=== PATIENT | female | born 1960 | race Caucasian/White ===

== ENCOUNTER 2017-05-27 23:51 | Emergency (ER) | payer SELFPAY ==
[2017-05-27 23:52] VITALS: BP 165/108; PULSE 110; RESP 18; TEMP 36.2; O2SAT 100; BMI 32.9
--- NOTE | 2017-05-28 00:02 | ED.RN ---
NO OLD EKG'S IN MUSE
--- NOTE | 2017-05-28 00:03 | EKG12_ITS ---
Test Reason : PALPITATIONS Blood Pressure : / mmHG Vent. Rate : 098 BPM Atrial Rate : 098 BPM P-R Int : 176 ms QRS Dur : 092 ms QT Int : 368 ms P-R-T Axes : 063 -43 068 degrees QTc Int : 469 ms Normal sinus rhythm Left axis deviation Low voltage QRS (limb leads) Poor R wave progression Abnormal ECG Confirmed by LIAT MICHELLE, JAIDEN ([id number]), editorial specialist BAKARI DICK ([id number] on 05/29/2017 2:21:00 PM Referred By: BB Confirmed By:JAIDEN JOSUE MD
[2017-05-28 00:26] LABS: Absolute Lymphocyte Count 3.03 X10^3/ul (0.83-4.51); Absolute Neutrophil Count 2.2 X10^3/uL (2.0-7.7); Basophil# 0.06 X10^3/uL; Eosinophil# 0.25 X10^3/uL; Eosinophils% 4.2 % (0-5); Hematocrit 43.2 % (37-47); Hemoglobin 14.8 g/dl (12.0-15.0); Lymphocyte # 3.03 X10^3/ul (4.0); Lymphocyte % 51.4 % (19-41); Mean Corp Hgb Conc 34.3 g/gl (32-36); Mean Corpuscular Volume 87.6 fL (81-99); Mean Platelet Vol. 10.4 fl (6.2-12.0); Monocyte# 0.35 X10^3/uL; Monocyte% 5.9 % (0-10); Neutrophil % 37.5 % (47-70); Platelet Count 251 K/mm3 (150-450); RBC Distribution Width CV 13.1 % (11.6-14.6); RBC Distribution Width SD 41.5 fl (35.1-43.9); Red Blood Count 4.93 M/mm3 (4.2-5.4); White Blood Count 5.9 K/mm3 (4.4-11.0)
[2017-05-28 00:31] LABS: POSITIVE COUNT NO; POSITIVE DIFFERENTIAL NO; POSITIVE MORPHOLOGY NO
[2017-05-28 00:47] LABS: Anion Gap 10 (5-15); BUN 13 mg/dL (7-18); BUN/Creat Ratio 16.2 RATIO (10-20); Chloride 109 mmol/L (98-107); EST Glomerular Filtration Rate 79 mL/min (>60); Est Glom Filt Rate - Afr Amer 95 mL/min (>60); Estimated Creatinine Clearance 65.73 ml/min; Glucose 172 mg/dL (74-106); Potassium 3.6 mmol/L (3.5-5.1); Sodium Level 145 mmol/L (136-145)
--- NOTE | 2017-05-28 01:55 | ED.VISSUMM ---
- ER Visit Summary Date of Service: 05/28/17 Chief Complaint: Palpitations History of Present Illness: The patient is a 56 F who woke up with a racing heartbeat about 30 minutes prior to evaluation. She states she immediately felt very panicked because of the feeling. She did not feel near syncopal, chest discomfort, or dyspnea. Just panicky. She feels much better now, but still feels anxious. She has a history of mitral valve prolapse that was diagnosed in her 20s, and she has type 2 diabetes. She used to see a doctor, but she left and she has not seen a new one in a long time. She takes no medications for her diabetes or blood pressure issues. No other known cardiac problems or history. Physical Examination: A little anxious but otherwise in no distress. Blood pressure 165/108, heart rate 110 and regular otherwise vital signs are normal with pulse ox 100% on room air. No cardiac murmurs heard. Lungs clear to auscultation throughout. Equal bilateral 2+/4 radial pulses. Negative Homans sign bilaterally, no pedal edema. No JVD. The rest of the exam is unremarkable. Test Results: Normal labs, blood sugars 172 which is a random blood sugar. EKG shows sinus rhythm at 98, no ectopy, left axis, no acute injury pattern or T-wave inversions. No old EKG available for comparison. Emergency Department Course and Treatment: With observation she felt better. She is up and ambulatory without symptoms. She had no dysrhythmias on the monitor that we were able to see, or ectopy while I was watching. I think she is stable to be discharged home, her troponin is negative there is no acute ischemic abnormalities on her EKG, she was having no angina symptoms. Unknown if she actually had a dysrhythmia, or if she had ectopy, or just simply sinus tachycardia or a different supraventricular tachycardia. She is given referral to PCP and cardiology follow-up. She states that she drinks a lot of caffeine when I asked her. I recommend that she avoid if possible for now. Treatment Plan: Follow-up Disposition: Discharge home Impression: Palpitations This note was generated with [employer] dictation software. It may contain incorrect words, spelling, and punctuation that were not noted in review of the chart prior to signing ED Disposition - Plan for ED Patient: Disposition: Home or Assisted Living Chief Complaint: Palpitations Instructions: ED Palpitations, ED Prolapse Mitral Valve Referrals: Sandra Bennett MD [STAFF PHYSICIAN] - 1-2 Weeks Howie Rhoades MD [STAFF PHYSICIAN] - 1 Week
[2017-05-28 02:04] VITALS: BP 158/87; PULSE 102; RESP 18; O2SAT 99
== END 2017-05-28 02:05 | disposition home or self-care (01) ==
PROVIDERS: Emergency Provider Emergency Medicine
DX: R00.2 Palpitations (principal); E11.9 Type 2 diabetes mellitus without complications; I10 Essential (primary) hypertension
CPT/HCPCS: 80048; 84484; 85025; 93005; 99285; A4216

== ENCOUNTER 2018-08-09 10:32 | Inpatient (IN) | payer SELFPAY ==
[2018-08-09 10:33] VITALS: BP 151/73; PULSE 103; RESP 15; TEMP 37.6; O2SAT 99; BMI 36.5
--- NOTE | 2018-08-09 11:00 | CT_ITS ---
STUDY: CT ABDOMEN AND PELVIS WITH CONTRAST REASON FOR EXAM: Female, 58 years old. Lower abdominal pain x2 weeks. Fever. Elevated white blood count. Prior history of mercury. Prior cholecystectomy. Hypertension. RADIATION DOSAGE (If Supplied By Facility): CTDIvol = ( 18.21 ) mGy, DLP = ( 1199.75 ) mGycm TECHNIQUE: Transaxial images were obtained from the dome of the diaphragm to the symphysis pubis without oral contrast. 100mL IV Isovue 300 was administered. Sagittal and coronal images were reconstructed. Individualized dose optimization techniques were used for this CT. COMPARISON: None. FINDINGS: The visualized lung bases are unremarkable only for plate like subsegmental atelectasis within the lower lobe versus pleural-parenchymal fibrosis. No pleural effusion. No pneumothorax. The visualized portions of the heart are within normal limits. Normal liver. The patient is close to status post cholecystectomy with approximately 1.5 cm dilatation of the common bile duct without CT evident etiology. There is also suggestion of very vague multifocal intrahepatic biliary ductal dilatation. Normal spleen. Normal pancreas. Normal bilateral adrenal glands. Normal right kidney. Normal left kidney. Normal visualized stomach. There are a few nonspecific air-fluid levels throughout nondistended loops of small bowel. There are a few, small, scattered colonic diverticulum. These appear uncomplicated. There is an approximately 9.2 cm AP by 6.6 cm transverse by 8.6 cm craniocaudal, significantly heterogeneous mass in the right pelvis just ventral to the right broad ligament. This finding is seen best on CT sequence 2, images [address] sequence 601 images 40 through 61. There is mass effect upon the cecum and ascending colon manifested by mild effacement and mild rightward translation. The right broad ligament is mildly thickened. There is no free pelvic fluid. There are no associated calcifications within this heterogeneous mass. There are multifocal punctate air foci within this process. No cain air-fluid levels are identified. A densely sclerotic 1 cm focus within the left iliac bone adjacent to the superior aspect of the left sacroiliac joint appears most compatible with a bone island, although a small orally osseous blastic metastasis can present in this fashion. No additional foci of suspicious lytic or blastic pathology are identified. There is no acute osseous abnormality. No significant spinal degenerative changes. Normal urinary bladder. Normal abdominal wall. CT/Abdomen/Pelvis W IV Cont ONLY IMPRESSION: Large right parapelvic mass as discussed above. Differential considerations include adnexal mass versus mesenteric mass versus inflammatory phlegmon. Consider biopsy for increased specificity. Electronically Signed: Dae Gonzalez MD at 12:38 EDT , Service support ,
--- NOTE | 2018-08-09 11:02 | ED.VISSUMM ---
- ER Visit Summary Date of Service: 08/09/18 Chief Complaint: Diarrhea, lower abdominal discomfort and fever History of Present Illness: The patient is a 58 F past medical history diverticulosis but no prior diverticulitis. Prior cholecystectomy and hysterectomy. He states he ate out 2 weeks ago became ill within the next 12 hours and had diarrhea for 3 days. She has had intermittent diarrhea for last 2 weeks now. Bilateral lower quadrant abdominal discomfort without dysuria. And a low-grade fever running from 100-101. She denies any dysuria. She is currently taking Imodium for the diarrhea. Physical Examination: Well-appearing middle-age female. Vital signs are stable. She is afebrile. Temperature is 99.7. She does not look septic or toxic. No distress. HEENT exam unremarkable. Neck nontender no lymphadenopathy. Lungs clear to auscultation bilaterally. Heart regular rhythm no murmur. Abdomen is soft. Mildly tender in both lower quadrants. No rebound, guarding or rigidity. Nondistended. Patient is moving all 4 extremities. Back is nontender. Neurologically she is awake and alert. Test Results: CBC shows a white count of 12.4. Hemoglobin 12. Electrolytes show a sodium 133. Normal gap and creatinine. UA normal no signs of infection. CT abdomen and pelvis with IV contrast only shows a large right parapelvic mass of uncertain etiology. Radiologist believes this could be adnexal versus mesenteric versus a phlegmon. An ultrasound was obtained which again showed a large complex mass but gave no additional definitive diagnosis. CT abdomen and pelvis with oral contrast is now currently being obtained. The CAT scan with oral contrast has been obtained. We will wait on the official read. The patient's been turned over to 1 of the afternoon physicians who will check the CAT scan results and contact Dr. Christine Nicolas for final disposition. The differential currently includes ruptured diverticulitis, appendicitis or ruptured appendicitis versus mass or other etiologies. Emergency Department Course and Treatment: Patient treated with a liter normal saline. Screening labs and a CAT scan of the obtained. Treatment Plan: CT abdomen and pelvis with oral contrast is pending. Once those results of are obtained Dr. Christine Nicolas will be consulted. Initially spoke with the general surgeon business communications instructor who then referred the case to Dr. Christine Nicolas due to a prior endoscopy she had treated the patient several years ago. Disposition: [] Impression: Acute lower quadrant abdominal pain This note was generated with [employer] dictation software. It may contain incorrect words, spelling, and punctuation that were not noted in review of the chart prior to signing ED Disposition - Plan for ED Patient: Referrals: Care Physician,No Primary [Primary Care Provider] -
[2018-08-09] MEDS: 0.9% Normal Saline 1,000 ML 999 ML IV (11:18)
[2018-08-09 11:33] LABS: Absolute Lymphocyte Count 1.49 X10^3/ul (0.83-4.51); Absolute Neutrophil Count 9.7 X10^3/uL (2.0-7.7); Basophil# 0.02 X10^3/uL; Basophil% 0.2 % (0-1); Eosinophil# 0.05 X10^3/uL; Eosinophils% 0.4 % (0-5); Hematocrit 37.9 % (37-47); Hemoglobin 12.3 g/dl (12.0-15.0); Lymphocyte # 1.49 X10^3/ul (4.0); Lymphocyte % 12.1 % (19-41); Mean Corp Hgb Conc 32.5 g/gl (32-36); Mean Corpuscular Hgb 28.3 pg (27.0-32.0); Mean Corpuscular Volume 87.3 fL (81-99); Monocyte# 1.04 X10^3/uL; Monocyte% 8.4 % (0-10); Neutrophil # 9.72 X10^3/uL (2.7-7.7); Neutrophil % 78.6 % (47-70); Platelet Count 415 K/mm3 (150-450); RBC Distribution Width CV 12.9 % (11.6-14.6); RBC Distribution Width SD 41.8 fl (35.1-43.9); Red Blood Count 4.34 M/mm3 (4.2-5.4); White Blood Count 12.4 K/mm3 (4.4-11.0)
[2018-08-09 11:35] LABS: POSITIVE COUNT NO; POSITIVE DIFFERENTIAL NO; POSITIVE MORPHOLOGY NO
[2018-08-09 11:43] LABS: Anion Gap 5 (5-15); BUN 9 mg/dL (7-18); BUN/Creat Ratio 10.9 RATIO (10-20); Calcium,Total 8.7 mg/dL (8.5-10.1); Chloride 100 mmol/L (98-107); Creatinine, Serum 0.82 mg/dL (0.55-1.02); EST Glomerular Filtration Rate 76 mL/min (>60); Est Glom Filt Rate - Afr Amer 92 mL/min (>60); Estimated Creatinine Clearance 62.62 ml/min; Glucose 116 mg/dL (74-106); Sodium Level 133 mmol/L (136-145)
[2018-08-09 12:26] VITALS: BP 144/86; PULSE 73; RESP 15; O2SAT 100
[2018-08-09 12:29] LABS: Mucous, Urine 0 SEEN /hpf (<or=2+); Red Blood Cells-Urine 0 SEEN /hpf (0-5); White Blood Cells 0 SEEN /hpf (0-5)
[2018-08-09 12:52] LABS: Color, Urine Yellow (Yellow); Glucose, Dipstick Normal (Normal); Ketone-Dipstick Negative (Negative); Leukocyte Esterase-Dipstick Negative /ul (Negative); Nitrite-Dipstick Negative (Negative); Occult Blood-Urine 10 /ul (Negative); Protein-Dipstick Negative (Negative); Specific Gravity, Urine 1.005 (1.002-1.030); Urine Bilirubin Dipstick Negative (Negative); Urine Clarity Clear (Clear); Urine Urobilinogen Normal (Normal); Urine pH 6.5 (5.0 - 8.0)
[2018-08-09 12:54] LABS: Bacteria RARE /hpf (None Seen); Squamous Epithelial Cells - UA 0-5 SEEN /hpf (5-10)
[2018-08-09 13:18] VITALS: BP 124/71; PULSE 97; RESP 16; O2SAT 97
--- NOTE | 2018-08-09 13:30 | CM.ED ---
SOCIAL WORK MET WITH PATIENT IN ROOM. INTRODUCED ROLE AND REASON FOR REFERRAL. PATIENT IS SELF PAY, NO PRIMARY CARE. PATIENT LIVES HOME WITH AND IS INDEPENDENT WITH ALL ADLS AND HOME MANAGEMENT TASKS. EDUCATION PROVIDED ON MEDICAID, [facility], AND LIST OF LOCAL PRIMARY CARE PROVIDERS. PATIENT DENIES ANY FURTHER QUESTIONS OR CONCERNS AT THIS TIME. JOSE DUARTE, DIGITAL PRINTER OPERATOR, [employer].
--- NOTE | 2018-08-09 14:24 | US_ITS ---
STUDY: ABDOMINAL ULTRASOUND - RIGHT UPPER QUADRANT REASON FOR VISIT: Female, 58 years old. Fever and diarrhea x7 days. TECHNIQUE: Ultrasound evaluation of the right upper quadrant was performed with real-time and static steen-scale imaging. TECHNICAL QUALITY: Adequate. COMPARISON: CT performed earlier today demonstrating an 8.6 cm maximum dimension heterogeneous mass in the mid to upper central right pelvis. FINDINGS: Limited and directed sonographic evaluation of the previously identified mass by transabdominal technique utilizing various imaging planes. There is a 9 cm maximum dimension, complex mass in the right lower quadrant with irregular margins and identified right lateral to the urinary bladder. US/Abdomen Limited IMPRESSION: Large, complex mass in the mid to upper right paramedian pelvis. This finding is nonspecific by sonography and does little to narrow the differential considerations listed in the CT the abdomen and pelvis performed earlier today. Electronically Signed: Dae Gonzalez MD at 15:54 EDT , Service support ,
--- NOTE | 2018-08-09 15:33 | CT_ITS ---
STUDY: CT ABDOMEN AND PELVIS WITH CONTRAST REASON FOR EXAM: Female, 58 years old. Abdominal mass RADIATION DOSAGE (If Supplied By Facility): CTDIvol = ( 23.59 ) mGy, DLP = ( 1102.01 ) mGycm TECHNIQUE: Transaxial images were obtained from the dome of the diaphragm to the symphysis pubis without oral contrast. 15 Oral Gastrografin was administered. Sagittal and coronal images were reconstructed. Individualized dose optimization techniques were used for this CT. COMPARISON: Previous study of 08/09/2018 FINDINGS: There is minimal bibasilar linear fibrosis and/or atelectasis. The visualized portions of the heart are within normal limits. Normal liver. There are surgical clips in the gallbladder fossa consistent with a prior cholecystectomy. There is dilatation of the CBD measuring up to 1.5 cm. Normal spleen. Normal pancreas. Normal bilateral adrenal glands. Normal right kidney. Normal left kidney. Normal visualized stomach. There is wall thickening of the terminal ileum. There is wall thickening of the cecum. There is non-visualization of the appendix. There is an area of increased soft tissue density with surrounding fatty stranding posteromedial to the cecum, involving an area measuring approximately 7.7 x 6.4 x 8.4 cm. Several punctate air densities are noted within this region. There is mild fatty stranding of the right paracolic gutter. There are calcified plaques of the abdominal aorta. Normal inferior vena cava. Normal retroperitoneum. Normal urinary bladder. There is absence of the uterus consistent with a prior hysterectomy. There is a small umbilical hernia containing fat. There are degenerative changes of the lumbar spine at the L4-5 level. There is a subcentimeter sclerotic focus of the left ilium. CT/Abdomen/Pel W ORAL Cont Only IMPRESSION: 1. There is wall thickening of the terminal ileum and cecum. There is a region of increased soft tissue density with surrounding fatty stranding posteromedial to the cecum, involving an area measuring approximately 7.7 x 6.4 x 8.4 cm. Several punctate air densities are seen in this area. Findings may represent inflammatory process with associated phlegmon possibly caused by process such as regional enteritis. Neoplastic process should also be considered. 2. Status post cholecystectomy. Dilatation of the CBD measuring up to 1.5 cm. 3. Status post hysterectomy. 4. Small fat-containing umbilical hernia. 5. Degenerative changes of the lumbar spine at the L4-5 level. There is again demonstrated a subcentimeter sclerotic focus of the left ilium more likely representing benign process such as bone island. The possibility of blastic lesion cannot be excluded. 6. There is no evidence of free intra-abdominal or intrapelvic fluid. Electronically Signed: Mehul Medel MD at 18:08 EDT , Service support ,
[2018-08-09 16:15] VITALS: BP 163/77; O2SAT 98
--- NOTE | 2018-08-09 17:43 | PCM.HP.BLA ---
History and Physical Date of Admission: 08/09/18 Chief Complaint: fevers History of Present Illness: 58 y/o WF with no known major medical illnesses, presented to the ED because of Fevers. Noted since July 25 She states that she had food poisoning about 2 weeks ago, noted bouts of loose stools and mild crampy lower abdominal pain. States that she was having fevers to 101F and thought that this was due to food poisoning. Since it was ongoing, she presented to the ED today. Found to have large right parapelvic inflammatory process - probable phlegmon, no abscess - c/w perforated appendicitis WBC 12.4K with left shift of differential Has nausea, but denies emesis There is a question of hypertension, however, does not have PCP because she doesn't have health insurance Past Medical History: mitral valve prolapse Past Surgical History: csection x 2 hysterectomy (still has ovaries) cholecystectomy Medications: denies taking chronic medications Allergies: iodine on skin Social history: TOB use denies Review of Systems: General - has fevers, denies weight loss, denies anorexia Cardiovascular denies chest pain, denies history of heart attack Pulmonary denies shortness of breath, denies coughing up blood Gastrointestinal denies blood in stools, denies fecal incontinence, has had loose stools Neurological denies numbness/weakness of extremities, denies seizures, denies history of stroke Genitourinary denies burning with urination, denies blood in urine Hematological denies spontaneous/prolonged bleeding Skin denies open non healing wounds Musculoskeletal denies history of fractures Endocrine denies diabetes Psychological denies hallucinations Physical examination: Vital signs Temp 99.7F HR 103 RR 15 BP 151/73 General WD/WN WF in no apparent distress, alert and oriented, not septic appearing HEENT Normocephalic. EOM intact with sclera clear and no icterus noted. Wearing glasses. Neck is supple with no jugular venous distention noted. Trachea is midline. Lungs normal breath sounds in all lung marshall. No rales/rhonchi/wheezing noted. No labored breathing noted, such as retractions. No cough heard. Heart normal S1 and S2 auscultated. No rubs/clicks/murmurs noted. Normal size and location by auscultation. Abdomen soft and benign but tender in right lower quadrant, no peritoneal signs. Normal bowel sounds, difficult to determine if any masses due to body habitus Extremities no calf tenderness noted. No pitting edema noted. Genitourinary/Rectal deferred Skin normal skin integrity. Neurological non focal Psychological normal affect, patient is calm and appropriate Impression: phlegmonous process in right lower quadrant suspect perforated appendicitis DIscussion/plan:: I have discussed the above with the patient. Admit for IV antibiotics. Will determine course of antibiotics based on parameters of abdominal examination and temperature and WBC. I have answered all questions to the patient?s satisfaction and the patient has no further questions.
[2018-08-09 18:00] VITALS: BP 164/77; PULSE 99; O2SAT 97
[2018-08-09 20:00] VITALS: BP 152/84; PULSE 105; RESP 16; TEMP 37.1; O2SAT 100
[2018-08-09 20:11] VITALS: BMI 36.1
[2018-08-09 20:23] VITALS: BMI 36.1
[2018-08-09] MEDS: Lactated Ringers 1,000 ML 100 ML IV (20:43)
[2018-08-10] VITALS (7 sets, daily range): BP systolic 113–140; BP diastolic 65–73; PULSE 87–92; RESP 16–18; TEMP 36.8–38.7; O2SAT 97–100
[2018-08-10 06:00] LABS: Absolute Neutrophil Count 8.7 X10^3/uL (2.0-7.7); Basophil# 0.03 X10^3/uL; Basophil% 0.3 % (0-1); Eosinophil# 0.04 X10^3/uL; Eosinophils% 0.4 % (0-5); Hematocrit 39.7 % (37-47); Lymphocyte % 9.4 % (19-41); Mean Corp Hgb Conc 32.7 g/gl (32-36); Mean Corpuscular Hgb 28.4 pg (27.0-32.0); Mean Corpuscular Volume 86.9 fL (81-99); Mean Platelet Vol. 9.9 fl (6.2-12.0); Monocyte# 0.88 X10^3/uL; Monocyte% 8.3 % (0-10); Neutrophil # 8.65 X10^3/uL (2.7-7.7); Neutrophil % 81.4 % (47-70); Platelet Count 349 K/mm3 (150-450); RBC Distribution Width SD 41.4 fl (35.1-43.9); Red Blood Count 4.57 M/mm3 (4.2-5.4); White Blood Count 10.6 K/mm3 (4.4-11.0)
[2018-08-10 06:08] LABS: POSITIVE COUNT NO; POSITIVE DIFFERENTIAL NO; POSITIVE MORPHOLOGY NO
[2018-08-10] MEDS: Lactated Ringers 1,000 ML 100 ML IV ×2 (06:34→16:00)
--- NOTE | 2018-08-10 13:03 | CASEMGMT ---
RN CM Assessment Presentation: Phlegmonous process in RLQ suspect perforated appendicitis. Intro role of CM and purpose of RN CM assessment to patient in room. she is awake, alert and able to participate in assessment. Demographics, PCP and Pharmacy verified. PCP: No PCP, physician- list given. Pt states she had PCP in past but she is no longer practicing in area. Specialists: Dr. Nicolas. Pt states she is able to see Dr. Nicolas on dc from hospital for f/u. [facility]erred [facility]acy[facility] Insurance: Self Pay Prescription Benefit: No, pt pays out of pocket for any scripts. LNOK: Abhilash Craig Living Arrangements: Lives independently with her . States she does not require any assistance with ADL. Does own self care. Transportation: drives DME: none HHC: none Referral: pt is self pay, no insurance, may need prescription assistance on dc. Patient DC goals: Home on discharge. DC PLAN: anticipate Home on dc. Dot STALEY RN ACM
--- NOTE | 2018-08-10 15:15 | PCM.PN.SRG ---
Subjective: I am following this patient with Dr. Christine Nicolas. Patient awake and resting comfortably in bed at time of visit. Notes some chills and had fever earlier this morning. CBC this morning showed normal white count but still with left shift. Patient states she is not having any significant abdominal pain currently at rest, does still note discomfort with moving and any pressure applied to abdomen. Denies nausea or vomiting. Has been up and ambulating in the hallway. - Physical Exam General: Alert, Oriented x3, Cooperative, No apparent distress, Well developed, Well nourished HEENT: Atraumatic, PERRLA Lungs: Clear to auscultation, Normal air movement Cardiovascular: Regular rate, Regular Rhythm Abdomen: Bowel Sounds Present, Soft, Tender - mid abdomen and RLQ, no rebound or guarding Extremities: No clubbing, No cyanosis Skin: No rashes, No breakdown Vital Signs Temp Pulse Resp BP Pulse Ox 99.4 F H 92 18 134/73 H 97 08/10/18 14:00 08/10/18 14:00 08/10/18 14:00 08/10/18 14:00 08/10/18 14:00 Oxygen Delivery Method Room Air Weight: 207 lb 0.225 oz Body Mass Index (BMI) 36.1 Intake and Output for Last 24 Hours 08/08/18 08/09/18 08/10/18 23:59 23:59 23:59 Intake Total 627 / 627 1903 / 1903 Balance 627 / 627 1902 / 190 Laboratory Tests Past 24 Hrs 08/10/18 05:25 WBC 10.6 RBC 4.57 Hgb 13.0 Hct 39.7 MCV 86.9 MCH 28.4 MCHC 32.7 RDW 13.0 RDW Differential 41.4 Plt Count 349 MPV 9.9 Immature Gran % (Auto) 0.200 Neut % (Auto) 81.4 H Lymph % (Auto) 9.4 L [place] % (Auto) 8.3 Eos % (Auto) 0.4 Baso % (Auto) 0.3 Absolute Neuts (auto) 8.7 H Absolute Lymphs (auto) 1.00 Total Counted Not Reportable Medical Necessity - Tobacco Use Smoking Status: Never smoker Assessment/Plan I have reviewed my findings with Dr. Nicolas, who also participated in development of the following plan. Phlegmonous process in right lower abdomen and fevers, consistent with perforated appendicitis, febrile this AM Continue IV antibiotics Repeat CBC tomorrow AM Will continue to monitor closely
[2018-08-10] MEDS: Acetaminophen 325 MG Tablet 650 MG PO (18:24)
[2018-08-10] MEDS: Glycerin/Hypromellose/PEG400 15 ml Bottle 2 DRP EACH EYE (18:25)
[2018-08-11] MEDS: Lactated Ringers 1,000 ML 100 ML IV ×2 (03:02→15:02)
[2018-08-11 03:07] VITALS: BP 130/73; PULSE 94; RESP 18; TEMP 38.1; O2SAT 97
[2018-08-11] MEDS: Ibuprofen 600 MG Tablet PO (03:07)
[2018-08-11 05:11] VITALS: TEMP 36.6
[2018-08-11 06:37] LABS: Absolute Lymphocyte Count 0.87 X10^3/ul (0.83-4.51); Basophil# 0.02 X10^3/uL; Basophil% 0.2 % (0-1); Eosinophil# 0.07 X10^3/uL; Eosinophils% 0.7 % (0-5); Hematocrit 35.2 % (37-47); Hemoglobin 11.4 g/dl (12.0-15.0); Lymphocyte # 0.87 X10^3/ul (4.0); Lymphocyte % 8.1 % (19-41); Mean Corp Hgb Conc 32.4 g/gl (32-36); Mean Corpuscular Hgb 28.1 pg (27.0-32.0); Mean Corpuscular Volume 86.7 fL (81-99); Mean Platelet Vol. 8.9 fl (6.2-12.0); Monocyte# 0.81 X10^3/uL; Monocyte% 7.5 % (0-10); Neutrophil # 8.96 X10^3/uL (2.7-7.7); Neutrophil % 83.3 % (47-70); Platelet Count 441 K/mm3 (150-450); RBC Distribution Width CV 13.1 % (11.6-14.6); RBC Distribution Width SD 41.7 fl (35.1-43.9); Red Blood Count 4.06 M/mm3 (4.2-5.4); White Blood Count 10.8 K/mm3 (4.4-11.0)
[2018-08-11 06:41] LABS: POSITIVE COUNT NO; POSITIVE DIFFERENTIAL NO; POSITIVE MORPHOLOGY NO
[2018-08-11 07:40] VITALS: BP 127/78; PULSE 77; RESP 18; TEMP 36.6; O2SAT 95
[2018-08-11 12:42] VITALS: TEMP 36.9
[2018-08-11 14:30] VITALS: BP 115/74; PULSE 83; RESP 18; TEMP 36.9; O2SAT 98
--- NOTE | 2018-08-11 18:15 | PCM.PN.SRG ---
Subjective: Patient reported that she was pain free this morning, feeling hungry, still with low grade temp passing flatus, still with loose stools - Physical Exam General: Alert, Oriented x3 HEENT: Atraumatic Oral: Moist Mucosa Neck: Supple Lungs: Normal air movement Abdomen: Bowel Sounds Present, Soft Vital Signs Temp Pulse Resp BP Pulse Ox 98.4 F 83 18 115/74 98 08/11/18 14:30 08/11/18 14:30 08/11/18 14:30 08/11/18 14:30 08/11/18 14:30 Oxygen Delivery Method Room Air Weight: 93.9 kg Body Mass Index (BMI) 36.1 Intake and Output for Last 24 Hours 08/09/18 08/10/18 08/11/18 23:59 23:59 23:59 Intake Total 627 / 627 4366 / 4366 2220 / 2220 Balance 627 / 627 4366 / 4366 2220 / 2220 Laboratory Tests Past 24 Hrs 08/11/18 06:10 WBC 10.8 RBC 4.06 L Hgb 11.4 L Hct 35.2 L MCV 86.7 MCH 28.1 MCHC 32.4 RDW 13.1 RDW Differential 41.7 Plt Count 441 MPV 8.9 Immature Gran % (Auto) 0.200 Neut % (Auto) 83.3 H Lymph % (Auto) 8.1 L [place] % (Auto) 7.5 Eos % (Auto) 0.7 Baso % (Auto) 0.2 Absolute Neuts (auto) 9.0 H Absolute Lymphs (auto) 0.87 Total Counted Not Reportable Medical Necessity - Tobacco Use Smoking Status: Never smoker Assessment/Plan Impression: perforated appendicitis Plan: will continue IV antibiotics for one more night, then probably can discharge to home tomorrow on oral antibiotics will follow up with patient as outpatient advance to low residue diet encourage fluid intake
[2018-08-11 21:51] VITALS: BP 129/78; PULSE 83; RESP 16; TEMP 37; O2SAT 100
[2018-08-12] MEDS: Lactated Ringers 1,000 ML 100 ML IV (02:42)
[2018-08-12 03:30] VITALS: BP 141/90; PULSE 84; RESP 16; TEMP 36.8; O2SAT 98
[2018-08-12 07:45] VITALS: BP 142/88; PULSE 75; RESP 16; TEMP 36.3; O2SAT 98
--- NOTE | 2018-08-12 08:03 | PCM.PN.SRG ---
Subjective: patient feeling well - Physical Exam Vital Signs Temp Pulse Resp BP Pulse Ox 98.3 F 84 16 141/90 H 98 08/12/18 03:30 08/12/18 03:30 08/12/18 03:30 08/12/18 03:30 08/12/18 03:30 Oxygen Delivery Method Room Air Weight: 93.9 kg Body Mass Index (BMI) 36.1 Intake and Output for Last 24 Hours 08/10/18 08/11/18 08/12/18 23:59 23:59 23:59 Intake Total 4366 / 4366 3424 / 3424 2074 / 2074 Output Total 100 / 100 Balance 4366 / 4366 3424 / 3424 1974 Medical Necessity - Tobacco Use Smoking Status: Never smoker Assessment/Plan Impression: perforated appendicitis Plan: d/c to home
--- NOTE | 2018-08-12 08:25 | DCINST_ITS ---
Discharge Diet: No Restrictions - drink plenty of fluids Discharge Activity: Return to Normal Activity Allergies/Adverse Reactions: Allergies gelatin [Gelatin] Allergy (Verified 08/09/18 20:15) Unknown iodine Allergy (Verified 08/09/18 10:52) Rash Medications to take at Discharge Multivit-Min/Iron/Folic/Lutein [Centrum Silver Women Tablet] 1 each PO DAILY 08/09/18 Amoxicillin/Potassium Clav [Augmentin 875-125 Tablet] 1 ea PO BID 7 Days #14 tab 08/12/18 Metronidazole [Flagyl] 500 mg PO Q8H 7 Days #21 tab 08/12/18 The following prescriptions were given: Metronidazole [Flagyl] 500 mg PO Q8H 7 Days #21 tab Amoxicillin/Potassium Clav [Augmentin 875-125 Tablet] 1 ea PO BID 7 Days #14 tab Primary Care Physician: Care Physician,No Primary [Primary Care Provider] - Test Results: Test results from this visit will be discussed in further detail at your follow- up appointment, if applicable. Please Follow Up With: Christine Nicolas MD - call When: to be seen in 2 weeks, please call for date and time, thank you
--- NOTE | 2018-08-17 19:36 | PCM.DC.BLA ---
Discharge Summary Date of Admission: 08/09/18 Date of Discharge: 08/12/18 Summary: Pauly Craig is a 58 y/o WF who presents with 2 weeks history of fevers and mild abdominal pain. She presented to [facility] ED for complaint of persistent fevers. She was noted to have elevated WBC and abdominal tenderness. She underwent CT scan which revealed perforated appendicitis with large phlegmon. She was admitted to the hospital for IV antibiotics, bowel rest, IV hydration and pain control. She had resolution of symptoms within three days. The WBC was normalized and she was discharged with normal temperature, tolerating diet and pain free. She will follow up as an outpatient. - Physical Exam Vital Signs Temp Pulse Resp BP Pulse Ox 97.4 F L 75 16 142/88 H 98 08/12/18 07:45 08/12/18 07:45 08/12/18 07:45 08/12/18 07:45 08/12/18 07:45 Oxygen Delivery Method Room Air Weight: 93.9 kg Body Mass Index (BMI) 36.1
--- NOTE | 2018-08-17 19:39 | DS.PCM_ITS ---
Discharge Summary Date of Admission: 08/09/18 Date of Discharge: 08/12/18 Summary: Pauly Craig is a 58 y/o WF who presents with 2 weeks history of fevers and mild abdominal pain. She presented to [facility] ED for complaint of persistent fevers. She was noted to have elevated WBC and abdominal tenderness. She underwent CT scan which revealed perforated appendicitis with large phlegmon. She was admitted to the hospital for IV antibiotics, bowel rest, IV hydration and pain control. She had resolution of symptoms within three days. The WBC was normalized and she was discharged with normal temperature, tolerating diet and pain free. She will follow up as an outpatient. - Physical Exam Vital Signs Temp Pulse Resp BP Pulse Ox 97.4 F L 75 16 142/88 H 98 08/12/18 07:45 08/12/18 07:45 08/12/18 07:45 08/12/18 07:45 08/12/18 07:45 Oxygen Delivery Method Room Air Weight: 93.9 kg Body Mass Index (BMI) 36.1
== END 2018-08-12 10:15 | disposition home or self-care (01) | DRG 373 ==
LOC: ED 18:29 → MS2 18:41
PROVIDERS: Emergency Medicine; Admitting Provider Surgery; Emergency Provider Emergency Medicine; Visit Provider Surgery
DX: K35.32 Acute appendicitis with perforation, localized peritonitis, and gangrene, without abscess (principal)
CPT/HCPCS: 36415; 74176; 74177; 76705; 80048; 81001; 85025; 99284; J7030; J7040; J7120; Q9967

== ENCOUNTER 2021-05-05 13:57 | Emergency (ER) | payer MEDICAID, SELFPAY ==
[2021-05-05 13:58] VITALS: BP 219/107; PULSE 101; RESP 16; TEMP 36.6; O2SAT 99; BMI 34.7
[2021-05-05 15:07] VITALS: BP 209/108; PULSE 97; RESP 18; O2SAT 100
--- NOTE | 2021-05-05 15:16 | EKG12_ITS ---
Test Reason : CP Blood Pressure : / mmHG Vent. Rate : 093 BPM Atrial Rate : 093 BPM P-R Int : 192 ms QRS Dur : 098 ms QT Int : 392 ms P-R-T Axes : 060 -51 075 degrees QTc Int : 487 ms Sinus rhythm with occasional Premature ventricular complexes Left anterior fascicular block Prolonged QT Abnormal ECG Confirmed by ELI MICHELLE, LUIS ALFREDO ([id number]), avid editor MICHA GEORGES ([id number]) on 05/06/2021 1:09:19 PM Referred By: CARLA Confirmed By:LUIS ALFREDO BENITEZ MD
--- NOTE | 2021-05-05 15:18 | EDS_ITS ---
HPI History of Present Illness Chief Complaint: Chest Pain Informant: patient Onset/Context/Timing Onset: Today Activity at onset: gradual Timing: Intermittent and Lasts (Few seconds) Quality: Positive for Sharp Location: Substernal, Right Parasternal and Left Parasternal Worsened By: Nothing Relieved By: Nothing Associated Symptoms: Positive for Palpitations; Negative for Nausea, Vomiting, Diaphoresis, Dyspnea, Cough, Fever, Lightheadedness and Acid Reflux Narrative Narrative: Patient presents with chest pain that began today. Patient states it has been intermittent and only lasts a few seconds. Patient describes her pain as sharp. Patient states it is over the substernal and parasternal area. Patient states nothing makes it better and nothing makes it worse. Patient admits to some occasional palpitations. Patient denies any nausea or vomiting. Patient denies any diaphoresis. Patient denies any shortness of breath or cough. Patient denies any lightheadedness. Patient denies any fevers or chills. CVD Risk Factors: Positive for Hypertension; Negative for Diabetes, Hy percholesterolemia, Family History 1' </=55 and Smoking PE Risk Factors: Negative for Recent Travel/Surgery, Recent Immobilization, Prior DVT or PE, Cancer and OCP + Smoking + >/=35 PFSH PFSH Medical History (Updated 05/05/21 @ 18:[address] Joey Gamble DO) Hx of mitral valve prolapse Hypertension Home Medications [id number]-[id number]-lutein [Centrum Silver Women Tablet] 1 ea PO DAILY 08/09/18 [History Last Taken 08/09/18] hydrochlorothiazide 25 mg PO DAILY #30 tab 05/05/21 [Rx Last Taken Unknown] Allergy/AdvReac Type Severity Reaction Status Date / Time gelatin [Gelatin] Allergy Unknown Verified 05/05/21 14:00 iodine Allergy Rash Verified 05/05/21 14:00 Surgical History (Updated 05/05/21 @ 15:[address] Joey Gamble DO) History of cholecystectomy History of hysterectomy Hx of tonsillectomy Social History Smoking Status: Never smoker ROS ROS ED Constitutional Constitutional ED: Denies chills or fever(s) Eyes Eyes: Denies blurry vision or change in vision ENT ENT ED: Denies rhinorrhea or sore throat Cardiovascular Cardiovascular: Reports chest pain and palpitations Respiratory/Chest Respiratory/Chest: Denies cough or dyspnea Gastrointestinal Gastrointestinal: Denies abdominal pain, nausea or vomiting Genitourinary Genitourinary ED: Denies dysuria or hematuria Musculoskeletal Musculoskeletal: Denies back pain or neck pain Integumentary Denies abscess or rash Neurologic Neurologic: Denies headache(s) or weakness Allergic/Immunologic Allergic/Immunologic ED: Denies mouth swelling or urticaria EXAM Physical Exam Const Vital Signs: 05/05/21 13:58 05/05/21 15:07 05/05/21 16:23 Temperature 97.9 F Temperature Source Temporal Pulse Rate 101 H 97 88 Respiratory Rate 16 18 20 H Respiratory Effort Normal Blood Pressure 219/107 H 209/108 H 191/104 H Blood Pressure Mean 144 141 133 Pulse Ox 99 100 100 Oxygen Delivery Method Room Air Room Air Room Air 05/05/21 17:12 Temperature Temperature Source Pulse Rate 78 Respiratory Rate 18 Respiratory Effort Blood Pressure 166/93 H Blood Pressure Mean 117 Pulse Ox 98 Oxygen Delivery Method Room Air Positive well nourished, well developed and obese General Appearance ED: well developed Nutritional Appearance: obese HEENT normocephalic and atraumatic Eyes PERRL and EOMs intact bilaterally Neck supple and no JVD Chest Wall palpation of chest normal Resp normal respiratory effort and clear to auscultation bilaterally Effort and Inspection: Negative for respiratory distress Cardio regular rate, regular rhythm and no murmurs GI normal to inspection, nondistended, normoactive bowel sounds, soft to palpation, non-tender and non-distended Extremity normal to inspection General Extremety ED: Negative for edema or tenderness General Extremity: Negative for edema Neuro oriented x3, CN's II-XII intact bilaterally and no sensory deficits noted Sensorium / Orientation: awake and alert Motor Exam: strength 5/5 throughout Psych mental status grossly normal Heart Score History: Slightly/Non-Suspicious ECG: Normal Age: >45 - <65 years Risk Factors: 1 or 2 Risk Factors Score: 2 MDM MDM MDM Narrative Medical decision making narrative: Patient was given a dose of aspirin and labetalol here. EKG was obtained. On my interpretation, it showed a normal sinus rhythm with a rate of 93 with occasional PVC. RI interval, QRS interval, and QTc intervals were all normal. There is left axis deviation at -51 with a left anterior fascicular block. There are no acute ST or T wave changes. CBC was within normal limits. Basic metabolic profile was within normal limits. Initial high-sensitivity troponin was normal at 4. Portable 1 view chest x-ray was obtained. On my interpretation, lung marshall are clear. There is normal cardiac silhouette. Bony thorax is normal. There is no acute process noted. Radiologist also interpreted the x-ray and agrees. 2-hour repeat high- sensitivity troponin was normal at 5. Patient has a HEART score of 2. Patient was advised that this is low risk for acute cardiac event. Patient's blood pressure improved to 166/93 on reevaluation. Patient was given a prescription for hydrochlorothiazide. Patient was instructed to continue to monitor her blood pressures while at home. Patient was given a referral for primary care physician for follow-up care in 3 to 5 days. Patient was instructed to return if worse in any way. Patient understood and was agreeable with the plan. All questions were answered. Lab Data Attestation: I reviewed the patient's lab results. Labs: Laboratory Results - last 24 hr 05/05/21 05/05/21 05/05/21 15:32 15:32 17:09 WBC 5.1 RBC 5.22 Hgb 15.1 H Hct 45.4 MCV 87.0 MCH 28.9 MCHC 33.3 RDW Std Deviation 40.4 RDW Coeff of [place] 12.7 Plt Count 274 MPV 9.7 Immature Gran % (Auto) 0.200 Neut % (Auto) 64.4 Lymph % (Auto) 26.1 [place] % (Auto) 6.0 Eos % (Auto) 2.7 Baso % (Auto) 0.6 Absolute Neuts (auto) 3.3 Absolute Lymphs (auto) 1.34 Nucleated RBC % 0 Sodium 140 Potassium 3.8 Chloride 104 Carbon Dioxide 27.0 Anion Gap 9 BUN 13 Creatinine 0.98 Estim Creat Clear Calc 51.13 Est GFR (MDRD) Af Amer 75 Est GFR (MDRD) Non-Af 62 BUN/Creatinine Ratio 13.3 Glucose 265 H Calcium 9.7 Troponin I High Sens 4 5 Radiography Chest X-Ray - ED: 1 View, Read by Radiologist and Normal Diagnostic Testing: Clinical Impression(s) from Imaging Studies Chest X-Ray 05/05/21 15:42 IMPRESSION: Normal x-ray examination of the chest. Electronically Signed: Neel Goldberg MD at 17:45 EST , Service support , EKG Initial EKG: Attestation: I personally reviewed and interpreted this EKG as follows: Interpretation: Sinus Rhythm (93), No Acute Injury Pattern and LAFB Prior EKG tracings: available for review Prior: Unchanged (05/28/2017) Discharge Plan Triage Chief Complaint: Chest Pain ED Provider: Joey Gamble Dx/Rx/DC Orders Clinical Impression: Chest pain, Hypertension Instructions: ED Chest Pain, Uncertain Cause, ED Hypertension New Begin Treatment Prescriptions: New hydrochlorothiazide 25 mg tablet 25 mg PO DAILY Qty: 30 RF: 0 No Action [id number] [Centrum Silver Women] 1 EACH tablet 1 ea PO DAILY RF: 0 Primary Care Provider: Care Physician,No Primary Referrals: Meme Hedrick MD [STAFF PHYSICIAN] - 3-5 Days Care Physician,No Primary [Primary Care Provider] - Disposition Disposition: Home, Self Care
[2021-05-05 15:41] LABS: Absolute Lymphocyte Count 1.34 X10^3/uL (0.83-4.51); Absolute Neutrophil Count 3.3 X10^3/uL (2.0-7.7); Basophil# 0.03 X10^3/uL; Basophil% 0.6 % (0-1); Eosinophil# 0.14 X10^3/uL; Eosinophils% 2.7 % (0-5); Hematocrit 45.4 % (37-47); Hemoglobin 15.1 g/dL (12.0-15.0); Lymphocyte # 1.34 X10^3/ul (0.83-4.51); Lymphocyte % 26.1 % (19-41); Mean Corp Hgb Conc 33.3 g/dL (32-36); Mean Corpuscular Hgb 28.9 pg (27.0-32.0); Mean Platelet Vol. 9.7 fl (6.2-12.0); Monocyte# 0.31 X10^3/uL; NRBC Flagged by Analyzer 0 % (0-5); Neutrophil # 3.31 X10^3/uL (2.7-7.7); Neutrophil % 64.4 % (47-70); Platelet Count 274 K/mm3 (150-450); RBC Distribution Width CV 12.7 % (11.6-14.6); RBC Distribution Width SD 40.4 fl (35.1-43.9); Red Blood Count 5.22 M/mm3 (4.2-5.4); White Blood Count 5.1 K/mm3 (4.4-11.0)
--- NOTE | 2021-05-05 15:42 | RAD_ITS ---
STUDY: X-RAY CHEST REASON FOR EXAM: Female, 60 years old. chest pain TECHNIQUE: Single frontal view of the chest. COMPARISON: 04/08/2011 FINDINGS: The lungs are clear and expanded. There is no demonstrated pleural abnormality. Normal size heart. Normal mediastinum and omar. Normal visualized pulmonary arteries. Normal visualized aortic arch and descending thoracic aorta. Normal visualized thoracic spine. Normal visualized ribs, clavicles, and shoulders. There is no demonstrated abnormality of the visualized soft tissue structures of the upper abdomen. RAD/Chest 1 View (Portable) IMPRESSION: Normal x-ray examination of the chest. Electronically Signed: Neel Goldberg MD at 17:45 EST , Service support ,
[2021-05-05 15:57] LABS: Anion Gap 9 (5-15); BUN 13 mg/dL (7-18); BUN/Creat Ratio 13.3 RATIO (10-20); Calcium,Total 9.7 mg/dL (8.5-10.1); Chloride 104 mmol/L (98-107); Creatinine, Serum 0.98 mg/dL (0.55-1.02); EST Glomerular Filtration Rate 62 mL/min (>60); Est Glom Filt Rate - Afr Amer 75 mL/min (>60); Estimated Creatinine Clearance 51.13 ml/min; Glucose 265 mg/dL (74-106); Potassium 3.8 mmol/L (3.5-5.1); Sodium Level 140 mmol/L (136-145); Troponin-I HS 4 pg/mL (3.0-54.0)
[2021-05-05 16:23] VITALS: BP 191/104; PULSE 88; RESP 20; O2SAT 100
[2021-05-05] MEDS: Labetalol (Prefilled) 20 MG/4 ML IV (16:24)
[2021-05-05 17:12] VITALS: BP 166/93; PULSE 78; RESP 18; O2SAT 100; O2SAT 98
[2021-05-05 17:37] LABS: Troponin-I HS 5 pg/mL (3.0-54.0)
[2021-05-05 18:30] VITALS: BP 174/105; PULSE 74; RESP 15; O2SAT 98
== END 2021-05-05 18:32 | disposition home or self-care (01) ==
PROVIDERS: Emergency Provider Emergency Medicine; Visit Provider Emergency Medicine
DX: R07.89 Other chest pain (principal); I44.4 Left anterior fascicular block; I49.3 Ventricular premature depolarization; I10 Essential (primary) hypertension; R00.2 Palpitations; Z79.899 Other long term (current) drug therapy; E66.9 Obesity, unspecified; Z68.34 Body mass index [BMI] 34.0-34.9, adult
CPT/HCPCS: 71045; 80048; 84484; 85025; 93005; 96374; 99284; A4216

== ENCOUNTER 2021-05-10 09:43 | Outpatient (CLI) | payer MEDICAID, SELFPAY ==
[2021-05-10 12:45] LABS: Hemoglobin A1c 6.9 % (3.8-5.6)
[2021-05-10 12:49] LABS: Anion Gap 5 (5-15); BUN 20 mg/dL (7-18); BUN/Creat Ratio 21.6 RATIO (10-20); Calcium,Total 10.1 mg/dL (8.5-10.1); Chloride 104 mmol/L (98-107); Cholesterol 176 mg/dL (200); Creatinine, Serum 0.93 mg/dL (0.55-1.02); EST Glomerular Filtration Rate 66 mL/min (>60); Est Glom Filt Rate - Afr Amer 80 mL/min (>60); Glucose 179 mg/dL (74-106); High Density Lipoprotein 43 mg/dL; Potassium 5.3 mmol/L (3.5-5.1); Sodium Level 138 mmol/L (136-145); Triglycerides 123 mg/dL; Very Low Density Lipoprotein 25 mg/dL (5-40)
== END 2021-05-10 23:59 | disposition short-term general hospital (02) ==
LOC: BIMLAB 09:43
PROVIDERS: PCP Internal Medicine; Referring Provider Internal Medicine; Visit Provider Internal Medicine
DX: R73.09 Other abnormal glucose (principal); R07.9 Chest pain, unspecified; I10 Essential (primary) hypertension
CPT/HCPCS: 36415; 80048; 80061; 83036

== ENCOUNTER 2021-06-07 10:41 | Outpatient (CLI) | payer MEDICAID, SELFPAY ==
[2021-06-07 12:25] LABS: Anion Gap 6 (5-15); BUN 15 mg/dL (7-18); Calcium,Total 9.8 mg/dL (8.5-10.1); Chloride 103 mmol/L (98-107); Creatinine, Serum 0.88 mg/dL (0.55-1.02); EST Glomerular Filtration Rate 70 mL/min (>60); Est Glom Filt Rate - Afr Amer 84 mL/min (>60); Glucose 155 mg/dL (74-106); Potassium 4.2 mmol/L (3.5-5.1); Sodium Level 139 mmol/L (136-145)
== END 2021-06-07 23:59 | disposition home or self-care (01) ==
LOC: BIMLAB 10:41
PROVIDERS: PCP Internal Medicine; Referring Provider Internal Medicine; Visit Provider Internal Medicine
DX: I10 Essential (primary) hypertension (principal)
CPT/HCPCS: 36415; 80048

== ENCOUNTER → 2021-09-05 | Outpatient (CLI) | payer MEDICAID, SELFPAY ==
[2021-09-05 12:57] LABS: Hemoglobin A1c 6.7 % (3.8-5.6)
== END | disposition home or self-care (01) ==
LOC: BIMLAB 08:27
PROVIDERS: PCP Internal Medicine; Referring Provider Internal Medicine; Visit Provider Internal Medicine
DX: E11.9 Type 2 diabetes mellitus without complications (principal)
CPT/HCPCS: 36415; 83036

== ENCOUNTER → 2021-12-05 | Outpatient (CLI) | payer MEDICAID, SELFPAY ==
[2021-12-05 15:17] LABS: Absolute Lymphocyte Count 1.81 X10^3/uL (0.83-4.51); Absolute Neutrophil Count 2.4 X10^3/uL (2.0-7.7); Basophil# 0.04 X10^3/uL; Basophil% 0.9 % (0-1); Eosinophil# 0.09 X10^3/uL; Eosinophils% 1.9 % (0-5); Hematocrit 43.8 % (37-47); Hemoglobin 14.8 g/dL (12.0-15.0); Lymphocyte # 1.81 X10^3/ul (0.83-4.51); Lymphocyte % 38.8 % (19-41); Mean Corp Hgb Conc 33.8 g/dL (32-36); Mean Corpuscular Hgb 29.9 pg (27.0-32.0); Mean Corpuscular Volume 88.5 fL (81-99); Mean Platelet Vol. 10.4 fl (6.2-12.0); Monocyte# 0.32 X10^3/uL; Monocyte% 6.9 % (0-10); NRBC Flagged by Analyzer 0 % (0-5); Neutrophil % 51.3 % (47-70); Platelet Count 236 K/mm3 (150-450); RBC Distribution Width CV 12.3 % (11.6-14.6); RBC Distribution Width SD 39.6 fl (35.1-43.9); Red Blood Count 4.95 M/mm3 (4.2-5.4); White Blood Count 4.7 K/mm3 (4.4-11.0)
[2021-12-05 15:56] LABS: ALB/GLOB Ratio 1.2 RATIO (0.9-2.4); AST(SGOT) 18 U/L (15-37); Alanine Aminotransfer ALT/SGPT 30 U/L (13-56); Albumin, Serum 4.1 g/dL (3.2-5.0); Alkaline Phosphatase 79 U/L (45-117); Anion Gap 5 (5-15); BUN 20 mg/dL (7-18); BUN/Creat Ratio 21.6 RATIO (10-20); Calcium,Total 9.5 mg/dL (8.5-10.1); Chloride 105 mmol/L (98-107); Creatinine, Serum 0.92 mg/dL (0.55-1.02); EST Glomerular Filtration Rate 66 mL/min (>60); Est Glom Filt Rate - Afr Amer 80 mL/min (>60); Globulin 3.3 g/dL (2.2-4.2); Glucose 124 mg/dL (74-106); Hemoglobin A1c 6.7 % (3.8-5.6); Potassium 3.9 mmol/L (3.5-5.1); Protein, Total 7.4 g/dL (6.4-8.2); Sodium Level 140 mmol/L (136-145)
[2021-12-05 15:58] LABS: Vitamin B12 353 pg/mL (211-911); Vitamin D,25 Hydroxy 68.1 ng/mL
== END | disposition home or self-care (01) ==
LOC: BIMLAB 14:24
PROVIDERS: PCP Internal Medicine; Referring Provider Internal Medicine; Visit Provider Internal Medicine
DX: E11.9 Type 2 diabetes mellitus without complications (principal); Z13.21 Encounter for screening for nutritional disorder
CPT/HCPCS: 36415; 80053; 82306; 82607; 83036; 85025

== ENCOUNTER → 2022-05-30 | Outpatient (CLI) | payer MEDICAID, SELFPAY ==
[2022-05-30 12:42] LABS: Absolute Lymphocyte Count 1.68 X10^3/uL (0.83-4.51); Absolute Neutrophil Count 2.1 X10^3/uL (2.0-7.7); Basophil# 0.04 X10^3/uL; Basophil% 0.9 % (0-1); Eosinophil# 0.32 X10^3/uL; Eosinophils% 7.1 % (0-5); Hematocrit 45.1 % (37-47); Hemoglobin 15.2 g/dL (12.0-15.0); Lymphocyte # 1.68 X10^3/ul (0.83-4.51); Lymphocyte % 37.4 % (19-41); Mean Corp Hgb Conc 33.7 g/dL (32-36); Mean Corpuscular Volume 89.1 fL (81-99); Mean Platelet Vol. 10.7 fl (6.2-12.0); Monocyte# 0.31 X10^3/uL; Monocyte% 6.9 % (0-10); NRBC Flagged by Analyzer 0 % (0-5); Neutrophil # 2.13 X10^3/uL (2.7-7.7); Neutrophil % 47.5 % (47-70); Platelet Count 242 K/mm3 (150-450); RBC Distribution Width CV 12.4 % (11.6-14.6); RBC Distribution Width SD 40.5 fl (35.1-43.9); Red Blood Count 5.06 M/mm3 (4.2-5.4); White Blood Count 4.5 K/mm3 (4.4-11.0)
[2022-05-30 12:52] LABS: Vitamin B12 1263 pg/mL (211-911)
[2022-05-30 12:59] LABS: ALB/GLOB Ratio 1.2 RATIO (0.9-2.4); AST(SGOT) 19 U/L (15-37); Alanine Aminotransfer ALT/SGPT 36 U/L (13-56); Alkaline Phosphatase 78 U/L (45-117); Anion Gap 8 (5-15); BUN 12 mg/dL (7-18); Calcium,Total 10.3 mg/dL (8.5-10.1); Chloride 101 mmol/L (98-107); Cholesterol 181 mg/dL (200); Creatinine, Serum 0.92 mg/dL (0.55-1.02); EST Glomerular Filtration Rate 66 mL/min (>60); Est Glom Filt Rate - Afr Amer 80 mL/min (>60); Globulin 3.2 g/dL (2.2-4.2); Glucose 153 mg/dL (74-106); High Density Lipoprotein 42 mg/dL; Potassium 4.3 mmol/L (3.5-5.1); Protein, Total 7.2 g/dL (6.4-8.2); Sodium Level 140 mmol/L (136-145); Triglycerides 104 mg/dL; Very Low Density Lipoprotein 21 mg/dL (5-40)
[2022-05-30 13:00] LABS: Hemoglobin A1c 6.7 % (3.8-5.6)
[2022-05-30 13:07] LABS: Microalbumin,Random Urine 5.6 mg/L (NO RANGE EST.); Microalbumin:Creatinine Ratio 8.5 mg/g CRE (<30 mg/g CRE)
== END | disposition home or self-care (01) ==
LOC: BIMLAB 09:28
PROVIDERS: PCP Internal Medicine; Referring Provider Internal Medicine; Visit Provider Internal Medicine
DX: I10 Essential (primary) hypertension (principal); E11.9 Type 2 diabetes mellitus without complications; Z13.21 Encounter for screening for nutritional disorder
CPT/HCPCS: 36415; 80053; 80061; 82043; 82570; 82607; 83036; 85025

== ENCOUNTER → 2022-10-24 | Outpatient (CLI) | payer MEDICAID, SELFPAY ==
[2022-10-24 12:45] LABS: Hemoglobin A1c 6.8 % (3.8-5.6)
[2022-10-24 12:47] LABS: Vitamin B12 562 pg/mL (211-911)
[2022-10-24 12:55] LABS: Anion Gap 4 (5-15); BUN 15 mg/dL (7-18); BUN/Creat Ratio 15.9 RATIO (10-20); Calcium,Total 9.9 mg/dL (8.5-10.1); Chloride 104 mmol/L (98-107); Creatinine, Serum 0.94 mg/dL (0.55-1.02); EST Glomerular Filtration Rate 64 mL/min (>60); Est Glom Filt Rate - Afr Amer 77 mL/min (>60); Glucose 142 mg/dL (74-106); Potassium 3.9 mmol/L (3.5-5.1); Sodium Level 138 mmol/L (136-145)
== END | disposition home or self-care (01) ==
LOC: BIMLAB 09:25
PROVIDERS: PCP Internal Medicine; Referring Provider Internal Medicine; Visit Provider Internal Medicine
DX: E11.9 Type 2 diabetes mellitus without complications (principal); I10 Essential (primary) hypertension; E53.8 Deficiency of other specified B group vitamins
CPT/HCPCS: 36415; 80048; 82607; 83036

== ENCOUNTER → 2022-11-06 | Outpatient (CLI) | payer MEDICAID, SELFPAY ==
--- NOTE | 2022-11-06 12:38 | BD_ITS ---
STUDY: DUAL ENERGY X-RAY ABSORPTIOMETRY / DXA REASON FOR EXAM: Female, 62 years old. Post Menopausal TECHNIQUE: Bone Mineral Density (BMD) measurements of lumbar spine and bilateral hips were obtained. COMPARISON: None. FINDINGS: Lumbar Spine (L1-L4): g/cm2 (1.011) / T-score (-0.3) / Z-score (1.2) Findings are suggestive of normal bone density with a low fracture risk. Left Femur Total: g/cm2 (0.938) / T-score (0.0) / Z-score (1.0) Left Femoral Neck: g/cm2 (0.761) / T-score (-0.8) / Z-score (0.6) Right Femur Total: g/cm2 (0.978) / T-score (0.3) / Z-score (1.3) Right Femoral Neck: g/cm2 (0.788) / T-score (-0.5) / Z-score (0.8) BD/Dexa Bone Density Study IMPRESSION: The patient is considered normal as outlined below according to World Gilbert Organization (WHO) criteria with a low fracture risk. Reference Information: The T-score is the number of standard deviations above or below the standard which is normal for young adults at their peak bone mineral density. The World Health Organization (WHO) interprets the T-scores as follows: Above -1 Normal bone density Between -1 and -2.5 Osteopenia Equal to / or below -2.5 Osteoporosis As a practical clinical guideline, osteopenia may be graded as follows: Mild -1 through -1.5 Moderate -1.6 through -2.0 Severe -2.1 through -2.4 The Z-score is the number of standard deviations above or below age-matched controls. A Z-score of less than -1.5 would be considered abnormal. References: 1. NIH Osteoporosis and Related Bone Diseases www osteo.org 2. International Society for Clinical Densitometry www iscd.org 3. National Osteoporosis Foundation www nof.org Electronically Signed: Marcos Tucker MD at 11:09 EDT ,
== END | disposition home or self-care (01) ==
LOC: OPBD 12:31
PROVIDERS: PCP Internal Medicine; Referring Provider Internal Medicine; Visit Provider Internal Medicine
DX: Z78.0 Asymptomatic menopausal state (principal)
CPT/HCPCS: 77080

== ENCOUNTER 2023-02-13 05:25 | Observation (INO) | payer MEDICAID, SELFPAY ==
[2023-02-13 05:27] VITALS: BP 142/76; PULSE 85; RESP 16; TEMP 35.6; O2SAT 100; BMI 34.1
--- NOTE | 2023-02-13 05:36 | CT_ITS ---
EXAM: CT HEAD WITHOUT INTRAVENOUS CONTRAST CLINICAL INDICATION: injury TECHNIQUE: Multiple axial images were obtained of the head without intravenous contrast. This CT exam was performed using one or more of the following dose reduction techniques: automated exposure control, adjustment of the mA and/or kV according to patient size, and/or use of iterative reconstruction technique. RADIATION DOSE: CTDIvol = 44.99 mGy, DLP = 779.24 mGy-cm COMPARISON: No relevant prior studies available. FINDINGS: BRAIN AND EXTRA-AXIAL SPACES: Unremarkable. No intra- or extra-axial hemorrhage. No evidence of acute infarct. No intracranial mass or mass effect. There is preservation of the steen/white matter interface. Posterior fossa structures are unremarkable. Ventricles are appropriate for age. No hydrocephalus. Basal cisterns are patent. BONES/JOINTS: Unremarkable. No discrete lytic or blastic abnormalities. SINUSES: Unremarkable as visualized. Clear. MASTOID AIR CELLS: Unremarkable. Clear. ORBITS: Visualized globes, extraocular muscles, optic nerves and retrobulbar fat appear unremarkable. CT/Brain/Head without Contrast IMPRESSION: Negative head/brain CT without intravenous contrast. Electronically Signed: Cesar Winn MD at 6:47 EDT ,
--- NOTE | 2023-02-13 05:36 | CT_ITS ---
EXAM: CT CERVICAL SPINE WITHOUT INTRAVENOUS CONTRAST CLINICAL INDICATION: injury TECHNIQUE: Helically acquired images were obtained of the cervical spine without intravenous contrast. 2D reformatted images were reviewed. This CT exam was performed using one or more of the following dose reduction techniques: automated exposure control, adjustment of the mA and/or kV according to patient size, and/or use of iterative reconstruction technique. RADIATION DOSE: CTDIvol = 22.64 mGy, DLP = 473.62 mGy-cm COMPARISON: No relevant prior studies available. FINDINGS: VERTEBRAE: Mild multilevel bilateral cervical vertebral facet arthropathy. No fracture. No traumatic subluxation. No discrete lytic or blastic abnormality. Normal alignment. Normal craniocervical junction and cervicothoracic junction. DISCS/SPINAL CANAL/NEURAL FORAMINA: Mild multilevel cervical degenerative disc disease. No critical stenosis. SOFT TISSUES: Unremarkable. No prevertebral soft tissue swelling. LYMPH NODES: Unremarkable. No cervical adenopathy. LUNG APICES: Unremarkable as visualized. Clear. CT/Spine Cervical without Contras IMPRESSION: Mild cervical degenerative changes. No acute fractures or subluxations. Electronically Signed: Cesar Winn MD at 6:48 EDT ,
--- NOTE | 2023-02-13 05:37 | EX.ED.DYSGE1 ---
HPI History of Present Illness Chief Complaint: Syncope Informant: patient Narrative Narrative: Patient presents with a syncopal episode at home. Patient states she woke up this morning and did not feel right but she cannot remember exactly what woke her up. She states she tried to check her blood pressure but the machine would not read. She started to go to the bottom of the stairs to call for her who was upstairs but she states she felt very lightheaded and dizzy. She yelled for him and tried to turn back to her room but he found her at the bottom of the stairs on the floor unresponsive. Patient states remembers waking up with EMS standing over her. She does not member having palpitations or chest pain. Patient denies any new medications. She did reportedly just finish a 3-day fast where she drank water, decaf coffee, and fizzy water. She did eat oatmeal last night for dinner. PFSH PFS Medical History Abnormal EKG Anemia Colon cancer screening Dermatitis Elevated random blood glucose level Encounter for vitamin deficiency screening Health care maintenance Hx of mitral valve prolapse Hypertension Mammogram declined Obesity Post-menopausal Ruptured appendix Type 2 diabetes mellitus Vitamin B12 deficiency Home Medications multivitamin with iron 1 tab PO DAILY 05/10/21 [History Last Taken Unknown] losartan 50 mg tablet 50 mg PO DAILY #90 tabs 06/30/22 [Rx Last Taken Unknown] hydrochlorothiazide 25 mg tablet 25 mg PO DAILY #90 tabs 01/14/23 [Rx Last Taken Unknown] Allergy/AdvReac Type Severity Reaction Status Date / Time gelatin [Gelatin] Allergy Unknown Verified 02/13/23 05:27 iodine Allergy Rash Verified 02/13/23 05:27 Penicillins Allergy PT UNSURE Verified 02/13/23 05:27 OF REACTION Family History Father Alcoholism Heart disease Respiratory disease Mother Alcoholism Sister Alcoholism Son Alcoholism Anxiety Depression Mental disorder Daughter Alcoholism Anesthesia complication Aunt Diabetes CVA (cerebral vascular accident) Surgical History History of History of cholecystectomy History of hysterectomy Hx of tonsillectomy Social History Smoking Status: Never smoker alcohol intake: never substance use type: does not use what type of physical activity do you participate in: walking frequency: daily ROS ROS ED Constitutional Constitutional ED: Denies chills or fever(s) Eyes Eyes: Denies change in vision or discharge from eye(s) ENT ENT ED: Denies discharge from eye(s), rhinorrhea or sore throat Cardiovascular Cardiovascular: Denies chest pain or palpitations Respiratory/Chest Respiratory/Chest: Denies cough or dyspnea Gastrointestinal Gastrointestinal: Denies abdominal pain, nausea or vomiting Genitourinary Genitourinary ED: Denies dysuria Musculoskeletal Musculoskeletal: Denies back pain or extremity pain Integumentary Denies Abrasions or rash Neurologic Neurologic: Reports other Details: Lightheaded and dizzy ; Denies headache(s) or weakness Psychiatric Psychiatric: Denies anxiety or depression Allergic/Immunologic Allergic/Immunologic ED: Denies lip swelling or urticaria EXAM Physical Exam Const Vital Signs: 02/13/23 05:27 02/13/23 05:31 Temperature 96.1 F L Temperature Source Temporal Pulse Rate 85 Respiratory Rate 16 Respiratory Effort Normal Blood Pressure 142/76 H Blood Pressure Mean 98 Pulse Ox 100 Positive well nourished and well developed General Appearance ED: well developed HEENT Reports moist mucous membranes HEENT Narrative: Tenderness noted along the right lateral forehead. Minimal erythema. Eyes EOMs intact bilaterally Neck no lymphadenopathy Chest Wall inspection of chest normal and palpation of chest normal Resp normal respiratory effort and clear to auscultation bilaterally Cardio regular rate and regular rhythm GI non-tender Auscultation: hypoactive bowel sounds Palpation: soft Neuro oriented x3 and no sensory deficits noted Sensorium / Orientation: alert Motor Exam: strength 5/5 throughout Psych mental status grossly normal Skin no rashes or lesions noted MDM MDM MDM Narrative Medical decision making narrative: Patient placed on playground monitor. EKG obtained to evaluate for cardiac arrhythmia/ischemia. Labwork obtained to evaluate for leukocytosis, anemia, and electrolyte derangement. Chest x-ray obtained to evaluate for acute lung pathology, cardiac size, or mediastinal abnormality. CT scan of the head and C-spine obtained given her fall and injury. IV fluids initiated. History & Record Review Discussion w/independent historian: EMS personnel, Patient and Significant other Additional record(s) reviewed:: Prior ED visit and Prior labs Lab Data Attestation: I reviewed the patient's lab results. Labs: Laboratory Results - last 24 hr 02/13/23 02/13/23 05:47 06:15 WBC 5.8 RBC 5.25 Hgb 15.5 H Hct 46.4 MCV 88.4 MCH 29.5 MCHC 33.4 RDW Std Deviation 41.0 RDW Coeff of [place] 12.5 Plt Count 235 MPV 10.0 Immature Gran % (Auto) 0.300 Neut % (Auto) 52.8 Lymph % (Auto) 37.3 [place] % (Auto) 6.7 Eos % (Auto) 1.9 Baso % (Auto) 1.0 Absolute Neuts (auto) 3.1 Absolute Lymphs (auto) 2.16 Nucleated RBC % 0 Sodium 136 Potassium 3.4 L Chloride 102 Carbon Dioxide 24.0 Anion Gap 10 BUN 21 H Creatinine 1.01 Estim Creat Clear Calc 48.39 Est GFR (MDRD) Af Amer 72 Est GFR (MDRD) Non-Af 59 L BUN/Creatinine Ratio 20.8 H Glucose 192 H Calcium 9.0 Total Bilirubin 0.50 Direct Bilirubin 0.09 AST 25 ALT 37 Alkaline Phosphatase 74 Troponin I High Sens 9 Total Protein 7.2 Albumin 4.0 Globulin 3.2 Urine Color Yellow Urine Clarity Clear Urine pH 6.0 Ur Specific [place] 1.020 Urine Protein Negative Urine Glucose (UA) Normal Urine Ketones 150 A* Urine Occult Blood Negative Urine Nitrite Negative Urine Bilirubin Negative Urine Urobilinogen Normal Ur Leukocyte Esterase Negative Urine RBC 0 SEEN Urine WBC 0 SEEN Ur Squamous Epith Cells 0 SEEN Urine Bacteria 1+ Hyaline Casts 0-5 SEEN Urine Mucus 0 SEEN Radiography Chest X-Ray - ED: 1 View, Read by ED Physician, Normal, Heart, Lungs and Mediastinum Diagnostic Testing: Clinical Impression(s) from Imaging Studies Brain CT 02/13/23 05:36 IMPRESSION: Negative head/brain CT without intravenous contrast. Electronically Signed: Cesar Winn MD at 6:47 EDT , Cervical Spine CT 02/13/23 05:36 IMPRESSION: Mild cervical degenerative changes. No acute fractures or subluxations. Electronically Signed: Cesar Winn MD at 6:48 EDT , Chest X-Ray 02/13/23 06:22 IMPRESSION: No acute cardiopulmonary abnormality. Electronically Signed: Cesar Winn MD at 6:52 EDT , EKG Initial EKG: Attestation: I personally reviewed and interpreted this EKG as follows: Interpretation: Sinus Rhythm (Sinus at 79 with no acute ischemia.) Treatment and Re-Evaluation :: CBC was normal white count 5.8 with a hemoglobin of 15.5. Differential unremarkable. Chemistry studies reveal slightly low potassium at 3.4. This is replaced orally. Glucose is 192. LFTs unremarkable. Urinalysis reveals 150 ketones with no evidence of acute infection. EKG is sinus at 79 with no acute ischemia. Portable chest x-ray per my interpretation reveals no acute findings. Radiology interpretation reviewed and agrees. CT scan of the head reveals no acute findings. CT the C-spine reveals mild degenerative changes. Patient presents with a syncopal episode at home. She does report feeling dizzy. Initial vital signs obtained by EMS reveals heart rate in the 80s and systolic blood pressure of 120. With no definitive cause for her syncope, I do feel she would be better served with observation today to ensure no cardiac arrhythmia. I will speak with the hospitalist. Discharge Plan Triage Chief Complaint: Syncope ED Provider: Jamee Menard Dx/Rx/DC Orders Clinical Impression: Syncope, Fall, Contusion of head Prescriptions: No Action multivitamin with iron Tablet 1 tab PO DAILY losartan 50 mg tablet 50 mg PO DAILY Qty: 90 3RF hydrochlorothiazide 25 mg tablet 25 mg PO DAILY Qty: 90 3RF Primary Care Provider: Chuyita Harper Referrals: Chuyita Harper MD [Primary Care Provider] - Disposition Disposition: [facility]
[2023-02-13 05:55] LABS: Absolute Lymphocyte Count 2.16 X10^3/uL (0.83-4.51); Absolute Neutrophil Count 3.1 X10^3/uL (2.0-7.7); Basophil# 0.06 X10^3/uL; Eosinophil# 0.11 X10^3/uL; Eosinophils% 1.9 % (0-5); Hematocrit 46.4 % (37-47); Hemoglobin 15.5 g/dL (12.0-15.0); Lymphocyte # 2.16 X10^3/ul (0.83-4.51); Lymphocyte % 37.3 % (19-41); Mean Corp Hgb Conc 33.4 g/dL (32-36); Mean Corpuscular Hgb 29.5 pg (27.0-32.0); Mean Corpuscular Volume 88.4 fL (81-99); Monocyte# 0.39 X10^3/uL; Monocyte% 6.7 % (0-10); NRBC Flagged by Analyzer 0 % (0-5); Neutrophil # 3.05 X10^3/uL (2.7-7.7); Neutrophil % 52.8 % (47-70); Platelet Count 235 K/mm3 (150-450); RBC Distribution Width CV 12.5 % (11.6-14.6); Red Blood Count 5.25 M/mm3 (4.2-5.4); White Blood Count 5.8 K/mm3 (4.4-11.0)
[2023-02-13 06:21] LABS: Mucous, Urine 0 SEEN /hpf (<or=2+); Red Blood Cells-Urine 0 SEEN /hpf (0-5); Squamous Epithelial Cells - UA 0 SEEN /hpf (5-10); White Blood Cells 0 SEEN /hpf (0-5)
[2023-02-13 06:22] LABS: Color, Urine Yellow (Yellow); Glucose, Dipstick Normal (Normal); Leukocyte Esterase-Dipstick Negative /ul (Negative); Nitrite-Dipstick Negative (Negative); Occult Blood-Urine Negative /ul (Negative); Protein-Dipstick Negative (Negative); Urine Bilirubin Dipstick Negative (Negative); Urine Clarity Clear (Clear); Urine Urobilinogen Normal (Normal)
--- NOTE | 2023-02-13 06:22 | RAD_ITS ---
EXAM: XR CHEST, 1 VIEW CLINICAL INDICATION: syncope TECHNIQUE: Frontal view of the chest. COMPARISON: 05/05/2021. FINDINGS: LUNGS AND PLEURAL SPACES: Unremarkable. No consolidation or edema. No pneumothorax. No effusion. HEART: Unremarkable. Cardiac silhouette not enlarged. MEDIASTINUM: Central airways and mediastinal contour are unremarkable. BONES/JOINTS: Unremarkable. SOFT TISSUES: Unremarkable. RAD/Chest 1 View (Portable) IMPRESSION: No acute cardiopulmonary abnormality. Electronically Signed: Cesar Winn MD at 6:52 EDT ,
[2023-02-13 06:23] LABS: Ketone-Dipstick 150 mg/dl (Negative)
[2023-02-13 06:28] LABS: Bacteria 1+ /hpf (None Seen); Hyaline Cast 0-5 SEEN /lpf (0-5)
[2023-02-13] MEDS: 0.9% Normal Saline (1000mL) 1,000 ML 150 ML IV ×4 (06:28→21:18)
[2023-02-13] MEDS: 0.9% Normal Saline (500mL Bag) 500 ML 999 ML IV (06:28)
[2023-02-13 06:38] LABS: AST(SGOT) 25 U/L (15-37); Alanine Aminotransfer ALT/SGPT 37 U/L (13-56); Alkaline Phosphatase 74 U/L (45-117); Anion Gap 10 (5-15); BUN 21 mg/dL (7-18); BUN/Creat Ratio 20.8 RATIO (10-20); Bilirubin, Direct 0.09 mg/dL (0.00-0.30); Chloride 102 mmol/L (98-107); Creatinine, Serum 1.01 mg/dL (0.55-1.02); EST Glomerular Filtration Rate 59 mL/min (>60); Est Glom Filt Rate - Afr Amer 72 mL/min (>60); Estimated Creatinine Clearance 48.39 ml/min; Globulin 3.2 g/dL (2.2-4.2); Glucose 192 mg/dL (74-106); Potassium 3.4 mmol/L (3.5-5.1); Protein, Total 7.2 g/dL (6.4-8.2); Sodium Level 136 mmol/L (136-145); Troponin-I HS (w/2H Reflex) 9 pg/mL (3.0-54.0)
[2023-02-13] MEDS: Potassium Chloride Oral Tablet 20 MEQ 40 MEQ PO (07:15)
[2023-02-13] MEDS: 0.9% Normal Saline (1000mL) 1,000 ML 999 ML IV (07:19)
--- NOTE | 2023-02-13 07:44 | PCM.HP.STD ---
HPI - General General Date of Admission: 02/13/23 Date of Service: 02/13/23 Chief Complaint: Syncope HPI Narrative DWAIN SUTHERLAND, is a 62-year-old female history hypertension and type 2 diabetes mellitus who presented with a syncopal episode from home. She woke up in the morning and did not feel right. She tried to check her blood pressure but reported the machine would not read and when she got to the bottom of the stairs to call for her she felt very lightheaded and dizzy and when he came down he found her at the bottom of the stairs unresponsive. Patient members waking up with EMS standing over her. Denied any chest pain or palpitations. Did reportedly just finish a 3-day fast where she had water, decaf coffee, and fizzy water and then had oatmeal for dinner last night. In the ED lab work-up unremarkable. She was started on IV fluids and hospitalist consulted for admission for syncope. Woke with patient and her at bedside. She reports she had been on a fast for over 2 days but yesterday was too hungry so she has had some avocado, banana, oatmeal however last night she was not feeling right and thought it was allergies so she took an antihistamine, unclear which 1 but has been will bring in bottle, and went to bed. When she woke up she did not feel right again and took her blood pressure and reports it would not read. She got up to go to the bottom of the stairs to call for her and reports she was horribly dizzy and stumbled to the bottom of the stairs and felt lightheaded. When her came to the stairs he found her down and the next thing patient remembers is EMS was there. She does at times get dizzy when going from sitting to standing but has not had syncopal episodes before. Had not noted any chest pain or palpitations before this moment. Of note patient reports she is vegan and plant-based and had done the fast as above but reports she does a 3-day fast once a year and has not had this problem before. Denies any other preceding or accompanying symptoms. [facility] Medical History Abnormal EKG Anemia Colon cancer screening Dermatitis Elevated random blood glucose level Encounter for vitamin deficiency screening Health care maintenance Hx of mitral valve prolapse Hypertension Mammogram declined Obesity Post-menopausal Ruptured appendix Type 2 diabetes mellitus Vitamin B12 deficiency Home Medications multivitamin with iron 1 tab PO DAILY 05/10/21 [History Last Taken Unknown] losartan 50 mg tablet 50 mg PO DAILY #90 tabs 06/30/22 [Rx Last Taken Unknown] hydrochlorothiazide 25 mg tablet 25 mg PO DAILY #90 tabs 01/14/23 [Rx Last Taken Unknown] Allergy/AdvReac Type Severity Reaction Status Date / Time gelatin [Gelatin] Allergy Unknown Verified 02/13/23 05:27 iodine Allergy Rash Verified 02/13/23 05:27 Penicillins Allergy PT UNSURE Verified 02/13/23 05:27 OF REACTION Family History Father Alcoholism Heart disease Respiratory disease Mother Alcoholism Sister Alcoholism Son Alcoholism Anxiety Depression Mental disorder Daughter Alcoholism Anesthesia complication Aunt Diabetes CVA (cerebral vascular accident) Surgical History History of History of cholecystectomy History of hysterectomy Hx of tonsillectomy Social History Smoking Status: Never smoker alcohol intake: never substance use type: does not use what type of physical activity do you participate in: walking frequency: daily ROS ROS Narrative General: Denies fever/chills HENT: Denies headache, denies stuffy nose, denies sore throat EYES: Denies changes in vision Resp: Denies cough, denies shortness of breath Cardiac: Denies chest pain GI: Denies abdominal pain, denies changes in bowel, denies nausea/vomiting : Denies changes in urination Extremity: Denies swelling MSK: Denies weakness Neuro: Denies any numbness/tingling, had felt lightheaded and dizzy at home with syncopal episode Heme: Denies any bleeding or bruising Skin: Denies rashes Psychiatric: No complaints voiced Vital Signs Vital Signs Vital Signs: 02/13/23 05:27 02/13/23 05:31 Temperature 96.1 F L Temperature Source Temporal Pulse Rate 85 Respiratory Rate 16 Respiratory Effort Normal Blood Pressure 142/76 H Blood Pressure Mean 98 Pulse Ox 100 Weight Weight: 87.4 kg Body Mass Index (BMI) 34.1 Physical Exam Narrative General: Alert, oriented, no apparent distress HEENT: Atraumatic, normocephalic Eyes: Anicteric, normal conjunctiva, extraocular movements grossly intact Neck: Supple Respiratory: Clear to auscultation bilaterally, normal respiratory effort Cardiovascular: Regular rate and rhythm GI: Soft, nontender, nondistended Extremities: No edema Musculoskeletal: Moving all extremities Neuro: No overt focal neurological deficits Skin: No rashes appreciated Psych: Cooperative Results Lab / Micro Data 02/13/23 05:47 02/13/23 05:47 Labs: Laboratory Results - last 24 hr 02/13/23 05:47: WBC 5.8, RBC 5.25, Hgb 15.5 H, Hct 46.4, MCV 88.4, MCH 29.5, MCHC 33.4, RDW Std Deviation 41.0, RDW Coeff of [place] 12.5, Plt Count 235, MPV 10.0, Immature Gran % (Auto) 0.300, Neut % (Auto) 52.8, Lymph % (Auto) 37.3, [place] % (Auto) 6.7, Eos % (Auto) 1.9, Baso % (Auto) 1.0, Absolute Neuts (auto) 3.1, Absolute Lymphs (auto) 2.16, Nucleated RBC % 0, Sodium 136, Potassium 3.4 L, Chloride 102, Carbon Dioxide 24.0, Anion Gap 10, BUN 21 H, Creatinine 1.01, Estim Creat Clear Calc 48.39, Est GFR (MDRD) Af Amer 72, Est GFR (MDRD) Non-Af 59 L, BUN/Creatinine Ratio 20.8 H, Glucose 192 H, Calcium 9.0, Total Bilirubin 0.50, Direct Bilirubin 0.09, AST 25, ALT 37, Alkaline Phosphatase 74, Troponin I High Sens 9, Total Protein 7.2, Albumin 4.0, Globulin 3.2 02/13/23 06:15: Urine Color Yellow, Urine Clarity Clear, Urine pH 6.0, Ur Specific [place] 1.020, Urine Protein Negative, Urine Glucose (UA) Normal, Urine Ketones 150 A*, Urine Occult Blood Negative, Urine Nitrite Negative, Urine Bilirubin Negative, Urine Urobilinogen Normal, Ur Leukocyte Esterase Negative, Urine RBC 0 SEEN, Urine WBC 0 SEEN, Ur Squamous Epith Cells 0 SEEN, Urine Bacteria 1+, Hyaline Casts 0-5 SEEN, Urine Mucus 0 SEEN Radiology Impression Brain CT 02/13/23 05:36 IMPRESSION: Negative head/brain CT without intravenous contrast. Electronically Signed: Cesar Winn MD at 6:47 EDT , Cervical Spine CT 02/13/23 05:36 IMPRESSION: Mild cervical degenerative changes. No acute fractures or subluxations. Electronically Signed: Cesar Winn MD at 6:48 EDT , Chest X-Ray 02/13/23 06:22 IMPRESSION: No acute cardiopulmonary abnormality. Electronically Signed: Cesar Winn MD at 6:52 EDT , Assessment & Plan Assessment/Plan (1) Syncope: PLAN: Plan #Syncope -Patient with syncopal episode however it was not just from sitting to standing that caused the dizziness and it was a prolonged episode that led to a full syncopal event. -EKG with no arrhythmia but did have some nonspecific abnormalities, cannot rule out underlying structural heart disease or arrhythmia as cause -Do suspect there is a fasting and nutritional component to this but cannot rule out anything cardiac in nature given patient's age and risk factors and EKG -We will give fluids, liberal diet, will check iron and vitamin levels -We will check echo and orthostats -Monitor on telemetry #Type 2 diabetes mellitus -Glucose checks and sliding scale insulin -We will check A1c #Hypertension -Holding home meds, especially hydrochlorothiazide as this may contribute to dehydration #Hypokalemia -Replace #DVT ppx: SCDs Rufina Gardner MD Time spent in the patient's overall evaluation,decision-making process, review of diagnostic data, adjustment of management, discussion with other providers, nursing nursing and ancillary staff involved in patient's care documentation, 60 minutes Charges/Coding Visit Charges Inpatient E&M: 61416 Init Hosp L2
--- NOTE | 2023-02-13 07:48 | ECHOD_ITS ---
Reason For Study: SYNCOPE/NEAR SYNCOPE Procedure This was a 2D Doppler, Color Flow transthoracic echocardiogram. Exam performed portable in ED. Left Ventricle Normal size and thickness. The left ventricular ejection fraction is 65 %. Right Ventricle Normal right ventricle. Atria The left and right atria are normal. Cannot exclude tiny PFO. Mitral Valve The mitral valve is structurally normal. No prolapse or stenosis seen. Tricuspid Valve Normal tricuspid valve. Aortic Valve Trisinus/trileaflet aortic valve. Pulmonic Valve The pulmonic valve is not well visualized. Great Vessels The aortic root is not well visualized. Pericardium/Pleural No pericardial effusion. MMode/2D Measurements & Calculations LVIDd: 4.2 cm IVSd: 0.98 cm LAV(MOD-bp): 38.5 ml LVIDs: 2.9 cm LVPWd: 0.96 cm LAV(MOD-bp) Indexed: 20.2 ml/m2 FS: 30.0 % LAV(MOD-sp2): 42.7 ml LAV(MOD-sp4): 30.6 ml SV(MOD-sp4): 35.2 ml SV(sp4-el): 35.5 ml LVAd ap4: 20.5 cm2 LVLd ap4: 6.6 cm EDV(MOD-sp4): 53.7 ml EDV(sp4-el): 54.0 ml LVAs ap4: 10.9 cm2 LVLs ap4: 5.5 cm ESV(MOD-sp4): 18.5 ml ESV(sp4-el): 18.4 ml EF(MOD-sp4): 65.5 % EF(sp4-el): 65.8 % LA A4 area: 14.4 cm2 LA dimension(2D): 2.3 cm RA A4 area: 7.0 cm2 TAPSE: 2.7 cm Time Measurements MV dec time: 0.21 sec Doppler Measurements & Calculations MV E max erasmo: 76.0 cm/sec Lat Peak E' Erasmo: 8.2 cm/sec Med Peak E' Erasmo: 7.6 cm/sec MV A max erasmo: 92.4 cm/sec E/E' lat: 9.2 E/E' med: 10.1 MV E/A: 0.82 MV V2 max: 105.7 cm/sec Ao V2 max: 148.4 cm/sec MV max P.5 mmHg MV dec slope: 359.6 cm/sec2 Ao max P.8 mmHg MV V2 mean: 75.4 cm/sec Ao V2 mean: 103.0 cm/sec MV mean P.4 mmHg Ao mean P.9 mmHg MV V2 VTI: 28.8 cm Ao V2 VTI: 30.6 cm AV (velocity ratio): 0.68 LV V1 max: 110.9 cm/sec PA V2 max: 127.9 cm/sec LV V1 max P.9 mmHg PA V2 mean: 72.8 cm/sec LV V1 mean P.0 mmHg LV V1 mean: 83.4 cm/sec LV V1 VTI: 21.0 cm ECHO/Echo Complete Interpretation Summary The left ventricular ejection fraction is 65 %. Cannot exclude tiny PFO. Ordering Physician: Rufina Gardner Referring Physician: Chuyita Harper Performed By: Niyah Turner RCS
[2023-02-13 07:53] LABS: Reflex Troponin-HS? (from REC) Y
[2023-02-13 09:08] LABS: Troponin-I HS 7 pg/mL (3.0-54.0)
[2023-02-13 09:11] VITALS: BP 142/84; PULSE 70; RESP 16; O2SAT 99
--- NOTE | 2023-02-13 09:21 | EX.ED.DYSGE1 ---
HPI History of Present Illness Chief Complaint: [facility]yncope [facility] Medical History Abnormal EKG Anemia Colon cancer screening Dermatitis Elevated random blood glucose level Encounter for vitamin deficiency screening Health care maintenance Hx of mitral valve prolapse Hypertension Mammogram declined Obesity Post-menopausal Ruptured appendix Type 2 diabetes mellitus Vitamin B12 deficiency Home Medications multivitamin with iron 1 tab PO DAILY 05/10/21 [History Last Taken Unknown] losartan 50 mg tablet 50 mg PO DAILY #90 tabs 06/30/22 [Rx Last Taken Unknown] hydrochlorothiazide 25 mg tablet 25 mg PO DAILY #90 tabs 01/14/23 [Rx Last Taken Unknown] Allergy/AdvReac Type Severity Reaction Status Date / Time gelatin [Gelatin] Allergy Unknown Verified 02/13/23 05:27 iodine Allergy Rash Verified 02/13/23 05:27 Penicillins Allergy PT UNSURE Verified 02/13/23 05:27 OF REACTION Family History Father Alcoholism Heart disease Respiratory disease Mother Alcoholism Sister Alcoholism Son Alcoholism Anxiety Depression Mental disorder Daughter Alcoholism Anesthesia complication Aunt Diabetes CVA (cerebral vascular accident) Surgical History History of History of cholecystectomy History of hysterectomy Hx of tonsillectomy Social History Smoking Status: Never smoker alcohol intake: never substance use type: does not use what type of physical activity do you participate in: walking frequency: daily EXAM Physical Exam Const Vital Signs: 02/13/23 05:27 02/13/23 05:31 Temperature 96.1 F L Temperature Source Temporal Pulse Rate 85 Respiratory Rate 16 Respiratory Effort Normal Blood Pressure 142/76 H Blood Pressure Mean 98 Pulse Ox 100 MDM MDM Lab Data Attestation: I reviewed the patient's lab results. Lab results narrative: CBC is a. Comprehensive metabolic panel is marked for glucose 192 with a normal anion gap. This is normal. UA is remarked for bacteria however the macro is negative for leukoesterase, nitrites and blood. There is ketones noted. There is no pyuria. Labs: Laboratory Results - last 24 hr 02/13/23 02/13/23 05:47 06:15 WBC 5.8 RBC 5.25 Hgb 15.5 H Hct 46.4 MCV 88.4 MCH 29.5 MCHC 33.4 RDW Std Deviation 41.0 RDW Coeff of [place] 12.5 Plt Count 235 MPV 10.0 Immature Gran % (Auto) 0.300 Neut % (Auto) 52.8 Lymph % (Auto) 37.3 [place] % (Auto) 6.7 Eos % (Auto) 1.9 Baso % (Auto) 1.0 Absolute Neuts (auto) 3.1 Absolute Lymphs (auto) 2.16 Nucleated RBC % 0 Sodium 136 Potassium 3.4 L Chloride 102 Carbon Dioxide 24.0 Anion Gap 10 BUN 21 H Creatinine 1.01 Estim Creat Clear Calc 48.39 Est GFR (MDRD) Af Amer 72 Est GFR (MDRD) Non-Af 59 L BUN/Creatinine Ratio 20.8 H Glucose 192 H Calcium 9.0 Total Bilirubin 0.50 Direct Bilirubin 0.09 AST 25 ALT 37 Alkaline Phosphatase 74 Troponin I High Sens 9 Total Protein 7.2 Albumin 4.0 Globulin 3.2 Urine Color Yellow Urine Clarity Clear Urine pH 6.0 Ur Specific [place] 1.020 Urine Protein Negative Urine Glucose (UA) Normal Urine Ketones 150 A* Urine Occult Blood Negative Urine Nitrite Negative Urine Bilirubin Negative Urine Urobilinogen Normal Ur Leukocyte Esterase Negative Urine RBC 0 SEEN Urine WBC 0 SEEN Ur Squamous Epith Cells 0 SEEN Urine Bacteria 1+ Hyaline Casts 0-5 SEEN Urine Mucus 0 SEEN Radiography Diagnostic Testing: Clinical Impression(s) from Imaging Studies Brain CT 02/13/23 05:36 IMPRESSION: Negative head/brain CT without intravenous contrast. Electronically Signed: Cesar Winn MD at 6:47 EDT , Cervical Spine CT 02/13/23 05:36 IMPRESSION: Mild cervical degenerative changes. No acute fractures or subluxations. Electronically Signed: Cesar Winn MD at 6:48 EDT , Chest X-Ray 02/13/23 06:22 IMPRESSION: No acute cardiopulmonary abnormality. Electronically Signed: Cesar Winn MD at 6:52 EDT , Discharge Plan Dx/Rx/DC Orders Clinical Impression: Syncope, Fall, Contusion of head Disposition Disposition: Acute Care Hospital [facility]
[2023-02-13 09:48] LABS: Phosphorus 2.4 mg/dL (2.5-4.9); T4 Free Direct 1.25 ng/dL (0.76-1.46); Thyroid Stim Hormone (TSH) 1.52 uIU/mL (0.358-3.74)
[2023-02-13 10:42] VITALS: BMI 33.6
[2023-02-13 11:00] VITALS: BP 125/80; PULSE 92; RESP 18; TEMP 36.8; O2SAT 99
[2023-02-13 11:35] LABS: Cholesterol 171 mg/dL (200); Ferritin 83 ng/mL (8-252); High Density Lipoprotein 38 mg/dL; Iron 44 ug/dL (50-170); Iron Binding Capacity,Total 338 ug/dL (250-450); Triglycerides 92 mg/dL; Very Low Density Lipoprotein 18 mg/dL (5-40)
[2023-02-13 11:36] LABS: Vitamin B12 605 pg/mL (211-911)
[2023-02-13 11:37] LABS: Bedside Glucose 276 mg/dL (74-106)
[2023-02-13] MEDS: Na Biphos/Potassium Phosphate PACKET 1 PACKET PO (15:22)
[2023-02-13 15:30] VITALS: BP 131/74; BP 132/94; BP 142/105; PULSE 82
[2023-02-13 17:26] LABS: Bedside Glucose 130 mg/dL (74-106)
[2023-02-13 21:20] LABS: Bedside Glucose 223 mg/dL (74-106)
[2023-02-13 22:00] VITALS: BP 153/86; PULSE 95; RESP 16; TEMP 37.2; O2SAT 99
[2023-02-14 03:00] VITALS: BP 144/80; PULSE 89; RESP 16; TEMP 37.1; O2SAT 99
[2023-02-14 05:44] LABS: Bedside Glucose 146 mg/dL (74-106)
[2023-02-14] MEDS: 0.9% Normal Saline (1000mL) 1,000 ML 150 ML IV (06:07)
[2023-02-14 07:07] LABS: Absolute Lymphocyte Count 1.69 X10^3/uL (0.83-4.51); Absolute Neutrophil Count 2.9 X10^3/uL (2.0-7.7); Basophil# 0.03 X10^3/uL; Basophil% 0.6 % (0-1); Eosinophil# 0.05 X10^3/uL; Hematocrit 41.6 % (37-47); Hemoglobin 13.5 g/dL (12.0-15.0); Lymphocyte # 1.69 X10^3/ul (0.83-4.51); Lymphocyte % 32.6 % (19-41); Mean Corp Hgb Conc 32.5 g/dL (32-36); Mean Corpuscular Hgb 29.6 pg (27.0-32.0); Mean Corpuscular Volume 91.2 fL (81-99); Mean Platelet Vol. 10.9 fl (6.2-12.0); Monocyte# 0.45 X10^3/uL; Monocyte% 8.7 % (0-10); NRBC Flagged by Analyzer 0 % (0-5); Neutrophil # 2.94 X10^3/uL (2.7-7.7); Neutrophil % 56.7 % (47-70); Platelet Count 224 K/mm3 (150-450); RBC Distribution Width CV 12.6 % (11.6-14.6); RBC Distribution Width SD 42.3 fl (35.1-43.9); Red Blood Count 4.56 M/mm3 (4.2-5.4); White Blood Count 5.2 K/mm3 (4.4-11.0)
[2023-02-14 07:40] LABS: Anion Gap 4 (5-15); BUN 8 mg/dL (7-18); BUN/Creat Ratio 11.7 RATIO (10-20); Calcium,Total 8.3 mg/dL (8.5-10.1); Chloride 112 mmol/L (98-107); Creatinine, Serum 0.68 mg/dL (0.55-1.02); EST Glomerular Filtration Rate 93 mL/min (>60); Est Glom Filt Rate - Afr Amer 113 mL/min (>60); Estimated Creatinine Clearance 68.71 ml/min; Glucose 148 mg/dL (74-106); Potassium 3.8 mmol/L (3.5-5.1); Sodium Level 140 mmol/L (136-145)
[2023-02-14 07:49] LABS: Hemoglobin A1c 6.6 % (3.8-5.6)
[2023-02-14 08:35] VITALS: BP 152/84; PULSE 88; RESP 18; TEMP 36.8; O2SAT 99
[2023-02-14] MEDS: Influenza Virus Vac Quad 23-24 60 MCG/0.5 ML SYRINGE IM (11:00)
[2023-02-14 11:33] LABS: Bedside Glucose 151 mg/dL (74-106)
--- NOTE | 2023-02-14 12:19 | PCM.DC ---
Discharge Instructions Diet Discharge Diet: No restrictions Activity Discharge Activity: Return to Normal Activity Follow Up Care Test Results: Test results from this visit will be discussed in further detail at your follow-up appointment, if applicable. Discharge Plan Admission Admit Date/Time: 02/13/23 07:44 Primary Reason for Your Visit: Episode of passing out Attending Provider: Rufina Gardner Primary Care Provider: Chuyita Harper Consulting Providers: Herbie Rodriguez Instructions Patient Instructions: Dizziness Fainting Causes Additional Instructions / Restrictions: DISCHARGE INSTRUCTIONS PLEASE READ *Please take this with you to your next doctors appointment* -You are found to have slightly low iron, recommend iron supplementation but you have indicated you prefer to take your multivitamin more regularly -Continue losartan but would recommend at this time discontinuing hydrochlorothiazide as this can worsen dehydration and electrolyte abnormalities. Ultimately may need further adjustments in blood pressure medication -Please change positions slowly from lying to standing. When getting out of bed sit on the side of the bed with her legs down for at least 30 seconds before standing. This gives her body time to adjust to the position change. Would also recommend using compression stockings, you can acquire these online or you can discuss with your primary care physician. There are varying strengths and if you are unable to tolerate high strength compression you can try one of the lower strength -You will be discharged with instructions for a 14-day heart monitor to evaluate for any underlying abnormal heart rhythms -Please call your primary care provider's office upon discharge to schedule a hospital follow up within 1 week. -For any concerning signs or symptoms please call 911 or proceed to the nearest emergency department Discharge Orders/Prescriptions Prescriptions: Continued multivitamin with iron Tablet 1 tab PO DAILY losartan 50 mg tablet 50 mg PO DAILY Qty: 90 3RF Discontinued hydrochlorothiazide 25 mg tablet 25 mg PO DAILY Qty: 90 3RF Other Ambulatory Orders: 14 Day Event Recorder Preventi (Urgent) Timeframe: 1 Day Facility: [facility] - Location: Cardiovascular Services Ordered By: Dr. Rufina Gardner Referrals / Follow Up: Chuyita Harper MD [Primary Care Provider] - Within 1 Week Disposition Disposition (needs filled in before D/C Order can be placed): Home, Self Care
--- NOTE | 2023-02-14 12:23 | DS.PCM_ITS ---
Providers Date of Admission: 02/13/23 Date of Discharge: 02/14/23 Primary Care Physician: Dr. Chuyita Harper MD Reason For Visit: SYNCOPE Diagnosis Discharge Diagnosis (1) Syncope: Status: Acute Code(s): R55 - Syncope and collapse Plan #Syncope- suspect orthostatic vs vasovagal 2/2 recent fasting and still taking BP meds #Type 2 diabetes mellitus #Hypertension #Hypokalemia resolved #low iron sat Medications at Discharge Home Medications multivitamin with iron 1 tab PO DAILY 05/10/21 losartan 50 mg tablet 50 mg PO DAILY #90 tabs 06/30/22 Hospital Course Procedures Transthoracic echo Summary of Care Provided Minutes Spent on Discharge: 45 Hospital Course: 62-year-old plant-based vegan with history of hypertension and diabetes presented with a syncopal episode from home. Woke up in the morning and did not feel right, blood pressure machine would not read blood pressure and when she st ood up to go get she stumbled and then passed out and woke up when EMS came. Reportedly had been on a multiday fast and adjust had a light meal the day before and had only been drinking water and decaf coffee prior to that. Orthostats negative however they were performed after fluids and nutrition were given. Patient had no arrhythmias or other abnormalities, suspect that this was dehydration and nutritional in nature however cannot rule out arrhythmia especially given duration of episodes will DC with 14-day event monitor. Advised to DC hydrochlorothiazide and has iron stores somewhat low advised iron supplementation but patient reports she would rather take her multivitamin sid ly. Did endorse that usually when she fast she does not take her blood pressure medication but the day prior to presentation she had despite the fast and thinks this may have contributed. Has not had any further symptoms and feeling well today. Discharge instructions as follows: -You are found to have slightly low iron, recommend iron supplementation but you have indicated you prefer to take your multivitamin more regularly -Continue losartan but would recommend at this time discontinuing hydrochlorothiazide as this can worsen dehydration and electrolyte abnormalities. Ultimately may need further adjustments in blood pressure medication -Please change positions slowly from lying to standing. When getting out of bed sit on the side of the bed with her legs down for at least 30 seconds before standing. This gives her body time to adjust to the position change. Would also recommend using compression stockings, you can acquire these online or you can discuss with your primary care physician. There are varying strengths and if you are unable to tolerate high strength compression you can try one of the lower strength -You will be discharged with instructions for a 14-day heart monitor to evaluate for any underlying abnormal heart rhythms -Please call your primary care provider's office upon discharge to schedule a hospital follow up within 1 week. -For any concerning signs or symptoms please call 911 or proceed to the nearest emergency department Physical Exam Narrative General: Alert, oriented, no apparent distress HEENT: Atraumatic, normocephalic Eyes: Anicteric, normal conjunctiva, extraocular movements grossly intact Neck: Supple Respiratory: Clear to auscultation bilaterally, normal respiratory effort Cardiovascular: Regular rate and rhythm GI: Soft, nontender, nondistended Extremities: No edema Musculoskeletal: Moving all extremities Neuro: No overt focal neurological deficits Skin: No rashes appreciated Psych: Cooperative Weight / BMI Weight Weight: 86.2 kg Body Mass Index (BMI) 33.6 ABG / Lab / Microbiology Data 02/14/23 06:08 02/14/23 06:08 Laboratory: Laboratory Results - last 24 hr 02/13/23 17:08: POC Glucose 130 H 02/13/23 20:58: POC Glucose 223 H 02/14/23 05:14: POC Glucose 146 H 02/14/23 06:08: WBC 5.2, RBC 4.56, Hgb 13.5, Hct 41.6, MCV 91.2, MCH 29.6, MCHC 32.5, RDW Std Deviation 42.3, RDW Coeff of [place] 12.6, Plt Count 224, MPV 10.9, Immature Gran % (Auto) 0.400, Neut % (Auto) 56.7, Lymph % (Auto) 32.6, [place] % (Auto) 8.7, Eos % (Auto) 1.0, Baso % (Auto) 0.6, Absolute Neuts (auto) 2.9, Absolute Lymphs (auto) 1.69, Nucleated RBC % 0, Sodium 140, Potassium 3.8, Chloride 112 H, Carbon Dioxide 24.0, Anion Gap 4 L, BUN 8, Creatinine 0.68, Estim Creat Clear Calc 68.71, Est GFR (MDRD) Af Amer 113, Est GFR (MDRD) Non-Af 93, BUN/Creatinine Ratio 11.7, Glucose 148 H, Hemoglobin A1c 6.6 H, Calcium 8.3 L 02/14/23 11:14: POC Glucose 151 H Radiography Diagnostic Testing: Radiology Impression Echocardiogram 02/13/23 07:48 Interpretation Summary The left ventricular ejection fraction is 65 %. Cannot exclude tiny PFO. Ordering Physician: Rufina Gardner Referring Physician: Chuyita Harper Performed By: Niyah Turner RCS D/C Instructions Discharge Diet: No restrictions Discharge Activity: Return to Normal Activity Meaningful Use Info Meaningful Use Diagnoses (Choose all that apply): None applicable Discharge Plan Admission Admit Date/Time: 02/13/23 07:44 Primary Reason for Your Visit: Episode of passing out Attending Provider: Rufina Gardner Primary Care Provider: Chuyita Harper Consulting Providers: Herbie Rodriguez Instructions Patient Instructions: Dizziness Fainting Causes Additional Instructions / Restrictions: DISCHARGE INSTRUCTIONS PLEASE READ *Please take this with you to your next doctors appointment* -You are found to have slightly low iron, recommend iron supplementation but you have indicated you prefer to take your multivitamin more regularly -Continue losartan but would recommend at this time discontinuing hydrochlorothiazide as this can worsen dehydration and electrolyte abnormalities. Ultimately may need further adjustments in blood pressure medication -Please change positions slowly from lying to standing. When getting out of bed sit on the side of the bed with her legs down for at least 30 seconds before standing. This gives her body time to adjust to the position change. Would also recommend using compression stockings, you can acquire these online or you can discuss with your primary care physician. There are varying strengths and if you are unable to tolerate high strength compression you can try one of the lower strength -You will be discharged with instructions for a 14-day heart monitor to evaluate for any underlying abnormal heart rhythms -Please call your primary care provider's office upon discharge to schedule a hospital follow up within 1 week. -For any concerning signs or symptoms please call 911 or proceed to the nearest emergency department Discharge Orders/Prescriptions Prescriptions: Continued multivitamin with iron Tablet 1 tab PO DAILY losartan 50 mg tablet 50 mg PO DAILY Qty: 90 3RF Discontinued hydrochlorothiazide 25 mg tablet 25 mg PO DAILY Qty: 90 3RF Other Ambulatory Orders: 14 Day Event Recorder Preventi (Urgent) Timeframe: 1 Day Facility: [facility] - Location: Cardiovascular Services Ordered By: Dr. Rufina Gardner Referrals / Follow Up: Chuyita Harper MD [Primary Care Provider] - Within 1 Week Disposition Disposition (needs filled in before D/C Order can be placed): Home, Self Care Charges/Coding Visit Charges Inpatient E&M: 38139 Disch Hosp >30min
[2023-02-14 15:13] VITALS: BP 137/93; PULSE 95; RESP 16; TEMP 35.9; O2SAT 97
== END 2023-02-14 12:23 | disposition home or self-care (01) ==
LOC: ED 07:02 → PCU 08:04
PROVIDERS: Admitting Provider Hospitalist; Emergency Provider Emergency Medicine; PCP Internal Medicine; Visit Provider Internal Medicine
DX: R55 Syncope and collapse (principal); E11.9 Type 2 diabetes mellitus without complications; S00.93XA Contusion of unspecified part of head, initial encounter; E87.6 Hypokalemia; I10 Essential (primary) hypertension; Z79.899 Other long term (current) drug therapy; W10.9XXA Fall (on) (from) unspecified stairs and steps, initial encounter; Y92.009 Unspecified place in unspecified non-institutional (private) residence as the place of occurrence of the external cause; E83.10 Disorder of iron metabolism, unspecified; Z23 Encounter for immunization
CPT/HCPCS: 36415; 70450; 71045; 72125; 80048; 80061; 80076; 81001; 82306; 82607; 82728; 82746; 82962; 83036; 83540; 83550; 83735; 84100; 84439; 84443; 84484; 85025; 93005; 93306; 96360; 96361; 99221; 99285; J7030; J7040; 90686; A4216; G0378

== ENCOUNTER → 2023-04-27 | Outpatient (CLI) | payer MEDICAID, SELFPAY ==
--- OUTSIDE RECORDS SUMMARY | 2023-04-27 10:02 | XMS RPT_ITS | CCD ---
Author Name Unknown Address [address] [place] [address] Organization [facility] Care Team Providers Care Donation Specialist Name Role Phone DO GAURAV ARAYA Emergency Provider DOCTOR, NO FAMILY Primary Care Provider Unavaila ble 4, SCRIPTING Attending Unavailable GAURAV ARAYA Attending Unavailable GAURAV ARAYA Primary Care Unavailable Allergies Allergy Classification Reported Allergen(s) Allergy Type Date of Onset Reaction(s) Facility (1 source) Iodine Drug Allergy 03-12-2023 Unspecified [facility] (1 source) Penicillins Allergy to substance 03-12-2023 Unspecified [facility] (1 source) Iodine Drug Allergy 03-12-2023 [facility] (1 source) Penicillins Drug allergy (disorder) 03-12-2023 [facility] Medications Current Medications Medication Drug Class(es) Dates Sig (Normalized) Sig (Original) hydroCHLOROthiazide 25 mg oral tablet (1 source) Thiazide Diuretic Start: 3 take 25 mg by mouth once daily Hydrochlorothiazide Active 25 MG PO 1 time daily March 12, 2023 12:00am lisinopril 10 mg oral tablet (1 source) Angiotensin Converting Enzyme Inhibitor Start: 3 take 10 mg by mouth once daily Lisinopril Active 10 MG PO 1 time daily March 12, 2023 12:00am Problems Problem Classification Problem Date Documented Da te Episodic/Chronic Anxiety disorders (2 sources) Anxiety; Translations: [Anxiety disorder, unspecified] Onset: 03-12-2023 03-12-2023 Chronic Results Test Name Value Interpretation Reference Range Facil ity Vital Signs Date Time Vital Sign Value Performing Clinician Faci lity 03-12-2023 13:23-0500 Diastolic blood pressure 80 mm[Hg] DO GAURAV ARAYA Work Phone: [facility] 03-12-2023 13:23-0500 Heart rate 91 /min DO GAURAV ARAYA Work Phone: [facility] 03-12-2023 13:23-0500 Respiratory rate 18 /min DO GAURAV ARAYA Work Phone: [facility] 03-12-2023 13:23-0500 SaO2% (BldA) [Mass fraction] 100 % DO GAURAV ARAYA Work Phone: [facility] 03-12-2023 13:23-0500 Systolic blood pressure 167 mm[Hg] DO GAURAV ARAYA Work Phone: [facility] 03-12-2023 12:04-0500 Body temperature 98.7 [degF] DO GAURAV ARAYA Work Phone: [facility] 03-12-2023 11:56-0500 Body height 160.02 cm DO GAURAV ARAYA Work Phone: [facility] 03-12-2023 11:56-0500 Body mass index (BMI) [Ratio] 31.9 kg/m2 DO GAURAV ARAYA Work Phone: [facility] 03-12-2023 11:56-0500 Body weight 81.64 kg DO GAURAV ARAYA Work Phone: [facility] Encounters Encounter Date Encounter Type Care Provider Facility Start: 03-12-2023 End: 03-12-2023 Emergency department patient visit GAURAV PARADAUBOWSKI Facility:[facility] Start: 03-12-2023 Evaluation and management of inpatient SCRIPTING 4 [facility] Start: 03-12-2023 End: 03-12-2023 Emergency department patient visit DO GAURAV ARAYA Work Phone: [facility] Work Phone: Plan of Treatment Date Care Activity Detail Author Patient Education Anxiety, Adult (DC) [facility] Work Phone: Patient referral [facility] Work Phone: Payers Date Payer Category Payer Self-pay Unknown [id number] Social History Date Type Detail Facility Start: 03-12-2023 Tobacco smoking stat us NHIS Never smoked tobacco (finding) [facility] Start: 03-12-2023 Never Smoked [facility] Start: 1960 Sex Assigned At Female [facility] Mental Status Date Assessment Result Facility 03-12-2023 Cognitive function Person;Place;Time [facility] Work Phone: Evaluation note Note Date & Type Note Facility Evaluation note No assessment information availa ble [facility] Work Phone: Hospital Discharge instructions Note Date & Type Note Facility Hospital Discharge instructions Additional Instructions Return for worsening condition, persistent chest pain, shortness of breath, persistent nausea , persistent sweating or any concerns. Based on your history of present illness, your risk factors, and your emergency department evaluation you were felt appropriate for an outpatient workup of your ill feeling. Please note that although you had a reassuring ED evaluation this does not exclude underlying coronary artery disease (that may ultimately need a stent) or heart disease like an intermittent irregular heartbeat/dysrhythmia. You should talk to your doctor about arranging outpatient provocative testing ( e.g. a stress test) , event monitoring (e.g. a Holter), and structural heart exam (echocardiogram). Please note lorazepam given in the emergency department has a potential for sedation and repeat use has addiction potential. [facility] Work Phone: Chief Complaint and Reason for Visit Chief Complaint HYPERTENSION Advance Directives No Advanced Directives Records Found Advance Directive Response Recorded Date/ Time Code Status Full Code March 12 11:56am Summary Purpose Family History No Family History Records FoundNo Family History Records Found Additional Source Comments Care Teams (unrecognized sec tion and content) Team Status: Inactive Member Role Status Dates GAURAV ARAYA DO Emergency Provider Active Start: March 12, 2023 End: March 12, 2023 NO FAMILY DOCTOR Primary Care Provider Active St art: March 12, 2023 End: March 12, 2023 Goals (unrecognized section and content) Goals may be documented in a n alternate section INFORMATION SOURCE (unrecogn ized section and content) DATE CREATED AUTHOR AUTHOR'S FRANK GRESHAMJACKSON 03/17/2023 [facility] FOR RECORDS PERTAINING TO PATIENTS WHO ARE OR HAVE BEEN ENROLLED IN A CHEMICAL DEPENDENCY/SUBSTANCEABUSE PROGRAM, SOME INFORMATION MAY BE OMITTED. This clinical summary was aggregated from multiple sources. Caution should be exercised in using it in the provision of clinical care. This summary normalizes information from multiple sources, and as a consequence, information in this document may materially change the coding, format and clinical context of patient data. In addition, data may be omitted in some cases. CLINICAL DECISIONS SHOULD BE BASED ON THE PRIMARY CLINICAL RECORDS. [employer] provides no warranty or guarantee of the accuracy or completeness of information in this document.
[2023-04-27 12:23] LABS: Absolute Lymphocyte Count 1.58 X10^3/uL (0.83-4.51); Absolute Neutrophil Count 2.5 X10^3/uL (2.0-7.7); Basophil# 0.04 X10^3/uL; Basophil% 0.9 % (0-1); Eosinophil# 0.13 X10^3/uL; Eosinophils% 2.9 % (0-5); Hemoglobin 14.5 g/dL (12.0-15.0); Lymphocyte # 1.58 X10^3/ul (0.83-4.51); Lymphocyte % 34.8 % (19-41); Mean Corp Hgb Conc 32.2 g/dL (32-36); Mean Corpuscular Hgb 29.7 pg (27.0-32.0); Mean Corpuscular Volume 92.2 fL (81-99); Mean Platelet Vol. 11.3 fl (6.2-12.0); Monocyte# 0.26 X10^3/uL; Monocyte% 5.7 % (0-10); NRBC Flagged by Analyzer 0 % (0-5); Neutrophil # 2.52 X10^3/uL (2.7-7.7); Neutrophil % 55.5 % (47-70); Platelet Count 253 K/mm3 (150-450); RBC Distribution Width CV 12.6 % (11.6-14.6); RBC Distribution Width SD 42.5 fl (35.1-43.9); Red Blood Count 4.88 M/mm3 (4.2-5.4); White Blood Count 4.5 K/mm3 (4.4-11.0)
[2023-04-27 13:09] LABS: Vitamin B12 561 pg/mL (211-911)
[2023-04-27 13:25] LABS: ALB/GLOB Ratio 1.4 RATIO (0.9-2.4); AST(SGOT) 21 U/L (15-37); Alanine Aminotransfer ALT/SGPT 26 U/L (13-56); Alkaline Phosphatase 74 U/L (45-117); Anion Gap 5 (5-15); BUN 13 mg/dL (7-18); BUN/Creat Ratio 15.8 RATIO (10-20); Calcium,Total 9.3 mg/dL (8.5-10.1); Chloride 108 mmol/L (98-107); Cholesterol 173 mg/dL (200); Creatinine, Serum 0.82 mg/dL (0.55-1.02); EST Glomerular Filtration Rate 75 mL/min (>60); Est Glom Filt Rate - Afr Amer 91 mL/min (>60); Globulin 2.9 g/dL (2.2-4.2); Glucose 146 mg/dL (74-106); High Density Lipoprotein 44 mg/dL; Protein, Total 6.9 g/dL (6.4-8.2); Sodium Level 141 mmol/L (136-145); Triglycerides 110 mg/dL; Very Low Density Lipoprotein 22 mg/dL (5-40)
[2023-04-27 17:50] LABS: Hemoglobin A1c 6.2 % (3.8-5.6)
== END | disposition home or self-care (01) ==
LOC: BIMLAB 09:41
PROVIDERS: PCP Internal Medicine; Referring Provider Internal Medicine; Visit Provider Internal Medicine
DX: I10 Essential (primary) hypertension (principal); E11.69 Type 2 diabetes mellitus with other specified complication; E53.8 Deficiency of other specified B group vitamins
CPT/HCPCS: 36415; 80053; 80061; 82607; 83036; 85025

== ENCOUNTER → 2023-08-28 | Outpatient (CLI) | payer MEDICAID, SELFPAY ==
[2023-08-28 12:02] LABS: Anion Gap 2 (5-15); BUN 17 mg/dL (7-18); Calcium,Total 9.6 mg/dL (8.5-10.1); Chloride 106 mmol/L (98-107); Creatinine, Serum 0.85 mg/dL (0.55-1.02); EST Glomerular Filtration Rate 72 mL/min (>60); Est Glom Filt Rate - Afr Amer 87 mL/min (>60); Glucose 151 mg/dL (74-106); Potassium 4.8 mmol/L (3.5-5.1); Sodium Level 140 mmol/L (136-145)
[2023-08-28 12:29] LABS: Hemoglobin A1c 6.2 % (3.8-5.6)
== END | disposition home or self-care (01) ==
LOC: BIMLAB 08:41
PROVIDERS: PCP Internal Medicine; Visit Provider Internal Medicine
DX: I10 Essential (primary) hypertension (principal); E11.9 Type 2 diabetes mellitus without complications
CPT/HCPCS: 36415; 80048; 83036

== ENCOUNTER 2023-11-10 06:00 | Emergency (ER) | payer MEDICAID, SELFPAY ==
[2023-11-10 06:01] VITALS: BP 177/103; PULSE 103; RESP 18; TEMP 36; O2SAT 98; BMI 34.0
--- NOTE | 2023-11-10 06:24 | EKG12_ITS ---
Test Reason : OD Blood Pressure : / mmHG Vent. Rate : 098 BPM Atrial Rate : 098 BPM P-R Int : 202 ms QRS Dur : 090 ms QT Int : 362 ms P-R-T Axes : 069 -53 065 degrees QTc Int : 462 ms Normal sinus rhythm Left axis deviation Abnormal ECG Confirmed by ELI MICHELLE, LUIS ALFREDO ([id number]), editor managing director JHONNY READ ([id number]) on 11/11/2023 10:17:04 AM Referred By: Confirmed By:LUIS ALFREDO BENITEZ MD
--- NOTE | 2023-11-10 06:28 | EX.ED.DYSGE1 ---
HPI History of Present Illness Chief Complaint: Palpitations Informant: patient and EMS Narrative Narrative: 63-year-old female woke up in bed this morning, rolled over and suddenly felt like her heart was racing, she states she got up and went to find her blood pressure cuff and checked and her heart rate was somewhere around 120 and her blood pressure was high, 183/100s. She states she began to panic and called 911, by the time paramedics got to her, as she was alone at the time, she states there presents calm to her and she is feeling much better now. She does not remember what point the racing stopped and cannot tell me how long it lasted. She called EMS less than an hour prior to evaluation. She denies any associated cain dyspnea, chest discomfort, lightheadedness/syncope. No recent illness or leg swelling. No history of blood clots. She states she is on losartan for blood pressure and she accidentally has missed it for the last several days because her prescription ran out, then the pharmacy was closed on Thursday, then she forgot to get it this past day. She has had this happen maybe 2 other times, in the last several years. After one of them she was seen in the hospital and had a negative workup and was prescribed a monitor which she wore for several days and she never had the symptoms again and the monitor was unremarkable, this is all according to her. [facility] Medical History Knee pain Arrhythmia Contusion of head Fall Syncope Ruptured appendix Mammogram declined Health care maintenance Post-menopausal Colon cancer screening Vitamin B12 deficiency Encounter for vitamin deficiency screening Dermatitis Type 2 diabetes mellitus Obesity Abnormal EKG Elevated random blood glucose level Anemia Hx of mitral valve prolapse Hypertension Home Medications ?Medication ?Instructions ?Recorded ?Last Taken ?Type multivitamin with iron 1 tab PO DAILY 05/10/21 Unknown History losartan 50 mg tablet 50 mg PO DAILY #90 tabs 04/29/23 Unknown Rx mecobalamin (vitamin B12) 1 tab PO DAILY 11/10/23 Unknown History Allergy/AdvReac Type Severity Reaction Status Date / Time gelatin (Gelatin) Allergy Unknown Verified 11/10/23 06:04 iodine Allergy Rash Verified 11/10/23 06:04 Family History Father Alcoholism Heart disease Respiratory disease Mother Alcoholism Sister Alcoholism Son Alcoholism Anxiety Depression Mental disorder Daughter Alcoholism Anesthesia complication Aunt Diabetes CVA (cerebral vascular accident) Surgical History History of Hx of tonsillectomy History of hysterectomy History of cholecystectomy Social History Smoking Status: Never smoker alcohol intake: never substance use type: does not use what type of physical activity do you participate in: walking frequency: daily ROS ROS ED Constitutional Constitutional ED: Denies chills or fever(s) Eyes Eyes: Denies change in vision or diplopia ENT ENT ED: Denies rhinorrhea or sore throat Cardiovascular Cardiovascular: Reports palpitations and racing heartbeat; Denies chest pain Respiratory/Chest Respiratory/Chest: Denies cough or dyspnea Gastrointestinal Gastrointestinal: Denies abdominal pain, diarrhea, nausea or vomiting Genitourinary Genitourinary ED: Denies dysuria or hematuria Musculoskeletal Musculoskeletal: Denies back pain or neck pain Integumentary Denies abscess or rash Neurologic Neurologic: Denies headache(s), paresthesias or weakness Psychiatric Psychiatric: Reports anxiety; Denies suicidal thoughts EXAM Physical Exam Const Vital Signs: 11/10/23 06:01 11/10/23 06:05 11/10/23 06:10 Temperature 96.8 F L Temperature Source Temporal Pulse Rate 103 H Respiratory Rate 18 Respiratory Effort Normal Non-Labored Normal Non-Labored Blood Pressure 177/103 H Blood Pressure Mean 127 Pulse Ox 98 Oxygen Delivery Method Room Air Positive well nourished and well developed General Appearance ED: well developed and NAD HEENT Reports moist mucous membranes normocephalic and atraumatic Eyes PERRL and EOMs intact bilaterally Neck full ROM and supple Chest Wall inspection of chest normal and palpation of chest normal Resp normal respiratory effort and clear to auscultation bilaterally Cardio regular rate, regular rhythm and no murmurs GI non-tender and non-distended Auscultation: normoactive bowel sounds Palpation: soft Back/Spine no CVA tenderness General Back: other FROM Extremity normal to inspection General Extremety ED: Negative for edema, pulses abnormal or tenderness General Extremity: Negative for edema or pulses abnormal Neuro oriented x3, CN's II-XII intact bilaterally and no sensory deficits noted Sensorium / Orientation: awake and alert Motor Exam: strength 5/5 throughout Psych Mood & Affect: anxious Skin no rashes or lesions noted and no wounds MDM MDM MDM Narrative Medical decision making narrative: Initial blood pressure 177/103, at the end of my evaluation she is 166/92. She is reassured. I ordering test to evaluate for acute coronary syndrome which I think is less likely here, as well as troponin leak/damage due to a dangerous dysrhythmia which I also think is less likely, monitoring her for recurrent dysrhythmia or PVCs, and checking for metabolic disturbances that may cause dysrhythmia or JASIEL from blood pressure related issues. In the meantime and giving her a dose of her losartan. She is up out of bed and ambulatory without symptoms or event at this time. The patient keeps saying that she had a panic attack. My suspicion is that she had something organic/real such as PVCs, or some type of nonlethal supraventricular tachycardia, that then caused her to feel anxious/panicky. As I discussed with her, this is why we are keeping her on the monitor, her main concern is that we do not miss asymptomatic atrial fibrillation since it puts her at risk for stroke, which she does not appear to have at this time since her EKG looks normal. We will monitor her and watch the workup. Workup is negative and she remains asymptomatic with no further dysrhythmias or telemetry events. I support discharging her home to follow-up closely as an outpatient with her doctor. 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 Lab Data Attestation: I reviewed the patient's lab results. Labs: Laboratory Results - last 24 hr 11/10/23 06:08 WBC 5.0 RBC 5.10 Hgb 15.4 H Hct 45.5 MCV 89.2 MCH 30.2 MCHC 33.8 RDW Std Deviation 41.1 RDW Coeff of Beverly 12.5 Plt Count 204 MPV 10.7 Immature Gran % (Auto) 0.200 Neut % (Auto) 38.5 L Lymph % (Auto) 50.1 H King % (Auto) 6.6 Eos % (Auto) 3.6 Baso % (Auto) 1.0 Absolute Neuts (auto) 1.9 L Absolute Lymphs (auto) 2.49 Nucleated RBC % 0 Sodium 140 Potassium 3.6 Chloride 107 Carbon Dioxide 24.0 Anion Gap 9 BUN 23 H Creatinine 0.80 Estim Creat Clear Calc 76.38 Est GFR (MDRD) Af Amer 93 Est GFR (MDRD) Non-Af 77 BUN/Creatinine Ratio 28.6 H Glucose 160 H Calcium 9.0 Troponin I High Sens 3 Rhythm Strip Rhythm Strip: Sinus Tach Rate: 103 Ectopy: None EKG Initial EKG: Attestation: I personally reviewed and interpreted this EKG as follows: Interpretation: Sinus Rhythm and No Acute Injury Pattern Prior EKG tracings: available for review Prior: Unchanged Discharge Plan Triage Chief Complaint: Palpitations Other Complaint: Hypertension ED Provider: Hermann Sutherland Dx/Rx/DC Orders Clinical Impression: Palpitations, Anxiety, Accelerated hypertension Instructions: ED Palpitations Prescriptions: No Action multivitamin with iron Tablet 1 tab PO DAILY losartan 50 mg tablet 50 mg PO DAILY Qty: 90 3RF mecobalamin (vitamin B12) 1 tab PO DAILY Primary Care Provider: Chuyita Harper Referrals: Chuyita Harper MD [Primary Care Provider] - As soon as possible Print Language: Turkish Disposition Disposition: Home, Self Care
[2023-11-10 06:33] LABS: Absolute Lymphocyte Count 2.49 X10^3/uL (0.83-4.51); Absolute Neutrophil Count 1.9 X10^3/uL (2.0-7.7); Basophil# 0.05 X10^3/uL; Eosinophil# 0.18 X10^3/uL; Eosinophils% 3.6 % (0-5); Hematocrit 45.5 % (37-47); Hemoglobin 15.4 g/dL (12.0-15.0); Lymphocyte # 2.49 X10^3/ul (0.83-4.51); Lymphocyte % 50.1 % (19-41); Mean Corp Hgb Conc 33.8 g/dL (32-36); Mean Corpuscular Hgb 30.2 pg (27.0-32.0); Mean Corpuscular Volume 89.2 fL (81-99); Mean Platelet Vol. 10.7 fl (6.2-12.0); Monocyte# 0.33 X10^3/uL; Monocyte% 6.6 % (0-10); NRBC Flagged by Analyzer 0 % (0-5); Neutrophil # 1.91 X10^3/uL (2.7-7.7); Neutrophil % 38.5 % (47-70); Platelet Count 204 K/mm3 (150-450); RBC Distribution Width CV 12.5 % (11.6-14.6); RBC Distribution Width SD 41.1 fl (35.1-43.9)
[2023-11-10] MEDS: Losartan Potassium 50 MG Tablet PO (06:36)
[2023-11-10 06:55] LABS: Anion Gap 9 (5-15); BUN 23 mg/dL (7-18); BUN/Creat Ratio 28.6 RATIO (10-20); Chloride 107 mmol/L (98-107); EST Glomerular Filtration Rate 77 mL/min (>60); Est Glom Filt Rate - Afr Amer 93 mL/min (>60); Estimated Creatinine Clearance 76.38 ml/min; Glucose 160 mg/dL (74-106); Potassium 3.6 mmol/L (3.5-5.1); Sodium Level 140 mmol/L (136-145); Troponin-I HS 3 pg/mL (3.0-54.0)
[2023-11-10 07:01] VITALS: BP 162/92; PULSE 72; RESP 16; O2SAT 98
[2023-11-10 07:36] VITALS: BP 162/92; BP 168/95; PULSE 72; PULSE 84; RESP 16; TEMP 36.4; O2SAT 97; O2SAT 98
== END 2023-11-10 07:38 | disposition home or self-care (01) ==
PROVIDERS: Emergency Provider Emergency Medicine; PCP Internal Medicine; Visit Provider Emergency Medicine
DX: R00.2 Palpitations (principal); E11.9 Type 2 diabetes mellitus without complications; F41.9 Anxiety disorder, unspecified; I10 Essential (primary) hypertension
CPT/HCPCS: 80048; 84484; 85025; 93005; 99285; A4216

== ENCOUNTER 2024-10-15 15:14 | Emergency (ER) | payer MEDICAID, SELFPAY ==
[2024-10-15 15:15] VITALS: BP 224/113; PULSE 114; RESP 18; TEMP 36.8; O2SAT 98
--- NOTE | 2024-10-15 16:03 | EKG12_ITS ---
Test Reason : ANXIETY/HTN Blood Pressure : */* mmHG Vent. Rate : 99 BPM Atrial Rate : 99 BPM P-R Int : 186 ms QRS Dur : 94 ms QT Int : 364 ms P-R-T Axes : 57 -43 56 degrees QTcB Int : 467 ms Normal sinus rhythm Possible Left atrial enlargement Left axis deviation Low voltage QRS Abnormal ECG Confirmed by ELI MICHELLE, LUIS ALFREDO ([id number]), news videotape editor JHONNY READ ([id number]) on 10/18/2024 6:41:23 AM Referred By: Wiley Alfredo Confirmed By: LUIS ALFREDO BENITEZ MD
--- NOTE | 2024-10-15 16:24 | EDS_ITS ---
HPI History of Present Illness Chief Complaint: Anxiety Narrative Narrative: Patient is a 64-year-old female with past medical history hypertension, anemia, vitamin B12 deficiency, type 2 diabetes who presents to the emergency department with the concern for panic attack. Patient states that she went to do anything specifically when she felt like she developed a panic attack. Patient notes that she has had this happen before her and came to the emergency department does not remember what medications were given. States that she took her blood pressure also at home and noted that it was high therefore she came here for further evaluation management. She notes that this was a wrist blood pressure cuff and notes that once I found out you could do a forearm pressure as opposed to a upper arm blood pressure does change my life she states that she does not like blood pressure taken on her upper arm as it squeezes her arm too tight. Patient states that she stopped taking her blood pressure medication months ago as she states that she wanted to get her blood pressure down with weight loss and on her own without any medication but states that this is not worked according to her [facility] Medical History Bilateral carpal tunnel syndrome Knee pain Arrhythmia Contusion of head Fall Syncope Ruptured appendix Mammogram declined Health care maintenance Post-menopausal Colon cancer screening Vitamin B12 deficiency Encounter for vitamin deficiency screening Dermatitis Type 2 diabetes mellitus Obesity Abnormal EKG Elevated random blood glucose level Anemia Hx of mitral valve prolapse Hypertension Home Medications ?Medication ?Instructions ?Recorded ?Last Taken ?Type multivitamin with iron 1 tab PO DAILY 05/10/21 Unkn own History losartan 50 mg tablet 50 mg PO DAILY #90 tabs 04/20 024 11/07/23 Rx mecobalamin (vitamin B12) 1 tab PO DAILY 11/10/23 Unkn own History meloxicam 15 mg tablet 15 mg PO DAILY PRN pain #60 tabs 11/27/23 Unknown Rx losartan 50 mg tablet 50 mg PO DAILY 30 days #30 t abs 10/15/24 Unknown Rx Allergy/AdvReac Type Severity Reaction Status Date / Time gelatin (Gelatin) Allergy Unknown Verified 10/15/24 15:16 iodine Allergy Rash Verified 10/15/24 15:16 Family History Father Alcoholism Heart disease Respiratory disease Mother Alcoholism Sister Alcoholism Son Alcoholism Anxiety Depression Mental disorder Daughter Alcoholism Anesthesia complication Aunt Diabetes CVA (cerebral vascular accident) Surgical History History of Hx of tonsillectomy History of hysterectomy History of cholecystectomy Social History Smoking Status: Never smoker alcohol intake: never substance use type: does not use what type of physical activity do you participate in: walking frequency: daily ROS ROS ED ROS Narrative constitutional: Denies headache, lightness numbness, fevers, chills Eyes: Denies change in vision double vision blurry vision Cardiovascular: Denies chest pain, palpitations Respiratory: Denies coughing wheezing shortness of breath Abdomen: Denies abdominal pain nausea vomit diarrhea : Denies any urinary symptoms Neurological: Denies any numbness, weakness, tingling Musculoskeletal: Denies back pain Skin: Denies any rashes or lesions Psychiatric: Complains of concern for panic attack EXAM Physical Exam Narrative Exam Narrative: General: Patient lying in bed rest comfortably did not appear to be acute distress Head: Atraumatic, normocephalic Eyes: PERRL bilaterally, EOMI bilateral, no conjunctival injection noted Neck: Soft, supple, trachea midline Cardiovascular: Patient tachycardic with regular rhythm no murmurs gallops rubs noted Respiratory: Clear to auscultation bilaterally Abdomen: Soft, nondistended, nontender to palpation Extremities: +5/5 strength noted in the bilateral upper and lower extremities, radial pulses +2/4 and above extremities, no pedal edema exam Neurological: Patient following commands knew that she was at [facility] the year is 2024. NIH of 0 GCS 15 Skin: Warm, dry, intact no rashes or lesions noted Const Vital Signs: 10/15/24 15:15 10/15/24 17:14 10/15/24 19:00 Temperature 98.3 F Temperature Source Oral Pulse Rate 114 H 96 87 Respiratory Rate 18 20 H 19 H Blood Pressure 224/113 H 183/95 H 162/93 H Blood Pressure Mean 150 124 116 Pulse Ox 98 97 99 Oxygen Delivery Method Room Air Room Air MDM MDM MDM Narrative Medical decision making narrative: Patient is a 64-year-old female who presented to the emergency department the chief complaint of concern for panic attack and elevated blood pressure. On the differential diagnose includes but not limited to hypertensive emergency, esse ntial hypertension, ACS. Once workup is obtained and reviewed she will be reevaluated. Patient's CBC reviewed showed no evidence leukocytosis white blood count normal at 4.6, hemoglobin is 15, plate count of 211. Patient sodium was noted to be normal at 139, potassium low at 3.8, creatinine was 0.86. Patient's troponin was less than 6 with a delta troponin normal at 7. Patient's EKG showed sinus rhythm with a rate of 99 bpm this was compared to EKG from November 10, 2023 which is largely unchanged. Patient's TSH was noted to be normal at 1.77, free T4 and T3 were 1.40 and 2.6 respectively. Patient's chest x-ray reviewed showed no acute findings this was reviewed by myself and by radiology. On reevaluation patient she is feeling much improved she would like to go home at this point time. Patient was advised that a prescription for losartan will be sent to her pharmacy and according to our records here she was on 50 mg daily this will be restarted. She will be advised to return with worsening symptoms or other concerns. She is agreeable this plan all question concerns answered she was discharged home in stable condition. Lab Data Labs: Laboratory Results - last 24 hr 10/15/24 10/15/24 16:24 18:00 WBC 4.6 RBC 5.01 Hgb 15.0 Hct 43.9 MCV 87.6 MCH 29.9 MCHC 34.2 RDW Std Deviation 40.1 RDW Coeff of Beverly 12.6 Plt Count 211 MPV 10.9 Immature Gran % (Auto) 0.400 Neut % (Auto) 58.5 Lymph % (Auto) 29.1 [place] % (Auto) 7.6 Eos % (Auto) 3.3 Baso % (Auto) 1.1 H Absolute Neuts (auto) 2.7 Absolute Lymphs (auto) 1.34 Nucleated RBC % 0 Sodium 139 Potassium 3.8 Chloride 103 Carbon Dioxide 24.6 Anion Gap 11 BUN 17 Creatinine 0.86 Est GFR (MDRD) Non-Af 76 BUN/Creatinine Ratio 20.0 Glucose 199 H Calcium 9.6 Troponin T High Sens < 6 Troponin T Hi Sens 2 Hr 7 TSH 1.770 Free T4 1.40 Free T3 pg/dL 2.6 Radiography Diagnostic Testing: Clinical Impression(s) from Imaging Studies Chest X-Ray 10/15/24 16:50 IMPRESSION: NO ACUTE FINDINGS. Reading Location: [facility] Discharge Plan Triage Chief Complaint: Anxiety ED Provider: Wiley Alfredo Dx/Rx/DC Orders Clinical Impression: Hypertension Prescriptions: New losartan 50 mg tablet 50 mg PO DAILY 30 Days Qty: 30 0RF No Action multivitamin with iron Tablet 1 tab PO DAILY losartan 50 mg tablet 50 mg PO DAILY Qty: 90 3RF meloxicam 15 mg tablet 15 mg PO DAILY PRN (Reason: pain) Qty: 60 1RF mecobalamin (vitamin B12) 1 tab PO DAILY Primary Care Provider: Chuyita Harper Referrals: Chuyita Harper MD [Primary Care Provider] - Activity Restrictions/Additional Instructions: Follow-up with your primary care physician. Take your blood pressure medication and the rest of her prescriptions as prescribed. Your blood work today did not show any acute findings your chest x-ray was normal. Return with worsening symptoms or any other concerns Print Language: Kazakh Disposition Disposition: Home, Self Care
--- OUTSIDE RECORDS SUMMARY | 2024-10-15 16:28 | XMS RPT_ITS | CCD ---
Author Organization [facility] Care Team Providers Care Child Support Investigator Name Role Phone Dr. Chuyita Harper Primary Care Provider [phone] Leroy, Dr. Boogie Attending Provider [phone] Dr. Chuyita Harper Referring Provider [phone] Leroy, Dr. Boogie Primary Care Provider [phone] Dr. Chuyita Harper Attending Provider [phone] Dr. Chuyita Harper Referring Provider [phone] Dr. Davi Zayas Attending Provider [phone] Dr. Jamee Menard Emergency Provider [phone] Herbie Rodriguez Admit Provider Dr. Herbie Rodriguez Other Provider Dr. Rufina Gardner Attending Provider Dr. Rufina Gardner Other Provider DO GAURAV ARAYA Emergency Provider DOCTOR, NO FAMILY Primary Care Provider Dr. Chuyita Villarreal Primary Care Provider [phone] Dr. Chuyita Harper Attending Provider [phone] Dr. Chuyita Harper Referring Provider [phone] Dr. Davi Zayas Attending Provider Dr. Davi Zayas Referring Provider Dr. Jamee Menard Emergency Provider [phone] Jennifer, Dr. Stoner Admit Provider [phone] Herbie Rodriguez Other Provider Dr. Rufina Gardner Attending Provider [phone] Rufina Gardner Other Provider ANGELA HOLLINGSWORTH Attending Unavailable QUIANA, GAURAV Attending Unavailable QUIANA, GAURAV Primary Care Unavailable Oleghe, Efewongbe Primary Care Unavailable Oleghe, Efewongbe Referring Unavailable Oleghe, Efewongbe Attending Unavailable Marquez, Davi Referring Unavailable Oleghe, Efewongbe Primary Care Unavailable Marquez, Davi Attending Unavailable Hermann Sutherland Attending Unavailable Oleghe, Efewongbe Primary Care Unavailable Oleghe, Efewongbe Primary Care Unavailable Verona, [place] Referring Unavailable Verona, [place] Attending Unavailable Oleghe, Efewongbe Primary Care Unavailable Oleghe, Efewongbe Attending Unavailable Oleghe, Efewongbe Primary Care Unavailable Oleghe, Efewongbe Referring Unavailable Oleghe, Efewongbe Attending Unavailable AgyepongHerbie Consulting Unavailable Rufina Gardner Attending Unavailable AgthereseponHerbie klein Admitting Unavailable Oleghe, Efewongbe Primary Care Unavailable Oleghe, Efewongbe Primary Care Unavailable Rufina Gardner Referring Unavailable Verona, Howie Attending Unavailable Herbie Rodriguez Consulting Unavailable Oleghe, Efewongbe Primary Care Unavailable Rufina Gardner Attending Unavailable AgHerbie treawdell Admitting Unavailable AgHerbie treadwell Consulting Unavailable Oleghe, Efewongbe Primary Care Unavailable Rufina Gardner Attending Unavailable AgyeponHerbie klein Admitting Unavailable Rufina Gardner Consulting Unavailable Oleghe, Efewongbe Primary Care Unavailable Oleghe, Efewongbe Referring Unavailable Oleghe, Efewongbe Attending Unavailable Oleghe, Efewongbe Primary Care Unavailable Oleghe, Efewongbe Referring Unavailable Oleghe, Efewongbe Attending Unavailable Oleghe, Efewongbe Primary Care Unavailable Oleghe, Efewongbe Referring Unavailable Oleghe, Efewongbe Attending Unavailable Allergies Allergy Classification Reported Allergen(s) Allergy Type Date of Onset Reaction(s) Facility (6 sources) Gelatin Drug Allergy 05-18-202 2 Unknown [facility] (7 sources) Iodine Drug Allergy 2 Rash, Unspecified [facility] (3 sources) Penicillins Allergy to substance 3 PT UNSURE OF REACTION, Unspecified [facility] (2 sources) Iodine Drug Allergy 3 [facility] (2 sources) Penicillins Drug allergy (disorder) 3 [facility] (1 source) Gelatin Drug Allergy 4 [facility] Medications Current Medications Medication Drug Class(es) Dates Sig (Normalized) Sig (Original) hydroCHLOROthiazide 25 mg oral tablet (20 sources) Thiazide Diuretic Start: 3 take 25 mg by mouth once daily Hydrochlorothiazide Active 25 MG PO 1 time daily March 12, 2023 12:00am Start: 05-05-2021 End: 02-14-2023 take 25 mg by mouth once daily Hydrochlorothiazide Discontinued 25 MG PO DAILY January 14, 2023 10:10am February 14, 2023 7:13am lisinopril 10 mg oral tablet (1 source) Angiotensin Converting Enzyme Inhibitor Start: 03-12-2023 take 10 mg by mouth once daily Lisinopril Active 10 MG PO 1 time daily March 12, 2023 12:00am losartan potassium 50 mg oral tablet (20 sources) Angiotensin 2 Receptor Nate Start: 05-10-2021 End: 04-29-2023 take 50 mg by mouth once daily Losartan Active 50 MG PO DAILY April 29, 2023 9:11am Multivitamin With Iron (6 sources) Start: 05-10-2021 take 1 tablet by mouth once daily Multivitamin With Iron Active 1 TABLET PO DAILY May 10, 2021 10:00am Start: 05-10-2021 take 1 tablet by naheed th once daily Multivitamin With Iron Active 1 TABLET PO DAILY May 10, 2021 12:00am Start: 05-10-2021 take 1 tablet by naheed th once daily Multivitamin With Iron Active 1 TABLET PO DAILY May 10, 2021 1:00am Completed/Discontinued Medications Medication Drug Class(es) Dates Sig (Normalized) Sig (Original) amoxicillin 875 mg / clavulanate 125 mg oral tablet (6 sources) Penicillin-class Antibacterial Start: 08-12-2018 End: 08-19-2018 Amoxicillin-Pot Clavulanate Discontinued 1 EACH PO TWICE A DAY 14 August 11, 2018 11:00pm August 18, 2018 11:08pm ferrous sulfate 325 mg oral tablet (4 sources) Start: 05-30-2022 End: 10-27-2022 take 325 mg by mouth once daily Ferrous Sulfate Discontinued 325 MG PO DAILY May 30, 2022 12:00am October 27, 2022 10:24am hydrocortisone 25 mg/ml topical cream (6 sources) Corticosteroid Start: 09-04-2021 End: 12-05-2021 Hydrocortisone Discontinued 1 APPLIC TOPICAL TWICE A DAY September 03, 2021 11:00pm December 05, 2021 12:56pm metroNIDAZOLE 500 mg oral tablet (6 sources) Nitroimidazole Antimicrobial Start: 08-12-2018 End: 08-19-2018 take 500 mg by mouth every eight hours Metronidazole Discontinued 500 MG PO Q8H 21 August 11, 2018 11:00pm August 18, 2018 11:08pm Hxphrnwq-Vde-Dscq-Fa -Lutein (Centrum Silver Women Tablet) 1 EACH tablet (3 sources) Start: 08-09-2018 End: 05-10-2021 Uqwkrcuo-Xys-Jopl-F a-Lutein (Centrum Silver Women Tablet) 1 EACH tablet Discontinued 1 EACH PO DAILY August 09, 2018 8:15pm May 10, 2021 9:59am Start: 08-09-2018 End: 05-10-2021 Wberlobq-Afh-Kqtl-Fa-Lutein (Centrum Silver Women Tablet) 1 EACH tablet Discontinued 1 EACH PO DAILY August 08, 2018 11:00pm May 10, 2021 8:59am Start: 08-09-2018 End: 05-10-2021 Qcnzrjhn-Vmq-Qvnm-Fa-Lutein (Centrum Silver Women Tablet) 1 EACH tablet Discontinued 1 EACH PO DAILY August 09, 2018 12:00am May 10, 2021 9:59am Gcjadjxk-Mjw-Gszm-Fa-Vit K-L ut (Centrum Silver Women Tablet) 1 EACH tablet (3 sources) Start: 08-09-2018 End: 05-10-2021 Mijhrgbl-Llh-Lcne-Fa-Vit K-L ut (Centrum Silver Women Tablet) 1 EACH tablet Discontinued 1 EACH PO DAILY August 08, 2018 11:00pm May 10, 2021 8:59am Start: 08-09-2018 End: 05-10-2021 Xcwzxzti-Vwc-Vpaq-Fa-Vit K-L ut (Centrum Silver Women Tablet) 1 EACH tablet Discontinued 1 EACH PO DAILY August 09, 2018 12:00am May 10, 2021 9:59am Problems Active Problems Problem Classification Problem Date Documented Date Episodic/Chronic Allergic reactions (9 sources) Inflammatory dermatosis; Translations: [Dermatitis, unspecified] Episodic Anxiety disorders (2 sources) Anxiety; Translations: [Anxiety disorder, unspecified] Onset: 03-12-2023 03-12-2023 Chronic Cardiac dysrhythmias (1 source) Cardiac arrhythmia; Translations: [Cardiac arrhythmia, unspecified] 03-02-2023 Chronic Cardiac dysrhythmias (1 source) Palpitations; Translations: [Palpitations] Onset: 11-24-2023 Episodic Diabetes mellitus with complications (1 source) Type 2 diabetes mellitus with other specified complication; Translations: [Type 2 diabetes mellitus with other specified complication] Onset: 11-27-2023 Chronic Diabetes mellitus without complication (17 sources) Type 2 diabetes mellitus; Translations: [Type 2 diabetes mellitus without complications] Onset: 08-28-2023 Chronic Diabetes mellitus without complication (6 sources) High glucose level in blood; Translations: [Other abnormal glucose] 05-10-2021 Episodic E Codes: Fall (3 sources) Fall; Translations: [Unspecified fall, initial encounter] 02-13-2023 Episodic Essential hypertension (20 sources) Hypertensive disorder; Translations: [Essential (primary) hypertension] Onset: 09-07-2023 Chronic Nonspecific chest pain (6 sources) Chest pain; Translations: [Chest pain, unspecified] 05-13-2021 Episodic Other nutritional; endocrine; and metabolic disorders (6 sources) Obesity; Translations: [Obesity, unspecified] 03-10-2022 Chronic Other nutritional; endocrine; and metabolic disorders (4 sources) Obesity, unspecified; Translations: [Obesity, unspecified] Chronic Other screening for suspected conditions (not mental disorders or infectious disease) (16 sources) Electrocardiogram abnormal; Translations: [Abnormal electrocardiogram [ECG] [EKG]] Episodic Residual codes; unclassified (3 sources) Mammogram declined; Translations: [Procedure and treatment not carried out because of patient's decision for unspecified reasons] 10-27-2022 Episodic Residual codes; unclassified (3 sources) Postmenopausal state; Translations: [Asymptomatic menopausal state] 10-27-2022 Episodic Residual codes; unclassified (2 sources) Procedure and treatment not carried out because of patient's decision for unspecified reasons; Translations: [Surgical or other procedure not carried out because of patient's decision] 10-27-2022 Episodic Superficial injury; contusion (3 sources) Contusion of head; Translations: [Contusion of unspecified part of head, initial encounter] 02-13-2023 Episodic Past or Other Problems Problem Classification Problem Date Documented Da te Episodic/Chronic Nutritional deficiencies (8 sources) Cobalamin deficiency; Translations: [Deficiency of other specified B group vitamins] Onset: 01-28-2023 05-30-2022 Episodic Syncope (7 sources) Syncope; Translations: [Syncope and collapse] Onset: 02-16-2023 02-13-2023 Episodic Results Test Name Value Interpretation Reference Range Facility Internal Medicine Office Vis sravanthi 11-27-2023 Internal Medicine Office Visit [facility] [address] [place] [address] [place] [address] OFFICE VISIT Date of Service: 11/27/23 MR#: [id number] Acct: [id number] Name: DWAIN SUTHERLAND Rep #: [id number] : 1960 Provider: Dr. Chuyita raymond MD Age/Sex: 63/F [place] [facility] [place]: Signed Intake Vital Signs 08/28/23 08:18 11/10/23 06:01 11/27/23 15:05 Height 5 ft 2 in 5 ft 3 in 5 ft 3 in Weight: 185 lb BMI 32.8 BP 128/68 H Blood Pressure Location Lt brachial Position Sitting Respiration 16 Pulse 84 Pulse Source Monitor Temp 97.4 F L Temp Source Temporal Pulse Oximetry (%) 98 Oxygen Delivery Method room air Intake Visit Reasons: 3 M FU Chief Complaint: Follow-up chronic conditions Crozer Operator Required: No Accompanied by: Self Is patient in pain?: No Allergies gelatin (Gelatin) Allergy (Verified 11/27/23 15:01) Unknown iodine Allergy (Verified 11/27/23 15:01) Rash Medications ???Medication ???Instructions ???Recorded ???Confirmed ???Type multivitamin with iron 1 tab PO DAILY 05/10/21 11/27/23 History losartan 50 mg tablet 50 mg PO DAILY #90 tabs 04/29/23 11/27/23 Rx mecobalamin (vitamin B12) 1 tab PO DAILY 11/10/23 11/27/23 History meloxicam 15 mg tablet 15 mg PO DAILY PRN pain #60 tabs 11/27/23 11/27/23 Rx PFSH Medical History (Updated 11/27/23 @ 17:[address] Chuyita Harper MD) Bilateral carpal tunnel syndrome Knee pain Arrhythmia Contusion of head Fall Syncope Ruptured appendix Mammogram declined Health care maintenance Post-menopausal Colon cancer screening Vitamin B12 deficiency Encounter for vitamin deficiency screening Dermatitis Type 2 diabetes mellitus Obesity Abnormal EKG Elevated random blood glucose level Anemia Hx of mitral valve prolapse Hypertension Surgical History History of Hx of tonsillectomy History of hysterectomy History of cholecystectomy Family History Father Alcoholism Heart disease Respiratory disease Mother Alcoholism Sister Alcoholism Son Alcoholism Anxiety Depression Mental disorder Daughter Alcoholism Anesthesia complication Aunt Diabetes CVA (cerebral vascular accident) Social History Smoking Status: Never smoker alcohol intake: never substance use type: does not use what type of physical activity do you participate in: walking frequency: daily HPI HPI Chief Complaint: Follow-up chronic conditions Details: DWAIN SUTHERLAND, is a 63 F who presents to the office today for follow-up of her chronic medical conditions. Also has some concerns. She reports pain and tingling in her right hand. Started 2 weeks ago after she bumped her hand into an object. Tried bracing with some improvement. No prior/known history of carpal tunnel. Pain and numbness is said to be worse with movement. History of hypertension, blood pressure today at 128/68 mmHg. Currently on losartan which she is taking as prescribed. Not as active lately. A1c up from 6.2-7. As above, she states that she has not been as active lately and has had some more ice cream typical for her. She plans to make changes. Currently not on any medication. ROS Const Constitutional: No body ache, chills, excessive sweating, fatigue, fever(s), frequent falls, headache(s), snoring, weakness or change in appetite Eyes Eyes: No blurry vision, change in vision, eye pain or Light sensitivity ENT ENT: No abnormal hearing, ear or mastoid pain, tinnitus, nasal congestion, headache(s), neck pain or sore throat Resp Respiratory: No cough, shortness of breath, snoring or wheezing Cardio Cardiology: No chest pain at rest, chest pain with exertion, excessive sweating, dyspnea on exertion, lightheadedness, orthopnea or palpitations Gastro GI: No abdominal pain, change in bowel habits, constipation, cramping, diarrhea, nausea/dyspepsia or vomiting Genitourinary-Female: No burning urination, painful urination, urinary incontinence or urinary frequency Musc Musculoskeletal: Positive for joint pain and tingling; No abnormal gait, back pain, limited range of motion, muscle weakness or neck pain Skin Skin: No dry skin, redness, lesions, itchy eyes, rash or wounds Neuro Neurology: Positive for tingling; No abnormal gait, abnormal hearing, weakness, frequent falls, headache(s) or memory loss Psych Psychiatric: No anxiety, No change in appetite, No depression, No memory loss and No Thoughts of harming yourself/Others Endo Endocrine: No cold intolerance, excessive sweating, fatigue, flushing, heat intolerance, increased thirst/drinking or increased hunger Aller/Imm Allergy/Immunologic: No itchy eyes, seasona (more content not included)... Normal [facility] 12 Lead EKGon 11-10-2023 12 Lead EKG [facility] Cardi[facility] Services [address] [place] [address] 12 Lead EKG 11/10/23 0634 MR#: [id number] Acct: [id number] Name: DWAIN SUTHERLAND NOEL Rep #: [id number] : 1960 63 From: Howie Rhoades MD Attending Dr: Status: DEP ER Ordering Dr: Hermann Sutherland MD Date: 11/10/23 Location: ED Sex: F C Admitted: Test Reason : OD Blood Pressure : / mmHG Vent. Rate : 098 BPM Atrial Rate : 098 BPM P-R Int : 202 ms QRS Dur : 090 ms QT Int : 362 ms P-R-T Axes : 069 -53 065 degrees QTc Int : 462 ms Normal sinus rhythm Left axis deviation Abnormal ECG Confirmed by HOWIE RHOADES MD ([id number]), editorial specialist JHONNY READ ([id number]) on 11/11/2023 10:17:04 AM Referred By: Confirmed By:HOWIE RHOADES MD 11/11/23 1017 Date Howie Rhoades MD CC: Dr. Hermann Sutherland MD; Dr. Chuyita Harper MD Signed Normal [facility] Basic Metabolic Profile (BMP )on 11-10-2023 BUN/CRE 28.6 RATIO High 10-20 [facility] Comment on above: Order Comment: 'TROP ' Serial specimen #1, #2 or #3: 1 Performed By: #### L 503.6030, L503.0105, L506.1000, L503.6550, L500.4100 #### [facility] [address] [place], [address] CA,Total 9.0 mg/dL Normal 8.5-10.1 [facility] Comment on above: Order Comment: 'TROP ' Serial specimen #1, #2 or #3: 1 Performed By: #### L 503.6030, L503.0105, L506.1000, L503.6550, L500.4100 #### [facility] [address] [place], [address] Chloride [Moles/Vol] 107 mmol/L Normal 98-107 [facility] Comment on above: Order Comment: 'TROP ' Serial specimen #1, #2 or #3: 1 Performed By: #### L 503.6030, L503.0105, L506.1000, L503.6550, L500.4100 #### [facility] [address] [place], [address] CO2 [Moles/Vol] 24.0 mmol/L Normal 21.0-32.0 [facility] Comment on above: Order Comment: 'TROP ' Serial specimen #1, #2 or #3: 1 Performed By: #### L 503.6030, L503.0105, L506.1000, L503.6550, L500.4100 #### [facility] [address] [place], [address] Creatinine [Mass/Vol] 0.80 mg/dL Normal 0.55-1.02 [facility] Comment on above: Order Comment: 'TROP ' Serial specimen #1, #2 or #3: 1 Result Comment: The validity of the calculated GFR GFRAA in patients over 70 years has not been determined. Clinical correlation is essential. Performed By: #### L 503.6030, L503.0105, L506.1000, L503.6550, L500.4100 #### [facility] [address] [place], [address] ECRCL 76.38 ml/min Normal [facility] Comment on above: Order Comment: 'TROP ' Serial specimen #1, #2 or #3: 1 Performed By: #### L 503.6030, L503.0105, L506.1000, L503.6550, L500.4100 #### [facility] [address] [place], [address] EST GFR - AA 93 mL/min Normal >60 [facility] Comment on above: Order Comment: 'TROP ' Serial specimen #1, #2 or #3: 1 Result Comment: Afri can Maltese GFR Calc Performed By: #### L 503.6030, L503.0105, L506.1000, L503.6550, L500.4100 #### [facility] [address] [place], [address] GAP 9 Normal 5-15 [facility] Comment on above: Order Comment: 'TROP ' Serial specimen #1, #2 or #3: 1 Performed By: #### L 503.6030, L503.0105, L506.1000, L503.6550, L500.4100 #### [facility] [address] [place], [address] GFR/1.73 sq M.predicted among non-blacks MDRD (S/P/Bld) [Vol rate/Area] 77 mL/min/{1.73_m2} Normal >60 [facility] Comment on above: Order Comment: 'TROP ' Serial specimen #1, #2 or #3: 1 Result Comment: Non- GFR Calc Performed By: #### L 503.6030, L503.0105, L506.1000, L503.6550, L500.4100 #### [facility] [address] [place], [address] Glucose [Mass/Vol] 160 mg/dL High 74-106 [facility] Comment on above: Order Comment: 'TROP ' Serial specimen #1, #2 or #3: 1 Result Comment: Fast ing Glucose result greater than or equal to 126 mg/dL suggests DIABETES MELLITUS per A.D.A. criteria. Performed By: #### L 503.6030, L503.0105, L506.1000, L503.6550, L500.4100 #### [facility] [address] [place], [address] Potassium [Moles/Vol] 3.6 mmol/L Normal 3.5-5.1 [facility] Comment on above: Order Comment: 'TROP ' Serial specimen #1, #2 or #3: 1 Performed By: #### L 503.6030, L503.0105, L506.1000, L503.6550, L500.4100 #### [facility] [address] [place], [address] Sodium [Moles/Vol] 140 mmol/L Normal 136-145 [facility] Comment on above: Order Comment: 'TROP ' Serial specimen #1, #2 or #3: 1 Performed By: #### L 503.6030, L503.0105, L506.1000, L503.6550, L500.4100 #### [facility] [address] [place], [address] Urea nitrogen [Mass/Vol] 23 mg/dL High 7-18 [facility] Comment on above: Order Comment: 'TROP ' Serial specimen #1, #2 or #3: 1 Performed By: #### L 503.6030, L503.0105, L506.1000, L503.6550, L500.4100 #### [facility] [address] [place], [address] CBC W/Diff, Automatedon 07-2 -2023 Absolute Lymph 2.49 X10 3/uL Normal 0.83-4.51 [facility] Comment on above: Performed By: #### L 503.6030, L503.0105, L506.1000, L503.6550, L500.4100 #### [facility] [address] [place], [address] Absolute Neut 1.9 X10 3/uL Low 2.0-7.7 [facility] Comment on above: Performed By: #### L 503.6030, L503.0105, L506.1000, L503.6550, L500.4100 #### [facility] [address] [place], [address] Basophils/100 WBC (Bld) 1.0 % Normal 0-1 [facility] Comment on above: Performed By: #### L 503.6030, L503.0105, L506.1000, L503.6550, L500.4100 #### [facility] [address] [place], [address] Eosinophils/100 WBC (Bld) 3.6 % Normal 0-5 [facility] Comment on above: Performed By: #### L 503.6030, L503.0105, L506.1000, L503.6550, L500.4100 #### [facility] [address] [place], [address] Erythrocyte distribution width (RBC) [Ratio] 12.5 % Normal 11.6-14.6 [facility] Comment on above: Performed By: #### L 503.6030, L503.0105, L506.1000, L503.6550, L500.4100 #### [facility] [address] [place], [address] Hematocrit (Bld) [Volume fraction] 45.5 % Normal 37-47 [facility] Comment on above: Performed By: #### L 503.6030, L503.0105, L506.1000, L503.6550, L500.4100 #### [facility] [address] [place], [address] Hemoglobin (Bld) [Mass/Vol] 15.4 g/dL High 12.0-15.0 [facility] Comment on above: Performed By: #### L 503.6030, L503.0105, L506.1000, L503.6550, L500.4100 #### [facility] [address] [place], [address] IG% 0.200 Normal 0.0-0.9 [facility] Comment on above: Result Comment: IG% - Immature Granulocytes (promyelocytes, myelocytes and metamyelocytes) > 1% indicates that a LEFT SHIFT is Present. Performed By: #### L 503.6030, L503.0105, L506.1000, L503.6550, L500.4100 #### [facility] [address] [place], [address] Lymphocytes/100 WBC (Bld) 50.1 % High 19-41 [facility] Comment on above: Performed By: #### L 503.6030, L503.0105, L506.1000, L503.6550, L500.4100 #### [facility] [address] [place], [address] MCH (RBC) [Entitic mass] 30.2 pg Normal 27.0-32.0 [facility] Comment on above: Performed By: #### L 503.6030, L503.0105, L506.1000, L503.6550, L500.4100 #### [facility] [address] [place], [address] MCHC (RBC) [Mass/Vol] 33.8 g/dL Normal 32-36 [facility] Comment on above: Performed By: #### L 503.6030, L503.0105, L506.1000, L503.6550, L500.4100 #### [facility] [address] [place], [address] MCV (RBC) [Entitic vol] 89.2 fL Normal 81-99 [facility] Comment on above: Performed By: #### L 503.6030, L503.0105, L506.1000, L503.6550, L500.4100 #### [facility] [address] [place], [address] Monocytes/100 WBC (Bld) 6.6 % Normal 0-10 [facility] Comment on above: Performed By: #### L 503.6030, L503.0105, L506.1000, L503.6550, L500.4100 #### [facility] [address] [place], [address] Neutrophils/100 WBC (Bld) 38.5 % Low 47-70 [facility] Comment on above: Performed By: #### L 503.6030, L503.0105, L506.1000, L503.6550, L500.4100 #### [facility] [address] [place], [address] Nucleated RBC (Bld) [#/Vol] 0 10*3/uL Normal 0-5 [facility] Comment on above: Performed By: #### L 503.6030, L503.0105, L506.1000, L503.6550, L500.4100 #### [facility] [address] [place], [address] Platelet mean volume (Bld) [Entitic vol] 10.7 fL Normal 6.2-12.0 [facility] Comment on above: Performed By: #### L 503.6030, L503.0105, L506.1000, L503.6550, L500.4100 #### [facility] [address] [place], [address] Platelets (Bld) [#/Vol] 204 10*3/uL Normal 150-450 [facility] Comment on above: Performed By: #### L 503.6030, L503.0105, L506.1000, L503.6550, L500.4100 #### [facility] [facility] [address] [place], [address] RBC (Bld) [#/Vol] 5.10 10*6/uL Normal 4.2-5.4 [facility] Comment on above: Performed By: #### L 503.6030, L503.0105, L506.1000, L503.6550, L500.4100 #### [facility] [address] [place], [address] RDW SD 41.1 fl Normal 35.1-43.9 [facility] Comment on above: Performed By: #### L 503.6030, L503.0105, L506.1000, L503.6550, L500.4100 #### [facility] [address] [place], [address] WBC (Bld) [#/Vol] 5.0 10*3/uL Normal 4.4-11.0 [facility] Comment on above: Performed By: #### L 503.6030, L503.0105, L506.1000, L503.6550, L500.4100 #### [facility] [address] [place], [address] Emergency Department Summary on 11-10-2023 Emergency Department Summary [facility] Medical Records Department [address] [place] [address] Emergency Department Summary 11/10/23 MR#: [id number] Acct: [id number] Name: DWAIN SUTHERLAND Rep #: [id number] : 1960 63 From: Hermann Sutherland MD PCP: Dr. Chuyita Harper MD Status:REG ER Location: ED HPI History of Present Illness Chief Complaint: Palpitations Informant: patient and EMS Narrative Narrative: 63-year-old female woke up in bed this morning, rolled over and suddenly felt like her heart was racing, she states she got up and went to find her blood pressure cuff and checked and her heart rate was somewhere around 120 and her blood pressure was high, 183/100s. She states she began to panic and called 911, by the time paramedics got to her, as she was alone at the time, she states there presents calm to her and she is feeling much better now. She does not remember what point the racing stopped and cannot tell me how long it lasted. She called EMS less than an hour prior to evaluation. She denies any associated cain dyspnea, chest discomfort, lightheadedness/syncope . No recent illness or leg swelling. No history of blood clots. She states she is on losartan for blood pressure and she accidentally has missed it for the last several days because her prescription ran out, then the pharmacy was closed on Thursday, then she forgot to get it this past day. She has had this happen maybe 2 other times, in the last several years. After one of them she was seen in the hospital and had a negative workup and was prescribed a monitor which she wore for several days and she never had the symptoms again and the monitor was unremarkable, this is all according to her. [facility] Medical History Knee pain Arrhythmia Contusion of head Fall Syncope Ruptured appendix Mammogram declined Health care maintenance Post-menopausal Colon cancer screening Vitamin B12 deficiency Encounter for vitamin deficiency screening Dermatitis Type 2 diabetes mellitus Obesity Abnormal EKG Elevated random blood glucose level Anemia Hx of mitral valve prolapse Hypertension Home Medications ???Medication ???Instructions ???Recorded ???Last Taken ???Type multivitamin with iron 1 tab PO DAILY 05/10/21 Unknown History losartan 50 mg tablet 50 mg PO DAILY #90 tabs 04/29/23 Unknown Rx mecobalamin (vitamin B12) 1 tab PO DAILY 11/10/23 Unknown History Allergy/AdvReac Type Severity Reaction Status Date / Time gelatin (Gelatin) Allergy Unknown Verified 11/10/23 06:04 iodine Allergy Rash Verified 11/10/23 06:04 Family History Father Alcoholism Heart disease Respiratory disease Mother Alcoholism Sister Alcoholism Son Alcoholism Anxiety Depression Mental disorder Daughter Alcoholism Anesthesia complication Aunt Diabetes CVA (cerebral vascular accident) Surgical History History of Hx of tonsillectomy History of hysterectomy History of cholecystectomy Social History Smoking Status: Never smoker alcohol intake: never substance use type: does not use what type of physical activity do you participate in: walking frequency: daily ROS ROS ED Constitutional Constitutional ED: Denies chills or fever(s) Eyes Eyes: Denies change in vision or diplopia ENT ENT ED: Denies rhinorrhea or sore throat Cardiovascular Cardiovascular: Reports palpitations and racing heartbeat; Denies chest pain Respiratory/Chest Respiratory/Chest: Denies cough or dyspnea Gastrointestinal Gastrointestinal: Denies abdominal pain, diarrhea, nausea or vomiting Genitourinary Genitourinary ED: Denies dysuria or hematuria Musculoskeletal Musculoskeletal: Denies back pain or neck pain Integumentary Denies abscess or rash Neurologic Neurologic: Denies headache(s), paresthesias or weakness Psychiatric Psychiatric: Reports anxiety; Denies suicidal thoughts EXAM Physical Exam Const Vital Signs: 11/10/23 06:01 11/10/23 06:05 11/10/23 06:10 Temperature 96.8 F L Temperature Source Temporal Pulse Rate 103 H Respiratory Rate 18 Respiratory Effort Normal Non-Labored Normal Non-Labored Blood Pressure 177/103 H Blood Pressure Mean 127 Pulse Ox 98 Oxygen Delivery Method Room Air Positive well nourished and well developed General Appearance ED: well developed and NAD HEENT Reports moist mucous membranes normocephalic and atraumatic Eyes PERRL and EOMs intact bilaterally Neck full ROM and supple Chest Wall inspection of chest normal and palpation of chest normal Resp normal respiratory effort and clear (more content not included)... Normal [facility] L501.4020on 11-10-2023 TROPONIN-I HS 3 pg/mL Normal 3.0-54.0 [facility] Comment on above: Order Comment: 'TROP ' Serial specimen #1, #2 or #3: 1 Result Comment: Plea se Note: New Test Units and Gender Specific Reference Ranges. For more information see Policy Stat Procedure [place] High Sensitivity Troponin (TNIH) and attachments. Performed By: #### L 503.6030, L503.0105, L506.1000, L503.6550, L500.4100 #### [facility] [address] [place], [address] Basic Metabolic Profile (BMP )on 08-28-2023 BUN/CRE 20.0 RATIO Normal 10-20 [facility] Comment on above: Performed By: #### L 503.6030, L503.0105, L506.1000, L503.6550, L500.4100 #### [facility] [address] [place], [address] CA,Total 9.6 mg/dL Normal 8.5-10.1 [facility] Comment on above: Performed By: #### L 503.6030, L503.0105, L506.1000, L503.6550, L500.4100 #### [facility] [address] [place], [address] Chloride [Moles/Vol] 106 mmol/L Normal 98-107 [facility] Comment on above: Performed By: #### L 503.6030, L503.0105, L506.1000, L503.6550, L500.4100 #### [facility] [address] [place], [address] CO2 [Moles/Vol] 32.0 mmol/L Normal 21.0-32.0 [facility] Comment on above: Performed By: #### L 503.6030, L503.0105, L506.1000, L503.6550, L500.4100 #### [facility] [address] [place], [address] Creatinine [Mass/Vol] 0.85 mg/dL Normal 0.55-1.02 [facility] Comment on above: Result Comment: The validity of the calculated GFR GFRAA in patients over 70 years has not been determined. Clinical correlation is essential. Performed By: #### L 503.6030, L503.0105, L506.1000, L503.6550, L500.4100 #### [facility] [address] [place], [address] EST GFR - AA 87 mL/min Normal >60 [facility] Comment on above: Result Comment: Afri can Maltese GFR Calc Performed By: #### L 503.6030, L503.0105, L506.1000, L503.6550, L500.4100 #### [facility] [address] [place], [address] GAP 2 Low 5-15 [facility] Comment on above: Performed By: #### L 503.6030, L503.0105, L506.1000, L503.6550, L500.4100 #### [facility] [address] [place], [address] GFR/1.73 sq M.predicted among non-blacks MDRD (S/P/Bld) [Vol rate/Area] 72 mL/min/{1.73_m2} Normal >60 [facility] Comment on above: Result Comment: Non- GFR Calc Performed By: #### L 503.6030, L503.0105, L506.1000, L503.6550, L500.4100 #### [facility] [address] [place], [address] Glucose [Mass/Vol] 151 mg/dL High 74-106 [facility] Comment on above: Result Comment: Fast ing Glucose result greater than or equal to 126 mg/dL suggests DIABETES MELLITUS per A.D.A. criteria. Performed By: #### L 503.6030, L503.0105, L506.1000, L503.6550, L500.4100 #### [facility] [address] [place], [address] Potassium [Moles/Vol] 4.8 mmol/L Normal 3.5-5.1 [facility] Comment on above: Performed By: #### L 503.6030, L503.0105, L506.1000, L503.6550, L500.4100 #### [facility] [address] [place], [address] Sodium [Moles/Vol] 140 mmol/L Normal 136-145 [facility] Comment on above: Performed By: #### L 503.6030, L503.0105, L506.1000, L503.6550, L500.4100 #### [facility] [address] [place], [address] Urea nitrogen [Mass/Vol] 17 mg/dL Normal 7-18 [facility] Comment on above: Performed By: #### L 503.6030, L503.0105, L506.1000, L503.6550, L500.4100 #### [facility] [address] [place], [address] Hemoglobin A1con 08-28-2023 HbA1c (Bld) [Mass fraction] 6.2 % High 3.8-5.6 [facility] Comment on above: Result Comment: Norm al < 5.7 % Prediabetic 5.7 - 6.4 % Diabetic >or= 6.5 % Please note range changes. Performed By: #### L 503.6030, L503.0105, L506.1000, L503.6450, L500.4100 #### [facility] [address] [place], [place], [address] Internal Medicine Office Vis iton 08-28-2023 Internal Medicine Office Visit [facility] [address] [place], [place] [address] OFFICE VISIT Date of Service: 08/28/23 MR#: [id number] Acct: [id number] Name: DWAIN SUTHERLAND Rep #: [id number] : 1960 Provider: Dr. Chuyita raymond MD Age/Sex: 63/F [place] [facility] [place]: Signed Intake Vital Signs 04/29/23 08:51 08/28/23 08:18 Height 5 ft 2 in 5 ft 2 in Weight: 181 lb BMI 33.0 BP 124/76 H Blood Pressure Location Lt brachial Position Sitting Respiration 16 Pulse 69 Pulse Source Monitor Temp 97.5 F L Temp Source Temporal Pulse Oximetry (%) 99 Oxygen Delivery Method room air Intake Visit Reasons: 4 m fu Chief Complaint: Follow-up chronic conditions Crozer Operator Required: No Accompanied by: Self Is patient in pain?: No Allergies gelatin [Gelatin] Allergy (Verified 08/28/23 08:16) Unknown iodine Allergy (Verified 08/28/23 08:16) Rash Medications multivitamin with iron 1 tab PO DAILY 05/10/21 [History Confirmed 08/28/23] losartan 50 mg tablet 50 mg PO DAILY #90 tabs 04/29/23 [Rx Confirmed 08/28/23] PFSH Medical History (Updated 08/28/23 @ 09:[address] Chuyita Harper MD) Abnormal EKG Anemia Arrhythmia Colon cancer screening Contusion of head Dermatitis Elevated random blood glucose level Encounter for vitamin deficiency screening Fall Health care maintenance Hx of mitral valve prolapse Hypertension Knee pain Mammogram declined Obesity Post-menopausal Ruptured appendix Syncope Type 2 diabetes mellitus Vitamin B12 deficiency Surgical History History of History of cholecystectomy History of hysterectomy Hx of tonsillectomy Family History Father Alcoholism Heart disease Respiratory disease Mother Alcoholism Sister Alcoholism Son Alcoholism Anxiety Depression Mental disorder Daughter Alcoholism Anesthesia complication Aunt Diabetes CVA (cerebral vascular accident) Social History Smoking Status: Never smoker alcohol intake: never substance use type: does not use what type of physical activity do you participate in: walking frequency: daily HPI HPI Chief Complaint: Follow-up chronic conditions Details: DWAIN SUTHERLAND, is a 63 F who presents to the office today for follow-up of her chronic medical conditions. She reports an episode of low blood pressure reading. This happened after she had been working out in her flower beds. It was hot. Otherwise, she states that her home readings have been in the 120s with occasional 130 systolic and diastolic in the 60s to 70s. Currently on 50 mg of losartan. Also history of diabetes mellitus type 2 which is largely controlled by lifestyle and dietary modifications. Last A1c was at 6.2. Continues to stay active and walks about an hour a day. She reports an episode of knee pain which lasted about a month. Started after she increased her walking and improved with taking a break. Resumed walking but has been doing 30 minutes at a time instead of an hour. No falls reported. ROS Const Constitutional: No body ache, chills, excessive sweating, fatigue, fever(s), frequent falls, headache(s), snoring, weakness or change in appetite Eyes Eyes: No blurry vision, change in vision, bulging eyes, floaters, eye pain or Light sensitivity ENT ENT: No abnormal hearing, ear or mastoid pain, tinnitus, balance problems, nosebleed/epistaxis, nasal congestion, headache(s), neck pain or sore throat Resp Respiratory: No cough, excessive phlegm production, pain on inspiration, shortness of breath, snoring or wheezing Cardio Cardiology: No chest pain at rest, chest pain with exertion, excessive sweating, dyspnea on exertion, lightheadedness, orthopnea or palpitations Gastro GI: No abdominal pain, change in bowel habits, constipation, cramping, diarrhea, nausea/dyspepsia or vomiting Genitourinary-Female: No burning urination, painful urination, urinary incontinence, urinary frequency, suprapubic fullness or side pain Musc Musculoskeletal: No abnormal gait, joint pain, back pain, limited range of motion, muscle cramps, muscle weakness, neck pain or numbness Skin Skin: No dry skin, redness, lesions, itchy eyes, rash or wounds Neuro Neurology: No abnormal gait, abnormal hearing, behavioral changes, confusion, weakness, frequent falls, headache(s), memory loss or numbness Psych Psychiatric: No anxiety, No behavioral changes, No change in appetite, No confusion, No depression, No memory loss and No Thoughts of harming yourself/Others Endo Endocrine: No cold intolerance, excessive sweating, fatigue, flushing, heat intolerance, increased thirst/drinking or increased hunger A (more content not included)... Normal [facility] Internal Medicine Office Vis itocatrachito 04-29-2023 Internal Medicine Office Visit [facility] [address] [place] [address] [place] [address] OFFICE VISIT Date of Service: 04/29/23 MR#: [id number] Acct: [id number] Name: DWAIN SUTHERLAND NOEL Rep #: [id number] : 1960 Provider: Dr. Chuyita raymond MD Age/Sex: 62/F [place] [facility] [place] Status: Signed Intake Vital Signs 01/28/23 10:49 02/13/23 10:42 04/29/23 08:51 Height 5 ft 3 in 5 ft 2.99 in 5 ft 2 in Weight: 181 lb BMI 33.0 BP 112/80 Blood Pressure Location Lt radial Position Sitting Respiration 16 Pulse 78 Pulse Source Monitor Temp 97.4 F L Temp Source Temporal Pulse Oximetry (%) 99 Oxygen Delivery Method room air Intake Visit Reasons: 3 m fu Chief Complaint: Follow-up chronic conditions Crozer Operator Required: No Is patient in pain?: No Allergies gelatin [Gelatin] Allergy (Verified 04/29/23 08:48) Unknown iodine Allergy (Verified 04/29/23 08:48) Rash Penicillins Allergy (Verified 04/29/23 08:48) PT UNSURE OF REACTION Medications multivitamin with iron 1 tab PO DAILY 05/10/21 [History Confirmed 04/29/23] losartan 50 mg tablet 50 mg PO DAILY #90 tabs 04/29/23 [Rx Confirmed 04/29/23] PFSH Medical History Abnormal EKG Anemia Arrhythmia Colon cancer screening Contusion of head Dermatitis Elevated random blood glucose level Encounter for vitamin deficiency screening Fall Health care maintenance Hx of mitral valve prolapse Hypertension Mammogram declined Obesity Post-menopausal Ruptured appendix Syncope Type 2 diabetes mellitus Vitamin B12 deficiency Surgical History History of History of cholecystectomy History of hysterectomy Hx of tonsillectomy Family History Father Alcoholism Heart disease Respiratory disease Mother Alcoholism Sister Alcoholism Son Alcoholism Anxiety Depression Mental disorder Daughter Alcoholism Anesthesia complication Aunt Diabetes CVA (cerebral vascular accident) Social History Smoking Status: Never smoker alcohol intake: never substance use type: does not use what type of physical activity do you participate in: walking frequency: daily HPI HPI Chief Complaint: Follow-up chronic conditions Details: DWAIN SUTHERLAND, is a 62 F who presents to the office today for follow-up of her chronic medical conditions. Status post recent hospital admission following a syncopal event in January. Had been on couple days fast and was still taking all her medications. Noted to be dehydrated. Hydrochlorothiazide was discontinued at that visit. Has been taking only losartan and her blood pressure has been stable. Has been walking at least 2 to 3 miles daily and is also continue to make other dietary and lifestyle changes. No further recurrence since her hospital stay. Also history of diabetes mellitus type 2. A1c at her last visit was 7.2 and as above, opted to make dietary and lifestyle changes which she has done. A1c recently down to 6.2. ROS Const Constitutional: No body ache, chills, excessive sweating, fatigue, fever(s), frequent falls, headache(s), snoring, weakness, sleep problems or change in appetite Eyes Eyes: No blurry vision, change in vision, dry eyes, bulging eyes, eye pain or Light sensitivity ENT ENT: No abnormal hearing, ear or mastoid pain, tinnitus, balance problems, nosebleed/epistaxis, nasal congestion, headache(s), neck pain or sore throat Resp Respiratory: No cough, excessive phlegm production, pain on inspiration, shortness of breath, snoring or wheezing Cardio Cardiology: No chest pain at rest, chest pain with exertion, excessive sweating, shortness of breath, dyspnea on exertion, lightheadedness, orthopnea or palpitations Gastro GI: No abdominal pain, change in bowel habits, constipation, cramping, diarrhea, nausea/dyspepsia or vomiting Genitourinary-Female: No burning urination, painful urination, urinary incontinence, urinary frequency, suprapubic fullness, side pain, abnormal vaginal bleeding or pelvic pain Musc Musculoskeletal: No abnormal gait, joint pain, back pain, limited range of motion, neck pain or numbness Skin Skin: No dry skin, redness, lesions, itchy eyes, rash or wounds Neuro Neurology: No abnormal gait, abnormal hearing, behavioral changes, confusion, weakness, frequent falls, headache(s), memory loss or numbness Psych Psychiatric: No anxiety, No behavioral changes, No change in appetite, No confusion, No depression, No memory loss and No Thoughts of harming yourself/Others Endo Endocrine: No cold intolerance, excessive sweating, fatigue, flushing, heat i (more content not included)... Normal [facility] Absolute lymphocyte countOrd ered By: Chuyita Harper on 04-27-2023 Lymphocytes Auto (Unsp spec) [#/Vol] 1.58 10*3/uL 0.83-4.51 [facility] Basophil percentageOrdered B y: Chuyita Harper on 04-27-2023 Basophils/100 WBC (Bld) 0.9 % 0-1 [facility] Bilirubin [Mass/Vol] 0.60 mg/dL 0.20-1.00 [facility] Comment on above: For patients on eltr ombopag therapy, use of Dimension [place] TBIL is not recommended. Chloride [Moles/Vol] 108 mmol/L 98-107 [facility] Cholesterol [Mass/Vol] 173 mg/dL <200 [facility] Comment on above: <200 mg/dL Desirable 200-240 mg/dL Borderline >240 mg/dL High Risk Eosinophils/100 WBC (Bld) 2.9 % 0-5 [facility] Glucose [Mass/Vol] 146 mg/dL 74-106 [facility] Comment on above: Fasting Glucose resu lt greater than or equal to 126 mg/dL suggests DIABETES MELLITUS per A.D.A. criteria. Neutrophils (Bld) [#/Vol] 2.5 10*3/uL 2.0-7.7 [facility] Neutrophils/100 WBC (Bld) 55.5 % 47-70 [facility] Potassium [Moles/Vol] 4.0 mmol/L 3.5-5.1 [facility] Protein [Mass/Vol] 6.9 g/dL 6.4-8.2 [facility] Sodium [Moles/Vol] 141 mmol/L 136-145 [facility] Triglyceride [Mass/Vol] 110 mg/dL <199 [facility] Comment on above: The drugs N-Acetylcy steine and Metamizole may falsely depress this assay.Serum Triglycerides Reference Interval Normal <150 mg/dL Borderline high 150 - 199 mg/dL High 200 - 499 mg/dL Very High > or = 500 mg/dL WBC (Bld) [#/Vol] 4.5 10*3/uL 4.4-11.0 [facility] Blood erythrocytes count (nu mber/volume)Ordered By: Chyuita Harper on 04-27-2023 RBC (Bld) [#/Vol] 4.88 10*6/uL 4.2-5.4 [facility] Blood hemoglobin measurement (mass/volume)Ordered By: Chuyita Harper on 04-27-2023 Hemoglobin (Bld) [Mass/Vol] 14.5 g/dL 12.0-15.0 [facility] Blood lymphocytes/100 leukoc ytesOrdered By: Chuyita Harper on 04-27-2023 Lymphocytes/100 WBC (Bld) 34.8 % 19-41 [facility] Blood monocytes/100 leukocyt esOrdered By: Chuyita Harper on 04-27-2023 Monocytes/100 WBC (Bld) 5.7 % 0-10 [facility] Blood platelet mean volumeOr dered By: Chuyita Harper on 04-27-2023 Platelet mean volume (Bld) [Entitic vol] 11.3 fL 6.2-12.0 [facility] CBC W/Diff, Automatedon Absolute Lymph 1.58 X10 3/uL Normal 0.83-4.51 [facility] Comment on above: Performed By: #### L 503.6030, L503.0105, L506.1000, L503.6550, L500.4100 #### [facility] [address] [place], [address] Absolute Neut 2.5 X10 3/uL Normal 2.0-7.7 [facility] Comment on above: Performed By: #### L 503.6030, L503.0105, L506.1000, L503.6550, L500.4100 #### [facility] [address] [place], [address] Basophils/100 WBC (Bld) 0.9 % Normal 0-1 [facility] Comment on above: Performed By: #### L 503.6030, L503.0105, L506.1000, L503.6550, L500.4100 #### [facility] [address] [place], [address] Eosinophils/100 WBC (Bld) 2.9 % Normal 0-5 [facility] Comment on above: Performed By: #### L 503.6030, L503.0105, L506.1000, L503.6550, L500.4100 #### [facility] [address] [place], [address] Erythrocyte distribution width (RBC) [Ratio] 12.6 % Normal 11.6-14.6 [facility] Comment on above: Performed By: #### L 503.6030, L503.0105, L506.1000, L503.6550, L500.4100 #### [facility] [address] [place], [address] Hematocrit (Bld) [Volume fraction] 45.0 % Normal 37-47 [facility] Comment on above: Performed By: #### L 503.6030, L503.0105, L506.1000, L503.6550, L500.4100 #### [facility] [address] [place], [address] Hemoglobin (Bld) [Mass/Vol] 14.5 g/dL Normal 12.0-15.0 [facility] Comment on above: Performed By: #### L 503.6030, L503.0105, L506.1000, L503.6550, L500.4100 #### [facility] [address] [place], [address] IG% 0.200 Normal 0.0-0.9 [facility] Comment on above: Result Comment: IG% - Immature Granulocytes (promyelocytes, myelocytes and metamyelocytes) > 1% indicates that a LEFT SHIFT is Present. Performed By: #### L 503.6030, L503.0105, L506.1000, L503.6550, L500.4100 #### [facility] [address] [place], [address] Lymphocytes/100 WBC (Bld) 34.8 % Normal 19-41 [facility] Comment on above: Performed By: #### L 503.6030, L503.0105, L506.1000, L503.6550, L500.4100 #### [facility] [address] [place], [address] MCH (RBC) [Entitic mass] 29.7 pg Normal 27.0-32.0 [facility] Comment on above: Performed By: #### L 503.6030, L503.0105, L506.1000, L503.6550, L500.4100 #### [facility] [address] [place], [address] MCHC (RBC) [Mass/Vol] 32.2 g/dL Normal 32-36 [facility] Comment on above: Performed By: #### L 503.6030, L503.0105, L506.1000, L503.6550, L500.4100 #### [facility] [address] [place], [address] MCV (RBC) [Entitic vol] 92.2 fL Normal 81-99 [facility] Comment on above: Performed By: #### L 503.6030, L503.0105, L506.1000, L503.6550, L500.4100 #### [facility] [address] [place], [address] Monocytes/100 WBC (Bld) 5.7 % Normal 0-10 [facility] Comment on above: Performed By: #### L 503.6030, L503.0105, L506.1000, L503.6550, L500.4100 #### [facility] [address] [place], [address] Neutrophils/100 WBC (Bld) 55.5 % Normal 47-70 [facility] Comment on above: Performed By: #### L 503.6030, L503.0105, L506.1000, L503.6550, L500.4100 #### [facility] [address] [place], [address] Nucleated RBC (Bld) [#/Vol] 0 10*3/uL Normal 0-5 [facility] Comment on above: Performed By: #### L 503.6030, L503.0105, L506.1000, L503.6550, L500.4100 #### [facility] [address] [place], [address] Platelet mean volume (Bld) [Entitic vol] 11.3 fL Normal 6.2-12.0 [facility] Comment on above: Performed By: #### L 503.6030, L503.0105, L506.1000, L503.6550, L500.4100 #### [facility] [address] [place], [address] Platelets (Bld) [#/Vol] 253 10*3/uL Normal 150-450 [facility] Comment on above: Performed By: #### L 503.6030, L503.0105, L506.1000, L503.6550, L500.4100 #### [facility] [address] [place], [address] RBC (Bld) [#/Vol] 4.88 10*6/uL Normal 4.2-5.4 [facility] Comment on above: Performed By: #### L 503.6030, L503.0105, L506.1000, L503.6550, L500.4100 #### [facility] [address] [place], [address] RDW SD 42.5 fl Normal 35.1-43.9 [facility] Comment on above: Performed By: #### L 503.6030, L503.0105, L506.1000, L503.6550, L500.4100 #### [facility] [address] [place], [address] WBC (Bld) [#/Vol] 4.5 10*3/uL Normal 4.4-11.0 [facility] Comment on above: Performed By: #### L 503.6030, L503.0105, L506.1000, L503.6550, L500.4100 #### [facility] [address] [place], [address] Comprehensive Metabolic Prof ilon 04-27-2023 Albumin [Mass/Vol] 4.0 g/dL Normal 3.2-5.0 [facility] Comment on above: Performed By: #### L 503.6030, L503.0105, L506.1000, L503.6550, L500.4100 #### [facility] [address] [place], [address] Albumin/Globulin [Mass ratio] 1.4 {ratio} Normal 0.9-2.4 [facility] Comment on above: Performed By: #### L 503.6030, L503.0105, L506.1000, L503.6550, L500.4100 #### [facility] [address] [place], [address] ALK P 74 U/L Normal 45-117 [facility] Comment on above: Performed By: #### L 503.6030, L503.0105, L506.1000, L503.6550, L500.4100 #### [facility] [address] [place], [address] ALT [Catalytic activity/Vol] 26 U/L Normal 13-56 [facility] Comment on above: Performed By: #### L 503.6030, L503.0105, L506.1000, L503.6550, L500.4100 #### [facility] [address] [place], [address] AST [Catalytic activity/Vol] 21 U/L Normal 15-37 [facility] Comment on above: Performed By: #### L 503.6030, L503.0105, L506.1000, L503.6550, L500.4100 #### [facility] [address] [place], [address] Bilirubin [Mass/Vol] 0.60 mg/dL Normal 0.20-1.00 [facility] Comment on above: Result Comment: For patients on eltrombopag therapy, use of Dimension [place] TBIL is not recommended. Performed By: #### L 503.6030, L503.0105, L506.1000, L503.6550, L500.4100 #### [facility] [address] [place], [address] BUN/CRE 15.8 RATIO Normal 10-20 [facility] Comment on above: Performed By: #### L 503.6030, L503.0105, L506.1000, L503.6550, L500.4100 #### [facility] [address] [place], [address] CA,Total 9.3 mg/dL Normal 8.5-10.1 [facility] Comment on above: Performed By: #### L 503.6030, L503.0105, L506.1000, L503.6550, L500.4100 #### [facility] [address] [place], [address] Chloride [Moles/Vol] 108 mmol/L High 98-107 [facility] Comment on above: Performed By: #### L 503.6030, L503.0105, L506.1000, L503.6550, L500.4100 #### [facility] [address] [place], [address] CO2 [Moles/Vol] 28.0 mmol/L Normal 21.0-32.0 [facility] Comment on above: Performed By: #### L 503.6030, L503.0105, L506.1000, L503.6550, L500.4100 #### [facility] [address] [place], [address] Creatinine [Mass/Vol] 0.82 mg/dL Normal 0.55-1.02 [facility] Comment on above: Result Comment: The validity of the calculated GFR GFRAA in patients over 70 years has not been determined. Clinical correlation is essential. Performed By: #### L 503.6030, L503.0105, L506.1000, L503.6550, L500.4100 #### [facility] [address] [place], [address] EST GFR - AA 91 mL/min Normal >60 [facility] Comment on above: Result Comment: Afri can Maltese GFR Calc Performed By: #### L 503.6030, L503.0105, L506.1000, L503.6550, L500.4100 #### [facility] [address] [place], [address] GAP 5 Normal 5-15 [facility] Comment on above: Performed By: #### L 503.6030, L503.0105, L506.1000, L503.6550, L500.4100 #### [facility] [address] [place], [address] GFR/1.73 sq M.predicted among non-blacks MDRD (S/P/Bld) [Vol rate/Area] 75 mL/min/{1.73_m2} Normal >60 [facility] Comment on above: Result Comment: Non- GFR Calc Performed By: #### L 503.6030, L503.0105, L506.1000, L503.6550, L500.4100 #### [facility] [address] [place], [address] Globulin (S) [Mass/Vol] 2.9 g/dL Normal 2.2-4.2 [facility] Comment on above: Performed By: #### L 503.6030, L503.0105, L506.1000, L503.6550, L500.4100 #### [facility] [address] [place], [address] Glucose [Mass/Vol] 146 mg/dL High 74-106 [facility] Comment on above: Result Comment: Fast ing Glucose result greater than or equal to 126 mg/dL suggests DIABETES MELLITUS per A.D.A. criteria. Performed By: #### L 503.6030, L503.0105, L506.1000, L503.6550, L500.4100 #### [facility] [address] [place], [address] Potassium [Moles/Vol] 4.0 mmol/L Normal 3.5-5.1 [facility] Comment on above: Performed By: #### L 503.6030, L503.0105, L506.1000, L503.6550, L500.4100 #### [facility] [address] [place], [address] Sodium [Moles/Vol] 141 mmol/L Normal 136-145 [facility] Comment on above: Performed By: #### L 503.6030, L503.0105, L506.1000, L503.6550, L500.4100 #### [facility] [address] [place], [address] T PROT 6.9 g/dL Normal 6.4-8.2 [facility] Comment on above: Performed By: #### L 503.6030, L503.0105, L506.1000, L503.6550, L500.4100 #### [facility] [address] [place], [address] Urea nitrogen [Mass/Vol] 13 mg/dL Normal 7-18 [facility] Comment on above: Performed By: #### L 503.6030, L503.0105, L506.1000, L503.6550, L500.4100 #### [facility] [address] [place], [address] Determination of erythrocyte mean corpuscular volume (MCV)Ordered By: Chuyita Harper on 04-27-2023 MCV (RBC) [Entitic vol] 92.2 fL 81-99 [facility] Hematocrit Auto (Bld) [Volum e fraction]Ordered By: Chuyita Harper on 04-27-2023 Hematocrit (Bld) [Volume fraction] 45.0 % 37-47 [facility] Hemoglobin A1con 04-27-2023 HbA1c (Bld) [Mass fraction] 6.2 % High 3.8-5.6 [facility] Comment on above: Result Comment: Norm al < 5.7 % Prediabetic 5.7 - 6.4 % Diabetic >or= 6.5 % Please note range changes. Performed By: #### L 077.4537 #### [facility] [address] [place], [address] Laboratory - Chemistry and C hemistry - challengeOrdered By: jaydencazenoviabindu Harper on 04-27-2023 ALP [Catalytic activity/Vol] 74 U/L 45-117 [facility] ALT [Catalytic activity/Vol] 26 U/L 13-56 [facility] CO2 [Moles/Vol] 28.0 mmol/L 21.0-32.0 [facility] Cobalamin (Vitamin B12) [Mass/Vol] 561 pg/mL 211-911 [facility] Globulin (S) [Mass/Vol] 2.9 g/dL 2.2-4.2 [facility] Urea nitrogen/Creatinine [Mass ratio] 15.8 mg/mg 10-20 [facility] - Hematology and Cell countsOrdered By: Chuyita Harper on 04-27-2023 Erythrocyte distribution width (RBC) [Entitic vol] 42.5 fL 35.1-43.9 [facility] Erythrocyte distribution width (RBC) [Ratio] 12.6 % 11.6-14.6 [facility] Immature granulocytes/100 WBC (Bld) 0.200 % 0.0-0.9 [facility] Comment on above: IG% - Immature Granu locytes (promyelocytes, myelocytes and metamyelocytes) > 1% indicates that a LEFT SHIFT is Present. MCH (RBC) [Entitic mass] 29.7 pg 27.0-32.0 [facility] Nucleated RBC/100 WBC (Bld) [Ratio] 0 % 0-5 [facility] Lipid Profileon 04-27-2023 Cholesterol [Mass/Vol] 173 mg/dL Normal 200 [facility] Comment on above: Result Comment: <200 mg/dL Desirable 200-240 mg/dL Borderline >240 mg/dL High Risk Performed By: #### L 503.6030, L503.0105, L506.1000, L503.6550, L500.4100 #### [facility] [address] [place], [address] Cholesterol in HDL [Mass/Vol] 44 mg/dL Normal [facility] Comment on above: Result Comment: The drugs N-Acetylcysteine and Metamizole may falsely depress this assay. Reference Range HDL <40 mg/dL Low HDL Cholesterol HDL >or= 60 mg/dL High HDL Cholesterol Performed By: #### L 503.6030, L503.0105, L506.1000, L503.6550, L500.4100 #### [facility] [address] [place], [address] Cholesterol in LDL [Mass/Vol] 107 mg/dL Normal 0-130 [facility] Comment on above: Performed By: #### L 503.6030, L503.0105, L506.1000, L503.6550, L500.4100 #### [facility] [address] [place], [address] Cholesterol in VLDL [Mass/Vol] 22 mg/dL Normal 5-40 [facility] Comment on above: Performed By: #### L 503.6030, L503.0105, L506.1000, L503.6550, L500.4100 #### [facility] [address] [place], [address] Triglyceride [Mass/Vol] 110 mg/dL Normal [facility] Comment on above: Result Comment: The drugs N-Acetylcysteine and Metamizole may falsely depress this assay. Serum Triglycerides Reference Interval Normal <150 mg/dL Borderline high 150 - 199 mg/dL High 200 - 499 mg/dL Very High > or = 500 mg/dL Performed By: #### L 503.6030, L503.0105, L506.1000, L503.6550, L500.4100 #### [facility] [place] [address] [address], [address] MCHC Auto (RBC) [Mass/Vol]Or dered By: Chuyita Harper on 04-27-2023 MCHC (RBC) [Mass/Vol] 32.2 g/dL 32-36 [facility] No Panel InformationOrdered By: Chuyita Harper on 04-27-2023 Estimated GFR (MDRD) Amer 91 mL/min >60 [facility] Comment on above: GFR Calc Estimated GFR (MDRD) Non-Af Amer 75 mL/min >60 [facility] Comment on above: Non- GFR Calc Platelets bldOrdered By: Miguel Harper on 04-27-2023 Platelets (Bld) [#/Vol] 253 10*3/uL 150-450 [facility] Serum or plasma albumin mariana urement (mass/volume)Ordered By: Chuyita Harper on 04-27-2023 Albumin [Mass/Vol] 4.0 g/dL 3.2-5.0 [facility] Serum or plasma albumin/glob ulin mass ratioOrdered By: Chuyita Harper on 04-27-2023 Albumin/Globulin [Mass ratio] 1.4 {ratio} 0.9-2.4 [facility] Serum or plasma calcium mariana urement (mass/volume)Ordered By: Chuyita Harper on 04-27-2023 Calcium [Mass/Vol] 9.3 mg/dL 8.5-10.1 [facility] Serum or plasma cholesterol in HDL measurement (mass/volume)Ordered By: Chuyita Harper on 04-27-2023 Cholesterol in HDL [Mass/Vol] 44 mg/dL >40 [facility] Comment on above: The drugs N-Acetylcy steine and Metamizole may falsely depress this assay. Reference Range HDL <40 mg/dL Low HDL Cholesterol HDL >or= 60 mg/dL High HDL Cholesterol Serum or plasma cholesterol in VLDL measurement (mass/volume)Ordered By: Chuyita Harper on 04-27-2023 Cholesterol in VLDL [Mass/Vol] 22 mg/dL 5-40 [facility] Serum or plasma creatinine m easurement (mass/volume)Ordered By: Chuyita Harper on 04-27-2023 Creatinine [Mass/Vol] 0.82 mg/dL 0.55-1.02 [facility] Comment on above: The validity of the calculated GFR & GFRAA in patients over 70 years has not been determined. Clinical correlation is essential. Serum or plasma low density lipoprotein (LDL) cholesterol measurement (mass/volume)Ordered By: Chuyita Harper on 04-27-2023 Cholesterol in LDL [Mass/Vol] 107 mg/dL 0-130 [facility] Serum or plasma urea nitroge n measurement (mass/volume)Ordered By: Chuyita Harper on 04-27-2023 Urea nitrogen [Mass/Vol] 13 mg/dL 7-18 [facility] Thin prep Papanicolaou smear with manual screeningOrdered By: Chuyita Harper on 04-27-2023 Thin prep Papanicolaou smear with manual screening 21 U/L 15-37 [facility] Thin prep Papanicolaou smear with manual screening 5 5-15 [facility] Vitamin B12on 04-27-2023 Cobalamin (Vitamin B12) [Mass/Vol] 561 pg/mL Normal 211-911 [facility] Comment on above: Performed By: #### L 503.6030, L503.0105, L506.1000, L503.6550, L500.4100 #### [facility] [address] [place] [address], [address] Whole blood hemoglobin A1c/t otal hemoglobin ratio (mass fraction)Ordered By: Chuyita Harper on 04-27-2023 HbA1c (Bld) [Mass fraction] 6.2 % 3.8-5.6 [facility] Comment on above: Normal < 5.7 % Predi abetic 5.7 - 6.4 % Diabetic >or= 6.5 % Please note range changes. Alanine aminotransferase [En zymatic activity/volume] in Serum or PlasmaOrdered By: JACQUE PICKETT on 03-12-2023 ALT [Catalytic activity/Vol] 27 U/L 10-35 [facility] Basophils Auto (Bld) [#/Vol] Ordered By: JACQUE PICKETT on 03-12-2023 Basophils (Bld) [#/Vol] 0.05 10*3/uL 0.0-0.2 [facility] Basophils/100 WBC Auto (Bld) Ordered By: JACQUE PICKETT on 03-12-2023 Basophils/100 WBC (Bld) 1.1 % High 0-1.0 [facility] Blood Glucose Meteron 2022 Glucose [Mass/Vol] 212 mg/dL High 70-100 [facility] Comment on above: Performed By: #### A CC #### [facility] [address] [place] [address] , Rm Callahan M.D. FCAP, FASCP Blood hemoglobin measurement (mass/volume)Ordered By: JACQUE PICKETT on 03-12-2023 Hemoglobin (Bld) [Mass/Vol] 15.1 g/dL 11.7-15.7 [facility] CBC With Differentialon 02-19 Basophils Absolute Auto 0.05 10*3/uL Normal 0.0-0.2 [facility] Comment on above: Performed By: #### C BCD #### [address] [address] , Rm Callahan M.D. FCAP, FASCP Basophils/100 WBC (Bld) 1.1 % High 0-1.0 [facility] Comment on above: Performed By: #### C BCD #### [facility] [address] [place] [address] , Rm Callahan M.D. FCAP, FASCP Differential Type? Auto Differential Normal [facility] Comment on above: Performed By: #### C BCD #### [facility] [address] [place] [address] , Rm Callahan M.D. FCAP, FASCP Eosinophils (Bld) [#/Vol] 0.07 10*3/uL Normal 0.0-0.5 [facility] Comment on above: Performed By: #### C BCD #### [address] [id number] , Rm Callahan M.D. FCAP, FASCP Eosinophils/100 WBC (Bld) 1.5 % Normal 0.0-3.0 [facility] Comment on above: Performed By: #### C BCD #### [address] [id number] , Rm Callahan M.D. FCAP, FASCP Hematocrit (Bld) [Volume fraction] 44.3 % Normal 35.0-47.0 [facility] Comment on above: Performed By: #### C BCD #### [address] [id number] , Rm Callahan M.D. FCAP, FASCP Hemoglobin (Bld) [Mass/Vol] 15.1 g/dL Normal 11.7-15.7 [facility] Comment on above: Performed By: #### C BCD #### [address] [id number] , Rm Callahan M.D. FCAP, FASCP Immature Gran Absolute Auto 0.01 10*3/uL Normal 0.01-0.2 [facility] Comment on above: Performed By: #### C BCD #### [address] [id number] , Rm Callahan M.D. FCAP, FASCP Immature granulocytes/100 WBC (Bld) 0.2 % Normal 0-0.9 [facility] Comment on above: Performed By: #### C BCD #### [address] [id number] , Rm Callahan M.D. FCAP, FASCP Lymphocytes (Bld) [#/Vol] 1.43 10*3/uL Low 1.5-4.0 [facility] Comment on above: Performed By: #### C BCLonnie #### [address] [id number] , Rm Callahan M.D. FCAP, FASCP Lymphocytes/100 WBC (Bld) 30.2 % Normal 20.0-40.0 [facility] Comment on above: Performed By: #### C BCLonnie #### [address] [id number] , Rm Callahan M.D. FCAP, FASCP MCH (RBC) [Entitic mass] 30.1 pg Normal 27.0-40.0 [facility] Comment on above: Performed By: #### C BRAD #### [address] [id number] , Rm Callahan M.D. FCAP, FASCP Mean Corpusc Hgb Concentration 34.1 g/dL Normal 31.0-36.0 [facility] Comment on above: Performed By: #### C BCD #### [address] [id number] , Rm Callahan M.D. FCAP, FASCP Mean Corpuscular Volume 88.4 CU uM Normal 80.0-100.0 [facility] Comment on above: Performed By: #### C BCD #### [address] [id number] , Rm Callahan M.D. FCAP, FASCP Monocytes (Bld) [#/Vol] 0.32 10*3/uL Normal 0.2-0.8 [facility] Comment on above: Performed By: #### C BCLonnie #### [address] [id number] , Rm Callahan M.D. FCAP, FASCP Monocytes/100 WBC (Bld) 6.8 % Normal 4.0-10.0 [facility] Comment on above: Performed By: #### C BCD #### [address] [id number] , Rm Callahan M.D. FCAP, FASCP Neutrophils Absolute Auto 2.86 10*3/uL Normal 2.0-7.0 [facility] Comment on above: Performed By: #### C BCLonnie #### [address] [id number] , Rm Callahan M.D. FCAP, FASCP Neutrophils/100 WBC (Bld) 60.2 % Normal 54.0-62.0 [facility] Comment on above: Performed By: #### C BCD #### [address] [id number] , Rm Callahan M.D. FCAP, FASCP Nucleated RBC (Bld) [#/Vol] 0.00 10*3/uL Normal 0 [facility] Comment on above: Performed By: #### C BCD #### [address] [id number] , Rm Callahan M.D. FCAP, FASCP Nucleated RBC's % 0.0 /100WBC Normal -0 [facility] Comment on above: Performed By: #### C BCD #### [address] [id number] , Rm Callahan M.D. FCAP, FASCP Platelets (Bld) [#/Vol] 237 10*3/uL Normal 130-440 [facility] Comment on above: Performed By: #### C BCD #### [address] [id number] , Rm Callahan M.D. FCAP, FASCP RBC (Bld) [#/Vol] 5.01 10*6/uL Normal 3.80-5.20 [facility] Comment on above: Performed By: #### C BCD #### [address] [id number] , Rm Callahan M.D. FCAP, FASCP Red Cell Distribution 13.1 Normal 11.5-14.5 [facility] Comment on above: Performed By: #### C BCD #### [address] [id number] , Rm Callahan M.D. FCAP, FASCP WBC (Bld) [#/Vol] 4.7 10*3/uL Normal 3.5-11.0 [facility] Comment on above: Performed By: #### C BCD #### [address] [id number] , Rm Callahan M.D. FCAP, FASCP Comprehensive Metabolic Pane [facility] 03-12-2023 Albumin [Mass/Vol] 4.5 g/dL Normal 4.0-4.9 [facility] Comment on above: Performed By: #### T PNT-hs, ADP #### [address] [id number] , Rm Callahan M.D. FCAP, FASCP ALP [Catalytic activity/Vol] 84 U/L Normal 35-104 [facility] Comment on above: Performed By: #### T PNT-hs, ADP #### [address] [id number] , Rm Callahan M.D. FCAP, FASCP ALT [Catalytic activity/Vol] 27 U/L Normal 10-35 [facility] Comment on above: Performed By: #### T PNT-hs, ADP #### [address] [id number] , Isamar LopezAP, FASCP Anion gap [Moles/Vol] 15 mmol/L Normal 9-15 [facility] Comment on above: Performed By: #### T PNT-hs, ADP #### [address] [id number] , Rm Callahan M.D. FCAP, FASCP AST [Catalytic activity/Vol] 26 U/L Normal [facility] Comment on above: Result Comment: HEMO LYSIS PRESENT. INTERPRET RESULT WITH CAUTION. Performed By: #### T PNT-hs, ADP #### [address] [id number] , Isamar LopezAP, FASCP Bilirubin [Mass/Vol] 0.4 mg/dL Normal 0.2-1.2 [facility] Comment on above: Performed By: #### T PNT-hs, ADP #### [address] [id number] , Rm Callahan M.D. FCAP, FASCP Calcium [Mass/Vol] 10.2 mg/dL Normal 8.8-10.2 [facility] Comment on above: Performed By: #### T PNT-hs, ADP #### [address] [id number] , Rm Callahan M.D. FCAP, FASCP Chloride [Moles/Vol] 99 mmol/L Normal 98-107 [facility] Comment on above: Performed By: #### T PNT-hs, ADP #### [address] [id number] , Rm Callahan M.D. FCAP, FASCP CO2 [Moles/Vol] 23 mmol/L Normal 22-29 [facility] Comment on above: Performed By: #### T PNT-hs, ADP #### [facility] [address] [place] [address] , Rm Callahan M.D. FCAP, FASCP Creatinine [Mass/Vol] 0.73 mg/dL Normal 0.51-0.95 [facility] Comment on above: Performed By: #### T PNT-hs, ADP #### [address] [address] , Isamar Lopez, FASCP GFR/1.73 sq M.predicted among non-blacks MDRD (S/P/Bld) [Vol rate/Area] mL/min/{1.73_m2} Normal [facility] Comment on above: Result Comment: THE GFR IS ESTIMATED USING THE MDRD STUDY EQUATION. *NOTE* IF THE RACE OF THE PATIENT WAS UNKNOWN AT THE TIME OF REGISTRATION, AND THE PATIENT IS , MULTIPLY THE EGFR RESULT PROVIDED BY 1.21. NORMAL: EGFR >60.0 Performed By: #### T PNT-hs, ADP #### [address] [address] , Rm Callahan M.D. FCAP, FASCP Glucose [Mass/Vol] 219 mg/dL High 70-100 [facility] Comment on above: Result Comment: INTR EPRETATION FOR FASTING BLOOD GLUCOSE: 70-100 mg/dl NORMAL GLUCOSE TOLERANCE 100-125 mg/dl IMPAIRED FASTING GLUCOSE (PRE-DIABETES) >125 mg/dl DIABETES - ON MORE THAN ONE TESTING Performed By: #### T PNT-hs, ADP #### [facility] [address] [place] [address] , Rm Callahan M.D. FCAP, FASCP Potassium [Moles/Vol] 3.7 mmol/L Normal 3.6-5.0 [facility] Comment on above: Result Comment: HEMO LYSIS PRESENT. INTERPRET RESULT WITH CAUTION. Performed By: #### T PNT-hs, ADP #### [facility] [address] [place], [place] [id number] , Rm Callahan M.D. FCAP, FASCP Protein [Mass/Vol] 7.1 g/dL Normal 6.4-8.3 [facility] Comment on above: Performed By: #### T PNT-hs, ADP #### [facility] [address] [place] [address] , Rm Callahan M.D. FCAP, FASCP Sodium [Moles/Vol] 137 mmol/L Normal 136-145 [facility] Comment on above: Performed By: #### T PNT-hs, ADP #### [facility] [address] [place] [id number] , Rm Callahan M.D. FCAP, FASCP Urea nitrogen [Mass/Vol] 15.2 mg/dL Normal 8.0-23.0 [facility] Comment on above: Performed By: #### T PNT-hs, ADP #### [facility] [address] [place] [address] , Rm Callahan M.D. FCAP, FASCP Differential cell count meth od - BloodOrdered By: JACQUE PICKETT on 03-12-2023 Differential cell count method Nom (Bld) Auto differential [facility] Eosinophils Auto (Bld) [#/Vo l]Ordered By: JACQUE PICKETT on 03-12-2023 Eosinophils (Bld) [#/Vol] 0.07 10*3/uL 0.0-0.5 [facility] Eosinophils/100 WBC Auto (Bl d)Ordered By: JACQUE PICKETT on 03-12-2023 Eosinophils/100 WBC (Bld) 1.5 % 0.0-3.0 [facility] Erythrocyte distribution wid th Auto (RBC) [Ratio]Ordered By: JACQUE PICKETT on 03-12-2023 Erythrocyte distribution width (RBC) [Ratio] 13.1 % 11.5-14.5 [facility] Glomerular filtration rate/1 .73 sq M.predicted [Volume Rate/Area] in Serum, Plasma orOrdered By: JACQUE PICKETT on 03-12-2023 GFR/1.73 sq M.predicted (S/P/Bld) [Vol rate/Area] mL/min [facility] Comment on above: NORMAL: EGFR >60.0TH E GFR IS ESTIMATED USING THE MDRD STUDY EQUATION.*NOTE* IF THE RACE OF THE PATIENT WAS UNKNOWN AT THE TIME OFREGISTRATION, AND THE PATIENT IS , MULTIPLYTHE EGFR RESULT PROVIDED BY 1.21. Glucose (Bld) [Mass/Vol]Orde red By: ED DOCTOR on 03-12-2023 Glucose [Mass/Vol] 212 mg/dL High 70-100 [facility] Hematocrit Auto (Bld) [Volum e fraction]Ordered By: JACQUE PICKETT on 03-12-2023 Hematocrit (Bld) [Volume fraction] 44.3 % 35.0-47.0 [facility] Immature granulocytes Auto ( Bld) [#/Vol]Ordered By: JACQUE PICKETT on 03-12-2023 Immature granulocytes (Bld) [#/Vol] 0.01 10*3/uL 0.01-0.2 [facility] Immature granulocytes/100 WB C Auto (Bld)Ordered By: JACQUE PICKETT on 03-12-2023 Immature granulocytes/100 WBC (Bld) 0.2 % 0-0.9 [facility] Lymphocytes Auto (Bld) [#/Vo l]Ordered By: JACQUE PICKETT on 03-12-2023 Lymphocytes (Bld) [#/Vol] 1.43 10*3/uL Low 1.5-4.0 [facility] Lymphocytes/100 WBC Auto (Bl d)Ordered By: JACQUE PICKETT on 03-12-2023 Lymphocytes/100 WBC (Bld) 30.2 % 20.0-40.0 [facility] MCH Auto (RBC) [Entitic mass ]Ordered By: JACQUE PICKETT on 03-12-2023 MCH (RBC) [Entitic mass] 30.1 pg 27-40 [facility] MCHC Auto (RBC) [Mass/Vol]Or dered By: JACQUE MAXIMUSLUCHOBIJAN on 03-12-2023 MCHC (RBC) [Mass/Vol] 34.1 g/dL 31-36 [facility] MCV Auto (RBC) [Entitic vol] Ordered By: JACQUE PICKETT on 03-12-2023 MCV (RBC) [Entitic vol] 88.4 CU uM 80.0-100.0 [facility] Monocytes Auto (Bld) [#/Vol] Ordered By: JACQUE STROUDWHITE on 03-12-2023 Monocytes (Bld) [#/Vol] 0.32 10*3/uL 0.2-0.8 [facility] Monocytes/100 WBC Auto (Bld) Ordered By: JACQUE PICKETT on 03-12-2023 Monocytes/100 WBC (Bld) 6.8 % 4.0-10.0 [facility] Neutrophils Auto (Bld) [#/Vo l]Ordered By: JACQUE MAXIMUSLUCHOBIJAN on 03-12-2023 Neutrophils (Bld) [#/Vol] 2.86 10*3/uL 2.0-7.0 [facility] Neutrophils/100 WBC Auto (Bl d)Ordered By: JACQUE PICKETT on 03-12-2023 Neutrophils/100 WBC (Bld) 60.2 % 54.0-62.0 [facility] Nucleated RBC Auto (Bld) [#/ Vol]Ordered By: JACQUE PICKETT on 03-12-2023 Nucleated RBC (Bld) [#/Vol] 0.00 10*3/uL <0 [facility] Nucleated RBC/100 WBC Auto ( Bld) [Ratio]Ordered By: JACQUE STROUDWHITE on 03-12-2023 Nucleated RBC/100 WBC (Bld) [Ratio] 0.0 /100WBC <0 [facility] Platelets Auto (Bld) [#/Vol] Ordered By: JACQUE CHRISTIANSONITE on 03-12-2023 Platelets (Bld) [#/Vol] 237 10*3/uL 130-440 [facility] RBC Auto (Bld) [#/Vol]Ordere d By: JACQUE PICKETT on 03-12-2023 RBC (Bld) [#/Vol] 5.01 10*6/uL 3.80-5.20 [facility] Serum or plasma albumin mariana urement (mass/volume)Ordered By: JACQUE PICKETT on 03-12-2023 Albumin [Mass/Vol] 4.5 g/dL 4.0-4.9 [facility] Serum or plasma alkaline reece sphatase measurement (enzymatic activity/volume)Ordered By: JACQUE ESTRELLAEMILYLUCHOBIJAN on 03-12-2023 ALP [Catalytic activity/Vol] 84 U/L 35-104 [facility] Serum or plasma anion gapOrd ered By: JACQUE PICKETT on 03-12-2023 Anion gap [Moles/Vol] 15 mmol/L 9-15 [facility] Serum or plasma aspartate am inotransferase measurement (enzymatic activity/volume)Ordered By: JACQUE ESTRELLAEMILYLUCHOBIJAN on 03-12-2023 AST [Catalytic activity/Vol] 26 U/L 10-35 [facility] Comment on above: HEMOLYSIS PRESENT. I NTERPRET RESULT WITH CAUTION. Serum or plasma calcium mariana urement (mass/volume)Ordered By: JACQUE CHRISTIANSONBIJAN on 03-12-2023 Calcium [Mass/Vol] 10.2 mg/dL 8.8-10.2 [facility] Serum or plasma carbon dioxi de, total measurement (moles/volume)Ordered By: JACQUE [facility] on 03-12-2023 CO2 [Moles/Vol] 23 mmol/L 22-29 [facility] Serum or plasma chloride daisy surement (moles/volume)Ordered By: JACQUE ESTRELLABRO on 03-12-2023 Chloride [Moles/Vol] 99 mmol/L 98-107 [facility] Serum or plasma creatinine m easurement (mass/volume)Ordered By: JACQUE NIEVES on 03-12-2023 Creatinine [Mass/Vol] 0.73 mg/dL 0.51-0.95 [facility] Serum or plasma glucose mariana urement (mass/volume)Ordered By: JACQUE NIEVES on 03-12-2023 Glucose [Mass/Vol] 219 mg/dL High 70-100 [facility] Comment on above: INTREPRETATION FOR F ASTING BLOOD GLUCOSE: 70-100 mg/dl NORMAL GLUCOSE [id number] mg/dl IMPAIRED FASTING GLUCOSE (PRE-DIABETES)>125 mg/dl DIABETES - ON MORE THAN ONE TESTING Serum or plasma potassium me asurement (moles/volume)Ordered By: JACQUE PICKETT on 03-12-2023 Potassium [Moles/Vol] 3.7 mmol/L 3.6-5.0 [facility] Comment on above: HEMOLYSIS PRESENT. I NTERPRET RESULT WITH CAUTION. Serum or plasma protein mariana urement (mass/volume)Ordered By: JACQUE PICKETT on 03-12-2023 Protein [Mass/Vol] 7.1 g/dL 6.4-8.3 [facility] Serum or plasma sodium measu rement (moles/volume)Ordered By: JACQUE PICKETT on 03-12-2023 Sodium [Moles/Vol] 137 mmol/L 136-145 [facility] Serum or plasma urea nitroge n measurement (mass/volume)Ordered By: JACQUE PICKETT on 03-12-2023 Urea nitrogen [Mass/Vol] 15.2 mg/dL 8.0-23.0 [facility] Serum total bilirubin measur ement (mass/volume)Ordered By: JACQUE PICKETT on 03-12-2023 Bilirubin [Mass/Vol] 0.4 mg/dL 0.2-1.2 [facility] Troponin T.cardiac [Mass/vol ume] in Serum or Plasma by High sensitivity methodOrdered By: JACQUE PICKETT on 03-12-2023 Troponin T.cardiac High sensitivity method [Mass/Vol] 9 ng/L 6-14 [facility] Comment on above: <6 ng/L Negative>/= 6 - <52 ng/L Suggest 1-hour delta hs-cTn>/= 52 ng/L Consistent with Ricardo distinguish between acute and chronic elevations of Cardiac Troponin (cTn), the [place] Definition of DE stresses the need for serial testing to detect a rise and/or fall of cTn above the 99th percentile upper reference limit of 22 ng/L, males and 14 ng/L, females consistent with clinical assessment, including ischemic symptoms and electrocardiographic changes WBC Auto (Bld) [#/Vol]Ordere d By: JACQUE STROUDKYM on 03-12-2023 WBC (Bld) [#/Vol] 4.7 10*3/uL 3.5-11.0 [facility] xj-Azzqixe-Ogbjklepds 2022 aw-Vhfmdjs-Kuitjnou 9 ng/L Normal <15 [facility] Comment on above: Result Comment: <6 n g/L Negative >/= 6 - <52 ng/L Suggest 1-hour delta hs-cTn >/= 52 ng/L Consistent with DE To distinguish between acute and chronic elevations of Cardiac Troponin (cTn), the [place] Definition of DE stresses the need for serial testing to detect a rise and/or fall of cTn above the 99th percentile upper reference limit of 22 ng/L, males and 14 ng/L, females consistent with clinical assessment, including ischemic symptoms and electrocardiographic changes Performed By: #### T PNT-hs #### [facility] [address] [place] [address] , Isamar Lopez, FASCP cc-Tapbfws-Pjsbzyip 6 ng/L Normal <15 [facility] Comment on above: Result Comment: <6 n g/L Negative >/= 6 - <52 ng/L Suggest 1-hour delta hs-cTn >/= 52 ng/L Consistent with DE To distinguish between acute and chronic elevations of Cardiac Troponin (cTn), the [place] Definition of DE stresses the need for serial testing to detect a rise and/or fall of cTn above the 99th percentile upper reference limit of 22 ng/L, males and 14 ng/L, females consistent with clinical assessment, including ischemic symptoms and electrocardiographic changes Performed By: #### T PNT-hs, ADP #### [facility] [address] [place] [address] , Isamar Lopez, FASCP Absolute lymphocyte countOrd ered By: Rufina Gardner on 02-14-2023 Lymphocytes Auto (Unsp spec) [#/Vol] 1.69 10*3/uL 0.83-4.51 [facility] Basic Metabolic Profile (BMP )on 02-14-2023 BUN/CRE 11.7 RATIO Normal 10-20 [facility] Comment on above: Performed By: #### L 500.2500, L100.0100 #### [facility] [address] [place], [address] CA,Total 8.3 mg/dL Low 8.5-10.1 [facility] Comment on above: Performed By: #### L 500.2500, L100.0100 #### [facility] [address] [place], [address] Chloride [Moles/Vol] 112 mmol/L High 98-107 [facility] Comment on above: Performed By: #### L 500.2500, L100.0100 #### [facility] [address] [place], [address] CO2 [Moles/Vol] 24.0 mmol/L Normal 21.0-32.0 [facility] Comment on above: Performed By: #### L 500.2500, L100.0100 #### [facility] [address] [place], [address] Creatinine [Mass/Vol] 0.68 mg/dL Normal 0.55-1.02 [facility] Comment on above: Result Comment: The validity of the calculated GFR GFRAA in patients over 70 years has not been determined. Clinical correlation is essential. Performed By: #### L 500.2500, L100.0100 #### [facility] [address] [place], [address] ECRCL 68.71 ml/min Normal [facility] Comment on above: Performed By: #### L 500.2500, L100.0100 #### [facility] [address] [place], [address] EST GFR - AA 113 mL/min Normal >60 [facility] Comment on above: Result Comment: Afri can Maltese GFR Calc Performed By: #### L 500.2500, L100.0100 #### [facility] [address] [place], [address] GAP 4 Low 5-15 [facility] Comment on above: Performed By: #### L 500.2500, L100.0100 #### [facility] [address] [place], [address] GFR/1.73 sq M.predicted among non-blacks MDRD (S/P/Bld) [Vol rate/Area] 93 mL/min/{1.73_m2} Normal >60 [facility] Comment on above: Result Comment: Non- GFR Calc Performed By: #### L 500.2500, L100.0100 #### [facility] [address] [place], [address] Glucose [Mass/Vol] 148 mg/dL High 74-106 [facility] Comment on above: Result Comment: Fast ing Glucose result greater than or equal to 126 mg/dL suggests DIABETES MELLITUS per A.D.A. criteria. Performed By: #### L 500.2500, L100.0100 #### [facility] [address] [place], [address] Potassium [Moles/Vol] 3.8 mmol/L Normal 3.5-5.1 [facility] Comment on above: Performed By: #### L 500.2500, L100.0100 #### [facility] [address] [place], [address] Sodium [Moles/Vol] 140 mmol/L Normal 136-145 [facility] Comment on above: Performed By: #### L 500.2500, L100.0100 #### [facility] [address] [place], [address] Urea nitrogen [Mass/Vol] 8 mg/dL Normal 7-18 [facility] Comment on above: Performed By: #### L 500.2500, L100.0100 #### [facility] [address] [place], [address] Basophil percentageOrdered B y: Rufina Gardner on 02-14-2023 Basophils/100 WBC (Bld) 0.6 % 0-1 [facility] Chloride [Moles/Vol] 112 mmol/L 98-107 [facility] Eosinophils/100 WBC (Bld) 1.0 % 0-5 [facility] Glucose [Mass/Vol] 148 mg/dL 74-106 [facility] Comment on above: Fasting Glucose resu lt greater than or equal to 126 mg/dL suggests DIABETES MELLITUS per A.D.A. criteria. Neutrophils (Bld) [#/Vol] 2.9 10*3/uL 2.0-7.7 [facility] Neutrophils/100 WBC (Bld) 56.7 % 47-70 [facility] Potassium [Moles/Vol] 3.8 mmol/L 3.5-5.1 [facility] Sodium [Moles/Vol] 140 mmol/L 136-145 [facility] WBC (Bld) [#/Vol] 5.2 10*3/uL 4.4-11.0 [facility] Bedside Glucoseon 02-14-2023 FINGERSTICK GLU 151 mg/dL High 74-106 [facility] Comment on above: Result Comment: Snac k Given Repeat Test Dextrose 50 Given MANAGEMENT OF PATIENT CARE PER NURSING PROTOCOL Performed By: #### L 503.6030, L503.0105, L506.1000, L503.6550, L500.4100 #### [facility] [address] [place], [address] FINGERSTICK GLU 146 mg/dL High 74-106 [facility] Comment on above: Result Comment: EVI GEMENT OF PATIENT CARE PER NURSING PROTOCOL Performed By: #### L 503.6030, L503.0105, L506.1000, L503.6550, L500.4100 #### [facility] [address] [place], [address] Blood erythrocytes count (nu mber/volume)Ordered By: Rufina Gardner on 02-14-2023 RBC (Bld) [#/Vol] 4.56 10*6/uL 4.2-5.4 [facility] Blood hemoglobin measurement (mass/volume)Ordered By: Rufina Gardner on 02-14-2023 Hemoglobin (Bld) [Mass/Vol] 13.5 g/dL 12.0-15.0 [facility] Blood lymphocytes/100 leukoc ytesOrdered By: Rufina Gardner on 02-14-2023 Lymphocytes/100 WBC (Bld) 32.6 % 19-41 [facility] Blood monocytes/100 leukocyt esOrdered By: Rufina Gardner on 02-14-2023 Monocytes/100 WBC (Bld) 8.7 % 0-10 [facility] Blood platelet mean volumeOr dered By: Rufina Gardner on 02-14-2023 Platelet mean volume (Bld) [Entitic vol] 10.9 fL 6.2-12.0 [facility] CBC W/Diff, Automatedon 10-2 Absolute Lymph 1.69 X10 3/uL Normal 0.83-4.51 [facility] Comment on above: Performed By: #### L 500.2500, L100.0100 #### [facility] [address] [facility] [place], [address] Absolute Neut 2.9 X10 3/uL Normal 2.0-7.7 [facility] Comment on above: Performed By: #### L 500.2500, L100.0100 #### [facility] [address] [place], [address] Basophils/100 WBC (Bld) 0.6 % Normal 0-1 [facility] Comment on above: Performed By: #### L 500.2500, L100.0100 #### [facility] [address] [facility] [place], [address] Eosinophils/100 WBC (Bld) 1.0 % Normal 0-5 [facility] Comment on above: Performed By: #### L 500.2500, L100.0100 #### [facility] [address] [place], [address] Erythrocyte distribution width (RBC) [Ratio] 12.6 % Normal 11.6-14.6 [facility] Comment on above: Performed By: #### L 500.2500, L100.0100 #### [facility] [address] [place], [address] Hematocrit (Bld) [Volume fraction] 41.6 % Normal 37-47 [facility] Comment on above: Performed By: #### L 500.2500, L100.0100 #### [facility] [address] [place], [address] Hemoglobin (Bld) [Mass/Vol] 13.5 g/dL Normal 12.0-15.0 [facility] Comment on above: Performed By: #### L 500.2500, L100.0100 #### [facility] [address] [place], [address] IG% 0.400 Normal 0.0-0.9 [facility] Comment on above: Result Comment: IG% - Immature Granulocytes (promyelocytes, myelocytes and metamyelocytes) > 1% indicates that a LEFT SHIFT is Present. Performed By: #### L 500.2500, L100.0100 #### [facility] [address] [place], [address] Lymphocytes/100 WBC (Bld) 32.6 % Normal 19-41 [facility] Comment on above: Performed By: #### L 500.2500, L100.0100 #### [facility] [address] [place], [address] MCH (RBC) [Entitic mass] 29.6 pg Normal 27.0-32.0 [facility] Comment on above: Performed By: #### L 500.2500, L100.0100 #### [facility] [address] [place], [address] MCHC (RBC) [Mass/Vol] 32.5 g/dL Normal 32-36 [facility] Comment on above: Performed By: #### L 500.2500, L100.0100 #### [facility] [address] [place], [address] MCV (RBC) [Entitic vol] 91.2 fL Normal 81-99 [facility] Comment on above: Performed By: #### L 500.2500, L100.0100 #### [facility] [address] [place], [address] Monocytes/100 WBC (Bld) 8.7 % Normal 0-10 [facility] Comment on above: Performed By: #### L 500.2500, L100.0100 #### [facility] [address] [place], [address] Neutrophils/100 WBC (Bld) 56.7 % Normal 47-70 [facility] Comment on above: Performed By: #### L 500.2500, L100.0100 #### [facility] [address] [place], [address] Nucleated RBC (Bld) [#/Vol] 0 10*3/uL Normal 0-5 [facility] Comment on above: Performed By: #### L 500.2500, L100.0100 #### [facility] [address] [place], [address] Platelet mean volume (Bld) [Entitic vol] 10.9 fL Normal 6.2-12.0 [facility] Comment on above: Performed By: #### L 500.2500, L100.0100 #### [facility] [address] [place], [address] Platelets (Bld) [#/Vol] 224 10*3/uL Normal 150-450 [facility] Comment on above: Performed By: #### L 500.2500, L100.0100 #### [facility] [address] [place], [address] RBC (Bld) [#/Vol] 4.56 10*6/uL Normal 4.2-5.4 [facility] Comment on above: Performed By: #### L 500.2500, L100.0100 #### [facility] [address] [place], [address] RDW SD 42.3 fl Normal 35.1-43.9 [facility] Comment on above: Performed By: #### L 500.2500, L100.0100 #### [facility] [address] [place], [address] WBC (Bld) [#/Vol] 5.2 10*3/uL Normal 4.4-11.0 [facility] Comment on above: Performed By: #### L 500.2500, L100.0100 #### [facility] [address] [place], [address] Determination of erythrocyte mean corpuscular volume (MCV)Ordered By: Rufina Gardner on 02-14-2023 MCV (RBC) [Entitic vol] 91.2 fL 81-99 [facility] Discharge Instructionon 01-19 Discharge Instruction [facility] Medical Records Department [address] [place] [address] Instructions for Home/Discharge Instructions 02/14/23 1219 MR#: [id number] Acct: [id number] Name: DWAIN SUTHERLAND NOEL Rep #: [id number] : 1960 62 From: Rufina Gardner MD PCP: Dr. Chuyita Harper MD Status:ADM LADARIUS Discharge Instructions Diet Discharge Diet: No restrictions Activity Discharge Activity: Return to Normal Activity Follow Up Care Test Results: Test results from this visit will be discussed in further detail at your follow-up appointment, if applicable. Discharge Plan Admission Admit Date/Time: 02/13/23 07:44 Primary Reason for Your Visit: Episode of passing out Attending Provider: Rufina Gardner Primary Care Provider: Chuyita Harper Consulting Providers: Herbie Rodriguez Instructions Patient Instructions: Dizziness Fainting Causes Additional Instructions / Restrictions: DISCHARGE INSTRUCTIONS PLEASE READ *Please take this with you to your next doctors appointment* -You are found to have slightly low iron, recommend iron supplementation but you have indicated you prefer to take your multivitamin more regularly -Continue losartan but would recommend at this time discontinuing hydrochlorothiazide as this can worsen dehydration and electrolyte abnormalities. Ultimately may need further adjustments in blood pressure medication -Please change positions slowly from lying to standing. When getting out of bed sit on the side of the bed with her legs down for at least 30 seconds before standing. This gives her body time to adjust to the position change. Would also recommend using compression stockings, you can acquire these online or you can discuss with your primary care physician. There are varying strengths and if you are unable to tolerate high strength compression you can try one of the lower strength -You will be discharged with instructions for a 14-day heart monitor to evaluate for any underlying abnormal heart rhythms -Please call your primary care provider's office upon discharge to schedule a hospital follow up within 1 week. -For any concerning signs or symptoms please call 911 or proceed to the nearest emergency department Discharge Orders/Prescriptions Prescriptions: Continued multivitamin with iron Tablet 1 tab PO DAILY losartan 50 mg tablet 50 mg PO DAILY Qty: 90 3RF Discontinued hydrochlorothiazide 25 mg tablet 25 mg PO DAILY Qty: 90 3RF Other Ambulatory Orders: 14 Day Event Recorder Preventi (Urgent) Timeframe: 1 Day Facility: [facility] - Location: Cardiovascular Services Ordered By: Dr. Rufina Gardner Referrals / Follow Up: Chuyita Harper MD [Primary Care Provider] - Within 1 Week Disposition Disposition (needs filled in before D/C Order can be placed): Home, Self Care 02/14/23 1223 Rufina Gardner MD CC: Dr. Chuyita Harper MD; Dr. Herbie Rodriguez MD Signed Normal [facility] Glucose Glucometer (BldC) [M ass/Vol]Ordered By: Rufina Gardner on 02-14-2023 Glucose [Mass/Vol] 151 mg/dL 74-106 [facility] Comment on above: Snack GivenRepeat Te stDextrose 50 GivenMANAGEMENT OF PATIENT CARE PER NURSING PROTOCOL Hematocrit Auto (Bld) [Volum e fraction]Ordered By: Rufina Gardner on 02-14-2023 Hematocrit (Bld) [Volume fraction] 41.6 % 37-47 [facility] Hemoglobin A1con 02-14-2023 HbA1c (Bld) [Mass fraction] 6.6 % High 3.8-5.6 [facility] Comment on above: Result Comment: Norm al < 5.7 % Prediabetic 5.7 - 6.4 % Diabetic >or= 6.5 % Please note range changes. Performed By: #### L 503.6030, L503.0105, L506.1000, L503.6550, L500.4100 #### [facility] [address] [place], [address] Laboratory - Chemistry and C hemistry - challengeOrdered By: Rufina Gardner on 02-14-2023 CO2 [Moles/Vol] 24.0 mmol/L 21.0-32.0 [facility] Urea nitrogen/Creatinine [Mass ratio] 11.7 mg/mg 10- [facility] - Hematology and Cell countsOrdered By: Rufina Gardner on 02-14-2023 Erythrocyte distribution width (RBC) [Entitic vol] 42.3 fL 35.1-43.9 [facility] Erythrocyte distribution width (RBC) [Ratio] 12.6 % 11.6-14.6 [facility] Immature granulocytes/100 WBC (Bld) 0.400 % 0.0-0.9 [facility] Comment on above: IG% - Immature Granu locytes (promyelocytes, myelocytes and metamyelocytes) > 1% indicates that a LEFT SHIFT is Present. MCH (RBC) [Entitic mass] 29.6 pg 27.0-32.0 [facility] Nucleated RBC/100 WBC (Bld) [Ratio] 0 % 0-5 [facility] MCHC Auto (RBC) [Mass/Vol]Or dered By: Rufina Gardner on 02-14-2023 MCHC (RBC) [Mass/Vol] 32.5 g/dL 32- [facility] No Panel InformationOrdered By: Rufina Gardner on 02-14-2023 Estimated Creatinine Clearance Calc 68.71 ml/min [facility] Estimated GFR (MDRD) Amer 113 mL/min >60 [facility] Comment on above: GFR Calc Estimated GFR (MDRD) Non-Af Amer 93 mL/min >60 [facility] Comment on above: Non- GFR Calc Platelets bldOrdered By: Jemima Gardner on 02-14-2023 Platelets (Bld) [#/Vol] 224 10*3/uL 150-450 [facility] Serum or plasma calcium mariana urement (mass/volume)Ordered By: Rufina Gardner on 02-14-2023 Calcium [Mass/Vol] 8.3 mg/dL 8.5-10.1 [facility] Serum or plasma creatinine m easurement (mass/volume)Ordered By: Rufina Gardner on 02-14-2023 Creatinine [Mass/Vol] 0.68 mg/dL 0.55-1.02 [facility] Comment on above: The validity of the calculated GFR & GFRAA in patients over 70 years has not been determined. Clinical correlation is essential. Serum or plasma urea nitroge n measurement (mass/volume)Ordered By: Rufina Gardner on 02-14-2023 Urea nitrogen [Mass/Vol] 8 mg/dL 7-18 [facility] Thin prep Papanicolaou smear with manual screeningOrdered By: Rufina Gardner on 02-14-2023 Thin prep Papanicolaou smear with manual screening 4 5-15 [facility] Whole blood hemoglobin A1c/t otal hemoglobin ratio (mass fraction)Ordered By: Rufina Gardner on 02-14-2023 HbA1c (Bld) [Mass fraction] 6.6 % 3.8-5.6 [facility] Comment on above: Normal < 5.7 % Predi abetic 5.7 - 6.4 % Diabetic >or= 6.5 % Please note range changes. Basic Metabolic Profile (BMP )on 02-13-2023 BUN/CRE 20.8 RATIO High 02-06 [facility] Comment on above: Order Comment: 1Y Performed By: #### L 503.6041, L503.0105, L506.1000, L503.6550, L500.4100 #### [facility] [place], [address] CA,Total 9.0 mg/dL Normal 8.5-10.1 [facility] Comment on above: Order Comment: 1Y Performed By: #### L 503.6030, L503.0105, L506.1000, L503.6550, L500.4100 #### [facility] [address] [place], [address] Chloride [Moles/Vol] 102 mmol/L Normal 98-107 [facility] Comment on above: Order Comment: 1Y Performed By: #### L 503.6030, L503.0105, L506.1000, L503.6550, L500.4100 #### [facility] [address] [place], [address] CO2 [Moles/Vol] 24.0 mmol/L Normal 21.0-32.0 [facility] Comment on above: Order Comment: 1Y Performed By: #### L 503.6030, L503.0105, L506.1000, L503.6550, L500.4100 #### [facility] [address] [place], [address] Creatinine [Mass/Vol] 1.01 mg/dL Normal 0.55-1.02 [facility] Comment on above: Order Comment: 1Y Result Comment: The validity of the calculated GFR GFRAA in patients over 70 years has not been determined. Clinical correlation is essential. Performed By: #### L 503.6030, L503.0105, L506.1000, L503.6550, L500.4100 #### [facility] [address] [place], [address] ECRCL 48.39 ml/min Normal [facility] Comment on above: Order Comment: 1Y Performed By: #### L 503.6030, L503.0105, L506.1000, L503.6550, L500.4100 #### [facility] [address] [place], [address] EST GFR - AA 72 mL/min Normal >60 [facility] Comment on above: Order Comment: 1Y Result Comment: Afri can Maltese GFR Calc Performed By: #### L 503.6030, L503.0105, L506.1000, L503.6550, L500.4100 #### [facility] [address] [place], [address] GAP 10 Normal 5-15 [facility] Comment on above: Order Comment: 1Y Performed By: #### L 503.6030, L503.0105, L506.1000, L503.6550, L500.4100 #### [facility] [address] [place], [address] GFR/1.73 sq M.predicted among non-blacks MDRD (S/P/Bld) [Vol rate/Area] 59 mL/min/{1.73_m2} Low >60 [facility] Comment on above: Order Comment: 1Y Result Comment: Non- GFR Calc Performed By: #### L 503.6030, L503.0105, L506.1000, L503.6550, L500.4100 #### [facility] [address] [place], [address] Glucose [Mass/Vol] 192 mg/dL High 74-106 [facility] Comment on above: Order Comment: 1Y Result Comment: Fast ing Glucose result greater than or equal to 126 mg/dL suggests DIABETES MELLITUS per A.D.A. criteria. Performed By: #### L 503.6030, L503.0105, L506.1000, L503.6550, L500.4100 #### [facility] [address] [place], [address] Potassium [Moles/Vol] 3.4 mmol/L Low 3.5-5.1 [facility] Comment on above: Order Comment: 1Y Performed By: #### L 503.6030, L503.0105, L506.1000, L503.6550, L500.4100 #### [facility] [address] [place], [address] Sodium [Moles/Vol] 136 mmol/L Normal 136-145 [facility] Comment on above: Order Comment: 1Y Performed By: #### L 503.6030, L503.0105, L506.1000, L503.6550, L500.4100 #### [facility] [address] [place], [address] Urea nitrogen [Mass/Vol] 21 mg/dL High 7-18 [facility] Comment on above: Order Comment: 1Y Performed By: #### L 503.6030, L503.0105, L506.1000, L503.6550, L500.4100 #### [facility] [address] [place], [address] Basophil percentageOrdered B y: Rufinasimona Gardner on 02-13-2023 Basophil percentage 2.4 mg/dL 2.5-4.9 [facility] Cholesterol [Mass/Vol] 171 mg/dL <200 [facility] Comment on above: <200 mg/dL Desirable 200-240 mg/dL Borderline >240 mg/dL High Risk Triglyceride [Mass/Vol] 92 mg/dL <199 [facility] Comment on above: The drugs N-Acetylcy steine and Metamizole may falsely depress this assay.Serum Triglycerides Reference Interval Normal <150 mg/dL Borderline high 150 - 199 mg/dL High 200 - 499 mg/dL Very High > or = 500 mg/dL Basophil percentageOrdered B y: Jamee Menard on 02-13-2023 Basophil percentage 0 SEEN /hpf 0-5 [facility] Bilirubin [Mass/Vol] 0.50 mg/dL 0.20-1.00 [facility] Comment on above: For patients on eltr ombopag therapy, use of Dimension [place] TBIL is not recommended. Protein [Mass/Vol] 7.2 g/dL 6.4-8.2 [facility] Bedside Glucoseon 02-13-2023 FINGERSTICK GLU 223 mg/dL High 74-106 [facility] Comment on above: Result Comment: EVI GEMENT OF PATIENT CARE PER NURSING PROTOCOL Performed By: #### L 503.6030, L503.0105, L506.1000, L503.6550, L500.4100 #### [facility] [address] [place], [address] FINGERSTICK GLU 130 mg/dL High 74-106 [facility] Comment on above: Result Comment: EVI GEMENT OF PATIENT CARE PER NURSING PROTOCOL Performed By: #### L 503.6030, L503.0105, L506.1000, L503.6550, L500.4100 #### [facility] [address] [place], [address] FINGERSTICK GLU 276 mg/dL High 74-106 [facility] Comment on above: Result Comment: EVI GEMENT OF PATIENT CARE PER NURSING PROTOCOL Performed By: #### L 501.080 #### [facility] [address] [place], [address] Bilirubin Test strip Ql (U)O rdered By: Jamee Menard on 02-13-2023 Bilirubin Ql (U) Negative Negative [facility] Brain/Head without Contrasto n 02-13-2023 Brain/Head without Contrast [facility] Imaging Services [address] [place] [address] Brain/Head without Contrast MR#: [id number] Acct: [id number] Name: DWAIN SUTHERLAND NOEL Rep #: [id number] : 1960 F 62 From: Cesar Fleming PCP: Dr. Chuyita Harper MD Status: REG ER Study: Brain/Head without Contrast Date of Exam: 01/19 11/09 Exam# [id number] Ordering Dr: [place] [id number] EXAM: CT HEAD WITHOUT INTRAVENOUS CONTRAST CLINICAL INDICATION: injury TECHNIQUE: Multiple axial images were obtained of the head without intravenous contrast. This CT exam was performed using one or more of the following dose reduction techniques: automated exposure control, adjustment of the mA and/or kV according to patient size, and/or use of iterative reconstruction technique. RADIATION DOSE: CTDIvol = 44.99 mGy, DLP = 779.24 mGy-cm COMPARISON: No relevant prior studies available. FINDINGS: BRAIN AND EXTRA-AXIAL SPACES: Unremarkable. No intra- or extra-axial hemorrhage. No evidence of acute infarct. No intracranial mass or mass effect. There is preservation of the steen/white matter interface. Posterior fossa structures are unremarkable. Ventricles are appropriate for age. No hydrocephalus. Basal cisterns are patent. BONES/JOINTS: Unremarkable. No discrete lytic or blastic abnormalities. SINUSES: Unremarkable as visualized. Clear. MASTOID AIR CELLS: Unremarkable. Clear. ORBITS: Visualized globes, extraocular muscles, optic nerves and retrobulbar fat appear unremarkable. CT/Brain/Head without Contrast IMPRESSION: Negative head/brain CT without intravenous contrast. Electronically Signed: Cesar Winn MD at 6:47 EDT , CC: Dr. Chuyita Harper MD; Dr. Jamee Menard MD Quill Machine Operator: Signed Normal [facility] CBC W/Diff, Automatedon 10-2 Absolute Lymph 2.16 X10 3/uL Normal 0.83-4.51 [facility] Comment on above: Performed By: #### L 503.6030, L503.0105, L506.1000, L503.6550, L500.4100 #### [facility] [address] [place], [place], [address] Absolute Neut 3.1 X10 3/uL Normal 2.0-7.7 [facility] Comment on above: Performed By: #### L 503.6030, L503.0105, L506.1000, L503.6550, L500.4100 #### [facility] [address] [place], [address] Basophils/100 WBC (Bld) 1.0 % Normal 0-1 [facility] Comment on above: Performed By: #### L 503.6030, L503.0105, L506.1000, L503.6550, L500.4100 #### [facility] [address] [place], [address] Eosinophils/100 WBC (Bld) 1.9 % Normal 0-5 [facility] Comment on above: Performed By: #### L 503.6030, L503.0105, L506.1000, L503.6550, L500.4100 #### [facility] [address] [place], [address] Erythrocyte distribution width (RBC) [Ratio] 12.5 % Normal 11.6-14.6 [facility] Comment on above: Performed By: #### L 503.6030, L503.0105, L506.1000, L503.6550, L500.4100 #### [facility] [address] [place], [address] Hematocrit (Bld) [Volume fraction] 46.4 % Normal 37-47 [facility] Comment on above: Performed By: #### L 503.6030, L503.0105, L506.1000, L503.6550, L500.4100 #### [facility] [address] [place], [address] Hemoglobin (Bld) [Mass/Vol] 15.5 g/dL High 12.0-15.0 [facility] Comment on above: Performed By: #### L 503.6030, L503.0105, L506.1000, L503.6550, L500.4100 #### [facility] [address] [place], [address] IG% 0.300 Normal 0.0-0.9 [facility] Comment on above: Result Comment: IG% - Immature Granulocytes (promyelocytes, myelocytes and metamyelocytes) > 1% indicates that a LEFT SHIFT is Present. Performed By: #### L 503.6030, L503.0105, L506.1000, L503.6550, L500.4100 #### [facility] [address] [place], [address] Lymphocytes/100 WBC (Bld) 37.3 % Normal 19-41 [facility] Comment on above: Performed By: #### L 503.6030, L503.0105, L506.1000, L503.6550, L500.4100 #### [facility] [address] [place], [address] MCH (RBC) [Entitic mass] 29.5 pg Normal 27.0-32.0 [facility] Comment on above: Performed By: #### L 503.6030, L503.0105, L506.1000, L503.6550, L500.4100 #### [facility] [address] [place], [address] MCHC (RBC) [Mass/Vol] 33.4 g/dL Normal 32-36 [facility] Comment on above: Performed By: #### L 503.6030, L503.0105, L506.1000, L503.6550, L500.4100 #### [facility] [address] [place], [address] MCV (RBC) [Entitic vol] 88.4 fL Normal 81-99 [facility] Comment on above: Performed By: #### L 503.6030, L503.0105, L506.1000, L503.6550, L500.4100 #### [facility] [address] [place], [address] Monocytes/100 WBC (Bld) 6.7 % Normal 0-10 [facility] Comment on above: Performed By: #### L 503.6030, L503.0105, L506.1000, L503.6550, L500.4100 #### [facility] [address] [place], [address] Neutrophils/100 WBC (Bld) 52.8 % Normal 47-70 [facility] Comment on above: Performed By: #### L 503.6030, L503.0105, L506.1000, L503.6550, L500.4100 #### [facility] [address] [place], [address] Nucleated RBC (Bld) [#/Vol] 0 10*3/uL Normal 0-5 [facility] Comment on above: Performed By: #### L 503.6030, L503.0105, L506.1000, L503.6550, L500.4100 #### [facility] [address] [place], [address] Platelet mean volume (Bld) [Entitic vol] 10.0 fL Normal 6.2-12.0 [facility] Comment on above: Performed By: #### L 503.6030, L503.0105, L506.1000, L503.6550, L500.4100 #### [facility] [address] [place], [address] Platelets (Bld) [#/Vol] 235 10*3/uL Normal 150-450 [facility] Comment on above: Performed By: #### L 503.6030, L503.0105, L506.1000, L503.6550, L500.4100 #### [facility] [address] [place], [address] RBC (Bld) [#/Vol] 5.25 10*6/uL Normal 4.2-5.4 [facility] Comment on above: Performed By: #### L 503.6030, L503.0105, L506.1000, L503.6550, L500.4100 #### [facility] [address] [place], [address] RDW SD 41.0 fl Normal 35.1-43.9 [facility] Comment on above: Performed By: #### L 503.6030, L503.0105, L506.1000, L503.6550, L500.4100 #### [facility] [address] [place], [address] WBC (Bld) [#/Vol] 5.8 10*3/uL Normal 4.4-11.0 [facility] Comment on above: Performed By: #### L 503.6030, L503.0105, L506.1000, L503.6550, L500.4100 #### [facility] [address] [place], [address] Chest 1 View (Portable)on Chest 1 View (Portable) [facility] Imaging Services [address] [place] [address] Chest 1 View (Portable) MR#: [id number] Acct: [id number] Name: DWAIN SUTHERLAND Rep #: [id number] : 1960 F 62 From: Cesar Fleming PCP: Dr. Chuyita Harper MD Status: REG ER Study: Chest 1 View (Portable) Date of Exam: 02/13/23 Exam# [id number] Ordering Dr: [place] [id number] EXAM: XR CHEST, 1 VIEW CLINICAL INDICATION: syncope TECHNIQUE: Frontal view of the chest. COMPARISON: 05/05/2021. FINDINGS: LUNGS AND PLEURAL SPACES: Unremarkable. No consolidation or edema. No pneumothorax. No effusion. HEART: Unremarkable. Cardiac silhouette not enlarged. MEDIASTINUM: Central airways and mediastinal contour are unremarkable. BONES/JOINTS: Unremarkable. SOFT TISSUES: Unremarkable. RAD/Chest 1 View (Portable) IMPRESSION: No acute cardiopulmonary abnormality. Electronically Signed: Cesar Winn MD at 6:52 EDT , CC: Dr. Chuyita Harper MD; Dr. Jamee Menard MD Quill Machine Operator: Signed Normal [facility] Direct bilirubinOrdered By: Jamee Menard on 02-13-2023 Bilirubin.direct [Mass/Vol] 0.09 mg/dL 0.00-0.30 [facility] Echo Completeon 02-13-2023 Echo Complete [facility] Cardiovascular Services [address] [place] [address] Echo Complete 02/13/23 1011 MR#: [id number] Acct: [id number] Name: DWAIN SUTHERLAND Rep #: [id number] : 1960 62 From: Davi Zayas MD Attending Dr: Dr. Rufina Gardner MD Status: ADM LADARIUS Ordering Dr: Rufina Gardner MD Date: 02/13/23 Location: PCU Sex: F C Admitted: 02/13/23 Reason For Study: SYNCOPE/NEAR SYNCOPE Procedure This was a 2D Doppler, Color Flow transthoracic echocardiogram. Exam performed portable in ED. Left Ventricle Normal size and thickness. The left ventricular ejection fraction is 65 %. Right Ventricle Normal right ventricle. Atria The left and right atria are normal. Cannot exclude tiny PFO. Mitral Valve The mitral valve is structurally normal. No prolapse or stenosis seen. Tricuspid Valve Normal tricuspid valve. Aortic Valve Trisinus/trileaflet aortic valve. Pulmonic Valve The pulmonic valve is not well visualized. Great Vessels The aortic root is not well visualized. Pericardium/Pleural No pericardial effusion. MMode/2D Measurements Calculations LVIDd: 4.2 cm IVSd: 0.98 cm LAV(MOD-bp): 38.5 ml LVIDs: 2.9 cm LVPWd: 0.96 cm LAV(MOD-bp) Indexed: 20.2 ml/m2 FS: 30.0 % LAV(MOD-sp2): 42.7 ml LAV(MOD-sp4): 30.6 ml SV(MOD-sp4): 35.2 ml SV(sp4-el): 35.5 ml LVAd ap4: 20.5 cm2 LVLd ap4: 6.6 cm EDV(MOD-sp4): 53.7 ml EDV(sp4-el): 54.0 ml LVAs ap4: 10.9 cm2 LVLs ap4: 5.5 cm ESV(MOD-sp4): 18.5 ml ESV(sp4-el): 18.4 ml EF(MOD-sp4): 65.5 % EF(sp4-el): 65.8 % LA A4 area: 14.4 cm2 LA dimension(2D): 2.3 cm RA A4 area: 7.0 cm2 TAPSE: 2.7 cm Time Measurements MV dec time: 0.21 sec Doppler Measurements Calculations MV E max natalia: 76.0 cm/sec Lat Peak E' Natalia: 8.2 cm/sec Med Peak E' Natalia: 7.6 cm/sec MV A max natalia: 92.4 cm/sec E/E' lat: 9.2 E/E' med: 10.1 MV E/A: 0.82 MV V2 max: 105.7 cm/sec Ao V2 max: 148.4 cm/sec MV max P.5 mmHg MV dec slope: 359.6 cm/sec2 Ao max P.8 mmHg MV V2 mean: 75.4 cm/sec Ao V2 mean: 103.0 cm/sec MV mean P.4 mmHg Ao mean P.9 mmHg MV V2 VTI: 28.8 cm Ao V2 VTI: 30.6 cm AV (velocity ratio): 0.68 LV V1 max: 110.9 cm/sec PA V2 max: 127.9 cm/sec LV V1 max P.9 mmHg PA V2 mean: 72.8 cm/sec LV V1 mean P.0 mmHg LV V1 mean: 83.4 cm/sec LV V1 VTI: 21.0 cm ECHO/Echo Complete Interpretation Summary The left ventricular ejection fraction is 65 %. Cannot exclude tiny PFO. Ordering Physician: Rufina Gardner Referring Physician: Chuyita Harper Performed By: Niyah Turner RCS 02/13/23 1309 Date Davi Zayas MD CC: Dr. Chuyita Harper MD; Dr. Rufina Gardner MD Date Dictated: 02/13/23 1011 Date Transcribed: 02/13/23 1309 Quill Machine Operator: Signed Normal [facility] Emergency Department Summary on 02-13-2023 Emergency Department Summary [facility] Medical Records Department [address] [place] [address] Emergency Department Summary 02/13/23 MR#: [id number] Acct: [id number] Name: DWAIN SUTHERLAND Rep #: [id number] : 1960 62 From: Jamee Menard MD PCP: Dr. Chuyita Harper MD Status:ADM LADARIUS Location: [address] History of Present Illness Chief Complaint: Syncope Informant: patient Narrative Narrative: Patient presents with a syncopal episode at home. Patient states she woke up this morning and did not feel right but she cannot remember exactly what woke her up. She states she tried to check her blood pressure but the machine would not read. She started to go to the bottom of the stairs to call for her who was upstairs but she states she felt very lightheaded and dizzy. She yelled for him and tried to turn back to her room but he found her at the bottom of the stairs on the floor unresponsive. Patient states remembers waking up with EMS standing over her. She does not member having palpitations or chest pain. Patient denies any new medications. She did reportedly just finish a 3-day fast where she drank water, decaf coffee, and fizzy water. She did eat oatmeal last night for dinner. [facility] Medical History Abnormal EKG Anemia Colon cancer screening Dermatitis Elevated random blood glucose level Encounter for vitamin deficiency screening Health care maintenance Hx of mitral valve prolapse Hypertension Mammogram declined Obesity Post-menopausal Ruptured appendix Type 2 diabetes mellitus Vitamin B12 deficiency Home Medications multivitamin with iron 1 tab PO DAILY 05/10/21 [History Last Taken Unknown] losartan 50 mg tablet 50 mg PO DAILY #90 tabs 06/30/22 [Rx Last Taken Unknown] hydrochlorothiazide 25 mg tablet 25 mg PO DAILY #90 tabs 01/14/23 [Rx Last Taken Unknown] Allergy/AdvReac Type Severity Reaction Status Date / Time gelatin [Gelatin] Allergy Unknown Verified 02/13/23 05:27 iodine Allergy Rash Verified 02/13/23 05:27 Penicillins Allergy PT UNSURE Verified 02/13/23 05:27 OF REACTION Family History Father Alcoholism Heart disease Respiratory disease Mother Alcoholism Sister Alcoholism Son Alcoholism Anxiety Depression Mental disorder Daughter Alcoholism Anesthesia complication Aunt Diabetes CVA (cerebral vascular accident) Surgical History History of History of cholecystectomy History of hysterectomy Hx of tonsillectomy Social History Smoking Status: Never smoker alcohol intake: never substance use type: does not use what type of physical activity do you participate in: walking frequency: daily ROS ROS ED Constitutional Constitutional ED: Denies chills or fever(s) Eyes Eyes: Denies change in vision or discharge from eye(s) ENT ENT ED: Denies discharge from eye(s), rhinorrhea or sore throat Cardiovascular Cardiovascular: Denies chest pain or palpitations Respiratory/Chest Respiratory/Chest: Denies cough or dyspnea Gastrointestinal Gastrointestinal: Denies abdominal pain, nausea or vomiting Genitourinary Genitourinary ED: Denies dysuria Musculoskeletal Musculoskeletal: Denies back pain or extremity pain Integumentary Denies Abrasions or rash Neurologic Neurologic: Reports other Details: Lightheaded and dizzy ; Denies headache(s) or weakness Psychiatric Psychiatric: Denies anxiety or depression Allergic/Immunologic Allergic/Immunologic ED: Denies lip swelling or urticaria EXAM Physical Exam Const Vital Signs: 02/13/23 05:27 02/13/23 05:31 Temperature 96.1 F L Temperature Source Temporal Pulse Rate 85 Respiratory Rate 16 Respiratory Effort Normal Blood Pressure 142/76 H Blood Pressure Mean 98 Pulse Ox 100 Positive well nourished and well developed General Appearance ED: well developed HEENT Reports moist mucous membranes HEENT Narrative: Tenderness noted along the right lateral forehead. Minimal erythema. Eyes EOMs intact bilaterally Neck no lymphadenopathy Chest Wall inspection of chest normal and palpation of chest normal Resp normal respiratory effort and clear to auscultation bilaterally Cardio regular rate and regular rhythm GI non-tender Auscultation: hypoactive bowel sounds Palpation: soft Neuro oriented x3 and no sensory deficits noted Sensorium / Orientation: alert Motor Exam: strength 5/5 throughout Psych mental status grossly normal Skin no rashes or lesions noted MDM MDM MDM Narrative Medical decision making narrative: Patient placed on cardiac monit (more content not included)... Normal [facility] Ferritinon 02-13-2023 Ferritin [Mass/Vol] 83 ng/mL Normal 8-252 [facility] Comment on above: Performed By: #### L 503.6030, L503.0105, L506.1000, L503.6550, L500.4100 #### [facility] [address] [place], [address] Folates, (Folic Acid)on 01-19 FOLATES 40.20 ng/mL Normal 3.1-55.4 [facility] Comment on above: Performed By: #### L 503.6030, L503.0105, L506.1000, L503.6550, L500.4100 #### [facility] [address] [place], [address] H AND P Exam - [facility] 02-13-2023 H&P Exam - Hospitalist [facility] Medical Records Department [address] [place] [address] H P Exam - Hospitalist 02/13/23 0744 MR#: [id number] Acct: [id number] Name: DWAIN SUTHERLAND NOEL Rep #: [id number] : 1960 62 From: Rufina Gardner MD PCP: Dr. Chuyita Harper MD Status:ADM LADARIUS Location: [place] [address] HPI - General General Date of Admission: 02/13/23 Date of Service: 02/13/23 Chief Complaint: Syncope HPI Narrative DWAIN SUTHERLAND, is a 62-year-old female history hypertension and type 2 diabetes mellitus who presented with a syncopal episode from home. She woke up in the morning and did not feel right. She tried to check her blood pressure but reported the machine would not read and when she got to the bottom of the stairs to call for her she felt very lightheaded and dizzy and when he came down he found her at the bottom of the stairs unresponsive. Patient members waking up with EMS standing over her. Denied any chest pain or palpitations. Did reportedly just finish a 3-day fast where she had water, decaf coffee, and fizzy water and then had oatmeal for dinner last night. In the ED lab work-up unremarkable. She was started on IV fluids and hospitalist consulted for admission for syncope. Woke with patient and her at bedside. She reports she had been on a fast for over 2 days but yesterday was too hungry so she has had some avocado, banana, oatmeal however last night she was not feeling right and thought it was allergies so she took an antihistamine, unclear which 1 but has been will bring in bottle, and went to bed. When she woke up she did not feel right again and took her blood pressure and reports it would not read. She got up to go to the bottom of the stairs to call for her and reports she was horribly dizzy and stumbled to the bottom of the stairs and felt lightheaded. When her came to the stairs he found her down and the next thing patient remembers is EMS was there. She does at times get dizzy when going from sitting to standing but has not had syncopal episodes before. Had not noted any chest pain or palpitations before this moment. Of note patient reports she is vegan and plant-based and had done the fast as above but reports she does a 3-day fast once a year and has not had this problem before. Denies any other preceding or accompanying symptoms. [facility] Medical History Abnormal EKG Anemia Colon cancer screening Dermatitis Elevated random blood glucose level Encounter for vitamin deficiency screening Health care maintenance Hx of mitral valve prolapse Hypertension Mammogram declined Obesity Post-menopausal Ruptured appendix Type 2 diabetes mellitus Vitamin B12 deficiency Home Medications multivitamin with iron 1 tab PO DAILY 05/10/21 [History Last Taken Unknown] losartan 50 mg tablet 50 mg PO DAILY #90 tabs 06/30/22 [Rx Last Taken Unknown] hydrochlorothiazide 25 mg tablet 25 mg PO DAILY #90 tabs 01/14/23 [Rx Last Taken Unknown] Allergy/AdvReac Type Severity Reaction Status Date / Time gelatin [Gelatin] Allergy Unknown Verified 02/13/23 05:27 iodine Allergy Rash Verified 02/13/23 05:27 Penicillins Allergy PT UNSURE Verified 02/13/23 05:27 OF REACTION Family History Father Alcoholism Heart disease Respiratory disease Mother Alcoholism Sister Alcoholism Son Alcoholism Anxiety Depression Mental disorder Daughter Alcoholism Anesthesia complication Aunt Diabetes CVA (cerebral vascular accident) Surgical History History of History of cholecystectomy History of hysterectomy Hx of tonsillectomy Social History Smoking Status: Never smoker alcohol intake: never substance use type: does not use what type of physical activity do you participate in: walking frequency: daily ROS ROS Narrative General: Denies fever/chills HENT: Denies headache, denies stuffy nose, denies sore throat EYES: Denies changes in vision Resp: Denies cough, denies shortness of breath Cardiac: Denies chest pain GI: Denies abdominal pain, denies changes in bowel, denies nausea/vomiting : Denies changes in urination Extremity: Denies swelling MSK: Denies weakness Neuro: Denies any numbness/tingling, had felt lightheaded and dizzy at home with syncopal episode Heme: Denies any bleeding or bruising Skin: Denies rashes Psychiatric: No complaints voiced Vital Signs Vital Signs Vital Signs: 02/13/23 05:27 02/13/23 05:31 Temperature 96.1 F L Temperature Source Temporal Pulse Rate 85 Respiratory Rate 16 Respiratory Effort Normal Blood Pressure 142/76 H Blood (more content not included)... Normal [facility] Hyaline casts LM.LPF (Urine sed) [#/Area]Ordered By: Jamee Menard on 02-13-2023 Hyaline casts (Urine sed) [#/Area] 0 /[LPF] 0-5 [facility] Iron measurement (mass/mass) Ordered By: Rufina Gardner on 02-13-2023 Iron (Unsp spec) [Mass/Mass] 44 ug/dL 50-170 [facility] Iron+Iron Binding Capacityon 02-13-2023 Iron [Mass/Vol] 44 ug/dL Low 50-170 [facility] Comment on above: Performed By: #### L 503.6030, L503.0105, L506.1000, L503.6550, L500.4100 #### [facility] [address] [place], [address] IRON SATURATION 13.0 Low 15.0-55.0 [facility] Comment on above: Performed By: #### L 503.6030, L503.0105, L506.1000, L503.6550, L500.4100 #### [facility] [address] [place], [address] TIBC 338 ug/dL Normal 250-450 [facility] Comment on above: Performed By: #### L 503.6030, L503.0105, L506.1000, L503.6550, L500.4100 #### [facility] [address] [place], [address] Ketones Test strip Ql (U)Ord ered By: Jamee Menard on 02-13-2023 Ketones Ql (U) 150 mg/dl Negative [facility] Comment on above: CRITICAL VALUE *HCRI TICAL VALUE VERIFIED. CALLED TO AILYN MACARIO RN (ED)02/13/23 0623 Mal Fofana.RESULTS READ BACK BY SAME . [id number] 02-13-2023 TROPONIN-I HS 7 pg/mL Normal 3.0-54.0 [facility] Comment on above: Result Comment: Plea se Note: New Test Units and Gender Specific Reference Ranges. For more information see Policy Stat Procedure [place] High Sensitivity Troponin (TNIH) and attachments. Performed By: #### L 503.6030, L503.0105, L506.1000, L503.6550, L500.4100 #### [facility] [address] [place], [address] [id number] 02-13-2023 TROPONIN-I HS 9 pg/mL Normal 3.0-54.0 [facility] Comment on above: Order Comment: 1Y Result Comment: Rosendo welch Note: New Test Units and Gender Specific Reference Ranges. For more information see Policy Stat Procedure [place] High Sensitivity Troponin (TNIH) and attachments. Performed By: #### L 503.6030, L503.0105, L506.1000, L503.6550, L500.4100 #### [facility] [address] [place], [address] Laboratory - Chemistry and C hemistry - challengeOrdered By: Rufina Gardner on 02-13-2023 Free T4 [Mass/Vol] 1.25 ng/dL 0.76-1.46 [facility] Magnesium [Mass/Vol] 2.0 mg/dL 1.6-2.6 [facility] Cobalamin (Vitamin B12) [Mass/Vol] 605 pg/mL 211-911 [facility] - Chemistry and C hemistry - challengeOrdered By: Jamee Menard on 02-13-2023 ALP [Catalytic activity/Vol] 74 U/L 45-117 [facility] ALT [Catalytic activity/Vol] 37 U/L 13-56 [facility] Globulin (S) [Mass/Vol] 3.2 g/dL 2.2-4.2 [facility] Lipid Profileon 02-13-2023 Cholesterol [Mass/Vol] 171 mg/dL Normal 200 [facility] Comment on above: Result Comment: <200 mg/dL Desirable 200-240 mg/dL Borderline >240 mg/dL High Risk Performed By: #### L 503.6030, L503.0105, L506.1000, L503.6550, L500.4100 #### [facility] [address] [place], [address] Cholesterol in HDL [Mass/Vol] 38 mg/dL Low [facility] Comment on above: Result Comment: The drugs N-Acetylcysteine and Metamizole may falsely depress this assay. Reference Range HDL <40 mg/dL Low HDL Cholesterol HDL >or= 60 mg/dL High HDL Cholesterol Performed By: #### L 503.6030, L503.0105, L506.1000, L503.6550, L500.4100 #### [facility] [address] [place], [address] Cholesterol in LDL [Mass/Vol] 115 mg/dL Normal 0-130 [facility] Comment on above: Performed By: #### L 503.6030, L503.0105, L506.1000, L503.6550, L500.4100 #### [facility] [address] [place], [address] Cholesterol in VLDL [Mass/Vol] 18 mg/dL Normal 5-40 [facility] Comment on above: Performed By: #### L 503.6030, L503.0105, L506.1000, L503.6550, L500.4100 #### [facility] [address] [place], [address] Triglyceride [Mass/Vol] 92 mg/dL Normal [facility] Comment on above: Result Comment: The drugs N-Acetylcysteine and Metamizole may falsely depress this assay. Serum Triglycerides Reference Interval Normal <150 mg/dL Borderline high 150 - 199 mg/dL High 200 - 499 mg/dL Very High > or = 500 mg/dL Performed By: #### L 503.6030, L503.0105, L506.1000, L503.6550, L500.4100 #### [facility] [address] [place], [address] Liver Profileon 02-13-2023 Albumin [Mass/Vol] 4.0 g/dL Normal 3.2-5.0 [facility] Comment on above: Order Comment: 1Y Performed By: #### L 503.6030, L503.0105, L506.1000, L503.6550, L500.4100 #### [facility] [address] [place], [address] ALK P 74 U/L Normal 45-117 [facility] Comment on above: Order Comment: 1Y Performed By: #### L 503.6030, L503.0105, L506.1000, L503.6550, L500.4100 #### [facility] [address] [place], [address] ALT [Catalytic activity/Vol] 37 U/L Normal 13-56 [facility] Comment on above: Order Comment: 1Y Performed By: #### L 503.6030, L503.0105, L506.1000, L503.6550, L500.4100 #### [facility] [address] [place], [address] AST [Catalytic activity/Vol] 25 U/L Normal 15-37 [facility] Comment on above: Order Comment: 1Y Performed By: #### L 503.6030, L503.0105, L506.1000, L503.6550, L500.4100 #### [facility] [address] [place], [address] Bilirubin [Mass/Vol] 0.50 mg/dL Normal 0.20-1.00 [facility] Comment on above: Order Comment: 1Y Result Comment: For patients on eltrombopag therapy, use of Dimension [place] TBIL is not recommended. Performed By: #### L 503.6030, L503.0105, L506.1000, L503.6550, L500.4100 #### [facility] [address] [place], [address] Bilirubin.direct [Mass/Vol] 0.09 mg/dL Normal 0.00-0.30 [facility] Comment on above: Order Comment: 1Y Performed By: #### L 503.6030, L503.0105, L506.1000, L503.6550, L500.4100 #### [facility] [address] [place], [address] Globulin (S) [Mass/Vol] 3.2 g/dL Normal 2.2-4.2 [facility] Comment on above: Order Comment: 1Y Performed By: #### L 503.6030, L503.0105, L506.1000, L503.6550, L500.4100 #### [facility] [address] [place], [address] T PROT 7.2 g/dL Normal 6.4-8.2 [facility] Comment on above: Order Comment: 1Y Performed By: #### L 503.6030, L503.0105, L506.1000, L503.6550, L500.4100 #### [facility] [address] [place], [address] Magnesiumon 02-13-2023 Magnesium [Mass/Vol] 2.0 mg/dL Normal 1.6-2.6 [facility] Comment on above: Performed By: #### L 503.6030, L503.0105, L506.1000, L503.6550, L500.4100 #### [facility] [address] [place], [address] Mucus LM Ql (Urine sed)Order ed By: Jamee Menard on 02-13-2023 Mucus Ql (Urine sed) 0 SEEN /hpf [facility] Nitrite Test strip Ql (U)Ord ered By: Jamee Menard on 02-13-2023 Nitrite Ql (U) Negative Negative [facility] No Panel InformationOrdered By: Rufina Gardner on 02-13-2023 Thyroid Stimulating Hormone (TSH) 1.52 uIU/mL 0.358-3.74 [facility] Total Iron Binding Capacity 338 ug/dL 250-450 [facility] Vitamin D 25-Hydroxy 43.0 ng/mL [facility] Comment on above: Vitamin D 25(OH) Sta tus Range Deficiency <20 ng/mL (50nmol/L) Insufficiency 20 - 30 ng/mL (50 - 75 nmol/L) Sufficiency 30 - 100 ng/mL (75 - 250 nmol/L) Toxicity >100 ng/mL (>250 nmol/L) No Panel InformationOrdered By: Jamee Menard on 02-13-2023 Troponin I High Sensitivity 7 pg/mL 3.0-54.0 [facility] Comment on above: Please Note: New Rayne t Units and Gender Specific Reference Ranges. For more information see Policy Stat Procedure [place] High Sensitivity Troponin (TNIH) and attachments. Phosphoruson 02-13-2023 Phosphate [Mass/Vol] 2.4 mg/dL Low 2.5-4.9 [facility] Comment on above: Performed By: #### L 503.6030, L503.0105, L506.1000, L503.6550, L500.4100 #### [facility] [address] [place] [address]. [place], [address] Protein Test strip Ql (U)Ord ered By: Jamee Menard on 02-13-2023 Protein Ql (U) Negative Negative [facility] Serum or plasma albumin mariana urement (mass/volume)Ordered By: Jamee Menard on 02-13-2023 Albumin [Mass/Vol] 4.0 g/dL 3.2-5.0 [facility] Serum or plasma cholesterol in HDL measurement (mass/volume)Ordered By: Rufina Gardner on 02-13-2023 Cholesterol in HDL [Mass/Vol] 38 mg/dL >40 [facility] Comment on above: The drugs N-Acetylcy steine and Metamizole may falsely depress this assay. Reference Range HDL <40 mg/dL Low HDL Cholesterol HDL >or= 60 mg/dL High HDL Cholesterol Serum or plasma cholesterol in VLDL measurement (mass/volume)Ordered By: Rufina Gardner on 02-13-2023 Cholesterol in VLDL [Mass/Vol] 18 mg/dL 5-40 [facility] Serum or plasma ferritin daisy surement (mass/volume)Ordered By: Rufina Gardner on 02-13-2023 Ferritin [Mass/Vol] 83 ng/mL 8-252 [facility] Serum or plasma folate measu rement (mass/volume)Ordered By: Rufina Gardner on 02-13-2023 Folate [Mass/Vol] 40.20 ng/mL 3.1-55.4 [facility] Serum or plasma iron saturat ion measurement (mass fraction)Ordered By: Rufina Gardner on 02-13-2023 Iron saturation [Mass fraction] 13.0 % 15.0-55.0 [facility] Serum or plasma low density lipoprotein (LDL) cholesterol measurement (mass/volume)Ordered By: Rufina Gardner on 02-13-2023 Cholesterol in LDL [Mass/Vol] 115 mg/dL 0-130 [facility] Spine Cervical without Contr ason 02-13-2023 Spine Cervical without Contras [facility] Imaging Services [address] [place] [address] Spine Cervical without Contras MR#: [id number] Acct: [id number] Name: DWAIN SUTHERLAND NOEL Rep #: [id number] : 1960 F 62 From: Cesar Fleming PCP: Dr. Chuyita Harper MD Status: [facility] ER Study: Spine Cervical without Contras Date of Exam: Exam# [id number] Ordering Dr: [place] [id number] EXAM: CT CERVICAL SPINE WITHOUT INTRAVENOUS CONTRAST CLINICAL INDICATION: injury TECHNIQUE: Helically acquired images were obtained of the cervical spine without intravenous contrast. 2D reformatted images were reviewed. This CT exam was performed using one or more of the following dose reduction techniques: automated exposure control, adjustment of the mA and/or kV according to patient size, and/or use of iterative reconstruction technique. RADIATION DOSE: CTDIvol = 22.64 mGy, DLP = 473.62 mGy-cm COMPARISON: No relevant prior studies available. FINDINGS: VERTEBRAE: Mild multilevel bilateral cervical vertebral facet arthropathy. No fracture. No traumatic subluxation. No discrete lytic or blastic abnormality. Normal alignment. Normal craniocervical junction and cervicothoracic junction. DISCS/SPINAL CANAL/NEURAL FORAMINA: Mild multilevel cervical degenerative disc disease. No critical stenosis. SOFT TISSUES: Unremarkable. No prevertebral soft tissue swelling. LYMPH NODES: Unremarkable. No cervical adenopathy. LUNG APICES: Unremarkable as visualized. Clear. CT/Spine Cervical without Contras IMPRESSION: Mild cervical degenerative changes. No acute fractures or subluxations. Electronically Signed: Cesar Winn MD at 6:48 EDT , CC: Dr. Chuyita Harper MD; Dr. Jamee Menard MD Quill Machine Operator: Signed Normal [facility] Squamous epithelial cells de tection in urine sediment by light microscopyOrdered By: Jamee Menard on 02-13-2023 Epithelial cells.squamous LM Ql (Urine sed) 0 SEEN /hpf 5-10 [facility] T4 Free Directon 02-13-2023 T4 FREE DIRECT 1.25 ng/dL Normal 0.76-1.46 [facility] Comment on above: Performed By: #### L 503.6030, L503.0105, L506.1000, L503.6550, L500.4100 #### [facility] [address] [facility] [facility] [place], [place], [id number] Thin prep Papanicolaou smear with manual screeningOrdered By: Jamee Menard on 02-13-2023 Thin prep Papanicolaou smear with manual screening 25 U/L 15-37 [facility] Thyroid Stim Hormone (TSH)on 02-13-2023 TSH 1.52 uIU/mL Normal 0.358-3.74 [facility] Comment on above: Performed By: #### L 503.6030, L503.0105, L506.1000, L503.6550, L500.4100 #### [facility] [address] [place], [place], [address] Urinalysis, Completeon 02-13 BACTERIA 1+ /hpf Normal None Seen [facility] Comment on above: Order Comment: CLEAN CATCH Performed By: #### L 400.0001 #### [facility] [address] [place], [address] CAST,HYALINE 0-5 SEEN Normal 0-5 [facility] Comment on above: Order Comment: CLEAN CATCH Performed By: #### L 400.0001 #### [facility] [address] [place], [address] EPI,SQUAMOUS 0 SEEN Normal 5-10 [facility] Comment on above: Order Comment: CLEAN CATCH Performed By: #### L 400.0001 #### [facility] [address] [place], [address] Mucus Ql (Urine sed) 0 SEEN Normal [facility] Comment on above: Order Comment: CLEAN CATCH Performed By: #### L 400.0001 #### [facility] [address] [place], [address] RBC 0 SEEN Normal 0-5 [facility] Comment on above: Order Comment: CLEAN CATCH Performed By: #### L 400.0001 #### [facility] [address] [place], [address] WBC 0 SEEN Normal 0-5 [facility] Comment on above: Order Comment: CLEAN CATCH Performed By: #### L 400.0001 #### [facility] [address] [place], [address] Urine blood detectionOrdered By: Jamee Menard on 02-13-2023 RBC Ql (U) Negative Negative [facility] RBC Ql (U) 0 SEEN /hpf 0-5 [facility] Urine clarityOrdered By: Keisha Menard on 02-13-2023 Clarity (U) Clear Clear [facility] Urine color determinationOrd ered By: Jamee Menard on 02-13-2023 Color (U) Yellow Yellow [facility] Urine glucose detectionOrder ed By: Jamee Menard on 02-13-2023 Glucose Ql (U) Normal mg/dl Normal [facility] Urine leukocyte esterase det ection by dipstickOrdered By: Jamee Menard on 02-13-2023 Leukocyte esterase Test strip Ql (U) Negative Negative [facility] Urine pHOrdered By: Jamee Menard on 02-13-2023 pH (U) 6.0 [pH] 5.0 - 8.0 [facility] Urine sediment bacteria coun t by microscopy (number/high power field)Ordered By: Jamee Menard on 02-13-2023 Bacteria LM.HPF (Urine sed) [#/Area] 1 /[HPF] None Seen [facility] Urine specific gravity measu rementOrdered By: Jamee Menard on 02-13-2023 Specific gravity (U) [Rel density] 1.020 1.002-1.030 [facility] Urobilinogen Auto test strip Ql (U)Ordered By: Jamee Menard on 02-13-2023 Urobilinogen Ql (U) Normal mg/dl Normal [facility] Vitamin B12on 02-13-2023 Cobalamin (Vitamin B12) [Mass/Vol] 605 pg/mL Normal 211-911 [facility] Comment on above: Performed By: #### L 503.6030, L503.0105, L506.1000, L503.6550, L500.4100 #### [facility] [address] [place], [address] Vitamin D,25 Hydroxyon 02-13 Vitamin D 25-OH 43.0 ng/mL Normal [facility] Comment on above: Result Comment: Lisa min D 25(OH) Status Range Deficiency <20 ng/mL (50nmol/L) Insufficiency 20 - 30 ng/mL (50 - 75 nmol/L) Sufficiency 30 - 100 ng/mL (75 - 250 nmol/L) Toxicity >100 ng/mL (>250 nmol/L) Performed By: #### L 503.6030, L503.0105, L506.1000, L503.6550, L500.4100 #### [facility] [address] [place], [place], [address] Internal Medicine Office Vis sravanthi 01-28-2023 Internal Medicine Office Visit [facility] [address] [place] [address] [place] [address] OFFICE VISIT Date of Service: 01/28/23 MR#: [id number] Acct: [id number] Name: DWAIN SUTHERLAND Rep #: [id number] : 1960 Provider: Dr. Chuyita raymond MD Age/Sex: 62/F [place] [facility] [place]: Signed Intake Vital Signs 10/27/22 11:25 01/28/23 10:49 Height 5 ft 3 in 5 ft 3 in Weight: 188 lb 4 oz 193 lb BMI 33.3 34.2 BP 126/78 H 120/90 H Blood Pressure Location Rt brachial Lt radial Position Sitting Sitting Respiration 18 16 Pulse 72 109 H Pulse Source Monitor Monitor Temp 96.0 F L 97.7 F L Temp Source Temporal Temporal Pulse Oximetry (%) 99 95 Oxygen Delivery Method room air room air Oxygen Flow Rate (L/min) 95 Intake Visit Reasons: 3 M FU Chief Complaint: 3 M FU Is patient in pain?: No Allergies gelatin [Gelatin] Allergy (Verified 01/28/23 10:48) Unknown iodine Allergy (Verified 01/28/23 10:48) Rash Medications multivitamin with iron 1 tab PO DAILY 05/10/21 [History Confirmed 01/28/23] losartan 50 mg tablet 50 mg PO DAILY #90 tabs 06/30/22 [Rx Confirmed 01/28/23] hydrochlorothiazide 25 mg tablet 25 mg PO DAILY #90 tabs 01/14/23 [Rx Confirmed 01/28/23] PFSH Medical History Abnormal EKG Anemia Colon cancer screening Dermatitis Elevated random blood glucose level Encounter for vitamin deficiency screening Health care maintenance Hx of mitral valve prolapse Hypertension Mammogram declined Obesity Post-menopausal Type 2 diabetes mellitus Vitamin B12 deficiency Surgical History History of History of cholecystectomy History of hysterectomy Hx of tonsillectomy Family History Father Alcoholism Heart disease Respiratory disease Mother Alcoholism Sister Alcoholism Son Alcoholism Anxiety Depression Mental disorder Daughter Alcoholism Anesthesia complication Aunt Diabetes CVA (cerebral vascular accident) Social History Smoking Status: Never smoker alcohol intake: never substance use type: does not use what type of physical activity do you participate in: walking frequency: daily HPI HPI Chief Complaint: 3 M FU Details: DWAIN SUTHERLAND, is a 62 F who presents to the office today for follow-up of her chronic medical conditions. No acute concerns at this time. A1c today is at 7.2 up from 6.8. She is currently not on any medication for diabetes. She admits that she has had a struggle with portion control. Blood pressure is at 120/90 mmHg. Currently on hydrochlorothiazide and losartan which she reports compliance with. No chest pain, palpitation or shortness of breath. Other chronic medical conditions are stable. ROS Const Constitutional: No body ache, chills, excessive sweating, fatigue, fever(s), frequent falls, headache(s), snoring, weakness, sleep problems or change in appetite Eyes Eyes: No blurry vision, change in vision, bulging eyes, floaters or Light sensitivity ENT ENT: No abnormal hearing, ear or mastoid pain, tinnitus, balance problems, nosebleed/epistaxis, nasal congestion, nasal discharge, headache(s), neck pain or sore throat Resp Respiratory: No cough, excessive phlegm production, pain on inspiration, shortness of breath, snoring or wheezing Cardio Cardiology: No chest pain at rest, chest pain with exertion, excessive sweating, shortness of breath, dyspnea on exertion, lightheadedness, orthopnea or palpitations Gastro GI: No abdominal pain, change in bowel habits, constipation, cramping, diarrhea or nausea/dyspepsia Genitourinary-Female: No burning urination, painful urination, urinary incontinence, urinary frequency, suprapubic fullness or side pain Musc Musculoskeletal: No abnormal gait, joint pain, back pain, limited range of motion, muscle cramps, muscle weakness, neck pain or numbness Skin Skin: No dry skin, redness, lesions, itchy eyes, rash or wounds Neuro Neurology: No abnormal gait, abnormal hearing, behavioral changes, confusion, weakness, frequent falls, headache(s), memory loss or numbness Psych Psychiatric: No anxiety, No behavioral changes, No change in appetite, No confusion, No depression, No memory loss, No panic attacks and No Thoughts of harming yourself/Others Endo Endocrine: No cold intolerance, excessive sweating, fatigue, flushing, heat intolerance, increased thirst/drinking or increased hunger Aller/Imm Allergy/Immunologic: No itchy eyes, seasonal allergy symptoms, hives or wheezing Alli/Lymp Hematologic/Lymphatic: No easy bleeding or enlarged lymph nodes Exam Const General: cooperative, comfortable and no acute distress Orientati (more content not included)... Normal [facility] - Hematology and Cell countson 01-28-2023 HbA1c (Bld) [Mass fraction] 7.2 % 4.2-6.3 [facility] Basophil percentageOrdered B y: Chuyita Harper on 10-24-2022 Chloride [Moles/Vol] 104 mmol/L 98-107 [facility] Glucose [Mass/Vol] 142 mg/dL 74-106 [facility] Comment on above: Fasting Glucose resu lt greater than or equal to 126 mg/dL suggests DIABETES MELLITUS per A.D.A. criteria. Potassium [Moles/Vol] 3.9 mmol/L 3.5-5.1 [facility] Sodium [Moles/Vol] 138 mmol/L 136-145 [facility] - Chemistry and C hemistry - challengeOrdered By: Chuyita Harper on 10-24-2022 CO2 [Moles/Vol] 30.0 mmol/L 21.0-32.0 [facility] Cobalamin (Vitamin B12) [Mass/Vol] 562 pg/mL 211-911 [facility] Urea nitrogen/Creatinine [Mass ratio] 15.9 mg/mg 10- [facility] No Panel InformationOrdered By: Chuyita Harper on 10-24-2022 Estimated GFR (MDRD) Amer 77 mL/min >60 [facility] Comment on above: GFR Calc Estimated GFR (MDRD) Non-Af Amer 64 mL/min >60 [facility] Comment on above: Non- GFR Calc Serum or plasma calcium mariana urement (mass/volume)Ordered By: Chuiyta Harper on 10-24-2022 Calcium [Mass/Vol] 9.9 mg/dL 8.5-10.1 [facility] Serum or plasma creatinine m easurement (mass/volume)Ordered By: Chuyita Harper on 10-24-2022 Creatinine [Mass/Vol] 0.94 mg/dL 0.55-1.02 [facility] Comment on above: The validity of the calculated GFR & GFRAA in patients over 70 years has not been determined. Clinical correlation is essential. Serum or plasma urea nitroge n measurement (mass/volume)Ordered By: Chuyita Harper on 10-24-2022 Urea nitrogen [Mass/Vol] 15 mg/dL 7-18 [facility] Thin prep Papanicolaou smear with manual screeningOrdered By: adeola Harper on 10-24-2022 Thin prep Papanicolaou smear with manual screening 4 5-15 [facility] Whole blood hemoglobin A1c/t otal hemoglobin ratio (mass fraction)Ordered By: Chuyita Harper on 10-24-2022 HbA1c (Bld) [Mass fraction] 6.8 % 3.8-5.6 [facility] Comment on above: Normal < 5.7 % Predi abetic 5.7 - 6.4 % Diabetic >or= 6.5 % Please note range changes. Absolute lymphocyte countOrd ered By: Dr. Harper on 05-30-2022 Lymphocytes Auto (Unsp spec) [#/Vol] 1.68 10*3/uL 0.83-4.51 [facility] Basophil percentageOrdered B y: Dr. Harper on 05-30-2022 Basophils/100 WBC (Bld) 0.9 % 0-1 [facility] Bilirubin [Mass/Vol] 0.70 mg/dL 0.20-1.00 [facility] Comment on above: For patients on eltr ombopag therapy, use of Dimension [place] TBIL is not recommended. Chloride [Moles/Vol] 101 mmol/L 98-107 [facility] Cholesterol [Mass/Vol] 181 mg/dL <200 [facility] Comment on above: <200 mg/dL Desirable 200-240 mg/dL Borderline >240 mg/dL High Risk Eosinophils/100 WBC (Bld) 7.1 % 0-5 [facility] Glucose [Mass/Vol] 153 mg/dL 74-106 [facility] Comment on above: Fasting Glucose resu lt greater than or equal to 126 mg/dL suggests DIABETES MELLITUS per A.D.A. criteria. Neutrophils (Bld) [#/Vol] 2.1 10*3/uL 2.0-7.7 [facility] Neutrophils/100 WBC (Bld) 47.5 % 47-70 [facility] Potassium [Moles/Vol] 4.3 mmol/L 3.5-5.1 [facility] Protein [Mass/Vol] 7.2 g/dL 6.4-8.2 [facility] Sodium [Moles/Vol] 140 mmol/L 136-145 [facility] Triglyceride [Mass/Vol] 104 mg/dL <199 [facility] Comment on above: The drugs N-Acetylcy steine and Metamizole may falsely depress this assay.Serum Triglycerides Reference Interval Normal <150 mg/dL Borderline high 150 - 199 mg/dL High 200 - 499 mg/dL Very High > or = 500 mg/dL WBC (Bld) [#/Vol] 4.5 10*3/uL 4.4-11.0 [facility] Blood erythrocytes count (nu mber/volume)Ordered By: Dr. Harper on 05-30-2022 RBC (Bld) [#/Vol] 5.06 10*6/uL 4.2-5.4 [facility] Blood hemoglobin measurement (mass/volume)Ordered By: Dr. Harper on 05-30-2022 Hemoglobin (Bld) [Mass/Vol] 15.2 g/dL 12.0-15.0 [facility] Blood lymphocytes/100 leukoc ytesOrdered By: Dr. Harper on 05-30-2022 Lymphocytes/100 WBC (Bld) 37.4 % 19-41 [facility] Blood monocytes/100 leukocyt esOrdered By: Dr. Harper on 05-30-2022 Monocytes/100 WBC (Bld) 6.9 % 0-10 [facility] Blood platelet mean volumeOr dered By: Dr. Harper on 05-30-2022 Platelet mean volume (Bld) [Entitic vol] 10.7 fL 6.2-12.0 [facility] Determination of erythrocyte mean corpuscular volume (MCV)Ordered By: Dr. Harper on 05-30-2022 MCV (RBC) [Entitic vol] 89.1 fL 81-99 [facility] Hematocrit Auto (Bld) [Volum e fraction]Ordered By: Dr. Harper on 05-30-2022 Hematocrit (Bld) [Volume fraction] 45.1 % 37-47 [facility] Laboratory - Chemistry and C hemistry - challengeOrdered By: Dr. Harper on 05-30-2022 ALP [Catalytic activity/Vol] 78 U/L 45-117 [facility] ALT [Catalytic activity/Vol] 36 U/L 13-56 [facility] CO2 [Moles/Vol] 31.0 mmol/L 21.0-32.0 [facility] Cobalamin (Vitamin B12) [Mass/Vol] 1263 pg/mL 211-911 [facility] Globulin (S) [Mass/Vol] 3.2 g/dL 2.2-4.2 [facility] Urea nitrogen/Creatinine [Mass ratio] 13.0 mg/mg 10-20 [facility] Laboratory - Hematology and Cell countsOrdered By: Dr. Harper on 05-30-2022 Erythrocyte distribution width (RBC) [Entitic vol] 40.5 fL 35.1-43.9 [facility] Erythrocyte distribution width (RBC) [Ratio] 12.4 % 11.6-14.6 [facility] Immature granulocytes/100 WBC (Bld) 0.200 % 0.0-0.9 [facility] Comment on above: IG% - Immature Granu locytes (promyelocytes, myelocytes and metamyelocytes) > 1% indicates that a LEFT SHIFT is Present. MCH (RBC) [Entitic mass] 30.0 pg 27.0-32.0 [facility] Nucleated RBC/100 WBC (Bld) [Ratio] 0 % 0-5 [facility] MCHC Auto (RBC) [Mass/Vol]Or dered By: Dr. Harper on 05-30-2022 MCHC (RBC) [Mass/Vol] 33.7 g/dL 32-36 [facility] No Panel InformationOrdered By: Dr. Harper on 05-30-2022 Urine Microalbumin/Creatinine Ratio 8.5 mg/g CRE <30 [facility] Estimated GFR (MDRD) Amer 80 mL/min >60 [facility] Comment on above: GFR Calc Estimated GFR (MDRD) Non-Af Amer 66 mL/min >60 [facility] Comment on above: Non- GFR Calc Platelets bldOrdered By: Dr. Harper on 05-30-2022 Platelets (Bld) [#/Vol] 242 10*3/uL 150-450 [facility] Serum or plasma albumin mariana urement (mass/volume)Ordered By: Dr. Harper on 05-30-2022 Albumin [Mass/Vol] 4.0 g/dL 3.2-5.0 [facility] Serum or plasma albumin/glob ulin mass ratioOrdered By: Dr. Harper on 05-30-2022 Albumin/Globulin [Mass ratio] 1.2 {ratio} 0.9-2.4 [facility] Serum or plasma calcium mariana urement (mass/volume)Ordered By: Dr. Harper on 05-30-2022 Calcium [Mass/Vol] 10.3 mg/dL 8.5-10.1 [facility] Serum or plasma cholesterol in HDL measurement (mass/volume)Ordered By: Dr. Harper on 05-30-2022 Cholesterol in HDL [Mass/Vol] 42 mg/dL >40 [facility] Comment on above: The drugs N-Acetylcy steine and Metamizole may falsely depress this assay. Reference Range HDL <40 mg/dL Low HDL Cholesterol HDL >or= 60 mg/dL High HDL Cholesterol Serum or plasma cholesterol in VLDL measurement (mass/volume)Ordered By: Dr. Harper on 05-30-2022 Cholesterol in VLDL [Mass/Vol] 21 mg/dL 5-40 [facility] Serum or plasma creatinine m easurement (mass/volume)Ordered By: Dr. Harper on 05-30-2022 Creatinine [Mass/Vol] 0.92 mg/dL 0.55-1.02 [facility] Comment on above: The validity of the calculated GFR & GFRAA in patients over 70 years has not been determined. Clinical correlation is essential. Serum or plasma low density lipoprotein (LDL) cholesterol measurement (mass/volume)Ordered By: Dr. Harper on 05-30-2022 Cholesterol in LDL [Mass/Vol] 118 mg/dL 0-130 [facility] Serum or plasma urea nitroge n measurement (mass/volume)Ordered By: Dr. Harper on 05-30-2022 Urea nitrogen [Mass/Vol] 12 mg/dL 7-18 [facility] Thin prep Papanicolaou smear with manual screeningOrdered By: Dr. Harper on 05-30-2022 Thin prep Papanicolaou smear with manual screening 5.6 mg/L NO RANGE EST. [facility] Thin prep Papanicolaou smear with manual screening 19 U/L 15-37 [facility] Thin prep Papanicolaou smear with manual screening 8 5-15 [facility] Urine creatinine measurement (mass/volume)Ordered By: Dr. Harper on 05-30-2022 Creatinine (U) [Mass/Vol] 65.90 mg/dL NO RANGE EST. [facility] Whole blood hemoglobin A1c/t otal hemoglobin ratio (mass fraction)Ordered By: Dr. Harper on 05-30-2022 HbA1c (Bld) [Mass fraction] 6.7 % 3.8-5.6 [facility] Comment on above: Normal < 5.7 % Predi abetic 5.7 - 6.4 % Diabetic >or= 6.5 % Please note range changes. Laboratory - Hematology and Cell countson 03-10-2022 HbA1c (Bld) [Mass fraction] 6.8 % 4.2-6.3 [facility] Absolute lymphocyte counton 12-05-2021 Lymphocytes Auto (Unsp spec) [#/Vol] 1.81 10*3/uL 0.83-4.51 [facility] Work Phone: Basophil percentageon 2021 Basophils/100 WBC (Bld) 0.9 % 0-1 [facility] Work Phone: Bilirubin [Mass/Vol] 0.40 mg/dL 0.20-1.00 [facility] Work Phone: Comment on above: For patients on eltr ombopag therapy, use of Dimension [place] TBIL is not recommended. Chloride [Moles/Vol] 105 mmol/L 98-107 [facility] Work Phone: Eosinophils/100 WBC (Bld) 1.9 % 0-5 [facility] Work Phone: Glucose [Mass/Vol] 124 mg/dL 74-106 [facility] Work Phone: Comment on above: Fasting Glucose resu lt from 100 to 125 mg/dL suggests IMPAIRED HOMEOSTASIS per A.D.A. criteria. Neutrophils (Bld) [#/Vol] 2.4 10*3/uL 2.0-7.7 [facility] Work Phone: Neutrophils/100 WBC (Bld) 51.3 % 47-70 [facility] Work Phone: Potassium [Moles/Vol] 3.9 mmol/L 3.5-5.1 [facility] Work Phone: Protein [Mass/Vol] 7.4 g/dL 6.4-8.2 [facility] Work Phone: Sodium [Moles/Vol] 140 mmol/L 136-145 [facility] Work Phone: WBC (Bld) [#/Vol] 4.7 10*3/uL 4.4-11.0 [facility] Work Phone: Blood erythrocytes count (nu mber/volume)on 12-05-2021 RBC (Bld) [#/Vol] 4.95 10*6/uL 4.2-5.4 [facility] Work Phone: Blood hemoglobin measurement (mass/volume)on 12-05-2021 Hemoglobin (Bld) [Mass/Vol] 14.8 g/dL 12.0-15.0 [facility] Work Phone: Blood lymphocytes/100 leukoc yteson 12-05-2021 Lymphocytes/100 WBC (Bld) 38.8 % 19-41 [facility] Work Phone: Blood monocytes/100 leukocyt eson 12-05-2021 Monocytes/100 WBC (Bld) 6.9 % 0-10 [facility] Work Phone: [phone] Blood platelet mean volumeon 12-05-2021 Platelet mean volume (Bld) [Entitic vol] 10.4 fL 6.2-12.0 [facility] Work Phone: [phone] Determination of erythrocyte mean corpuscular volume (MCV)on 12-05-2021 MCV (RBC) [Entitic vol] 88.5 fL 81-99 [facility] Work Phone: [phone] Hematocrit Auto (Bld) [Volum e fraction]on 12-05-2021 Hematocrit (Bld) [Volume fraction] 43.8 % 37-47 [facility] Work Phone: [phone] Laboratory - Chemistry and C hemistry - challengeon 12-05-2021 ALP [Catalytic activity/Vol] 79 U/L 45-117 [facility] Work Phone: [phone] ALT [Catalytic activity/Vol] 30 U/L 13-56 [facility] Work Phone: [phone] CO2 [Moles/Vol] 30.0 mmol/L 21.0-32.0 [facility] Work Phone: [phone] Cobalamin (Vitamin B12) [Mass/Vol] 353 pg/mL 211-911 [facility] Work Phone: [phone] Globulin (S) [Mass/Vol] 3.3 g/dL 2.2-4.2 [facility] Work Phone: [phone] Urea nitrogen/Creatinine [Mass ratio] 21.6 mg/mg 10-20 [facility] Work Phone: [phone] Laboratory - Hematology and Cell countson 12-05-2021 Erythrocyte distribution width (RBC) [Entitic vol] 39.6 fL 35.1-43.9 [facility] Work Phone: [phone] Erythrocyte distribution width (RBC) [Ratio] 12.3 % 11.6-14.6 [facility] Work Phone: [phone] Immature granulocytes/100 WBC (Bld) 0.200 % 0.0-0.9 [facility] Work Phone: [phone] Comment on above: IG% - Immature Granu locytes (promyelocytes, myelocytes and metamyelocytes) > 1% indicates that a LEFT SHIFT is Present. MCH (RBC) [Entitic mass] 29.9 pg 27.0-32.0 [facility] Work Phone: [phone] Nucleated RBC/100 WBC (Bld) [Ratio] 0 % 0-5 [facility] Work Phone: [phone] MCHC Auto (RBC) [Mass/Vol]on 12-05-2021 MCHC (RBC) [Mass/Vol] 33.8 g/dL 32-36 [facility] Work Phone: No Panel Informationon 12-05 Estimated GFR (MDRD) Amer 80 mL/min >60 [facility] Work Phone: [phone] Comment on above: GFR Calc Estimated GFR (MDRD) Non-Af Amer 66 mL/min >60 [facility] Work Phone: [phone] Comment on above: Non- GFR Calc Vitamin D 25-Hydroxy 68.1 ng/mL [facility] Work Phone: [phone] Comment on above: Vitamin D 25(OH) Sta tus Range Deficiency <20 ng/mL (50nmol/L) Insufficiency 20 - 30 ng/mL (50 - 75 nmol/L) Sufficiency 30 - 100 ng/mL (75 - 250 nmol/L) Toxicity >100 ng/mL (>250 nmol/L) Platelets bldon 12-05-2021 Platelets (Bld) [#/Vol] 236 10*3/uL 150-450 [facility] Work Phone: [phone] Serum or plasma albumin mariana urement (mass/volume)on 12-05-2021 Albumin [Mass/Vol] 4.1 g/dL 3.2-5.0 [facility] Work Phone: [phone] Serum or plasma albumin/glob ulin mass ratioon 12-05-2021 Albumin/Globulin [Mass ratio] 1.2 {ratio} 0.9-2.4 [facility] Work Phone: [phone] Serum or plasma calcium mariana urement (mass/volume)on 12-05-2021 Calcium [Mass/Vol] 9.5 mg/dL 8.5-10.1 [facility] Work Phone: Serum or plasma creatinine m easurement (mass/volume)on 12-05-2021 Creatinine [Mass/Vol] 0.92 mg/dL 0.55-1.02 [facility] Work Phone: Comment on above: The validity of the calculated GFR & GFRAA in patients over 70 years has not been determined. Clinical correlation is essential. Serum or plasma urea nitroge n measurement (mass/volume)on 12-05-2021 Urea nitrogen [Mass/Vol] 20 mg/dL 7-18 [facility] Work Phone: Thin prep Papanicolaou smear with manual screeningon 12-05-2021 Thin prep Papanicolaou smear with manual screening 18 U/L 15-37 [facility] Work Phone: Thin prep Papanicolaou smear with manual screening 5 5-15 [facility] Work Phone: Whole blood hemoglobin A1c/t otal hemoglobin ratio (mass fraction)on 12-05-2021 HbA1c (Bld) [Mass fraction] 6.7 % 3.8-5.6 [facility] Work Phone: Comment on above: Normal < 5.7 % Predi abetic 5.7 - 6.4 % Diabetic >or= 6.5 % Please note range changes. Whole blood hemoglobin A1c/t otal hemoglobin ratio (mass fraction)on 09-05-2021 HbA1c (Bld) [Mass fraction] 6.7 % 3.8-5.6 [facility] Work Phone: Comment on above: Normal < 5.7 % Predi abetic 5.7 - 6.4 % Diabetic >or= 6.5 % Please note range changes. Basophil percentageon 2021 Chloride [Moles/Vol] 103 mmol/L 98-107 [facility] Work Phone: Glucose [Mass/Vol] 155 mg/dL 74-106 [facility] Work Phone: Comment on above: Fasting Glucose resu lt greater than or equal to 126 mg/dL suggests DIABETES MELLITUS per A.D.A. criteria. Potassium [Moles/Vol] 4.2 mmol/L 3.5-5.1 [facility] Work Phone: [phone] Sodium [Moles/Vol] 139 mmol/L 136-145 [facility] Work Phone: Laboratory - Chemistry and C hemistry - challengeon 06-07-2021 CO2 [Moles/Vol] 30.0 mmol/L 21.0-32.0 [facility] Work Phone: [phone] Urea nitrogen/Creatinine [Mass ratio] 17.0 mg/mg 10-20 [facility] Work Phone: [phone] Panel Informationon 06-07 Estimated GFR (MDRD) Amer 84 mL/min >60 [facility] Work Phone: Comment on above: GFR Calc Estimated GFR (MDRD) Non-Af Amer 70 mL/min >60 [facility] Work Phone: Comment on above: Non- GFR Calc Serum or plasma calcium mariana urement (mass/volume)on 06-07-2021 Calcium [Mass/Vol] 9.8 mg/dL 8.5-10.1 [facility] Work Phone: [phone] Serum or plasma creatinine m easurement (mass/volume)on 06-07-2021 Creatinine [Mass/Vol] 0.88 mg/dL 0.55-1.02 [facility] Work Phone: Comment on above: The validity of the calculated GFR & GFRAA in patients over 70 years has not been determined. Clinical correlation is essential. Serum or plasma urea nitroge n measurement (mass/volume)on 06-07-2021 Urea nitrogen [Mass/Vol] 15 mg/dL -18 [facility] Work Phone: [phone] Thin prep Papanicolaou smear with manual screeningon 06-07-2021 Thin prep Papanicolaou smear with manual screening 6 5-15 [facility] Work Phone: Vital Signs Date Time Vital Sign Value Performing Clinician Siri yuen 04-29-2023 08:51-0500 Body height 157.[address] Chuyita Harper Work Phone: [facility] 04-29-2023 08:51-0500 Body mass index (BMI) [Ratio] 33 kg/m2 Dr. Chuyita Harper Work Phone: [facility] 04-29-2023 08:51-0500 Body temperature 97.4 [degF] Dr. Chuyita Harper Work Phone: [facility] 04-29-2023 08:51-0500 Body weight 82.[address] Chuyita Harper Work Phone: [facility] 04-29-2023 08:51-0500 Diastolic blood pressure 80 mm[Hg] Dr. Chuyita Harper Work Phone: [facility] 04-29-2023 08:51-0500 Heart rate 78 /min Dr. Chuyita Harper Work Phone: [facility] 04-29-2023 08:51-0500 Respiratory rate 16 /min Dr. Chuyita Harper Work Phone: [facility] 04-29-2023 08:51-0500 SaO2% (BldA) [Mass fraction] 99 % Dr. Chuyita Harper Work Phone: [facility] 04-29-2023 08:51-0500 Systolic blood pressure 112 mm[Hg] Dr. Chuyita Harper Work Phone: [facility] 03-12-2023 13:23-0500 Diastolic blood pressure 80 mm[Hg] DO GAURAV ARAYA Work Phone: [facility] 03-12-2023 13:23-0500 Heart rate 91 /min DO GAURAV ARAYA Work Phone: [facility] 03-12-2023 13:23-0500 Respiratory rate 18 /min DO GAURAV ARAYA Work Phone: [facility] 03-12-2023 13:23-0500 SaO2% (BldA) [Mass fraction] 100 % DO GAURAV QUIANA Work Phone: [facility] 03-12-2023 13:23-0500 Systolic blood pressure 167 mm[Hg] DO GAURAV ARAYA Work Phone: [facility] 03-12-2023 12:04-0500 Body temperature 98.7 [degF] DO GAURAVCHIRAG PARADAQUIANA Work Phone: [facility] 03-12-2023 11:56-0500 Body height 160.02 cm DO GAURAVCHIRAG PARADAQUIANA Work Phone: [facility] 03-12-2023 11:56-0500 Body mass index (BMI) [Ratio] 31.9 kg/m2 DO GAURAV QUIANA Work Phone: [facility] 03-12-2023 11:56-0500 Body weight 81.64 kg DO GAURAVCHIRAG PARADAQUIANA Work Phone: [facility] 02-14-2023 15:13-0400 Body temperature 96.7 [degF] Dr. Chuyita Harper Work Phone: [facility] 02-14-2023 15:13-0400 Diastolic blood pressure 93 mm[Hg] Dr. Chuyita Harper Work Phone: [facility] 02-14-2023 15:13-0400 Heart rate 95 /min Dr. Chuyita Harper Work Phone: [facility] 02-14-2023 15:13-0400 Respiratory rate 16 /min Dr. Chuyita Harper Work Phone: [facility] 02-14-2023 15:13-0400 SaO2% (BldA) [Mass fraction] 97 % Dr. Chuyita Harper Work Phone: [facility] 02-14-2023 15:13-0400 Systolic blood pressure 137 mm[Hg] Dr. Chuyita Harper Work Phone: [facility] 02-13-2023 10:42-0400 Body height 159.[address] Chuyita Harper Work Phone: [facility] 02-13-2023 10:42-0400 Body mass index (BMI) [Ratio] 33.6 kg/m2 Dr. Chuyita Harper Work Phone: [facility] 02-13-2023 10:42-0400 Body weight 86.[address] Chuyita Harper Work Phone: [facility] 01-28-2023 10:49-0400 Body mass index (BMI) [Ratio] 34.2 kg/m2 Dr. Chuyita Harper Work Phone: [facility] 01-28-2023 10:49-0400 Body temperature 97.7 [degF] Dr. Chuyita Harper Work Phone: [facility] 01-28-2023 10:49-0400 Body weight 87.[address] Chuyita Harper Work Phone: [facility] 01-28-2023 10:49-0400 Diastolic blood pressure 90 mm[Hg] Dr. Chuyita Harper Work Phone: [facility] 01-28-2023 10:49-0400 Heart rate 109 /min Dr. Chuyita Harper Work Phone: [facility] 01-28-2023 10:49-0400 Inhaled oxygen flow rate 95 L/min Dr. Chuyita Harper Work Phone: [facility] 01-28-2023 10:49-0400 Respiratory rate 16 /min Dr. Chuyita Harper Work Phone: [facility] 01-28-2023 10:49-0400 SaO2% (BldA) [Mass fraction] 95 % Dr. Chuyita Harper Work Phone: [facility] 01-28-2023 10:49-0400 Systolic blood pressure 120 mm[Hg] Dr. Chuyita Harper Work Phone: [facility] 10-27-2022 11:25-0400 Body height 160.[address] Chuyita Harper Work Phone: [facility] 10-27-2022 11:25-0400 Body mass index (BMI) [Ratio] 33.3 kg/m2 Dr. Chuyita Harper Work Phone: [facility] 10-27-2022 11:25-0400 Body temperature 96 [degF] Dr. Chuyita Harper Work Phone: [facility] 10-27-2022 11:25-0400 Body weight 85.[address] Chuyita Harper Work Phone: [facility] 10-27-2022 11:25-0400 Diastolic blood pressure 78 mm[Hg] Dr. Chuyita Harper Work Phone: [facility] 10-27-2022 11:25-0400 Heart rate 72 /min Dr. Chuyita Harper Work Phone: [facility] 10-27-2022 11:25-0400 Respiratory rate 18 /min Dr. Chuyita Harper Work Phone: [facility] 10-27-2022 11:25-0400 SaO2% (BldA) [Mass fraction] 99 % Dr. Chuyita Harper Work Phone: [facility] 10-27-2022 11:25-0400 Systolic blood pressure 126 mm[Hg] Dr. Chuyita Harper Work Phone: [facility] 05-30-2022 09:12-0500 Body height 160.[address] Chuyita Harper Work Phone: [facility] 05-30-2022 09:12-0500 Body mass index (BMI) [Ratio] 32.4 kg/m2 Dr. Chuyita Harper Work Phone: [facility] 05-30-2022 09:12-0500 Body temperature 97.1 [degF] Dr. Chuyita Harper Work Phone: [facility] 05-30-2022 09:12-0500 Body weight [address] Chuyita Harper Work Phone: [facility] 05-30-2022 09:12-0500 Diastolic blood pressure 60 mm[Hg] Dr. Chuyita Harper Work Phone: [facility] 05-30-2022 09:12-0500 Heart rate 90 /min Dr. Chuyita Harper Work Phone: [facility] 05-30-2022 09:12-0500 Respiratory rate 18 /min Dr. Chuyita Harper Work Phone: [facility] 05-30-2022 09:12-0500 SaO2% (BldA) [Mass fraction] 96 % Dr. Chuyita Harper Work Phone: [facility] 05-30-2022 09:12-0500 Systolic blood pressure 122 mm[Hg] Dr. Chuyita Harper Work Phone: [facility] 03-10-2022 08:21-0500 Body mass index (BMI) [Ratio] 32.5 kg/m2 Dr. Chuyita Harper Work Phone: [facility] 03-10-2022 08:21-0500 Body temperature 96.9 [degF] Dr. Chuyita Harper Work Phone: [facility] 03-10-2022 08:21-0500 Body weight 83.[address] Chuyita Harper Work Phone: [facility] 03-10-2022 08:21-0500 Diastolic blood pressure 78 mm[Hg] Dr. Chuyita Harper Work Phone: [facility] 03-10-2022 08:21-0500 Heart rate 68 /min Dr. Chuyita Harper Work Phone: [facility] 03-10-2022 08:21-0500 Respiratory rate 16 /min Dr. Chuyita Harper Work Phone: [facility] 03-10-2022 08:21-0500 SaO2% (BldA) [Mass fraction] 99 % Dr. Chuyita Harper Work Phone: [facility] 03-10-2022 08:21-0500 Systolic blood pressure 112 mm[Hg] Dr. Chuyita Harper Work Phone: [facility] 12-05-2021 13:55-0400 Body height 160.[address] Chuyita Harper Work Phone: [facility] Work Phone: 12-05-2021 13:55-0400 Body mass index (BMI) [Ratio] 32.9 kg/m2 Dr. Chuyita Harper Work Phone: [facility] Work Phone: 12-05-2021 13:55-0400 Body temperature 96.8 [degF] Dr. Chuyita Harper Work Phone: [facility] Work Phone: 12-05-2021 13:55-0400 Body weight 84.[address] Chuyita Harper Work Phone: [facility] Work Phone: 12-05-2021 13:55-0400 Diastolic blood pressure 82 mm[Hg] Dr. Chuyita Harper Work Phone: [facility] Work Phone: 12-05-2021 13:55-0400 Heart rate 80 /min Dr. Chuyita Harper Work Phone: [facility] Work Phone: 12-05-2021 13:55-0400 Respiratory rate 16 /min Dr. Chuyita Harper Work Phone: [facility] Work Phone: 12-05-2021 13:55-0400 SaO2% (BldA) [Mass fraction] 99 % Dr. Chuyita Harper Work Phone: [facility] Work Phone: 12-05-2021 13:55-0400 Systolic blood pressure 124 mm[Hg] Dr. Chuyita Harper Work Phone: [facility] Work Phone: 09-04-2021 08:28-0400 Body mass index (BMI) [Ratio] 34.5 kg/m2 Dr. Chuyita Harper Work Phone: [facility] Work Phone: 09-04-2021 08:28-0400 Body temperature 97 [degF] Dr. Chuyita Harper Work Phone: [facility] Work Phone: 09-04-2021 08:28-0400 Body weight 88.[address] Chuyita Harper Work Phone: [facility] Work Phone: 09-04-2021 08:28-0400 Diastolic blood pressure 82 mm[Hg] Dr. Chuyita Harper Work Phone: [facility] Work Phone: 09-04-2021 08:28-0400 Heart rate 80 /min Dr. Chuyita Harper Work Phone: [facility] Work Phone: 09-04-2021 08:28-0400 Respiratory rate 14 /min Dr. Chuyita Harpre Work Phone: [facility] Work Phone: 09-04-2021 08:28-0400 SaO2% (BldA) [Mass fraction] 98 % Dr. Chuyita Harper Work Phone: [facility] Work Phone: 09-04-2021 08:28-0400 Systolic blood pressure 130 mm[Hg] Dr. Chuyita Harper Work Phone: [facility] Work Phone: 09-04-2021 08:28-0400 Body height 160.[address] Chuyita Harper Work Phone: [facility] Work Phone: 06-07-2021 09:13-0500 Body mass index (BMI) [Ratio] 34.5 kg/m2 Dr. Chuyita Harper Work Phone: [facility] Work Phone: 06-07-2021 09:13-0500 Body temperature 97.7 [degF] Dr. Chuyita Harper Work Phone: [facility] Work Phone: 06-07-2021 09:13-0500 Body weight 88.[address] Chuyita Harper Work Phone: [facility] Work Phone: 06-07-2021 09:13-0500 Diastolic blood pressure 84 mm[Hg] Dr. Chuyita Harper Work Phone: [facility] Work Phone: 06-07-2021 09:13-0500 Heart rate 85 /min Dr. Chuyita Harper Work Phone: [facility] Work Phone: 06-07-2021 09:13-0500 Respiratory rate 18 /min Dr. Chuyita Harper Work Phone: [facility] Work Phone: 06-07-2021 09:13-0500 SaO2% (BldA) [Mass fraction] 99 % Dr. Chuyita Harper Work Phone: [facility] Work Phone: 06-07-2021 09:13-0500 Systolic blood pressure 126 mm[Hg] Dr. Chuyita Harper Work Phone: [facility] Work Phone: Encounters Encounter Date Encounter Type Care Provider Facility Start: 11-27-2023 End: 11-27-2023 ambulatory Chuyita Harper Facility:[facility] Start: 11-10-2023 End: 11-10-2023 Emergency department [facility] Facility:[facility] Start: 08-28-2023 End: 08-28-2023 ambulatory Pallavijoe Leroy [place] [place]: 08-28-2023 End: 08-28-2023 ambulatory [facility] Facility:[facility] Start: 04-29-2023 End: 04-29-[address] Chuyita Harper Work Phone: [facility] Work Phone: Start: 04-29-2023 End: 04-29-2023 ambulatory Chuyita Harper Facility:[facility] Start: 04-27-2023 End: 04-27-[address] Chuyita Harper Work Phone: [facility] Work Phone: Start: 04-27-2023 End: 04-27-[address] Chuyita Harper Work Phone: [facility] Start: 04-27-2023 End: 04-27-2023 ambulatory Chuyita Harper Facility:[facility] Start: 03-12-2023 End: 03-12-2023 Emergency department patient visit GAURAV PARADAUBOWSKI Facility:[facility] Start: 03-12-2023 Evaluation and management of inpatient ANGELA HOLLINGSWOR[facility] Start: 03-12-2023 End: 03-12-2023 Emergency department patient visit DO GAURAV ARAYA Work Phone: [facility]Emergency Room Work Phone: Start: 03-04-2023 ambulatory Chuyita Harper Facili ty:[facility] Start: 02-20-[address] Kiana Harper Work Phone: [facility]-Cardiovascular Services Work Phone: Start: 02-20-2023 ambulatory Chuyita Garnetti ty:[facility] Start: 02-14-2023 Non-patient / Non-visit Dr. Pallavi Harper Work Phone: [facility] Work Phone: Start: 02-13-2023 ambulatory [facility] Facility: [place] Start: 02-13-2023 Non-patient / Non-visit Dr. Pallavi Harper Work Phone: [facility] Start: 02-13-2023 End: 02-14-2023 Evaluation and management of inpatient Dr. Chuyita Harper Work Phone: [facility]-Progressive Care Unit Work Phone: Start: 02-13-2023 End: 02-14-[address] Chuyita Harper Work Phone: [facility] Work Phone: Start: 02-13-2023 End: 02-14-2023 ambulatory Herbie Rodriguez Facility:[facility] Start: 01-28-2023 End: 01-28-[address] Chuyita Harper Work Phone: [facility] Work Phone: Start: 01-28-2023 End: 01-28-2023 ambulatory Chuyita Nascimento Start: 11-06-2022 End: 11-06-[address] Chuyita Harper Work Phone: [facility]-Outpatient Bone Densitometry Work Phone: Start: 10-27-[address] Chuyita Harper Work Phone: [facility] Start: 10-27-2022 End: 10-27-2022 Encounter for general adult medical examination without abnormal findings Dr. Chuyita Harper Work Phone: [facility] Start: 10-27-2022 End: 10-27-[address] Chuyita Harper Work Phone: [facility] Work Phone: Start: 10-24-2022 End: 10-24-[address] Chuyita Harper Work Phone: [facility] Work Phone: Start: 10-24-2022 End: 10-24-[address] Chuyita Harper Work Phone: [facility] [place] Start: 05-30-2022 End: 05-30-[address] Chuyita Harper Work Phone: [facility] Work Phone: Start: 05-30-2022 End: 05-30-[address] Chuyita Harper Work Phone: [facility] Start: 03-10-2022 End: 03-10-[address] Chuyita Harper Work Phone: [facility] Internal [facility] Start: 12-05-2021 End: 12-05-[address] Chuyita Harper Work Phone: [facility] Work Phone: Start: 12-05-2021 End: 12-05-[address] Chuyita Harper Work Phone: [facility] Start: 09-05-2021 End: 09-05-[address] [facility]uy[facility] Harper [facility] [place] Start: 09-04-2021 End: 09-04-[address] Chuyita Harper Work Phone: [facility] Internal [facility] Start: 06-07-2021 End: 06-07-[address] Chuyita Harper Work Phone: [facility] Procedures Date Procedure Procedure Detail Performing Clinician Start: 02-13-2023 Plain chest X-ray Dr. Bg Harper Work Phone: Start: 02-13-2023 CT cervical spine wi thout contrast Dr. Chuyita Harper Work Phone: Start: 02-13-2023 CT of head without contrast Dr. Chuyita Harper Work Phone: Start: 11-06-2022 Dual energy X-ray absorptiometry Dr. Chuyita Harper Work Phone: Plan of Treatment Date Care Activity Detail Author Start: 02-19-2023 Cardiac event recording [facility] Start: 02-14-2023 Patient discharge [facility] Start: 02-13-2023 End: 02-13-[address] [facility] Start: 02-13-2023 Following clinical p athway protocol [facility] Start: 02-13-2023 Application of inter mittent pneumatic compression device [facility] Start: 02-13-2023 Assessment of risk o f venous thromboembolism [facility] Start: 02-13-2023 Care regimes management [facility] Start: 02-13-2023 Inhalation therapy procedure [facility] Start: 02-13-2023 Insertion of cathete r into peripheral vein [facility] Start: 02-13-2023 Measuring intake and output [facility] Start: 02-13-2023 Notification of physician [facility] Start: 02-13-2023 Providing care accor ding to standard [facility] Start: 02-13-2023 Provision of activity privileges [facility] Start: 02-13-2023 Admission procedure [facility] Start: 02-13-2023 Hospital admission, emergency, from emergency room, medical nature [facility] Start: 10-27-2022 Patient referral [facility] Work Phone: Cardiac event recording [facility] CBC W Auto Different ial panel - Blood [facility] DXA Bone [Mass/Area] Bone density [facility] Lipid 1996 panel - S melba or Plasma [facility] Patient Education [facility] Work Phone: Patient referral [facility] Work Phone: Vitamin B12 measurement [facility] Immunizations Immunization Date Immunization Notes Care Provider Lidia day 02-14-2023 influenza, injectabl e, quadrivalent, preservative free Dr. Chuyita Harper Work Phone: [facility] Payers Date Payer Category Payer Self-pay [id number] 2022 Unknown [id number] 2013 Unknown [id number] Unknown [id number] Unknown [id number] 2.16. [id number] Unknown [id number] 2.16.8 [id number] Unknown [id number] 2.16.8 [id number] Unknown [id number] 2.16.8 [id number] Unknown [id number] 2.16.8 [id number] Unknown [id number] 2.16.8 [id number] Unknown [id number] 2.16.8 [id number] Unknown [id number] 2.16.8 [id number] Unknown [id number] 2.16.8 [id number] Unknown [id number] 2.16.8 [id number] Unknown [id number] 2.16.8 [id number] Unknown [id number] 2.16.8 [id number] Unknown [id number] 2.16.8 [id number] Unknown [id number] 2.16.8 [id number] Social History Date Type Detail Facility Start: 09-04-2021 End: 04-29-2023 Tobacco smoking status NHIS Unknown if ever smoked [facility] Start: 1960 Sex Assigned At Female [facility] Start: 03-12-2023 Tobacco smoking stat us NHIS Never smoked tobacco (finding) [facility] Start: 03-12-2023 Never Smoked [facility] Goals Date Patient Goal Desired Activity /State Functional Status Date Assessment Result Facility 02-13-2023 Functional status Ambulates;Bathroom Priv ilege [facility] Work Phone: Mental Status Date Assessment Result Facility 03-12-2023 Cognitive function Person;Place;Time [facility] Work Phone: 02-13-2023 Cognitive function Level Of Cons ciousness Awake;Alert;Appropriate [facility] Work Phone: Clinical Notes 02-13-2023 to 02-14-2023 Note Date & Type Note Facility 02-14-2023 Discharge summary Note Date/Time February 14, 2023 12:26pm [facility] Medical Records Department [address] [place] [address] Discharge Summary 02/14/23 1223 MR#: [id number] Acct: [id number] Name: DWAIN SUTHERLAND Rep #:[id number] : 1960 62 From: Rufina Gardner MD PCP: Dr. Chuyita Harper MD Status:A DM LADARIUS Location: [place] [address] Providers Date of Admission: 02/13/23 Date of Discharge: 02/14/23 Primary Care Physician: Dr. Chuyita Harper MD Reason For Visit: SYNCOPE Diagnosis Discharge Diagnosis (1) Syncope: Status: Acute Code(s): R55 - Syncope and collapse Plan #Syncope- suspect orthostatic vs vasovagal 2/2 recent fasting and still taking BP meds #Type 2 diabetes mellitus #Hypertension #Hypokalemia resolved #low iron sat Medications at Discharge Home Medications multivitamin with iron 1 tab PO DAILY 05/10/21 losartan 50 mg tablet 50 mg PO DAILY #90 tabs 06/30/22 Hospital Course Procedures Transthoracic echo Summary of Care Provided Minutes Spent on Discharge: 45 Hospital Course: 62-year-old plant-based vegan with history of hypertension and diabetes presented with a syncopal episode from home. Woke up in the morning and did notfeel right, blood pressure machine would not read blood pressure and when she stood up to go get she stumbled and then passed out and woke up when EMScame. Reportedly had been on a multiday fast and adjust had a light meal the day before and had only been drinking water and decaf coffee prior to that. Orthostats negative however they were performed after fluids and nutrition were given. Patient had no arrhythmias or other abnormalities, suspect that this wasdehydration and nutritional in nature however cannot rule out arrhythmia especially given duration of episodes will DC with 14-day event monitor. Advised to DC hydrochlorothiazide and has iron stores somewhat low advised iron supplementation but patient reports she would rather take her multivitamin daily. Did endorse that usually when she fast she does not take her blood pressure medication but the day prior to presentation she had despite the fast and thinksthis may have contributed. Has not had any further symptoms and feeling well today. Discharge instructions as follows: -You are found to have slightly low iron, recommend iron supplementation but youhave indicated you prefer to take your multivitamin more regularly -Continue losartan but would recommend at this time discontinuing hydrochlorothiazide as this can worsen dehydration and electrolyte abnormalities. Ultimately may need further adjustments in blood pressure medication -Please change positions slowly from lying to standing. When getting out of bedsit on the side of the bed with her legs down for at least 30 seconds before standing. This gives her body time to adjust to the position change. Would also recommend using compression stockings, you can acquire these online or you can discuss with your primary care physician. There are varying strengths and if you are unable to tolerate high strength compression you can try one of the lower strength -You will be discharged with instructions for a 14-day heart monitor to evaluatefor any underlying abnormal heart rhythms -Please call your primary care provider's office upon discharge to schedule a hospital follow up within 1 week. -For any concerning signs or symptoms please call 911 or proceed to the nearest emergency department Physical Exam Narrative General: Alert, oriented, no apparent distress HEENT: Atraumatic, normocephalic Eyes: Anicteric, normal conjunctiva, extraocular movements grossly intact Neck: Supple Respiratory: Clear to auscultation bilaterally, normal respiratory effort Cardiovascular: Regular rate and rhythm GI: Soft, nontender, nondistended Extremities: No edema Musculoskeletal: Moving all extremities Neuro: No overt focal neurological deficits Skin: No rashes appreciated Psych: Cooperative Weight / BMI Weight Weight: 86.2 kg Body Mass Index (BMI) 33.6 ABG / Lab / Microbiology Data 02/14/23 06:08 02/14/23 06:08 Laboratory: Laboratory Results - last 24 hr 02/13/23 17:08: POC Glucose 130 H 02/13/23 20:58: POC Glucose 223 H 02/14/23 05:14: POC Glucose 146 H 02/14/23 06:08: WBC 5.2, RBC 4.56, Hgb 13.5, Hct 41.6, MCV 91.2, MCH 29.6, MCHC 32.5, RDW Std Deviation 42.3, RDW Coeff of [place] 12.6, Plt Count 224, MPV 10.9, Immature Gran % (Auto) 0.400, Neut % (Auto) 56.7, Lymph % (Auto) 32.6, [place] % (Auto) 8.7, Eos % (Auto) 1.0, Baso % (Auto) 0.6, Absolute Neuts (auto) 2.9, Absolute Lymphs (auto) 1.69, Nucleated RBC % 0, Sodium 140, Potassium 3.8, Chloride 112 H, Carbon Dioxide 24.0, Anion Gap 4 L, BUN 8, Creatinine 0.68, Estim Creat Clear Calc 68.71, Est GFR (MDRD) Af Amer 113, Est GFR (MDRD) Non-Af 93, BUN/Creatinine Ratio 11.7, Glucose 148 H, Hemoglobin A1c 6.6 H, Calcium 8.3 L 02/14/23 11:14: POC Glucose 151 H Radiography Diagnostic Testing: Radiology Impression Echocardiogram 02/13/23 07:48 Interpretation Summary The left ventricular ejection fraction is 65 %. Cannot exclude tiny PFO. Ordering Physician: Rufina Gardner Referring Physician: Chuyita Harper Performed By: Niyah Turner RCS D/C Instructions Discharge Diet: No restrictions Discharge Activity: Return to Normal Activity Meaningful Use Info Meaningful Use Diagnoses (Choose all that apply): None applicable Discharge Plan Admission Admit Date/Time: 02/13/23 07:44 Primary Reason for Your Visit: Episode of passing out Attending Provider: Rufina Gardner Primary Care Provider: Chuyita Harper Consulting Providers: Herbie Rodriguez Instructions Patient Instructions: Dizziness Fainting Causes Additional Instructions / Restrictions: DISCHARGE INSTRUCTIONS PLEASE READ *Please take this with you to your next doctors appointment* -You are found to have slightly low iron, recommend iron supplementation but youhave indicated you prefer to take your multivitamin more regularly -Continue losartan but would recommend at this time discontinuing hydrochlorothiazide as this can worsen dehydration and electrolyte abnormalities. Ultimately may need further adjustments in blood pressure medication -Please change positions slowly from lying to standing. When getting out of bedsit on the side of the bed with her legs down for at least 30 seconds before standing. This gives her body time to adjust to the position change. Would also recommend using compression stockings, you can acquire these online or you can discuss with your primary care physician. There are varying strengths and if you are unable to tolerate high strength compression you can try one of the lower strength -You will be discharged with instructions for a 14-day heart monitor to evaluatefor any underlying abnormal heart rhythms -Please call your primary care provider's office upon discharge to schedule a hospital follow up within 1 week. -For any concerning signs or symptoms please call 911 or proceed to the nearest emergency department Discharge Orders/Prescriptions Prescriptions: Continued multivitamin with iron Tablet 1 tab PO DAILY losartan 50 mg tablet 50 mg PO DAILY Qty: 90 3RF Discontinued hydrochlorothiazide 25 mg tablet 25 mg PO DAILY Qty: 90 3RF Other Ambulatory Orders: 14 Day Event Recorder Preventi (Urgent) Timeframe: 1 Day Facility: [facility] - Location: Cardiovascular Services Ordered By: Dr. Rufina Gardner Referrals / Follow Up: Chuyita Harper MD [Primary Care Provider] - Within 1 Week Disposition Disposition (needs filled in before D/C Order can be placed): Home, Self Care Charges/Coding Visit Charges Inpatient E&M: 74824 Disch Hosp >30min 02/14/23 1226 <Electronically signed by Rufina Gardner MD> Cosigner Signature (if applicable): CC: Dr. Chuyita Harper MD; Dr. Rufina Gardner MD~ Signed [facility] Work Phone: 1(446) 442-618310-28-2023 Discharge summary Author Rufina Gardner [facility] February 14, 2023 12:23pm Note Date/Time February 14, 2023 1 2:19pm [facility] Medical Records Department [address] [place] [address] Instructions for Home/Discharge Instructions 02/14/23 1219 MR#: [id number] Acct: [id number] Name: DWAIN SUTHERLAND Rep #:[id number] : 1960 62 From: Rufina Gardner MD PCP: Dr. Chuyita Harper MD Status:A DM LADARIUS Discharge Instructions Diet Discharge Diet: No restrictions Activity Discharge Activity: Return to Normal Activity Follow Up Care Test Results: Test results from this visit will be discussed in further detail at your follow- up appointment, if applicable. Discharge Plan Admission Admit Date/Time: 02/13/23 07:44 Primary Reason for Your Visit: Episode of passing out Attending Provider: Rufina Gardner Primary Care Provider: Chuyita Harper Consulting Providers: Herbie Rodriguez Instructions Patient Instructions: Dizziness Fainting Causes Additional Instructions / Restrictions: DISCHARGE INSTRUCTIONS PLEASE READ *Please take this with you to your next doctors appointment* -You are found to have slightly low iron, recommend iron supplementation but youhave indicated you prefer to take your multivitamin more regularly -Continue losartan but would recommend at this time discontinuing hydrochlorothiazide as this can worsen dehydration and electrolyte abnormalities. Ultimately may need further adjustments in blood pressure medication -Please change positions slowly from lying to standing. When getting out of bedsit on the side of the bed with her legs down for at least 30 seconds before standing. This gives her body time to adjust to the position change. Would also recommend using compression stockings, you can acquire these online or you can discuss with your primary care physician. There are varying strengths and if you are unable to tolerate high strength compression you can try one of the lower strength -You will be discharged with instructions for a 14-day heart monitor to evaluatefor any underlying abnormal heart rhythms -Please call your primary care provider's office upon discharge to schedule a hospital follow up within 1 week. -For any concerning signs or symptoms please call 911 or proceed to the nearest emergency department Discharge Orders/Prescriptions Prescriptions: Continued multivitamin with iron Tablet 1 tab PO DAILY losartan 50 mg tablet 50 mg PO DAILY Qty: 90 3RF Discontinued hydrochlorothiazide 25 mg tablet 25 mg PO DAILY Qty: 90 3RF Other Ambulatory Orders: 14 Day Event Recorder Preventi (Urgent) Timeframe: 1 Day Facility: [facility] - Location: Cardiovascular Services Ordered By: Dr. Rufina Gardner Referrals / Follow Up: Chuyita Harper MD [Primary Care Provider] - Within 1 Week Disposition Disposition (needs filled in before D/C Order can be placed): Home, Self Care 02/14/23 1223<Electronically signed by Rufina Gardner MD>Rufina Gardner MD CC: Dr. Chuyita Harper MD; Dr. Herbie Rodriguez MD ~ Signed [facility] Work Phone: 1(444) 855-572710-28-2023 [facility] Medical Records Department [address] [place] [address] Discharge Summary 02/14/231222 MR#: [id number] Acct: [id number] Name: DWAIN SUTHERLAND Rep #: [id number] : 1960 62 From: Rufina Gardner MD PCP: Dr. Chuyita Harper MD Status:ADM LADARIUS Location: [place] [id number] Providers Date of Admission: 02/13/23 Date of Discharge: 02/14/23 Primary Care Physician: Dr. Chuyita Harper MD Reason For Visit: SYNCOPE Diagnosis Discharge Diagnosis (1) Syncope: Status: Acute Code(s): R55 - Syncope and collapse Plan #Syncope- suspect orthostatic vs vasovagal 2/2 recent fasting and still taking BP meds #Type 2 diabetes mellitus #Hypertension #Hypokalemia resolved #low iron sat Medications at Discharge Home Medications multivitamin with iron 1 tab PO DAILY 05/10/21 losartan 50 mg tablet 50 mg PO DAILY #90 tabs 06/30/22 Hospital Course Procedures Transthoracic echo Summary of Care Provided Minutes Spent on Discharge: 45 Hospital Course: 62-year-old plant-based vegan with history of hypertension and diabetes presented with a syncopal episode from home. Woke up in the morning and did not feel right, blood pressure machine would not read blood pressure and when she stood up to go get she stumbled and then passed out and woke up when EMS came. Reportedly had been on a multiday fast and adjust had a light meal the day before and had only been drinking water and decaf coffee prior to that. Orthostats negative however they were performed after fluids and nutrition were given. Patient had no arrhythmias or other abnormalities, suspect that this was dehydration and nutritional in nature however cannot rule out arrhythmia especially given duration of episodes will DC with 14-day event monitor. Advised to DC hydrochlorothiazide and has iron stores somewhat low advised iron supplementation but patient reports she would rather take her multivitamin daily. Did endorse that usually when she fast she does not take her blood pressure medication but the day prior to presentation she had despite the fast and thinks this may have contributed. Has not had any further symptoms and feeling well today. Discharge instructions as follows: -You are found to have slightly low iron, recommend iron supplementation but you have indicated you prefer to take your multivitamin more regularly -Continue losartan but would recommend at this time discontinuing hydrochlorothiazide as this can worsen dehydration and electrolyte abnormalities. Ultimately may need further adjustments in blood pressure medication -Please change positions slowly from lying to standing. When getting out of bed sit on the side of the bed with her legs down for at least 30 seconds before standing. This gives her body time to adjust to the position change. Would also recommend using compression stockings, you can acquire these online or you can discuss with your primary care physician. There are varying strengths and if you are unable to tolerate high strength compression you can try one of the lower strength -You will be discharged with instructions for a 14-day heart monitor to evaluate for any underlying abnormal heart rhythms -Please call your primary care provider's office upon discharge to schedule a hospital follow up within 1 week. -For any concerning signs or symptoms please call 911 or proceed to the nearest emergency department Physical Exam Narrative General: Alert, oriented, no apparent distress HEENT: Atraumatic, normocephalic Eyes: Anicteric, normal conjunctiva, extraocular movements grossly intact Neck: Supple Respiratory: Clear to auscultation bilaterally, normal respiratory effort Cardiovascular: Regular rate and rhythm GI: Soft, nontender, nondistended Extremities: No edema Musculoskeletal: Moving all extremities Neuro: No overt focal neurological deficits Skin: No rashes appreciated Psych: Cooperative Weight / BMI Weight Weight: 86.2 kg Body Mass Index (BMI) 33.6 ABG / Lab / Microbiology Data 02/14/23 06:08 02/14/23 06:08 Laboratory: Laboratory Results - last 24 hr 02/13/23 17:08: POC Glucose 130 H 02/13/23 20:58: POC Glucose 223 H 02/14/23 05:14: POC Glucose 146 H 02/14/23 06:08: WBC 5.2, RBC 4.56, Hgb 13.5, Hct 41.6, MCV 91.2, MCH 29.6, MCHC 32.5, RDW Std Deviation 42.3, RDW Coeff of [place] 12.6, Plt Count 224, MPV 10.9, Immature Gran % (Auto) 0.400, Neut % (Auto) 56.7, Lymph % (Auto) 32.6, [place] % (Auto) 8.7, Eos % (Auto) 1.0, Baso % (Auto) 0.6, Absolute Neuts (auto) 2.9, Absolute Lymphs (auto) 1.69, Nucleated RBC % 0, Sodium 140, Potassium 3.8, Chloride 112 H, Carbon Dioxide 24.0, Anion Gap 4 L, BUN 8, Creatinine 0.68, Estim Creat Clear Calc 68.71, Est GFR (MDRD) Af Amer 113, Est GFR (MDRD) Non-Af 93, BUN/Creatinine Ratio 11.7, Glucose 148 H, Hemogl (more content not included)...[facility]10-27-2023 History and physical note Author Rufina Gardner [facility] February 13, 2023 8:01am Note Date/Time February 13, 2023 7 :46am [facility] Medical Records Department [address] [place] [id number] H&P Exam - Hospitalist 02/13/23 0744 MR#: [id number] Acct: [id number] Name: DWAIN SUTHERLAND NOEL Rep #:[id number] : 1960 62 From: Rufina Gardner MD PCP: Dr. Chuyita Harper MD Status:A DM LADARIUS Location: [place] [address] HPI - General General Date of Admission: 02/13/23 Date of Service: 02/13/23 Chief Complaint: Syncope HPI Narrative DWAIN SUTHERLAND, is a 62-year-old female history hypertension and type 2 diabetesmellitus who presented with a syncopal episode from home. She woke up in the morning and did not feel right. She tried to check her blood pressure but reported the machine would not read and when she got to the bottom of the stairsto call for her she felt very lightheaded and dizzy and when he came down he found her at the bottom of the stairs unresponsive. Patient members waking up with EMS standing over her. Denied any chest pain or palpitations. Did reportedly just finish a 3- day fast where she had water, decaf coffee, and fizzy water and then had oatmeal for dinner last night. In the ED lab work-up unremarkable. She was started on IV fluids and hospitalist consulted for admission for syncope. Woke with patient and her at bedside. She reports she had been on a fast for over 2 days but yesterday was too hungry so she has had some avocado, banana, oatmeal however last night she was not feelingright and thought it was allergies so she took an antihistamine, unclear which 1but has been will bring in bottle, and went to bed. When she woke up she did not feel right again and took her blood pressure and reports it would not read. She got up to go to the bottom of the stairs to call for her and reportsshe was horribly dizzy and stumbled to the bottom of the stairs and felt lightheaded. When her came to the stairs he found her down and the nextthing patient remembers is EMS was there. She does at times get dizzy when going from sitting to standing but has not had syncopal episodes before. Had not noted any chest pain or palpitations before this moment. Of note patient reports she is vegan and plant-based and had done the fast as above but reports she does a 3-day fast once a year and has not had this problem before. Denies any other preceding or accompanying symptoms. [facility] Medical History Abnormal EKG Anemia Colon cancer screening Dermatitis Elevated random blood glucose level Encounter for vitamin deficiency screening Health care maintenance Hx of mitral valve prolapse Hypertension Mammogram declined Obesity Post-menopausal Ruptured appendix Type 2 diabetes mellitus Vitamin B12 deficiency Home Medications multivitamin with iron 1 tab PO DAILY 05/10/21 [History Last Taken Unknown] losartan 50 mg tablet 50 mg PO DAILY #90 tabs 06/30/22 [Rx Last Taken Unknown] hydrochlorothiazide 25 mg tablet 25 mg PO DAILY #90 tabs 01/14/23 [Rx Last Taken Unknown] Allergy/AdvReac Type Severity Reaction Status Date / Time gelatin [Gelatin] Allergy Unknown Verified 02/13/23 05:27 iodine Allergy Rash Verified 02/13/23 05:27 Penicillins Allergy PT UNSURE Verified 02/13/23 05:27 OF REACTION Family History Father Alcoholism Heart disease Respiratory disease Mother Alcoholism Sister Alcoholism Son Alcoholism Anxiety Depression Mental disorder Daughter Alcoholism Anesthesia complication Aunt Diabetes CVA (cerebral vascular accident) Surgical History History of History of cholecystectomy History of hysterectomy Hx of tonsillectomy Social History Smoking Status: Never smoker alcohol intake: never substance use type: does not use what type of physical activity do you participate in: walking frequency: daily ROS ROS Narrative General: Denies fever/chills HENT: Denies headache, denies stuffy nose, denies sore throat EYES: Denies changes in vision Resp: Denies cough, denies shortness of breath Cardiac: Denies chest pain GI: Denies abdominal pain, denies changes in bowel, denies nausea/vomiting : Denies changes in urination Extremity: Denies swelling MSK: Denies weakness Neuro: Denies any numbness/tingling, had felt lightheaded and dizzy at home with syncopal episode Heme: Denies any bleeding or bruising Skin: Denies rashes Psychiatric: No complaints voiced Vital Signs Vital Signs Vital Signs: 02/13/23 05:27 02/13/23 05:31 Temperature 96.1 F L Temperature Source Temporal Pulse Rate 85 Respiratory Rate 16 Respiratory Effort Normal Blood Pressure 142/76 H Blood Pressure Mean 98 Pulse Ox 100 Weight Weight: 87.4 kg Body Mass Index (BMI) 34.1 Physical Exam Narrative General: Alert, oriented, no apparent distress HEENT: Atraumatic, normocephalic Eyes: Anicteric, normal conjunctiva, extraocular movements grossly intact Neck: Supple Respiratory: Clear to auscultation bilaterally, normal respiratory effort Cardiovascular: Regular rate and rhythm GI: Soft, nontender, nondistended Extremities: No edema Musculoskeletal: Moving all extremities Neuro: No overt focal neurological deficits Skin: No rashes appreciated Psych: Cooperative Results Lab / Micro Data 02/13/23 05:47 02/13/23 05:47 Labs: Laboratory Results - last 24 hr 02/13/23 05:47: WBC 5.8, RBC 5.25, Hgb 15.5 H, Hct 46.4, MCV 88.4, MCH 29.5, MCHC 33.4, RDW Std Deviation 41.0, RDW Coeff of [place] 12.5, Plt Count 235, MPV 10.0, Immature Gran % (Auto) 0.300, Neut % (Auto) 52.8, Lymph % (Auto) 37.3, [place] % (Auto) 6.7, Eos % (Auto) 1.9, Baso % (Auto) 1.0, Absolute Neuts (auto) 3.1, Absolute Lymphs (auto) 2.16, Nucleated RBC % 0, Sodium 136, Potassium 3.4 L, Chloride 102, Carbon Dioxide 24.0, Anion Gap 10, BUN 21 H, Creatinine 1.01, Estim Creat Clear Calc 48.39, Est GFR (MDRD) Af Amer 72, Est GFR (MDRD) Non-Af 59 L, BUN/Creatinine Ratio 20.8 H, Glucose 192 H, Calcium 9.0, Total Bilirubin 0.50, Direct Bilirubin 0.09, AST 25, ALT 37, Alkaline Phosphatase 74, Troponin I High Sens 9, Total Protein 7.2, Albumin 4.0, Globulin 3.2 02/13/23 06:15: Urine Color Yellow, Urine Clarity Clear, Urine pH 6.0, Ur Specific [place] 1.020, Urine Protein Negative, Urine Glucose (UA) Normal, Urine Ketones 150 A*, Urine Occult Blood Negative, Urine Nitrite Negative, Urine Bilirubin Negative, Urine Urobilinogen Normal, Ur Leukocyte Esterase Negative, Urine RBC 0 SEEN, Urine WBC 0 SEEN, Ur Squamous Epith Cells 0 SEEN, Urine Bacteria 1+, Hyaline Casts 0-5 SEEN, Urine Mucus 0 SEEN Radiology Impression Brain CT 02/13/23 05:36 IMPRESSION: Negative head/brain CT without intravenous contrast. Electronically Signed: Cesar Winn MD at 6:47 EDT , Cervical Spine CT 02/13/23 05:36 IMPRESSION: Mild cervical degenerative changes. No acute fractures or subluxations. Electronically Signed: Cesar Winn MD at 6:48 EDT , Chest X-Ray 02/13/23 06:22 IMPRESSION: No acute cardiopulmonary abnormality. Electronically Signed: Cesar Winn MD at 6:52 EDT , Assessment & Plan Assessment/Plan (1) Syncope: PLAN: Plan #Syncope -Patient with syncopal episode however it was not just from sitting to standing that caused the dizziness and it was a prolonged episode that led to a full syncopal event. -EKG with no arrhythmia but did have some nonspecific abnormalities, cannot rule out underlying structural heart disease or arrhythmia as cause -Do suspect there is a fasting and nutritional component to this but cannot rule out anything cardiac in nature given patient's age and risk factors and EKG -We will give fluids, liberal diet, will check iron and vitamin levels -We will check echo and orthostats -Monitor on telemetry #Type 2 diabetes mellitus -Glucose checks and sliding scale insulin -We will check A1c #Hypertension -Holding home meds, especially hydrochlorothiazide as this may contribute to dehydration #Hypokalemia -Replace #DVT ppx: SCDs Rufina Gardner MD Time spent in the patient's overall evaluation,decision-making process, review of diagnostic data, adjustment of management, discussion with other providers, nursing nursing and ancillary staff involved in patient's care documentation, 60 minutes Charges/Coding Visit Charges Inpatient E&M: 34869 Init Hosp L2 02/13/23 0801 <Electronically signed by Rufina Gardner MD> Cosigner Signature (if applicable): CC: Dr. Chuyita Harper MD; Dr. Rufina Gardner MD~ Signed [facility] Work Phone: [phone]) 719-383210-27-2023 Discharge summary Author Jamee Menard [facility] February 13, 2023 7:51am Note Date/Time February 13, 2023 5 :41am [facility] Medical Records Department [address] [place] [address] Emergency Department Summary 02/13/23 MR#: [id number] Acct: [id number] Name: DWAIN SUTHERLAND Rep #:[id number] : 1960 62 From: Jamee Menard MD PCP: Dr. Chuyita Harper MD Status:A DM LADARIUS Location: [address] History of Present Illness Chief Complaint: Syncope Informant: patient Narrative Narrative: Patient presents with a syncopal episode at home. Patient states she woke up this morning and did not feel right but she cannot remember exactly what woke her up. She states she tried to check her blood pressure but the machine would not read. She started to go to the bottom of the stairs to call for her husbandwho was upstairs but she states she felt very lightheaded and dizzy. She yelledfor him and tried to turn back to her room but he found her at the bottom of thestairs on the floor unresponsive. Patient states remembers waking up with EMS standing over her. She does not member having palpitations or chest pain. Patient denies any new medications. She did reportedly just finish a 3-day fastwhere she drank water, decaf coffee, and fizzy water. She did eat oatmeal last night for dinner. [facility] Medical History Abnormal EKG Anemia Colon cancer screening Dermatitis Elevated random blood glucose level Encounter for vitamin deficiency screening Health care maintenance Hx of mitral valve prolapse Hypertension Mammogram declined Obesity Post-menopausal Ruptured appendix Type 2 diabetes mellitus Vitamin B12 deficiency Home Medications multivitamin with iron 1 tab PO DAILY 05/10/21 [History Last Taken Unknown] losartan 50 mg tablet 50 mg PO DAILY #90 tabs 06/30/22 [Rx Last Taken Unknown] hydrochlorothiazide 25 mg tablet 25 mg PO DAILY #90 tabs 01/14/23 [Rx Last Taken Unknown] Allergy/AdvReac Type Severity Reaction Status Date / Time gelatin [Gelatin] Allergy Unknown Verified 02/13/23 05:27 iodine Allergy Rash Verified 02/13/23 05:27 Penicillins Allergy PT UNSURE Verified 02/13/23 05:27 OF REACTION Family History Father Alcoholism Heart disease Respiratory disease Mother Alcoholism Sister Alcoholism Son Alcoholism Anxiety Depression Mental disorder Daughter Alcoholism Anesthesia complication Aunt Diabetes CVA (cerebral vascular accident) Surgical History History of History of cholecystectomy History of hysterectomy Hx of tonsillectomy Social History Smoking Status: Never smoker alcohol intake: never substance use type: does not use what type of physical activity do you participate in: walking frequency: daily ROS ROS ED Constitutional Constitutional ED: Denies chills or fever(s) Eyes Eyes: Denies change in vision or discharge from eye(s) ENT ENT ED: Denies discharge from eye(s), rhinorrhea or sore throat Cardiovascular Cardiovascular: Denies chest pain or palpitations Respiratory/Chest Respiratory/Chest: Denies cough or dyspnea Gastrointestinal Gastrointestinal: Denies abdominal pain, nausea or vomiting Genitourinary Genitourinary ED: Denies dysuria Musculoskeletal Musculoskeletal: Denies back pain or extremity pain Integumentary Denies Abrasions or rash Neurologic Neurologic: Reports other Details: Lightheaded and dizzy ; Denies headache(s) or weakness Psychiatric Psychiatric: Denies anxiety or depression Allergic/Immunologic Allergic/Immunologic ED: Denies lip swelling or urticaria EXAM Physical Exam Const Vital Signs: 02/13/23 05:27 02/13/23 05:31 Temperature 96.1 F L Temperature Source Temporal Pulse Rate 85 Respiratory Rate 16 Respiratory Effort Normal Blood Pressure 142/76 H Blood Pressure Mean 98 Pulse Ox 100 Positive well nourished and well developed General Appearance ED: well developed HEENT Reports moist mucous membranes HEENT Narrative: Tenderness noted along the right lateral forehead. Minimal erythema. 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 EKG obtained to evaluate for cardiac arrhythmia/ischemia. Labwork obtained to evaluate for leukocytosis, anemia, and electrolyte derangement. Chest x-ray obtained to evaluate for acute lung pathology, cardiac size, or mediastinal abnormality. CT scan of the head and C-spine obtained given her fall and injury. IV fluids initiated. History & Record Review Discussion w/independent historian: EMS personnel, Patient and Significant other Additional record(s) reviewed:: Prior ED visit and Prior labs Lab Data Attestation: I reviewed the patient's lab results. Labs: Laboratory Results - last 24 hr 02/13/23 02/13/23 05:47 06:15 WBC 5.8 RBC 5.25 Hgb 15.5 H Hct 46.4 MCV 88.4 MCH 29.5 MCHC 33.4 RDW Std Deviation 41.0 RDW Coeff of [place] 12.5 Plt Count 235 MPV 10.0 Immature Gran % (Auto) 0.300 Neut % (Auto) 52.8 Lymph % (Auto) 37.3 [place] % (Auto) 6.7 Eos % (Auto) 1.9 Baso % (Auto) 1.0 Absolute Neuts (auto) 3.1 Absolute Lymphs (auto) 2.16 Nucleated RBC % 0 Sodium 136 Potassium 3.4 L Chloride 102 Carbon Dioxide 24.0 Anion Gap 10 BUN 21 H Creatinine 1.01 Estim Creat Clear Calc 48.39 Est GFR (MDRD) Af Amer 72 Est GFR (MDRD) Non-Af 59 L BUN/Creatinine Ratio 20.8 H Glucose 192 H Calcium 9.0 Total Bilirubin 0.50 Direct Bilirubin 0.09 AST 25 ALT 37 Alkaline Phosphatase 74 Troponin I High Sens 9 Total Protein 7.2 Albumin 4.0 Globulin 3.2 Urine Color Yellow Urine Clarity Clear Urine pH 6.0 Ur Specific [place] 1.020 Urine Protein Negative Urine Glucose (UA) Normal Urine Ketones 150 A* Urine Occult Blood Negative Urine Nitrite Negative Urine Bilirubin Negative Urine Urobilinogen Normal Ur Leukocyte Esterase Negative Urine RBC 0 SEEN Urine WBC 0 SEEN Ur Squamous Epith Cells 0 SEEN Urine Bacteria 1+ Hyaline Casts 0-5 SEEN Urine Mucus 0 SEEN Radiography Chest X-Ray - ED: 1 View, Read by ED Physician, Normal, Heart, Lungs and Mediastinum Diagnostic Testing: Clinical Impression(s) from Imaging Studies Brain CT 02/13/23 05:36 IMPRESSION: Negative head/brain CT without intravenous contrast. Electronically Signed: Cesar Winn MD at 6:47 EDT Reading Location ID and State: [id number] / [place] [employer] , Service support , Cervical Spine CT 02/13/23 05:36 IMPRESSION: Mild cervical degenerative changes. No acute fractures or subluxations. Electronically Signed: Cesar Winn MD at 6:48 EDT Reading Location ID and State: [id number] / [place] [address] , Service support , Chest X-Ray 02/13/23 06:22 IMPRESSION: No acute cardiopulmonary abnormality. Electronically Signed: Cesar Winn MD at 6:52 EDT , EKG Initial EKG: Attestation: I personally reviewed and interpreted this EKG as follows: Interpretation: Sinus Rhythm (Sinus at 79 with no acute ischemia.) Treatment and Re-Evaluation :: CBC was normal white count 5.8 with a hemoglobin of 15.5. Differential unremarkable. Chemistry studies reveal slightly low potassium at 3.4. This is replaced orally. Glucose is 192. LFTs unremarkable. Urinalysis reveals 150 ketones with no evidence of acute infection. EKG is sinus at 79 with no acute ischemia. Portable chest x-ray per my interpretation reveals no acute findings. Radiology interpretation reviewed and agrees. CT scan of the head reveals no acute findings. CT the C-spine reveals mild degenerative changes. Patient presents with a syncopal episode at home. She does report feeling dizzy. Initial vital signs obtained by EMS reveals heart rate in the 80s and systolic blood pressure of 120. With no definitive cause for her syncope, I do feel she would be better served with observation today to ensure no cardiac arrhythmia. I will speak with the hospitalist. Discharge Plan Triage Chief Complaint: Syncope ED Provider: Jamee Menard Dx/Rx/DC Orders Clinical Impression: Syncope, Fall, Contusion of head Prescriptions: No Action multivitamin with iron Tablet 1 tab PO DAILY losartan 50 mg tablet 50 mg PO DAILY Qty: 90 3RF hydrochlorothiazide 25 mg tablet 25 mg PO DAILY Qty: 90 3RF Primary Care Provider: Chuyita Harper Referrals: Chuyita Harper MD [Primary Care Provider] - Disposition Disposition: [facility] What to do if you have Problems For any increased pain, shortness of breath, bleeding, nausea or vomiting, chestpain, or any unexpected problems, contact your Primary Care Provider. Call [facility] ([phone]) or report to the closest Emergency Room. Call 911 if necessary. 02/13/23 0751 <Electronically signed by Jamee Menard MD> Cosigner Signature (if applicable): CC: Dr. Chuyita Harper MD ~ Signed [facility] Work Phone: Evaluation note* Diagnosis Onset Date Resolution Status Obesity acute Hypertension chronic Obesity acute Dermatitis chronic Hypertension chronic Type 2 diabetes mellitus [facility] Work Phone: Evaluation note* Diagnosis Onset Date Resolution Status Obesity acute Dermatitis chronic Hypertension chronic Type 2 diabetes mellitus [facility] on Encounter for vitamin deficiency screening acute Dermatitis chronic Hypertension chronic Type 2 diabetes mellitus [facility] Work Phone: Evaluation note* Diagnosis Onset Date Resolution Status Encounter for vitamin deficiency screening acute Hypertension chronic Obesity chronic Type 2 diabetes mellitus [facility] on Vitamin B12 deficiency acute Hypertension chronic Type 2 diabetes mellitus [facility] Work Phone: Evaluation note* Diagnosis Onset Date Resolution Status Health care maintenance acut e Mammogram declined acute Hypertension chronic Type 2 diabetes mellitus [facility] Work Phone: Evaluation note* Diagnosis Onset Date Resolution Status Health care maintenance acut e Mammogram declined acute Hypertension chronic Type 2 diabetes mellitus chr onic Hypertension chronic Type 2 diabetes mellitus chr onic Vitamin B12 deficiency chron ic Contusion of head acute Fall acute Syncope acute [facility] Work Phone: Evaluation noteNo assessment information available [facility] Work Phone: Evaluation note* Diagnosis Onset Date Resolution Status Hypertension chronic Type 2 diabetes mellitus chr onic Vitamin B12 deficiency chron ic Syncope acute Syncope acute Hypertension chronic Type 2 diabetes mellitus chr onic [facility] Work Phone: Hospital Discharge instructionsAmbulatory Orders* General Surgery Location: None Selected [facility] Work Phone: Hospital Discharge instructions Additional Instructions Return for [...] for sedation and repeat use has addiction potential.[facility] Work Phone: Chief Complaint and Reason for Visit Chief Complaint 1 M FU 3 M FU Reason for Visit Obesity Hypertension Obesity Dermatitis Hypertension Type 2 diabetes mellitus Chief Complaint 3 M FU 3 M FU Reason for Visit Obesity Dermatitis Hypertension Type 2 diabetes mellitus Encounter for vitamin deficiency screening Dermatitis Hypertension Type 2 diabetes mellitus Chief Complaint 3 m fu 3 M FU Reason for Visit Encounter for vitami n deficiency screening Hypertension Obesity Type 2 diabetes mellitus Vitamin B12 deficiency Hypertension Type 2 diabetes mellitus Chief Complaint R/S FU Reason for Visit [facility] Mammogram declined Hypertension Type 2 diabetes mellitus Chief Complaint R/S FU POST-MENOPAUSAL 3 M FU SYNCOPE Syncope Reason for Visit [facility] Mammogram declined Hypertension Type 2 diabetes mellitus Hypertension Type 2 diabetes mellitus Vitamin B12 deficiency Contusion of head Fall Syncope Chief Complaint HYPERTENSION Chief Complaint 3 M FU SYNCOPE Syncope CONCERN FOR ARRYTHMIA 3 m fu Reason for Visit Hypertension Type 2 diabetes mellitus Vitamin B12 deficiency Syncope Syncope Hypertension Type 2 diabetes mellitus Family History No Family History Records Found Relationship Condition Age at Onset Recorded Date/T smith father Alcoholism Unknown Cardiac disease Unknown Disorder of respiratory system Unknown mother Alcoholism Unknown sister Alcoholism Unknown son Alcoholism Unknown Anxiety Unknown Depression Unknown Mental disorder Unknown daughter Alcoholism Unknown Complication of anesthesia Unknown aunt Diabetes mellitus Unknown Cerebrovascular accident (CVA) Unknown Advance Directives No Advanced Directives Records Found Advance Directive Response Recorded Date/ Time Advance Directives No May 28, 2017 1:19am Living Will No May 05 4:07pm Power of Lard Refiner No May 05, 2021 4:07pm Advance Directive Response Recorded Date/ Time Advance Directives No May 28, 2017 12:19am Living Will No May 05 3:07pm Power of Lard Refiner No May 05, 2021 3:07pm Advance Directive Response Recorded Date/ Time Advance Directives No May 28, 2017 1:19am Living Will No February 13 10:42am Power of Lard Refiner No February 13, 2023 10:42am Advance Directive Response Recorded Date/ Time Code Status Full Code March 12, 2 023 11:56am Advance Directive Response Recorded Date/ Time Advance Directives No May 28, 2017 12:19am Living Will No February 13 9:42am Power of Lard Refiner No February 13, 2023 9:42am Summary Purpose Additional Source Comments Goals (unrecognized section and content) Goals may be documented in a n alternate sectionGoals may be documented in an alternate sectionGoals may be documented in an alternate sectionGoals may be documented in an alternate sectionGoals may be documented in an alternate section Care Teams (unrecognized sec tion and content) Team Status: Active Member Role Status Dates No Primary Care Physician Family Provider Active Dr. Chuyita Harper MD Primary Care Provider Active Team Status: Inactive Member Role Status Dates Dr. Chuyita Harper MD Primary Care Shaheed dolan, Attending Provider, Referring Provider Active Team Status: Active Member Role Status Dates Dr. Chuyita Harper MD Primary Care Provider Active Dr. Davi Zayas MD Attending Provider Active Team Status: Active Member Role Status Dates Dr. Chuyita Harper MD Primary Care Provider Active Dr. Jamee Menard MD Emergency Provider Active Dr. Herbie Rodriguez MD Admit Provider, Other Provide r Active Dr. Rufina Gardner MD Attending Provider, Other Provid er Active Team Status: Inactive Member Role Status Dates Dr. Chuyita Harper MD Primary Care Provider Active Dr. Jamee Menard MD Emergency Provider Active Dr. Herbie Rodriguez MD Admit Provider, Other Provide r Active Dr. Rufina Gardner MD Attending Provider Active Team Status: Active Member Role Status Dates NO FAMILY DOCTOR Primary Care Provider Active Team Status: Inactive Member Role Status Dates GAURAV ARAYA DO Emergency Provider Active Start: March 12, 2023 End: March 12, 2023 NO FAMILY DOCTOR Primary Care Provider Active St art: March 12, 2023 End: March 12, 2023 Team Status: Active Member Role Status Dates Dr. Chuyita Harper MD Primary Care Provider Active Dr. Davi Zayas MD Attending Provider, Referring Pr ovider Active Team Status: Active Member Role Status Dates Dr. Chuyita Harper MD Primary Care Provider Active Dr. Howie Rhoades MD Attending Provider, Referring Pro vider Active INFORMATION SOURCE (unrecogn ized section and content) DATE CREATED AUTHOR 06/19/2023 [facility] DATE CREATED AUTHOR AUTHOR'S ORGANIZ ATION 06/19/2023 [facility] DATE CREATED AUTHOR AUTHOR'S ORGANIZ ATION 11/30/2023 [facility] FOR RECORDS PERTAINING TO PATIENTS WHO ARE [...] BE BASED ON THE PRIMARY CLINICAL RECORDS. [employer] provides no warranty or guarantee of the accuracy or completeness of information in this document.
[2024-10-15 16:38] LABS: Absolute Lymphocyte Count 1.34 X10^3/uL (0.83-4.51); Absolute Neutrophil Count 2.7 X10^3/uL (2.0-7.7); Basophil# 0.05 X10^3/uL; Basophil% 1.1 % (0-1); Eosinophil# 0.15 X10^3/uL; Eosinophils% 3.3 % (0-5); Hematocrit 43.9 % (37-47); Lymphocyte # 1.34 X10^3/ul (0.83-4.51); Lymphocyte % 29.1 % (19-41); Mean Corp Hgb Conc 34.2 g/dL (32-36); Mean Corpuscular Hgb 29.9 pg (27.0-32.0); Mean Corpuscular Volume 87.6 fL (81-99); Mean Platelet Vol. 10.9 fl (6.2-12.0); Monocyte# 0.35 X10^3/uL; Monocyte% 7.6 % (0-10); NRBC Flagged by Analyzer 0 % (0-5); Neutrophil % 58.5 % (47-70); Platelet Count 211 K/mm3 (150-450); RBC Distribution Width CV 12.6 % (11.6-14.6); RBC Distribution Width SD 40.1 fl (35.1-43.9); Red Blood Count 5.01 M/mm3 (4.2-5.4); White Blood Count 4.6 K/mm3 (4.4-11.0)
[2024-10-15] MEDS: cloNIDine HCl 0.1 MG Tablet PO (16:41)
--- NOTE | 2024-10-15 16:50 | RAD_ITS ---
PROCEDURE: CHEST PA AND LATERAL 10/15/2024 REASON FOR EXAM: HTN TECHNIQUE: CHEST PA AND LATERAL COMPARISON: Chest radiograph 02/13/2023. FINDINGS: Hardware: None. Heart: The heart size is normal. Mediastinum: The mediastinal contour is unremarkable. Lungs: No focal consolidation, pleural effusion or pneumothorax. Bones: The bones are unremarkable. Cholecystectomy clips. RAD/Chest PA and Lateral IMPRESSION: NO ACUTE FINDINGS. Reading Location: [id number]
[2024-10-15 17:14] VITALS: BP 183/95; PULSE 96; RESP 20; O2SAT 97
[2024-10-15 17:28] LABS: Anion Gap 11 (5-15); BUN 17 mg/dL (4-19); Calcium,Total 9.6 mg/dL (7.6-11.0); Carbon Dioxide 24.6 mmol/L (21.0-32.0); Chloride 103 mmol/L (98-108); Creatinine, Serum 0.86 mg/dL (0.70-1.20); EST Glomerular Filtration Rate 76 (>60); Glucose 199 mg/dL (70-99); Potassium 3.8 mmol/L (3.3-5.1); Sodium Level 139 mmol/L (133-145)
[2024-10-15 18:07] LABS: Free T3 2.6 pg/mL (2.18-3.98); Troponin T High Sensitivity < 6 ng/L (<=14)
[2024-10-15 19:00] VITALS: BP 162/93; PULSE 87; RESP 19; O2SAT 99
[2024-10-15 19:17] LABS: Troponin T High Sens 2 HR 7 ng/L (<=14)
[2024-10-15 20:12] VITALS: BP 160/74; PULSE 78; RESP 18; TEMP 36.6; O2SAT 99
== END 2024-10-15 21:16 | disposition home or self-care (01) ==
PROVIDERS: Emergency Provider Emergency Medicine; PCP Internal Medicine; Referring Provider Emergency Medicine; Visit Provider Emergency Medicine
DX: I10 Essential (primary) hypertension (principal); E11.9 Type 2 diabetes mellitus without complications; F41.9 Anxiety disorder, unspecified; Z79.899 Other long term (current) drug therapy; Z90.710 Acquired absence of both cervix and uterus; Z90.49 Acquired absence of other specified parts of digestive tract
CPT/HCPCS: 71046; 80048; 84439; 84443; 84481; 84484; 85025; 93005; 99284; A4216

== ENCOUNTER 2024-12-27 00:56 | Emergency (ER) | payer MEDICAID, SELFPAY ==
[2024-12-27 00:56] VITALS: BP 218/121; PULSE 93; RESP 18; TEMP 36.4; O2SAT 100; BMI 34.1
[2024-12-27 00:59] VITALS: BP 201/95
--- NOTE | 2024-12-27 01:26 | EDS_ITS ---
HPI History of Present Illness Chief Complaint: Hypertension Informant: patient Narrative Narrative: 64-year-old female presents 1 AM couple hours after she was sitting on the couch and suddenly felt like her heart started racing. She states immediately she went to get her blood pressure cuff. Her heart rate was around the 100, blood pressure was extremely high over 200. She states that she no longer feels palpitations but she is anxious, and checked her blood pressure multiple times and was high every time hence presenting to the emergency department. She had no chest discomfort, dyspnea, lightheadedness, near-syncope, syncope, or other acute symptoms, and has not of those now. She states that as a result when she started feeling all of this she took her nightly losartan couple hours early. She denies any other symptoms or illness recently and has had no [id number] medications such as decongestants. She states this has happened multiple times in the past. [facility] Medical History Bilateral carpal tunnel syndrome Knee pain Arrhythmia Contusion of head Fall Syncope Ruptured appendix Mammogram declined Health care maintenance Post-menopausal Colon cancer screening Vitamin B12 deficiency Encounter for vitamin deficiency screening Dermatitis Type 2 diabetes mellitus Obesity Abnormal EKG Elevated random blood glucose level Anemia Hx of mitral valve prolapse Hypertension Home Medications ?Medication ?Instructions ?Recorded ?Last Taken ?Type multivitamin with iron 1 tab PO DAILY 05/10/21 Unkn own History mecobalamin (vitamin B12) 1 tab PO DAILY 11/10/23 Unkn own History meloxicam 15 mg tablet 15 mg PO DAILY PRN pain #60 tabs 11/27/23 Unknown Rx losartan 50 mg tablet 50 mg PO DAILY #90 tabs 10/19 09/11 Unknown Rx clonidine HCl 0.1 mg tablet 0.1 mg PO Q8H PRN SBP > 17 5 #20 12/27/24 Unknown Rx tabs Allergy/AdvReac Type Severity Reaction Status Date / Time gelatin (Gelatin) Allergy Unknown Verified 12/27/24 00:58 iodine Allergy Rash Verified 12/27/24 00:58 Family History Father Alcoholism Heart disease Respiratory disease Mother Alcoholism Sister Alcoholism Son Alcoholism Anxiety Depression Mental disorder Daughter Alcoholism Anesthesia complication Aunt Diabetes CVA (cerebral vascular accident) Surgical History History of Hx of tonsillectomy History of hysterectomy History of cholecystectomy Social History Smoking Status: Never smoker alcohol intake: never substance use type: does not use what type of physical activity do you participate in: walking frequency: daily ROS ROS ED Constitutional Constitutional ED: Denies chills or fever(s) Eyes Eyes: Denies change in vision or diplopia ENT ENT ED: Denies rhinorrhea or sore throat Cardiovascular Cardiovascular: Reports palpitations and racing heartbeat; Denies chest pain Respiratory/Chest Respiratory/Chest: Denies cough or dyspnea Gastrointestinal Gastrointestinal: Denies abdominal pain, diarrhea, nausea or vomiting Genitourinary Genitourinary ED: Denies dysuria or hematuria Musculoskeletal Musculoskeletal: Denies back pain or neck pain Integumentary Denies abscess or rash Neurologic Neurologic: Denies headache(s), paresthesias or weakness Psychiatric Psychiatric: Reports anxiety; Denies suicidal thoughts EXAM Physical Exam Const Vital Signs: 12/27/24 00:56 12/27/24 00:59 12/27/24 00:59 Temperature 97.6 F L Temperature Source Oral Pulse Rate 93 Respiratory Rate 18 Respiratory Effort Normal Non-Labored Respiratory Pattern Normal Blood Pressure 218/121 H 201/95 H Blood Pressure Mean 153 130 Pulse Ox 100 Oxygen Delivery Method Room Air Positive well nourished and well developed General Appearance ED: well developed and NAD HEENT Reports moist mucous membranes normocephalic and atraumatic Eyes PERRL and EOMs intact bilaterally Neck full ROM and supple Resp normal respiratory effort and clear to auscultation bilaterally Cardio regular rate, regular rhythm and no murmurs GI non-tender and non-distended Auscultation: normoactive bowel sounds Palpation: soft Back/Spine no CVA tenderness General Back: other FROM Extremity normal to inspection General Extremety ED: Negative for edema, pulses abnormal or tenderness General Extremity: Negative for edema or pulses abnormal Neuro oriented x3, CN's II-XII intact bilaterally and no sensory deficits noted Sensorium / Orientation: awake and alert Motor Exam: strength 5/5 throughout Psych Mood & Affect: anxious Skin no rashes or lesions noted and no wounds MDM MDM MDM Narrative Medical decision making narrative: Patient no longer has palpitations and her heart rate is similar to what she detected at home, high 90s. On her EKG it is 90 in sinus rhythm and normal- appearing. It is possible that she had a transient dysrhythmia, but she had no symptoms of angina to suggest acute ischemia. She is asymptomatic except for appearing a little anxious right now, so we monitored her vital signs, telemetry, and blood pressure for a little while. While observing the patient, she had a lot of questions, including how do I keep this from happening again? She states this occurs maybe twice a year on average, and she is assuming that it is a blood pressure spike that is causing it which may be the case as I discussed with her, but it is also possible that the blood pressure elevation is secondary to what ever is causing her palpitations. It is also possible that the palpitations were simply her heart beating harder as a result of her blood pressure elevation. She understands, and understands these are difficult questions the answers sometimes. She did not have any other symptoms tonight other than being very worried that she was going to bed with a high blood pressure and could have a stroke. We talked about symptoms that were concerning in context of high blood pressure that should be evaluated in the emergency department, but high numbers without symptoms do not always need to be, as she was asking when she needs to come. I do recommend close a patient follow-up for repeat blood pressure checks. Her repeat blood pressure is 181/94. She is asymptomatic. I think at this time she is stable to be discharged home and can give her an extra losartan 50 mg after the 1 that she took earlier and prescribe her clonidine to take as needed and have her follow-up with her doctor. Rhythm Strip Rhythm Strip: Sinus Rhythm Rate: 99 Ectopy: None EKG Initial EKG: Attestation: I personally reviewed and interpreted this EKG as follows: Interpretation: Sinus Rhythm, No Acute Injury Pattern and LAFB Comments: Nml intervals; other than left axis, nml & unchanged EKG Prior EKG tracings: available for review Prior: Changed Discharge Plan Triage Chief Complaint: Hypertension ED Provider: Hermann Sutherland Dx/Rx/DC Orders Clinical Impression: Palpitations, Accelerated hypertension, Anxiety Instructions: Hypertension Dc Prescriptions: New clonidine HCl 0.1 mg tablet 0.1 mg PO Q8H PRN (Reason: SBP > 175) Qty: 20 0RF No Action multivitamin with iron Tablet 1 tab PO DAILY meloxicam 15 mg tablet 15 mg PO DAILY PRN (Reason: pain) Qty: 60 1RF mecobalamin (vitamin B12) 1 tab PO DAILY losartan 50 mg tablet 50 mg PO DAILY Qty: 90 3RF Primary Care Provider: Chuyita Harper Referrals: Chuyita Harper MD [Primary Care Provider] - 3-5 Days Activity Restrictions/Additional Instructions: If your blood pressure goes up over 180 and does not come down after several hours, you may initially take an extra losartan, and if after another hour or 2 it is not coming down, take one of the clonidine. If this occurs and you have chest pain, out of breath, or sudden onset severe headache, go to the ER immediately. Print Language: Hebrew Disposition Disposition: Home, Self Care
--- NOTE | 2024-12-27 01:26 | EKG12_ITS ---
Test Reason : PALPS Blood Pressure : */* mmHG Vent. Rate : 90 BPM Atrial Rate : 90 BPM P-R Int : 174 ms QRS Dur : 92 ms QT Int : 378 ms P-R-T Axes : 61 -53 61 degrees QTcB Int : 462 ms Normal sinus rhythm Left anterior fascicular block Abnormal ECG Confirmed by Cesar Rosenberg ([id number]), videotape editor JHONNY READ ([id number]) on 12/27/2024 10:26:32 AM Referred By: Confirmed By: Cesar Rosenberg
--- OUTSIDE RECORDS SUMMARY | 2024-12-27 01:43 | XMS RPT_ITS | CCD ---
Author Organization [facility]iniSy[facility] Care Team Providers Care Forensic Social Worker Name Role Phone Dr. Chuyita Harper Primary Care Provider [phone] Leroy, Dr. Boogie Attending Provider [phone] Dr. Chuyita Harper Referring Provider [phone] Leroy, Dr. Boogie Primary Care Provider [phone] Leroy, Dr. Boogie Attending Provider [phone] Leroy, Dr. Boogie Referring Provider [phone] Dr. Davi Zayas Attending Provider [phone] Dr. Jamee Menard Emergency Provider [phone] Herbie Rodriguez Admit Provider Dr. Herbie Rodriguez Other Provider Dr. Rufina Gardner Attending Provider Dr. Rufina Gardner Other Provider DO GAURAV ARAYA Emergency Provider [phone] DOCTOR, NO FAMILY Primary Care Provider Dr. Chuyita Villarreal Primary Care Provider [phone] Dr. Chuyita Harper Attending Provider [phone] Dr. Chuyita Harper Referring Provider [phone] Dr. Davi Zayas Attending Provider Dr. Davi Zayas Referring Provider Dr. Jamee Menard Emergency Provider Dr. Herbie Rodriguez Admit Provider Dr. Herbie Rodriguez Other Provider [phone] Dr. Rufina Gardner Attending Provider Dr. Rufina Gardner Other Provider ANGELA HOLLINGSWORTH Attending Unavailable GAURAV ARAYA Attending Unavailable GAURAV ARAYA Primary Care Unavailable Leroy MICHELLE, Dr. Boogie Primary Care Provider Dr. Wiley Alfredo DO Referring Provider Dr. Wiley Alfredo DO Emergency Provider Oleghe, Efewongbe Referring Unavailable Oleharsh Efewongbe Attending Unavailable Olestevee, Efewongbe Primary Care Unavailable Oleghe, Efewongbe Primary Care Unavailable Wiley Alfredo Referring Unavailable Wilye Alfredo Attending Unavailable Hermann Sutherland Attending Unavailable Oleghe, Efewongbe Primary Care Unavailable Allergies Allergy Classification Reported Allergen(s) Allergy Type Date of Onset Reaction(s) Facility (7 sources) Gelatin Drug Allergy 2 Unknown [facility] (8 sources) Iodine Drug Allergy 2 Rash, Unspecified [facility] (3 sources) Penicillins Allergy to substance 3 PT UNSURE OF REACTION, Unspecified [facility] (2 sources) Iodine Drug Allergy 3 [facility] (1 source) Penicillins Drug allergy (disorder) 3 [facility] (1 source) Gelatin Drug Allergy 5 [facility] Medications Current Medications Medication Drug Class(es) Dates Sig (Normalized) Sig (Original) hydroCHLOROthiazide 25 mg oral tablet (20 sources) Thiazide Diuretic Start: 3 take 25 mg by mouth once daily Hydrochlorothiazide Active 25 MG PO 1 time daily March 12, 2023 12:00am Start: 05-05-2021 End: 02-14-2023 take 1 tablet by mouth once daily Hydrochlorothiazide 25 mg tablet Discontinued 25 mg PO DAILY 90 3 January 14, 2023 11:10am February 14, 2023 8:13am lisinopril 10 mg oral tablet (1 source) Angiotensin Converting Enzyme Inhibitor Start: 03-12-2023 take 10 mg by mouth once daily Lisinopril Active 10 MG PO 1 time daily March 12, 2023 12:00am losartan potassium 50 mg oral tablet (20 sources) Angiotensin 2 Receptor Nate Start: 10-15-2024 take 1 tablet by mouth once daily Losartan 50 mg tablet Active 50 mg PO DAILY 30 30 0 October 15, 2024 12:00am Start: 05-10-2021 End: 04-29-2023 take 1 tablet by mouth once daily Losartan 50 mg tablet Discontinued 50 mg PO DAILY 90 3 June 30, 2022 3:09pm April 29, 2023 10:11am mecobalamin (1 source) Start: 11-10-2023 mecobalamin (vitamin B12) Active 1 {tbl} PO DAILY November 10, 2023 12:00am meloxicam 15 mg oral tablet (1 source) Nonsteroidal Anti-inflammatory Drug Start: 11-27-2023 take 1 tablet by mouth once daily as needed for pain Meloxicam 15 mg tablet Active 15 mg PO DAILY as needed for pain 60 1 November 27, 2023 12:00am Multivitamin With Iron (6 sources) Start: 05-10-2021 [...] TABLET PO DAILY May 10, 2021 1:00am Multivitamin With Iron table t (1 source) Start: 05-10-2021 Multivitamin W ith Iron tablet Active 1 {tbl} PO DAILY May 10, 2021 1:00am Completed/Discontinued Medications Medication Drug Class(es) Dates Sig (Normalized) Sig (Original) amoxicillin 875 mg / clavulanate 125 mg oral tablet (7 sources) Penicillin-class Antibacterial Start: 08-12-2018 End: 08-19-2018 Amoxicillin-Pot Clavulanate 1 EACH tablet Discontinued 1 NMA PO TWICE A DAY 14 7 0 August 12, 2018 12:00am August 18, 2018 12:00am August 19, 2018 12:08am Start: 08-12-2018 End: 08-19-2018 Amoxicillin-Pot Clavulanate Discontinued 1 EACH PO TWICE A DAY 14 7 August 11, 2018 11:00pm August 18, 2018 11:08pm ferrous sulfate 325 mg oral tablet (5 sources) Start: 05-30-2022 End: 10-27-2022 take 1 tablet by mouth once daily Ferrous Sulfate 325 mg (65 mg iron) tablet Discontinued 325 mg PO DAILY May 30, 2022 1:00am October 27, 2022 11:24am hydrocortisone 25 mg/ml topical cream (7 sources) Corticosteroid Start: 09-04-2021 End: 12-05-2021 Hydrocortisone 2.5 % cream Discontinued 1 NMA TOPICAL TWICE A DAY as needed for rash 30 3 September 04, 2021 12:00am December 05, 2021 1:56pm metroNIDAZOLE 500 mg oral tablet (7 sources) Nitroimidazole Antimicrobial Start: 08-12-2018 End: 08-19-2018 take 1 tablet by mouth every eight hours Metronidazole 500 MG tablet Discontinued 500 mg PO Q8H 21 August 12, 2018 12:00am August 18, 2018 12:00am August 19, 2018 12:08am Mgyrwoyu-Woe-Fwop-Fa -Lutein (Centrum Silver Women Tablet) 1 EACH tablet (3 sources) Start: 08-09-2018 End: 05-10-2021 Mudjobzx-Ovu-Nvte-F a-Lutein (Centrum Silver Women Tablet) 1 EACH tablet Discontinued 1 EACH PO DAILY August 09, 2018 8:15pm May 10, 2021 9:59am Start: 08-09-2018 End: 05-10-2021 Shhwueun-Szf-Ifop-Fa-Lutein (Centrum Silver Women Tablet) 1 EACH tablet Discontinued 1 EACH PO DAILY August 08, 2018 11:00pm May 10, 2021 8:59am Start: 08-09-2018 End: 05-10-2021 Gqigqulx-Tdz-Reed-Fa-Lutein (Centrum Silver Women Tablet) 1 EACH tablet Discontinued 1 EACH PO DAILY August 09, 2018 12:00am May 10, 2021 9:59am Abmswszy-Eov-Vcdt-Fa-Vit K-L ut (Centrum Silver Women Tablet) 1 EACH tablet (4 sources) Start: 08-09-2018 End: 05-10-2021 Zvdfikjo-Zvi-Vugs-Fa-Vit K-L ut (Centrum Silver Women Tablet) 1 EACH tablet Discontinued 1 NMA PO DAILY August 09, 2018 12:00am May 10, 2021 9:59am supplement Start: 08-09-2018 End: 05-10-2021 Fwscxbye-Cxo-Cehy-Fa-Vit K-L ut (Centrum Silver Women Tablet) 1 EACH tablet Discontinued 1 EACH PO DAILY August 08, 2018 11:00pm May 10, 2021 8:59am Start: 08-09-2018 End: 05-10-2021 Rrsvlfkb-Fov-Prnx-Fa-Vit K-L ut (Centrum Silver Women Tablet) 1 EACH tablet Discontinued 1 EACH PO DAILY August 09, 2018 12:00am May 10, 2021 9:59am Problems Active Problems Problem Classification Problem Date Documented Date Episodic/Chronic Allergic reactions (10 sources) Inflammatory dermatosis; Translations: [Dermatitis, unspecified] Episodic Anxiety disorders (4 sources) Anxiety; Translations: [Anxiety disorder, unspecified] Onset: 03-12-2023 03-12-2023 Chronic Cardiac dysrhythmias (2 sources) Cardiac arrhythmia; Translations: [Cardiac arrhythmia, unspecified] 03-02-2023 Chronic Diabetes mellitus with complications (1 source) Type 2 diabetes mellitus with other specified complication; Translations: [Type 2 diabetes mellitus with other specified complication] Onset: 11-27-2023 Chronic Diabetes mellitus without complication (17 sources) Type 2 diabetes mellitus; Translations: [Type 2 diabetes mellitus without complications] Chronic Diabetes mellitus without complication (7 sources) High glucose level in blood; Translations: [Other abnormal glucose] 05-10-2021 Episodic E Codes: Fall (4 sources) Fall; Translations: [Unspecified fall, initial encounter] 02-13-2023 Episodic Essential hypertension (20 sources) Hypertensive disorder; Translations: [Essential (primary) hypertension] Chronic Nonspecific chest pain (7 sources) Chest pain; Translations: [Chest pain, unspecified] 05-13-2021 Episodic Nutritional deficiencies (8 sources) Cobalamin deficiency; Translations: [Deficiency of other specified B group vitamins] 05-30-2022 Episodic Other nervous system disorders (1 source) Carpal tunnel syndrome; Translations: [Carpal tunnel syndrome, bilateral upper limbs] 11-27-2023 Chronic Other non-traumatic joint disorders (1 source) Pain in unspecified knee; Translations: [Knee pain] 08-28-2023 Episodic Other nutritional; endocrine; and metabolic disorders (7 sources) Obesity; Translations: [Obesity, unspecified] 03-10-2022 Chronic Other nutritional; endocrine; and metabolic disorders (4 sources) Obesity, unspecified; Translations: [Obesity, unspecified] Chronic Other screening for suspected conditions (not mental disorders or infectious disease) (19 sources) Electrocardiogram abnormal; Translations: [Abnormal electrocardiogram [ECG] [EKG]] Episodic Residual codes; unclassified (4 sources) Mammogram declined; Translations: [Procedure and treatment not carried out because of patient's decision for unspecified reasons] 10-27-2022 Episodic Residual codes; unclassified (4 sources) Postmenopausal state; Translations: [Asymptomatic menopausal state] 10-27-2022 Episodic Residual codes; unclassified (2 sources) Procedure and treatment not carried out because of patient's decision for unspecified reasons; Translations: [Surgical or other procedure not carried out because of patient's decision] 10-27-2022 Episodic Superficial injury; contusion (4 sources) Contusion of head; Translations: [Contusion of unspecified part of head, initial encounter] 02-13-2023 Episodic Syncope (6 sources) Syncope; Translations: [Syncope and collapse] 02-13-2023 Episodic Past or Other Problems Problem Classification Problem Date Documented Da te Episodic/Chronic Cardiac dysrhythmias (2 sources) Palpitations; Translations: [Palpitations] Onset: 11-24-2023 11-18-2023 Episodic Results Test Name Value Interpretation Reference Range Facility 12 Lead EKGon 10-15-2024 12 Lead EKG [facility] Cardiovascular Services [address] [place] [address] 12 Lead EKG 10/15/24 1617 MR#: [id number] Acct: [id number] Name: DWAIN SUTHERLAND NOEL Rep #: [id number] : 1960 64 From: Howie Rhoades MD Attending Dr: Status: DEP ER Ordering Dr: Wiley Alfredo DO Date: 10/15/24 Location: ED Sex: F C Admitted: Test Reason : ANXIETY/HTN Blood Pressure : */* mmHG Vent. Rate : 99 BPM Atrial Rate : 99 BPM P-R Int : 186 ms QRS Dur : 94 ms QT Int : 364 ms P-R-T Axes : 57 -43 56 degrees QTcB Int : 467 ms Normal sinus rhythm Possible Left atrial enlargement Left axis deviation Low voltage QRS Abnormal ECG Confirmed by HOWIE RHOADES MD ([id number]), film or videotape editor JHONNY READ ([id number]) on 10/18/2024 6:41:23 AM Referred By: Wiley Alfredo Confirmed By: HOWIE RHOADES MD 10/18/24 0641 Date Howie Rhoades MD CC: Dr. Chuyita Harper MD; Dr. Wiley Alfredo, DO Signed Normal [facility] Absolute lymphocyte countOrd ered By: Wiley Alfredo on 10-15-2024 Lymphocytes Auto (Unsp spec) [#/Vol] 1.34 10*3/uL 0.83-4.51 [facility] Absolute neutrophil countOrd ered By: Wiley Alfredo on 10-15-2024 Neutrophils (Bld) [#/Vol] 2.7 10*3/uL 2.0-7.7 [facility] Anion gap in Serum or Plasma Ordered By: Wiley Alfredo on 10-15-2024 Anion gap [Moles/Vol] 11 mmol/L - [facility] Automated lymphocyte count a s percentage of total leukocytesOrdered By: Wiley Alfredo on 10-15-2024 Lymphocytes/100 WBC Auto (Unsp spec) 29.1 % [facility] BUN/creatinine ratioOrdered By: Wiley Alfredo on 10-15-2024 Urea nitrogen/Creatinine [Mass ratio] 20.0 mg/mg - [facility] Basic Metabolic Profile (BMP )on 10-15-2024 BUN/CRE 20.0 RATIO Normal 02-06 [facility] Comment on above: Performed By: #### L 501.50047, L501.9520, L100.0100, L500.2500, L506.0400, L501.4021 #### [facility] [address] [place], [address] Calcium [Mass/Vol] 9.6 mg/dL Normal 7.6-11.0 [facility] Comment on above: Performed By: #### L 501.23128, L501.9520, L100.0100, L500.2500, L506.0400, L501.4021 #### [facility] [address] [place], [address] Chloride [Moles/Vol] 103 mmol/L Normal 98-108 [facility] Comment on above: Performed By: #### L 501.83026, L501.9520, L100.0100, L500.2500, L506.0400, L501.4021 #### [facility] [address] [place], [address] CO2 [Moles/Vol] 24.6 mmol/L Normal 21.0-32.0 [facility] Comment on above: Performed By: #### L 501.37632, L501.9520, L100.0100, L500.2500, L506.0400, L501.4021 #### [facility] [address] [place], [address] Creatinine [Mass/Vol] 0.86 mg/dL Normal 0.70-1.20 [facility] Comment on above: Performed By: #### L 501.31893, L501.9520, L100.0100, L500.2500, L506.0400, L501.4021 #### [facility] [address] [place], [address] GAP 11 Normal 5-15 [facility] Comment on above: Performed By: #### L 501.83067, L501.9520, L100.0100, L500.2500, L506.0400, L501.4021 #### [facility] [address] [place], [address] GFR/1.73 sq M.predicted among non-blacks MDRD (S/P/Bld) [Vol rate/Area] 76 mL/min/{1.73_m2} Normal >60 [facility] Comment on above: Result Comment: mL/m in/1.73m2 CKD-EPI Creatinine Equation (2020) Performed By: #### L 501.96393, L501.9520, L100.0100, L500.2500, L506.0400, L501.4021 #### [facility] [address] [place], [address] Glucose [Mass/Vol] 199 mg/dL High 70-99 [facility] Comment on above: Performed By: #### L 501.72263, L501.9520, L100.0100, L500.2500, L506.0400, L501.4021 #### [facility] [address] [place], [address] Potassium [Moles/Vol] 3.8 mmol/L Normal 3.3-5.1 [facility] Comment on above: Performed By: #### L 501.58947, L501.9520, L100.0100, L500.2500, L506.0400, L501.4021 #### [facility] [address] [place], [address] Sodium [Moles/Vol] 139 mmol/L Normal 133-145 [facility] Comment on above: Performed By: #### L 501.04024, L501.9520, L100.0100, L500.2500, L506.0400, L501.4021 #### [facility] [address] [place], [address] Urea nitrogen [Mass/Vol] 17 mg/dL Normal 4-19 [facility] Comment on above: Performed By: #### L 501.92973, L501.9520, L100.0100, L500.2500, L506.0400, L501.4021 #### [facility] [address] [place], [address] Basophil percentageOrdered B y: Wiley Alfredo on 10-15-2024 Basophils/100 WBC (Bld) 1.1 % High 0-1 [facility] CBC W/Diff, Automatedon 09-19 Absolute Lymph 1.34 X10 3/uL Normal 0.83-4.51 [facility] Comment on above: Performed By: #### L 501.67237, L501.9520, L100.0100, L500.2500, L506.0400, L501.4021 #### [facility] [address] [place], [address] Absolute Neut 2.7 X10 3/uL Normal 2.0-7.7 [facility] Comment on above: Performed By: #### L 501.31874, L501.9520, L100.0100, L500.2500, L506.0400, L501.4021 #### [facility] [address] [place], [address] Basophils/100 WBC (Bld) 1.1 % High 0-1 [facility] Comment on above: Performed By: #### L 501.01595, L501.9520, L100.0100, L500.2500, L506.0400, L501.4021 #### [facility] [address] [place], [address] Eosinophils/100 WBC (Bld) 3.3 % Normal 0-5 [facility] Comment on above: Performed By: #### L 501.63740, L501.9520, L100.0100, L500.2500, L506.0400, L501.4021 #### [facility] [address] [place], [address] Erythrocyte distribution width (RBC) [Ratio] 12.6 % Normal 11.6-14.6 [facility] Comment on above: Performed By: #### L 501.93801, L501.9520, L100.0100, L500.2500, L506.0400, L501.4021 #### [facility] [address] [place], [address] Hematocrit (Bld) [Volume fraction] 43.9 % Normal 37-47 [facility] Comment on above: Performed By: #### L 501.55671, L501.9520, L100.0100, L500.2500, L506.0400, L501.4021 #### [facility] [address] [place], [address] Hemoglobin (Bld) [Mass/Vol] 15.0 g/dL Normal 12.0-15.0 [facility] Comment on above: Performed By: #### L 501.43996, L501.9520, L100.0100, L500.2500, L506.0400, L501.4021 #### [facility] [address] [place], [address] IG% 0.400 Normal 0.0-0.9 [facility] Comment on above: Result Comment: IG% - Immature Granulocytes (promyelocytes, myelocytes and metamyelocytes) > 1% indicates that a LEFT SHIFT is Present. Performed By: #### L 501.76023, L501.9520, L100.0100, L500.2500, L506.0400, L501.4021 #### [facility] [address] [place], [address] Lymphocytes/100 WBC (Bld) 29.1 % Normal 19-41 [facility] Comment on above: Performed By: #### L 501.80305, L501.9520, L100.0100, L500.2500, L506.0400, L501.4021 #### [facility] [address] [place], [address] MCH (RBC) [Entitic mass] 29.9 pg Normal 27.0-32.0 [facility] Comment on above: Performed By: #### L 501.28896, L501.9520, L100.0100, L500.2500, L506.0400, L501.4021 #### [facility] [address] [place], [address] MCHC (RBC) [Mass/Vol] 34.2 g/dL Normal 32-36 [facility] Comment on above: Performed By: #### L 501.83556, L501.9520, L100.0100, L500.2500, L506.0400, L501.4021 #### [facility] [address] [place], [address] MCV (RBC) [Entitic vol] 87.6 fL Normal 81-99 [facility] Comment on above: Performed By: #### L 501.03450, L501.9520, L100.0100, L500.2500, L506.0400, L501.4021 #### [facility] [address] [place], [address] Monocytes/100 WBC (Bld) 7.6 % Normal 0-10 [facility] Comment on above: Performed By: #### L 501.47031, L501.9520, L100.0100, L500.2500, L506.0400, L501.4021 #### [facility] [address] [place], [address] Neutrophils/100 WBC (Bld) 58.5 % Normal 47-70 [facility] Comment on above: Performed By: #### L 501.44899, L501.9520, L100.0100, L500.2500, L506.0400, L501.4021 #### [facility] [address] [place], [address] Nucleated RBC (Bld) [#/Vol] 0 10*3/uL Normal 0-5 [facility] Comment on above: Performed By: #### L 501.98542, L501.9520, L100.0100, L500.2500, L506.0400, L501.4021 #### [facility] [address] [place], [address] Platelet mean volume (Bld) [Entitic vol] 10.9 fL Normal 6.2-12.0 [facility] Comment on above: Performed By: #### L 501.07735, L501.9520, L100.0100, L500.2500, L506.0400, L501.4021 #### [facility] [address] [place], [address] Platelets (Bld) [#/Vol] 211 10*3/uL Normal 150-450 [facility] Comment on above: Performed By: #### L 501.92248, L501.9520, L100.0100, L500.2500, L506.0400, L501.4021 #### [facility] [address] [place], [address] RBC (Bld) [#/Vol] 5.01 10*6/uL Normal 4.2-5.4 [facility] Comment on above: Performed By: #### L 501.09138, L501.9520, L100.0100, L500.2500, L506.0400, L501.4021 #### [facility] [address] [place], [address] RDW SD 40.1 fl Normal 35.1-43.9 [facility] Comment on above: Performed By: #### L 501.47487, L501.9520, L100.0100, L500.2500, L506.0400, L501.4021 #### [facility] [address] [place], [address] WBC (Bld) [#/Vol] 4.6 10*3/uL Normal 4.4-11.0 [facility] Comment on above: Performed By: #### L 501.43015, L501.9520, L100.0100, L500.2500, L506.0400, L501.4021 #### [facility] [address] [place], [address] Carbon dioxide, total [Moles /volume] in Central venous bloodOrdered By: Wiley Alfredo on 10-15-2024 CO2 [Moles/Vol] 24.6 mmol/L 21.0-32.0 [facility] Chest PA and Lateralon 10-15 Chest PA and Lateral [facility] Imaging Services [address] [place] [address] Chest PA and Lateral MR#: [id number] Acct: [id number] Name: DWAIN SUTHERLAND NOEL Rep #: [id number] : 1960 F 64 From: Tressa Taylor nd, MD PCP: Dr. Chuyita Harper MD Status: REG ER Study: Chest PA and Lateral Date of Exam: 10/15/24 Exam# [id number] Ordering Dr: Wiley Alfredo DO PROCEDURE: CHEST PA AND LATERAL 10/15/2024 REASON FOR EXAM: HTN TECHNIQUE: CHEST PA AND LATERAL COMPARISON: Chest radiograph 02/13/2023. FINDINGS: Hardware: None. Heart: The heart size is normal. Mediastinum: The mediastinal contour is unremarkable. Lungs: No focal consolidation, pleural effusion or pneumothorax. Bones: The bones are unremarkable. Cholecystectomy clips. RAD/Chest PA and Lateral IMPRESSION: NO ACUTE FINDINGS. Reading Location: [facility] CC: Dr. Chuyita Harper MD; Dr. Wiley Alfredo DO Soda Tester: Signed Normal [facility] Chloride assayOrdered By: Michael Alfredo on 10-15-2024 Chloride [Moles/Vol] 103 mmol/L 98-108 [facility] Emergency Department Summary on 10-15-2024 Emergency Department Summary [facility] Medical Records Department [address] [place] [address] Emergency Department Summary 10/15/24 MR#: [id number] Acct: [id number] Name: DWAIN SUTHERLAND Rep #: [id number] : 1960 64 From: Wiley Alfredo DO PCP: Dr. Chuyita Harper MD Status:REG ER Location: ED HPI History of Present Illness Chief Complaint: Anxiety Narrative Narrative: Patient is a 64-year-old female with past medical history hypertension, anemia, vitamin B12 deficiency, type 2 diabetes who presents to the emergency department with the concern for panic attack. Patient states that she went to do anything specifically when she felt like she developed a panic attack. Patient notes that she has had this happen before her and came to the emergency department does not remember what medications were given. States that she took her blood pressure also at home and noted that it was high therefore she came here for further evaluation management. She notes that this was a wrist blood pressure cuff and notes that once I found out you could do a forearm pressure as opposed to a upper arm blood pressure does change my life she states that she does not like blood pressure taken on her upper arm as it squeezes her arm too tight. Patient states that she stopped taking her blood pressure medication months ago as she states that she wanted to get her blood pressure down with weight loss and on her own without any medication but states that this is not worked according to her [facility] Medical History Bilateral carpal tunnel syndrome Knee pain Arrhythmia [...] iron 1 tab PO DAILY 05/10/21 Unknown Hi story losartan 50 mg tablet 50 mg PO DAILY #90 tabs 04/29/23 0 11/07/23 Rx mecobalamin (vitamin B12) 1 tab PO DAILY 11/10/23 Unknown Hi story meloxicam 15 mg tablet 15 mg PO DAILY PRN pain #60 tabs 0 11/27/23 Unknown Rx losartan 50 mg tablet 50 mg PO DAILY 30 days #30 tabs Unknown Rx Allergy/AdvReac Type Severity Reaction Status Date / Time gelatin (Gelatin) Allergy Unknown Verified 10/15/24 15:16 iodine Allergy Rash Verified 10/15/24 15:16 Family History Father Alcoholism Heart disease Respiratory [...] in: walking frequency: daily ROS ROS ED ROS Narrative constitutional: Denies headache, lightness numbness, fevers, chills Eyes: Denies change in vision double vision blurry vision Cardiovascular: Denies chest pain, palpitations Respiratory: Denies coughing wheezing shortness of breath Abdomen: Denies abdominal pain nausea vomit diarrhea : Denies any urinary symptoms Neurological: Denies any numbness, weakness, tingling Musculoskeletal: Denies back pain Skin: Denies any rashes or lesions Psychiatric: Complains of concern for panic attack EXAM Physical Exam Narrative Exam Narrative: General: Patient lying in bed rest comfortably did not appear to be acute distress Head: Atraumatic, normocephalic Eyes: PERRL bilaterally, EOMI bilateral, no conjunctival injection noted Neck: Soft, supple, trachea midline Cardiovascular: Patient tachycardic with regular rhythm no murmurs gallops rubs noted Respiratory: Clear to auscultation bilaterally Abdomen: Soft, nondistended, nontender to palpation Extremities: +5/5 strength noted in the bilateral upper and lower extremities, radial pulses +2/4 and above extremities, no pedal edema exam Neurological: Patient following commands knew that she was at [facility] the year is 2024. NIH of 0 GCS 15 Skin: Warm, dry, intact no rashes or lesions noted Const Vital Signs: 10/15/24 15:15 10/15/24 17:14 10/15/24 19:00 Temperature 98.3 F Temperature Source Oral Pulse Rate 11 (more content not included)... Normal [facility] Eosinophil percentageOrdered By: Wiley Alfredo on 10-15-2024 Eosinophils/100 WBC (Bld) 3.3 % 0-5 [facility] Erythrocyte distribution wid th ratioOrdered By: Wiley Alfredo on 10-15-2024 Erythrocyte distribution width (RBC) [Ratio] 12.6 % 11.6-14.6 [facility] Erythrocyte distribution wid th standard deviationOrdered By: Wiley Alfredo on 10-15-2024 Erythrocyte distribution width (RBC) [Ratio] 40.1 fl 35.1-43.9 [facility] Free T3on 10-15-2024 Free T3 [Mass/Vol] 2.6 pg/mL Normal 2.18-3.98 [facility] Comment on above: Performed By: #### L 501.52138, L501.9520, L100.0100, L500.2500, L506.0400, L501.4021 #### [facility] Laboratory [facility] [place], [address] Free [id number] By: Wiley vega on 10-15-2024 Free T3 [Mass/Vol] 2.6 pg/mL 2.18-3.98 [facility] Glomerular filtration rate ( GFR) estimation/1.73 sq m using serum, plasma, or whole bOrdered By: Wiley Alfredo on 10-15-2024 GFR/1.73 sq M.predicted among non-blacks MDRD (S/P/Bld) [Vol rate/Area] 76 mL/min/{1.73_m2} >60 [facility] Comment on above: mL/min/1.73m2 CKD-EP I Creatinine Equation (2020) Hematocrit Auto (Bld) [Volum e fraction]Ordered By: Wiley Alfredo on 10-15-2024 Hematocrit (Bld) [Volume fraction] 43.9 % 37-47 [facility] Hemoglobin measurementOrdere d By: Wiley Alfredo on 10-15-2024 Hemoglobin (Bld) [Mass/Vol] 15.0 g/dL 12.0-15.0 [facility] Immature granulocytes/100 WB C Auto (Bld)Ordered By: Wiley Alfredo on 10-15-2024 Immature granulocytes/100 WBC (Bld) 0.400 % 0.0-0.9 [facility] Comment on above: IG% - Immature Granu locytes (promyelocytes, myelocytes and metamyelocytes) > 1% indicates that a LEFT SHIFT is Present. L499.0042on 10-15-2024 Trop T High Sen 7 ng/L Normal <=14 [facility] Comment on above: Performed By: #### L 499.0042 #### [facility] [address] [place], [address] L499.0043on 10-15-2024 Trop T High Sen Normal <=14 [facility] Comment on above: Result Comment: DEP FROM ED Performed By: #### L 499.0043 ####[facility] [address] [place], [address] L501.4021on 10-15-2024 Trop T High Sen < 6 Normal <=14 [facility] Comment on above: Performed By: #### L 501.59086, L501.9520, L100.0100, L500.2500, L506.0400, L501.4021 #### [facility] [address] [place], [address] MCV (mean corpuscular volume ) determinationOrdered By: Wiley Alfredo on 10-15-2024 MCV (RBC) [Entitic vol] 87.6 fL 81-99 [facility] Mean corpuscular hemoglobin (MCH) determinationOrdered By: Wiley Alfredo on 10-15-2024 MCH (RBC) [Entitic mass] 29.9 pg 27.0-32.0 [facility] Mean corpuscular hemoglobin concentration (MCHC) determinationOrdered By: Wiley Alfredo on 10-15-2024 MCHC (RBC) [Mass/Vol] 34.2 g/dL 32-36 [facility] Mean platelet volume determi nationOrdered By: Wiley Alfredo on 10-15-2024 Platelet mean volume (Bld) [Entitic vol] 10.9 fL 6.2-12.0 [facility] Monocyte percentageOrdered B y: Wiley Alfredo on 10-15-2024 Monocytes/100 WBC (Bld) 7.6 % 0-10 [facility] Neutrophil percentageOrdered By: Wiley Alfredo on 10-15-2024 Neutrophils/100 WBC (Bld) 58.5 % 47-70 [facility] Nucleated red blood cell per centageOrdered By: Wiley Alfredo on 10-15-2024 Nucleated RBC/100 WBC (Bld) [Ratio] 0 % 0-5 [facility] Platelet countOrdered By: Michael Alfredo on 10-15-2024 Platelets (Bld) [#/Vol] 211 10*3/uL 150-450 [facility] Potassium measurement (mass/ volume)Ordered By: Wiley Alfredo on 10-15-2024 Potassium (Unsp spec) [Mass/Vol] 3.8 mmol/L 3.3-5.1 [facility] RBC Auto (Bld) [#/Vol]Ordere d By: Wiley Alfredo on 10-15-2024 RBC (Bld) [#/Vol] 5.01 10*6/uL 4.2-5.4 [facility] Serum creatinine measurement (mass/volume)Ordered By: Wiley Alfredo on 10-15-2024 Creatinine [Mass/Vol] 0.86 mg/dL 0.70-1.20 [facility] Serum glucose measurement (m ass/volume)Ordered By: Wiley Alfredo on 10-15-2024 Glucose [Mass/Vol] 199 mg/dL High 70-99 [facility] Serum or plasma calcium mariana urement (mass/volume)Ordered By: Wiley Alfredo on 10-15-2024 Calcium [Mass/Vol] 9.6 mg/dL 7.6-11.0 [facility] Serum or plasma urea nitroge n measurement (mass/volume)Ordered By: Wiley Alfredo on 10-15-2024 Urea nitrogen [Mass/Vol] 17 mg/dL 4-19 [facility] Sodium levelOrdered By: Markel Alfredo on 10-15-2024 Sodium [Moles/Vol] 139 mmol/L 133-145 [facility] T4 Free Directon 10-15-2024 T4 FREE DIRECT 1.40 ng/dL Normal 0.76-1.46 [facility] Comment on above: Performed By: #### L 501.41657, L501.9520, L100.0100, L500.2500, L506.0400, L501.4021 ####[facility] [address] [place], [address] T4 freeOrdered By: Wiley vega on 10-15-2024 Free T4 [Mass/Vol] 1.40 ng/dL 0.76-1.46 [facility] TSH DL <= 0.005 mIU/L QnOrde red By: Wiley Alfredo on 10-15-2024 TSH Qn 1.770 uIU/mL 0.300-4.200 [facility] Thyroid Stim Hormone (TSH)on 10-15-2024 TSH 1.770 uIU/mL Normal 0.300-4.200 [facility] Comment on above: Performed By: #### L 501.82022, L501.9520, L100.0100, L500.2500, L506.0400, L501.4021 #### [facility] Laboratory [address] [place], [address] Troponin T.cardiac [Mass/vol ume] in Serum or Plasma by High sensitivity methodOrdered By: Wliey Alfredo on 10-15-2024 Troponin T.cardiac High sensitivity method [Mass/Vol] 7 ng/L <14 [facility] Troponin T.cardiac High sensitivity method [Mass/Vol] < 6 ng/L <14 [facility] White blood cell (WBC) count Ordered By: Wiley Alfredo on 10-15-2024 WBC (Bld) [#/Vol] 4.6 10*3/uL 4.4-11.0 [facility] s[facility]hi [facility]-27-2023 Internal Medicine Office Visit [facility] [address] [place] [address] OFFICE VISIT Date of Service: 11/27/23 MR#: [id number] Acct: [id number] Name: DWAIN SUTHERLAND Rep #: [id number] : 1960 Provider: Dr. 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 Normal [facility] 12 Lead EKGon 11-10-2023 12 Lead EKG [facility] Cardiovascular Services [address] [place] [address] 12 Lead EKG 11/10/23 0634 MR#: [id number] Acct: [id number] Name: DWAIN SUTHERLAND Rep #: [id number] : 1960 63 From: Howie Rhoades MD [...] Abnormal ECG Confirmed by HOWIE RHOADES MD ([id number]), film or videotape editor JHONNY READ ([id number]) on 11/11/2023 10:17:04 AM Referred By: Confirmed By:HOWIE RHOADES MD 11/11/23 1017 Date Howie Rhoades MD CC: Dr. Hermann Sutherland MD; Dr. Chuyita Harper MD Signed Normal [facility] Basic Metabolic Profile (BMP )on 11-10-2023 BUN/CRE 28.6 RATIO High 10-20 [facility] Comment on above: Order Comment: 'TROP ' Serial specimen #1, #2 or #3: 1 Performed By: #### L 501.4020, L100.0100, L500.2500 ####[facility] [address] [place], [address] CA,Total 9.0 mg/dL Normal 8.5-10.1 [facility] Comment on above: Order Comment: 'TROP ' Serial specimen #1, #2 or #3: 1 Performed By: #### L 501.4020, L100.0100, L500.2500 ####[facility] [address] [place], [address] Chloride [Moles/Vol] 107 mmol/L Normal 98-107 [facility] Comment on above: Order Comment: 'TROP ' Serial specimen #1, #2 or #3: 1 Performed By: #### L 501.4020, L100.0100, L500.2500 ####[facility] [address] [place], [address] CO2 [Moles/Vol] 24.0 mmol/L Normal 21.0-32.0 [facility] Comment on above: Order Comment: 'TROP ' Serial specimen #1, #2 or #3: 1 Performed By: #### L 501.4020, L100.0100, L500.2500 ####[facility] [address] [place], [address] Creatinine [Mass/Vol] 0.80 mg/dL Normal 0.55-1.02 [facility] Comment on above: Order Comment: 'TROP ' Serial specimen #1, #2 or #3: 1 Result Comment: The validity of the calculated GFR GFRAA in patients over 70 years has not been determined. Clinical correlation is essential. Performed By: #### L 501.4020, L100.0100, L500.2500 ####[facility] [address] [place], [address] ECRCL 76.38 ml/min Normal [facility] Comment on above: Order Comment: 'TROP ' Serial specimen #1, #2 or #3: 1 Performed By: #### L 501.4020, L100.0100, L500.2500 ####[facility] [address] [place], [address] EST GFR - AA 93 mL/min Normal >60 [facility] Comment on above: Order Comment: 'TROP ' Serial specimen #1, #2 or #3: 1 Result Comment: Afri can Cymraes GFR Calc Performed By: #### L 501.4020, L100.0100, L500.2500 ####[facility] [address] [place], [address] GAP 9 Normal 5-15 [facility] Comment on above: Order Comment: 'TROP ' Serial specimen #1, #2 or #3: 1 Performed By: #### L 501.4020, L100.0100, L500.2500 ####[facility] [address] [place], [address] GFR/1.73 sq M.predicted among non-blacks MDRD (S/P/Bld) [Vol rate/Area] 77 mL/min/{1.73_m2} Normal >60 [facility] Comment on above: Order Comment: 'TROP ' Serial specimen #1, #2 or #3: 1 Result Comment: Non- GFR Calc Performed By: #### L 501.4020, L100.0100, L500.2500 ####[facility] [address] [place], [address] Glucose [Mass/Vol] 160 mg/dL High 74-106 [facility] Comment on above: Order Comment: 'TROP ' Serial specimen #1, #2 or #3: 1 Result Comment: Fast ing Glucose result greater than or equal to 126 mg/dL suggests DIABETES MELLITUS per A.D.A. criteria. Performed By: #### L 501.4020, L100.0100, L500.2500 ####[facility] [address] [place], [address] Potassium [Moles/Vol] 3.6 mmol/L Normal 3.5-5.1 [facility] Comment on above: Order Comment: 'TROP ' Serial specimen #1, #2 or #3: 1 Performed By: #### L 501.4020, L100.0100, L500.2500 ####[facility] [address] [place], [address] Sodium [Moles/Vol] 140 mmol/L Normal 136-145 [facility] Comment on above: Order Comment: 'TROP ' Serial specimen #1, #2 or #3: 1 Performed By: #### L 501.4020, L100.0100, L500.2500 ####[facility] [address] [place], [address] Urea nitrogen [Mass/Vol] 23 mg/dL High 7-18 [facility] Comment on above: Order Comment: 'TROP ' Serial specimen #1, #2 or #3: 1 Performed By: #### L 501.4020, L100.0100, L500.2500 ####[facility] [address] [place], [address] CBC W/Diff, Automatedon 07-2 -2023 Absolute Lymph 2.49 X10 3/uL Normal 0.83-4.51 [facility] Comment on above: Performed By: #### L 501.4020, L100.0100, L500.2500 ####[facility] [address] [place], [address] Absolute Neut 1.9 X10 3/uL Low 2.0-7.7 [facility] Comment on above: Performed By: #### L 501.4020, L100.0100, L500.2500 ####[facility] [address] [place], [address] Basophils/100 WBC (Bld) 1.0 % Normal 0-1 [facility] Comment on above: Performed By: #### L 501.4020, L100.0100, L500.2500 ####[facility] [address] [place], [address] Eosinophils/100 WBC (Bld) 3.6 % Normal 0-5 [facility] Comment on above: Performed By: #### L 501.4020, L100.0100, L500.2500 ####[facility] [address] [place], [address] Erythrocyte distribution width (RBC) [Ratio] 12.5 % Normal 11.6-14.6 [facility] Comment on above: Performed By: #### L 501.4020, L100.0100, L500.2500 ####[facility] [address] [place], [address] Hematocrit (Bld) [Volume fraction] 45.5 % Normal 37-47 [facility] Comment on above: Performed By: #### L 501.4020, L100.0100, L500.2500 ####[facility] [address] [place], [address] Hemoglobin (Bld) [Mass/Vol] 15.4 g/dL High 12.0-15.0 [facility] Comment on above: Performed By: #### L 501.4020, L100.0100, L500.2500 ####[facility] [address] [place], [address] IG% 0.200 Normal 0.0-0.9 [facility] Comment on above: Result Comment: IG% - Immature Granulocytes (promyelocytes, myelocytes and metamyelocytes) > 1% indicates that a LEFT SHIFT is Present. Performed By: #### L 501.4020, L100.0100, L500.2500 ####[facility] [address] [place], [address] Lymphocytes/100 WBC (Bld) 50.1 % High 19-41 [facility] Comment on above: Performed By: #### L 501.4020, L100.0100, L500.2500 ####[facility] [address] [place], [address] MCH (RBC) [Entitic mass] 30.2 pg Normal 27.0-32.0 [facility] Comment on above: Performed By: #### L 501.4020, L100.0100, L500.2500 ####[facility] [address] [place], [address] MCHC (RBC) [Mass/Vol] 33.8 g/dL Normal 32-36 [facility] Comment on above: Performed By: #### L 501.4020, L100.0100, L500.2500 ####[facility] [address] [place], [address] MCV (RBC) [Entitic vol] 89.2 fL Normal 81-99 [facility] Comment on above: Performed By: #### L 501.4020, L100.0100, L500.2500 ####[facility] [address] [place], [address] Monocytes/100 WBC (Bld) 6.6 % Normal 0-10 [facility] Comment on above: Performed By: #### L 501.4020, L100.0100, L500.2500 ####[facility] [address] [place], [address] Neutrophils/100 WBC (Bld) 38.5 % Low 47-70 [facility] Comment on above: Performed By: #### L 501.4020, L100.0100, L500.2500 ####[facility] [address] [place], [address] Nucleated RBC (Bld) [#/Vol] 0 10*3/uL Normal 0-5 [facility] Comment on above: Performed By: #### L 501.4020, L100.0100, L500.2500 ####[facility] [address] [place], [address] Platelet mean volume (Bld) [Entitic vol] 10.7 fL Normal 6.2-12.0 [facility] Comment on above: Performed By: #### L 501.4020, L100.0100, L500.2500 ####[facility] [address] [place], [address] Platelets (Bld) [#/Vol] 204 10*3/uL Normal 150-450 [facility] Comment on above: Performed By: #### L 501.4020, L100.0100, L500.2500 ####[facility] [address] [place], [address] RBC (Bld) [#/Vol] 5.10 10*6/uL Normal 4.2-5.4 [facility] Comment on above: Performed By: #### L 501.4020, L100.0100, L500.2500 ####[facility] [address] [place], [address] RDW SD 41.1 fl Normal 35.1-43.9 [facility] Comment on above: Performed By: #### L 501.4020, L100.0100, L500.2500 ####[facility] [address] [place], [address] WBC (Bld) [#/Vol] 5.0 10*3/uL Normal 4.4-11.0 [facility] Comment on above: Performed By: #### L 501.4020, L100.0100, L500.2500 ####[facility] [address] [place], [address] Emergency Department Summary on 11-10-2023 Emergency Department Summary [facility] Medical Records Department [address] [place] [address] Emergency Department Summary 11/10/23 MR#: [id number] Acct: [id number] Name: DWAIN SUTHERLAND Rep #: [id number] : 1960 63 From: Hermann Sutherland MD [...] unremarkable, this is all according to her. [facility] Medical History Knee pain Arrhythmia Contusion of [...] and clear (more content not included)... Normal [facility] L501.4020on 11-10-2023 TROPONIN-I HS 3 pg/mL Normal 3.0-54.0 [facility] Comment on above: Order Comment: 'TROP ' Serial specimen #1, #2 or #3: 1 Result Comment: Plea se Note: New Test Units and Gender Specific Reference Ranges. For more information see Policy Stat Procedure [facility] High Sensitivity Troponin (TNIH) and attachments. Performed By: #### L 501.4020, L100.0100, L500.2500 ####[facility] [address] [place], [place], [address] Absolute lymphocyte countOrd ered By: Chuyita Harper on 04-27-2023 Lymphocytes Auto (Unsp spec) [#/Vol] 1.58 10*3/uL 0.83-4.51 [facility] Basophil percentageOrdered B y: Chuyita Harper on 04-27-2023 Basophils/100 WBC (Bld) 0.9 % 0-1 [facility] Bilirubin [Mass/Vol] 0.60 mg/dL 0.20-1.00 [facility] Comment on above: For patients on eltr ombopag therapy, use of Dimension [facility] TBIL is not recommended. Chloride [Moles/Vol] 108 mmol/L 98-107 [facility] Cholesterol [Mass/Vol] 173 mg/dL <200 [facility] Comment on above: <200 mg/dL Desirable 200-240 mg/dL Borderline >240 mg/dL High Risk Eosinophils/100 WBC (Bld) 2.9 % 0-5 [facility] Glucose [Mass/Vol] 146 mg/dL 74-106 [facility] Comment on above: Fasting Glucose resu lt greater than or equal to 126 mg/dL suggests DIABETES MELLITUS per A.D.A. criteria. Neutrophils (Bld) [#/Vol] 2.5 10*3/uL 2.0-7.7 [facility] Neutrophils/100 WBC (Bld) 55.5 % 47-70 [facility] Potassium [Moles/Vol] 4.0 mmol/L 3.5-5.1 [facility] Protein [Mass/Vol] 6.9 g/dL 6.4-8.2 [facility] Sodium [Moles/Vol] 141 mmol/L 136-145 [facility] Triglyceride [Mass/Vol] 110 mg/dL <199 [facility] Comment on above: The drugs N-Acetylcy steine and Metamizole may falsely depress this assay.Serum Triglycerides Reference Interval Normal <150 mg/dL Borderline high 150 - 199 mg/dL High 200 - 499 mg/dL Very High > or = 500 mg/dL WBC (Bld) [#/Vol] 4.5 10*3/uL 4.4-11.0 [facility] Blood erythrocytes count (nu mber/volume)Ordered By: Chuyita Harper on 04-27-2023 RBC (Bld) [#/Vol] 4.88 10*6/uL 4.2-5.4 [facility] Blood hemoglobin measurement (mass/volume)Ordered By: Chuyita Harper on 04-27-2023 Hemoglobin (Bld) [Mass/Vol] 14.5 g/dL 12.0-15.0 [facility] Blood lymphocytes/100 leukoc ytesOrdered By: Chuyita Harper on 04-27-2023 Lymphocytes/100 WBC (Bld) 34.8 % 19-41 [facility] Blood monocytes/100 leukocyt esOrdered By: Chuyita Harper on 04-27-2023 Monocytes/100 WBC (Bld) 5.7 % 0-10 [facility] Blood platelet mean volumeOr dered By: Chuyita Harper on 04-27-2023 Platelet mean volume (Bld) [Entitic vol] 11.3 fL 6.2-12.0 [facility] Determination of erythrocyte mean corpuscular volume (MCV)Ordered By: Chuyita Harper on 04-27-2023 MCV (RBC) [Entitic vol] 92.2 fL 81-99 [facility] Hematocrit Auto (Bld) [Volum e fraction]Ordered By: Chuyita Harper on 04-27-2023 Hematocrit (Bld) [Volume fraction] 45.0 % 37-47 [facility] Laboratory - Chemistry and C hemistry - challengeOrdered By: Chuyita Harper on 04-27-2023 ALP [Catalytic activity/Vol] 74 U/L 45-117 [facility] ALT [Catalytic activity/Vol] 26 U/L 13-56 [facility] CO2 [Moles/Vol] 28.0 mmol/L 21.0-32.0 [facility] Cobalamin (Vitamin B12) [Mass/Vol] 561 pg/mL 211-911 [facility] Globulin (S) [Mass/Vol] 2.9 g/dL 2.2-4.2 [facility] Urea nitrogen/Creatinine [Mass ratio] 15.8 mg/mg 10-20 [facility] Laboratory - Hematology and Cell countsOrdered By: Chuyita Harper on 04-27-2023 Erythrocyte distribution width (RBC) [Entitic vol] 42.5 fL 35.1-43.9 [facility] Erythrocyte distribution width (RBC) [Ratio] 12.6 % 11.6-14.6 [facility] Immature granulocytes/100 WBC (Bld) 0.200 % 0.0-0.9 [facility] Comment on above: IG% - Immature Granu locytes (promyelocytes, myelocytes and metamyelocytes) > 1% indicates that a LEFT SHIFT is Present. MCH (RBC) [Entitic mass] 29.7 pg 27.0-32.0 [facility] Nucleated RBC/100 WBC (Bld) [Ratio] 0 % 0-5 [facility] MCHC Auto (RBC) [Mass/Vol]Or dered By: Chuyita Harper on 04-27-2023 MCHC (RBC) [Mass/Vol] 32.2 g/dL 32-36 [facility] No Panel InformationOrdered By: Chuyita Harper on 04-27-2023 Estimated GFR (MDRD) Amer 91 mL/min >60 [facility] Comment on above: GFR Calc Estimated GFR (MDRD) Non-Af Amer 75 mL/min >60 [facility] Comment on above: Non- GFR Calc Platelets bldOrdered By: Miguel Harper on 04-27-2023 Platelets (Bld) [#/Vol] 253 10*3/uL 150-450 [facility] Serum or plasma albumin mariana urement (mass/volume)Ordered By: Chuyita Harper on 04-27-2023 Albumin [Mass/Vol] 4.0 g/dL 3.2-5.0 [facility] Serum or plasma albumin/glob ulin mass ratioOrdered By: Chuyita Harper on 04-27-2023 Albumin/Globulin [Mass ratio] 1.4 {ratio} 0.9-2.4 [facility] Serum or plasma calcium mariana urement (mass/volume)Ordered By: Chuyita Harper on 04-27-2023 Calcium [Mass/Vol] 9.3 mg/dL 8.5-10.1 [facility] Serum or plasma cholesterol in HDL measurement (mass/volume)Ordered By: Chuyita Harper on 04-27-2023 Cholesterol in HDL [Mass/Vol] 44 mg/dL >40 [facility] Comment on above: The drugs N-Acetylcy steine and Metamizole may falsely depress this assay. Reference Range HDL <40 mg/dL Low HDL Cholesterol HDL >or= 60 mg/dL High HDL Cholesterol Serum or plasma cholesterol in VLDL measurement (mass/volume)Ordered By: Chuyita Harper on 04-27-2023 Cholesterol in VLDL [Mass/Vol] 22 mg/dL 5-40 [facility] Serum or plasma creatinine m easurement (mass/volume)Ordered By: Chuyita Harper on 04-27-2023 Creatinine [Mass/Vol] 0.82 mg/dL 0.55-1.02 [facility] Comment on above: The validity of the calculated GFR & GFRAA in patients over 70 years has not been determined. Clinical correlation is essential. Serum or plasma low density lipoprotein (LDL) cholesterol measurement (mass/volume)Ordered By: Chuyita Harper on 04-27-2023 Cholesterol in LDL [Mass/Vol] 107 mg/dL 0-130 [facility] Serum or plasma urea nitroge n measurement (mass/volume)Ordered By: Chuyita Harper on 04-27-2023 Urea nitrogen [Mass/Vol] 13 mg/dL 7-18 [facility] Thin prep Papanicolaou smear with manual screeningOrdered By: Chuyita Harper on 04-27-2023 Thin prep Papanicolaou smear with manual screening 21 U/L 15-37 [facility] Thin prep Papanicolaou smear with manual screening 5 5-15 [facility] Whole blood hemoglobin A1c/t otal hemoglobin ratio (mass fraction)Ordered By: Chuyita Harper on 04-27-2023 HbA1c (Bld) [Mass fraction] 6.2 % 3.8-5.6 [facility] Comment on above: Normal < 5.7 % Predi abetic 5.7 - 6.4 % Diabetic >or= 6.5 % Please note range changes. Alanine aminotransferase [En zymatic activity/volume] in Serum or PlasmaOrdered By: JACQUE PICKETT on 03-12-2023 ALT [Catalytic activity/Vol] 27 U/L 10- [facility] Basophils Auto (Bld) [#/Vol] Ordered By: JACQUE PICKETT on 03-12-2023 Basophils (Bld) [#/Vol] 0.05 10*3/uL 0.0-0.2 [facility] Basophils/100 WBC Auto (Bld) Ordered By: JACQUE PICKETT on 03-12-2023 Basophils/100 WBC (Bld) 1.1 % High 0-1.0 [facility] Blood Glucose Meteron 2022 Glucose [Mass/Vol] 212 mg/dL High 70-100 [facility] Comment on above: Performed By: #### A CC #### [facility] [address] [place] [address] , Rm Callahan M.D. FCAP, FASCP Blood hemoglobin measurement (mass/volume)Ordered By: JACQUE PICKETT on 03-12-2023 Hemoglobin (Bld) [Mass/Vol] 15.1 g/dL 11.7-15.7 [facility] CBC With Differentialon 02-19 Basophils Absolute Auto 0.05 10*3/uL Normal 0.0-0.2 [facility] Comment on above: Performed By: #### C BCD #### [address] [id number] , Rm Callahan M.D. FCAP, FASCP Basophils/100 WBC (Bld) 1.1 % High 0-1.0 [facility] Comment on above: Performed By: #### C BCD #### [address] [id number] , Rm Callahan M.D. FCAP, FASCP Differential Type? Auto Differential Normal [facility] Comment on above: Performed By: #### C BCD #### [address] [id number] , Rm Callahan M.D. FCAP, FASCP Eosinophils (Bld) [#/Vol] 0.07 10*3/uL Normal 0.0-0.5 [facility] Comment on above: Performed By: #### C BCD #### [address] [id number] , Rm Callahan M.D. FCAP, FASCP Eosinophils/100 WBC (Bld) 1.5 % Normal 0.0-3.0 [facility] Comment on above: Performed By: #### C BCD #### [address] [id number] , Rm Callahan M.D. FCAP, FASCP Hematocrit (Bld) [Volume fraction] 44.3 % Normal 35.0-47.0 [facility] Comment on above: Performed By: #### C BCD #### [address] [id number] , Rm Callahan M.D. FCAP, FASCP Hemoglobin (Bld) [Mass/Vol] 15.1 g/dL Normal 11.7-15.7 [facility] Comment on above: Performed By: #### C BCD #### [address] [id number] , Rm Callahan M.D. FCAP, FASCP Immature Gran Absolute Auto 0.01 10*3/uL Normal 0.01-0.2 [facility] Comment on above: Performed By: #### C BCD #### [address] [id number] , Rm Callahan M.D. FCAP, FASCP Immature granulocytes/100 WBC (Bld) 0.2 % Normal 0-0.9 [facility] Comment on above: Performed By: #### C BCD #### [address] [address] , Rm Callahan M.D. FCAP, FASCP Lymphocytes (Bld) [#/Vol] 1.43 10*3/uL Low 1.5-4.0 [facility] Comment on above: Performed By: #### C BCD #### [address] [id number] , Rm Callahan M.D. FCAP, FASCP Lymphocytes/100 WBC (Bld) 30.2 % Normal 20.0-40.0 [facility] Comment on above: Performed By: #### C BCD #### [address] [id number] , Rm Callahan M.D. FCAP, FASCP MCH (RBC) [Entitic mass] 30.1 pg Normal 27.0-40.0 [facility] Comment on above: Performed By: #### C BCD #### [address] [id number] , Rm Callahan M.D. FCAP, FASCP Mean Corpusc Hgb Concentration 34.1 g/dL Normal 31.0-36.0 [facility] Comment on above: Performed By: #### C BCD #### [address] [id number] , Isamar Lopez, FASCP Mean Corpuscular Volume 88.4 CU uM Normal 80.0-100.0 [facility] Comment on above: Performed By: #### C BCD #### [address] [id number] , Rm Callahan M.D. FCAP, FASCP Monocytes (Bld) [#/Vol] 0.32 10*3/uL Normal 0.2-0.8 [facility] Comment on above: Performed By: #### C BCD #### [address] [id number] , Rm Callahan M.D. FCAP, FASCP Monocytes/100 WBC (Bld) 6.8 % Normal 4.0-10.0 [facility] Comment on above: Performed By: #### C BCD #### [address] [id number] , Rm Callahan M.D. FCAP, FASCP Neutrophils Absolute Auto 2.86 10*3/uL Normal 2.0-7.0 [facility] Comment on above: Performed By: #### C BCD #### [address] [id number] , Rm Callahan M.D. FCAP, FASCP Neutrophils/100 WBC (Bld) 60.2 % Normal 54.0-62.0 [facility] Comment on above: Performed By: #### C BCD #### [address] [id number] , Rm J. Macatol, M.D. FCAP, FASCP Nucleated RBC (Bld) [#/Vol] 0.00 10*3/uL Normal -0 [facility] Comment on above: Performed By: #### C BCD #### [address] [id number] , Rm aCllahan M.D. FCAP, FASCP Nucleated RBC's % 0.0 /100WBC Normal -0 [facility] Comment on above: Performed By: #### C BCD #### [address] [address] , Rm Callahan M.D. FCAP, FASCP Platelets (Bld) [#/Vol] 237 10*3/uL Normal 130-440 [facility] Comment on above: Performed By: #### C BCD #### [address] [address] , Rm Callahan M.D. FCAP, FASCP RBC (Bld) [#/Vol] 5.01 10*6/uL Normal 3.80-5.20 [facility] Comment on above: Performed By: #### C BCD #### [address] [address] , Rm Callahan M.D. FCAP, FASCP Red Cell Distribution 13.1 Normal 11.5-14.5 [facility] Comment on above: Performed By: #### C BCD #### [address] [place] [address] , Rm Callahan M.D. FCAP, FASCP WBC (Bld) [#/Vol] 4.7 10*3/uL Normal 3.5-11.0 [facility] Comment on above: Performed By: #### C BCD #### [address] [id number] , Rm Callahan M.D. FCAP, FASCP Comprehensive Metabolic Pane solomon 03-12-2023 Albumin [Mass/Vol] 4.5 g/dL Normal 4.0-4.9 [facility] Comment on above: Performed By: #### T PNT-hs, ADP #### [address], [place] [id number] , Isamar LopezAP, FASCP ALP [Catalytic activity/Vol] 84 U/L Normal 35-104 [facility] Comment on above: Performed By: #### T PNT-hs, ADP #### [address], [place] [id number] , Isamar LopezAP, FASCP ALT [Catalytic activity/Vol] 27 U/L Normal 10-35 [facility] Comment on above: Performed By: #### T PNT-hs, ADP #### [address], [place] [id number] , Isamar LopezAP, FASCP Anion gap [Moles/Vol] 15 mmol/L Normal 9-15 [facility] Comment on above: Performed By: #### T PNT-hs, ADP #### [address], [place] [id number] , Rm Callahan M.D. FCAP, FASCP AST [Catalytic activity/Vol] 26 U/L Normal 10-35 [facility] Comment on above: Result Comment: HEMO LYSIS PRESENT. INTERPRET RESULT WITH CAUTION. Performed By: #### T PNT-hs, ADP #### [address] [place] [id number] , Isamar LopezAP, FASCP Bilirubin [Mass/Vol] 0.4 mg/dL Normal 0.2-1.2 [facility] Comment on above: Performed By: #### T PNT-hs, ADP #### [address] [id number] , Rm Callahan M.D. FCAP, FASCP Calcium [Mass/Vol] 10.2 mg/dL Normal 8.8-10.2 [facility] Comment on above: Performed By: #### T PNT-hs, ADP #### [address] [id number] , Rm Callahan M.D. FCAP, FASCP Chloride [Moles/Vol] 99 mmol/L Normal 98-107 [facility] Comment on above: Performed By: #### T PNT-hs, ADP #### [address] [address] , Isamar Lopez, FASCP CO2 [Moles/Vol] 23 mmol/L Normal 22-29 [facility] Comment on above: Performed By: #### T PNT-hs, ADP #### [address] [address] , Isamar LopezAP, FASCP Creatinine [Mass/Vol] 0.73 mg/dL Normal 0.51-0.95 [facility] Comment on above: Performed By: #### T PNT-hs, ADP #### [address] [address] , Rm Callahan M.D. FCAP, FASCP GFR/1.73 sq M.predicted among non-blacks MDRD (S/P/Bld) [Vol rate/Area] mL/min/{1.73_m2} Normal [facility] Comment on above: Result Comment: THE GFR IS ESTIMATED USING THE MDRD STUDY EQUATION. *NOTE* IF THE RACE OF THE PATIENT WAS UNKNOWN AT THE TIME OF REGISTRATION, AND THE PATIENT IS , MULTIPLY THE EGFR RESULT PROVIDED BY 1.21. NORMAL: EGFR >60.0 Performed By: #### T PNT-hs, ADP #### [address] [id number] , Rm Callahan M.D. FCAP, FASCP Glucose [Mass/Vol] 219 mg/dL High 70-100 [facility] Comment on above: Result Comment: INTR EPRETATION FOR FASTING BLOOD GLUCOSE: 70-100 mg/dl NORMAL GLUCOSE TOLERANCE 100-125 mg/dl IMPAIRED FASTING GLUCOSE (PRE-DIABETES) >125 mg/dl DIABETES - ON MORE THAN ONE TESTING Performed By: #### T PNT-hs, ADP #### [address] [address] , Rm Callahan M.D. FCAP, FASCP Potassium [Moles/Vol] 3.7 mmol/L Normal 3.6-5.0 [facility] Comment on above: Result Comment: HEMO LYSIS PRESENT. INTERPRET RESULT WITH CAUTION. Performed By: #### T PNT-hs, ADP #### [address] [id number] , Isamar Lopez, FASCP Protein [Mass/Vol] 7.1 g/dL Normal 6.4-8.3 [facility] Comment on above: Performed By: #### T PNT-hs, ADP #### [address] [id number] , Rm Callahan M.D. FCAP, FASCP Sodium [Moles/Vol] 137 mmol/L Normal 136-145 [facility] Comment on above: Performed By: #### T PNT-hs, ADP #### [address] [address] , Rm Callahan M.D. FCAP, FASCP Urea nitrogen [Mass/Vol] 15.2 mg/dL Normal 8.0-23.0 [facility] Comment on above: Performed By: #### T PNT-hs, ADP #### [facility] [address] [place] [address] , Rm Callahan M.D. FCAP, FASCP Differential cell count meth od - BloodOrdered By: JACQUE PICKETT on 03-12-2023 Differential cell count method Nom (Bld) Auto differential [facility] Eosinophils Auto (Bld) [#/Vo l]Ordered By: JACQUE PICKETT on 03-12-2023 Eosinophils (Bld) [#/Vol] 0.07 10*3/uL 0.0-0.5 [facility] Eosinophils/100 WBC Auto (Bl d)Ordered By: JACQUE PICKETT on 03-12-2023 Eosinophils/100 WBC (Bld) 1.5 % 0.0-3.0 [facility] Erythrocyte distribution wid th Auto (RBC) [Ratio]Ordered By: JACQUE PICKETT on 03-12-2023 Erythrocyte distribution width (RBC) [Ratio] 13.1 % 11.5-14.5 [facility] Glomerular filtration rate/1 .73 sq M.predicted [Volume Rate/Area] in Serum, Plasma orOrdered By: JACQUE PICKETT on 03-12-2023 GFR/1.73 sq M.predicted (S/P/Bld) [Vol rate/Area] mL/min [facility] Comment on above: NORMAL: EGFR >60.0TH E GFR IS ESTIMATED USING THE MDRD STUDY EQUATION.*NOTE* IF THE RACE OF THE PATIENT WAS UNKNOWN AT THE TIME OFREGISTRATION, AND THE PATIENT IS , MULTIPLYTHE EGFR RESULT PROVIDED BY 1.21. Glucose (Bld) [Mass/Vol]Orde red By: ED DOCTOR on 03-12-2023 Glucose [Mass/Vol] 212 mg/dL High 70-100 [facility] Hematocrit Auto (Bld) [Volum e fraction]Ordered By: JACQUE PICKETT on 03-12-2023 Hematocrit (Bld) [Volume fraction] 44.3 % 35.0-47.0 [facility] Immature granulocytes Auto ( Bld) [#/Vol]Ordered By: JACQUE PICKETT on 03-12-2023 Immature granulocytes (Bld) [#/Vol] 0.01 10*3/uL 0.01-0.2 [facility] Immature granulocytes/100 WB C Auto (Bld)Ordered By: JACQUE PICKETT on 03-12-2023 Immature granulocytes/100 WBC (Bld) 0.2 % 0-0.9 [facility] Lymphocytes Auto (Bld) [#/Vo l]Ordered By: JACQUE PICKETT on 03-12-2023 Lymphocytes (Bld) [#/Vol] 1.43 10*3/uL Low 1.5-4.0 [facility] Lymphocytes/100 WBC Auto (Bl d)Ordered By: JACQUE PICKETT on 03-12-2023 Lymphocytes/100 WBC (Bld) 30.2 % 20.0-40.0 [facility] MCH Auto (RBC) [Entitic mass ]Ordered By: JACQUE PICKETT on 03-12-2023 MCH (RBC) [Entitic mass] 30.1 pg 27-40 [facility] MCHC Auto (RBC) [Mass/Vol]Or dered By: JACQUE PICKETT on 03-12-2023 MCHC (RBC) [Mass/Vol] 34.1 g/dL 31-36 [facility] MCV Auto (RBC) [Entitic vol] Ordered By: JACQUE PICKETT on 03-12-2023 MCV (RBC) [Entitic vol] 88.4 CU uM 80.0-100.0 M [facility] Monocytes Auto (Bld) [#/Vol] Ordered By: JACQUE PICKETT on 03-12-2023 Monocytes (Bld) [#/Vol] 0.32 10*3/uL 0.2-0.8 [facility] Monocytes/100 WBC Auto (Bld) Ordered By: JACQUE PICKETT on 03-12-2023 Monocytes/100 WBC (Bld) 6.8 % 4.0-10.0 M [facility] Neutrophils Auto (Bld) [#/Vo l]Ordered By: JACQUE PICKETT on 03-12-2023 Neutrophils (Bld) [#/Vol] 2.86 10*3/uL 2.0-7.0 [facility] Neutrophils/100 WBC Auto (Bl d)Ordered By: JACQUE PICKETT on 03-12-2023 Neutrophils/100 WBC (Bld) 60.2 % 54.0-62.0 [facility] Nucleated RBC Auto (Bld) [#/ Vol]Ordered By: JACQUE CHRISTIANSONITE on 03-12-2023 Nucleated RBC (Bld) [#/Vol] 0.00 10*3/uL <0 [facility] Nucleated RBC/100 WBC Auto ( Bld) [Ratio]Ordered By: JACQUE CHRISTIANSONITE on 03-12-2023 Nucleated RBC/100 WBC (Bld) [Ratio] 0.0 /100WBC <0 [facility] Platelets Auto (Bld) [#/Vol] Ordered By: JACQUE PICKETT on 03-12-2023 Platelets (Bld) [#/Vol] 237 10*3/uL 130-440 [facility] RBC Auto (Bld) [#/Vol]Ordere d By: JACQUE PICKETT on 03-12-2023 RBC (Bld) [#/Vol] 5.01 10*6/uL 3.80-5.20 [facility] Serum or plasma albumin mariana urement (mass/volume)Ordered By: JACQUE NIEVES on 03-12-2023 Albumin [Mass/Vol] 4.5 g/dL 4.0-4.9 [facility] Serum or plasma alkaline reece sphatase measurement (enzymatic activity/volume)Ordered By: JACQUE NIEVES on 03-12-2023 ALP [Catalytic activity/Vol] 84 U/L 35-104 [facility] Serum or plasma anion gapOrd ered By: JACQUE MAXIMUSLUCHOBIJAN on 03-12-2023 Anion gap [Moles/Vol] 15 mmol/L 9-15 [facility] Serum or plasma aspartate am inotransferase measurement (enzymatic activity/volume)Ordered By: JACQUE NIEVES on 03-12-2023 AST [Catalytic activity/Vol] 26 U/L 10-35 [facility] Comment on above: HEMOLYSIS PRESENT. I NTERPRET RESULT WITH CAUTION. Serum or plasma calcium mariana urement (mass/volume)Ordered By: JACQUE PICKETT on 03-12-2023 Calcium [Mass/Vol] 10.2 mg/dL 8.8-10.2 [facility] Serum or plasma carbon dioxi de, total measurement (moles/volume)Ordered By: JACQUE ESTRELLABRO on 03-12-2023 CO2 [Moles/Vol] 23 mmol/L 22-29 [facility] Serum or plasma chloride daisy surement (moles/volume)Ordered By: JACQUE MAXIMUSLUCHOBIJAN on 03-12-2023 Chloride [Moles/Vol] 99 mmol/L 98-107 [facility] Serum or plasma creatinine m easurement (mass/volume)Ordered By: JACQUE NIEVES on 03-12-2023 Creatinine [Mass/Vol] 0.73 mg/dL 0.51-0.95 [facility] Serum or plasma glucose mariana urement (mass/volume)Ordered By: JACQUE NIEVES on 03-12-2023 Glucose [Mass/Vol] 219 mg/dL High 70-100 [facility] Comment on above: INTREPRETATION FOR F ASTING BLOOD GLUCOSE: 70-100 mg/dl NORMAL GLUCOSE [id number] mg/dl IMPAIRED FASTING GLUCOSE (PRE-DIABETES)>125 mg/dl DIABETES - ON MORE THAN ONE TESTING Serum or plasma potassium me asurement (moles/volume)Ordered By: JACQUE ESTRELLABRO on 03-12-2023 Potassium [Moles/Vol] 3.7 mmol/L 3.6-5.0 [facility] Comment on above: HEMOLYSIS PRESENT. I NTERPRET RESULT WITH CAUTION. Serum or plasma protein mariana urement (mass/volume)Ordered By: JACQUE NIEVES on 03-12-2023 Protein [Mass/Vol] 7.1 g/dL 6.4-8.3 [facility] Serum or plasma sodium measu rement (moles/volume)Ordered By: JACQUE NIEVES on 03-12-2023 Sodium [Moles/Vol] 137 mmol/L 136-145 [facility] Serum or plasma urea nitroge n measurement (mass/volume)Ordered By: JACQUE NIEVES on 03-12-2023 Urea nitrogen [Mass/Vol] 15.2 mg/dL 8.0-23.0 [facility] Serum total bilirubin measur ement (mass/volume)Ordered By: JACQUE NIEVES on 03-12-2023 Bilirubin [Mass/Vol] 0.4 mg/dL 0.2-1.2 [facility] Troponin T.cardiac [Mass/vol ume] in Serum or Plasma by High sensitivity methodOrdered By: JACQUE NIEVES on 03-12-2023 Troponin T.cardiac High sensitivity method [Mass/Vol] 9 ng/L 6-14 [facility] Comment on above: <6 ng/L Negative>/= 6 - <52 ng/L Suggest 1-hour delta hs-cTn>/= 52 ng/L Consistent with Ricardo distinguish between acute and chronic elevations of Cardiac Troponin (cTn), the [place] Definition of PR stresses the need for serial testing to detect a rise and/or fall of cTn above the 99th percentile upper reference limit of 22 ng/L, males and 14 ng/L, females consistent with clinical assessment, including ischemic symptoms and electrocardiographic changes WBC Auto (Bld) [#/Vol]Ordere d By: JACQUE NIEVES on 03-12-2023 WBC (Bld) [#/Vol] 4.7 10*3/uL 3.5-11.0 [facility] ui-Raumofg-Jnqziqoryw 2022 ho-Ztujdtz-Mrebeznc 9 ng/L Normal <15 [facility] Comment on above: Result Comment: <6 n g/L Negative >/= 6 - <52 ng/L Suggest 1-hour delta hs-cTn >/= 52 ng/L Consistent with PR To distinguish between acute and chronic elevations of Cardiac Troponin (cTn), the [place] Definition of PR stresses the need for serial testing to detect a rise and/or fall of cTn above the 99th percentile upper reference limit of 22 ng/L, males and 14 ng/L, females consistent with clinical assessment, including ischemic symptoms and electrocardiographic changes Performed By: #### T PNT-hs #### [facility] [address] [place] [address] , Rm Callahan M.D. FCAP, FASCP si-Leysyti-Iwxjhiod 6 ng/L Normal <15 [facility] Comment on above: Result Comment: <6 n g/L Negative >/= 6 - <52 ng/L Suggest 1-hour delta hs-cTn >/= 52 ng/L Consistent with PR To distinguish between acute and chronic elevations of Cardiac Troponin (cTn), the [place] Definition of PR stresses the need for serial testing to detect a rise and/or fall of cTn above the 99th percentile upper reference limit of 22 ng/L, males and 14 ng/L, females consistent with clinical assessment, including ischemic symptoms and electrocardiographic changes Performed By: #### T PNT-hs, ADP #### [facility] [address] [place] [address] , Rm Callahan M.D. FCAP, FASCP Absolute lymphocyte countOrd ered By: Rufina Gardner on 02-14-2023 Lymphocytes Auto (Unsp spec) [#/Vol] 1.69 10*3/uL 0.83-4.51 [facility] Basophil percentageOrdered B y: Rufina Gardner on 02-14-2023 Basophils/100 WBC (Bld) 0.6 % 0-1 [facility] Chloride [Moles/Vol] 112 mmol/L 98-107 [facility] Eosinophils/100 WBC (Bld) 1.0 % 0-5 [facility] Glucose [Mass/Vol] 148 mg/dL 74-106 [facility] Comment on above: Fasting Glucose resu lt greater than or equal to 126 mg/dL suggests DIABETES MELLITUS per A.D.A. criteria. Neutrophils (Bld) [#/Vol] 2.9 10*3/uL 2.0-7.7 [facility] Neutrophils/100 WBC (Bld) 56.7 % 47-70 [facility] Potassium [Moles/Vol] 3.8 mmol/L 3.5-5.1 [facility] Sodium [Moles/Vol] 140 mmol/L 136-145 [facility] WBC (Bld) [#/Vol] 5.2 10*3/uL 4.4-11.0 [facility] Blood erythrocytes count (nu mber/volume)Ordered By: Rufina Gardner on 02-14-2023 RBC (Bld) [#/Vol] 4.56 10*6/uL 4.2-5.4 [facility] Blood hemoglobin measurement (mass/volume)Ordered By: Rufina Gardner on 02-14-2023 Hemoglobin (Bld) [Mass/Vol] 13.5 g/dL 12.0-15.0 [facility] Blood lymphocytes/100 leukoc ytesOrdered By: Rufina Gardner on 02-14-2023 Lymphocytes/100 WBC (Bld) 32.6 % 19-41 [facility] Blood monocytes/100 leukocyt esOrdered By: Rufina Gardner on 02-14-2023 Monocytes/100 WBC (Bld) 8.7 % 0-10 [facility] Blood platelet mean volumeOr dered By: Rufina Gardner on 02-14-2023 Platelet mean volume (Bld) [Entitic vol] 10.9 fL 6.2-12.0 [facility] Determination of erythrocyte mean corpuscular volume (MCV)Ordered By: Rufina Gardner on 02-14-2023 MCV (RBC) [Entitic vol] 91.2 fL 81-99 [facility] Glucose Glucometer (dC) [M ass/Vol]Ordered By: Rufina Gardner on 02-14-2023 Glucose [Mass/Vol] 151 mg/dL 74-106 [facility] Comment on above: Snack GivenRepeat Te stDextrose 50 GivenMANAGEMENT OF PATIENT CARE PER NURSING PROTOCOL Hematocrit Auto (Bld) [Volum e fraction]Ordered By: Rufina Gardner on 02-14-2023 Hematocrit (Bld) [Volume fraction] 41.6 % 37-47 [facility] Laboratory - Chemistry and C hemistry - challengeOrdered By: Rufina Gardner on 02-14-2023 CO2 [Moles/Vol] 24.0 mmol/L 21.0-32.0 [facility] Urea nitrogen/Creatinine [Mass ratio] 11.7 mg/mg 10-20 [facility] Laboratory - Hematology and Cell countsOrdered By: Rufina Gardner on 02-14-2023 Erythrocyte distribution width (RBC) [Entitic vol] 42.3 fL 35.1-43.9 [facility] Erythrocyte distribution width (RBC) [Ratio] 12.6 % 11.6-14.6 [facility] Immature granulocytes/100 WBC (Bld) 0.400 % 0.0-0.9 [facility] Comment on above: IG% - Immature Granu locytes (promyelocytes, myelocytes and metamyelocytes) > 1% indicates that a LEFT SHIFT is Present. MCH (RBC) [Entitic mass] 29.6 pg 27.0-32.0 [facility] Nucleated RBC/100 WBC (Bld) [Ratio] 0 % 0-5 [facility] MCHC Auto (RBC) [Mass/Vol]Or dered By: Rufina Gardner on 02-14-2023 MCHC (RBC) [Mass/Vol] 32.5 g/dL 32-36 [facility] No Panel InformationOrdered By: Rufina Gardner on 02-14-2023 Estimated Creatinine Clearance Calc 68.71 ml/min [facility] Estimated GFR (MDRD) Amer 113 mL/min >60 [facility] Comment on above: GFR Calc Estimated GFR (MDRD) Non-Af Amer 93 mL/min >60 [facility] Comment on above: Non- GFR Calc Platelets bldOrdered By: Jemima Gardner on 02-14-2023 Platelets (Bld) [#/Vol] 224 10*3/uL 150-450 [facility] Serum or plasma calcium mariana urement (mass/volume)Ordered By: Rufina Gardner on 02-14-2023 Calcium [Mass/Vol] 8.3 mg/dL 8.5-10.1 [facility] Serum or plasma creatinine m easurement (mass/volume)Ordered By: Rufina Gardner on 02-14-2023 Creatinine [Mass/Vol] 0.68 mg/dL 0.55-1.02 [facility] Comment on above: The validity of the calculated GFR & GFRAA in patients over 70 years has not been determined. Clinical correlation is essential. Serum or plasma urea nitroge n measurement (mass/volume)Ordered By: Rufina Gardner on 02-14-2023 Urea nitrogen [Mass/Vol] 8 mg/dL 7-18 [facility] Thin prep Papanicolaou smear with manual screeningOrdered By: Rufina Gardner on 02-14-2023 Thin prep Papanicolaou smear with manual screening 4 5-15 [facility] Whole blood hemoglobin A1c/t otal hemoglobin ratio (mass fraction)Ordered By: Rufina Gardner on 02-14-2023 HbA1c (Bld) [Mass fraction] 6.6 % 3.8-5.6 [facility] Comment on above: Normal < 5.7 % Predi abetic 5.7 - 6.4 % Diabetic >or= 6.5 % Please note range changes. Basophil percentageOrdered B y: Rufina Gardner on 02-13-2023 Basophil percentage 2.4 mg/dL 2.5-4.9 [facility] Cholesterol [Mass/Vol] 171 mg/dL <200 [facility] Comment on above: <200 mg/dL Desirable 200-240 mg/dL Borderline >240 mg/dL High Risk Triglyceride [Mass/Vol] 92 mg/dL <199 [facility] Comment on above: The drugs N-Acetylcy steine and Metamizole may falsely depress this assay.Serum Triglycerides Reference Interval Normal <150 mg/dL Borderline high 150 - 199 mg/dL High 200 - 499 mg/dL Very High > or = 500 mg/dL Basophil percentageOrdered B y: Jamee Menard on 02-13-2023 Basophil percentage 0 SEEN /hpf 0-5 [facility] Bilirubin [Mass/Vol] 0.50 mg/dL 0.20-1.00 [facility] Comment on above: For patients on eltr ombopag therapy, use of Dimension [place] TBIL is not recommended. Protein [Mass/Vol] 7.2 g/dL 6.4-8.2 [facility] Bilirubin Test strip Ql (U)O rdered By: Jamee Menard on 02-13-2023 Bilirubin Ql (U) Negative Negative [facility] Direct bilirubinOrdered By: Jamee Menard on 02-13-2023 Bilirubin.direct [Mass/Vol] 0.09 mg/dL 0.00-0.30 [facility] Hyaline casts LM.LPF (Urine sed) [#/Area]Ordered By: Jamee Menard on 02-13-2023 Hyaline casts (Urine sed) [#/Area] 0 /[LPF] 0-5 [facility] Iron measurement (mass/mass) Ordered By: Rufina Gardner on 02-13-2023 Iron (Unsp spec) [Mass/Mass] 44 ug/dL 50-170 [facility] Ketones Test strip Ql (U)Ord ered By: Jamee Menard on 02-13-2023 Ketones Ql (U) 150 mg/dl Negative [facility] Comment on above: CRITICAL VALUE *HCRI TICAL VALUE VERIFIED. CALLED TO AILYN MACARIO RN (ED)02/13/23 0623 Mal Fofana.RESULTS READ BACK BY SAME . Laboratory - Chemistry and C hemistry - challengeOrdered By: Rufina Gardner on 02-13-2023 Free T4 [Mass/Vol] 1.25 ng/dL 0.76-1.46 [facility] Magnesium [Mass/Vol] 2.0 mg/dL 1.6-2.6 [facility] Cobalamin (Vitamin B12) [Mass/Vol] 605 pg/mL 211-911 [facility] Laboratory - Chemistry and C hemistry - challengeOrdered By: Jamee Menard on 02-13-2023 ALP [Catalytic activity/Vol] 74 U/L 45-117 [facility] ALT [Catalytic activity/Vol] 37 U/L 13-56 [facility] Globulin (S) [Mass/Vol] 3.2 g/dL 2.2-4.2 [facility] Mucus LM Ql (Urine sed)Order ed By: Jamee Menard on 02-13-2023 Mucus Ql (Urine sed) 0 SEEN /hpf [facility] Nitrite Test strip Ql (U)Ord ered By: Jamee Menard on 02-13-2023 Nitrite Ql (U) Negative Negative [facility] No Panel InformationOrdered By: Rufina Gardner on 02-13-2023 Thyroid Stimulating Hormone (TSH) 1.52 uIU/mL 0.358-3.74 [facility] Total Iron Binding Capacity 338 ug/dL 250-450 [facility] Vitamin D 25-Hydroxy 43.0 ng/mL [facility] Comment on above: Vitamin D 25(OH) Sta tus Range Deficiency <20 ng/mL (50nmol/L) Insufficiency 20 - 30 ng/mL (50 - 75 nmol/L) Sufficiency 30 - 100 ng/mL (75 - 250 nmol/L) Toxicity >100 ng/mL (>250 nmol/L) No Panel InformationOrdered By: Jamee Menard on 02-13-2023 Troponin I High Sensitivity 7 pg/mL 3.0-54.0 [facility] Comment on above: Please Note: New Rayne t Units and Gender Specific Reference Ranges. For more information see Policy Stat Procedure [place] High Sensitivity Troponin (TNIH) and attachments. Protein Test strip Ql (U)Ord ered By: Jamee Menard on 02-13-2023 Protein Ql (U) Negative Negative [facility] Serum or plasma albumin mariana urement (mass/volume)Ordered By: Jamee Menard on 02-13-2023 Albumin [Mass/Vol] 4.0 g/dL 3.2-5.0 [facility] Serum or plasma cholesterol in HDL measurement (mass/volume)Ordered By: Rufina Gardner on 02-13-2023 Cholesterol in HDL [Mass/Vol] 38 mg/dL >40 [facility] Comment on above: The drugs N-Acetylcy steine and Metamizole may falsely depress this assay. Reference Range HDL <40 mg/dL Low HDL Cholesterol HDL >or= 60 mg/dL High HDL Cholesterol Serum or plasma cholesterol in VLDL measurement (mass/volume)Ordered By: Rufina Gardner on 02-13-2023 Cholesterol in VLDL [Mass/Vol] 18 mg/dL 5-40 [facility] Serum or plasma ferritin daisy surement (mass/volume)Ordered By: Rufina Gardner on 02-13-2023 Ferritin [Mass/Vol] 83 ng/mL 8-252 [facility] Serum or plasma folate measu rement (mass/volume)Ordered By: Rufina Gardner on 02-13-2023 Folate [Mass/Vol] 40.20 ng/mL 3.1-55.4 [facility] Serum or plasma iron saturat ion measurement (mass fraction)Ordered By: Rufina Gardner on 02-13-2023 Iron saturation [Mass fraction] 13.0 % 15.0-55.0 [facility] Serum or plasma low density lipoprotein (LDL) cholesterol measurement (mass/volume)Ordered By: Rufina Gardner on 02-13-2023 Cholesterol in LDL [Mass/Vol] 115 mg/dL 0-130 [facility] Squamous epithelial cells de tection in urine sediment by light microscopyOrdered By: Jamee Menard on 02-13-2023 Epithelial cells.squamous LM Ql (Urine sed) 0 SEEN /hpf 5-10 [facility] Thin prep Papanicolaou smear with manual screeningOrdered By: Jamee Menard on 02-13-2023 Thin prep Papanicolaou smear with manual screening 25 U/L 15-37 [facility] Urine blood detectionOrdered By: Jamee Menard on 02-13-2023 RBC Ql (U) Negative Negative [facility] RBC Ql (U) 0 SEEN /hpf 0-5 [facility] Urine clarityOrdered By: Keisha Menard on 02-13-2023 Clarity (U) Clear Clear [facility] Urine color determinationOrd ered By: Jamee Menard on 02-13-2023 Color (U) Yellow Yellow [facility] Urine glucose detectionOrder ed By: Jamee Menard on 02-13-2023 Glucose Ql (U) Normal mg/dl Normal [facility] Urine leukocyte esterase det ection by dipstickOrdered By: Jamee Menard on 02-13-2023 Leukocyte esterase Test strip Ql (U) Negative Negative [facility] Urine pHOrdered By: Jamee Menard on 02-13-2023 pH (U) 6.0 [pH] 5.0 - 8.0 [facility] Urine sediment bacteria coun t by microscopy (number/high power field)Ordered By: Jamee Menard on 02-13-2023 Bacteria LM.HPF (Urine sed) [#/Area] 1 /[HPF] None Seen [facility] Urine specific gravity measu rementOrdered By: Jamee Menard on 02-13-2023 Specific gravity (U) [Rel density] 1.020 1.002-1.030 [facility] Urobilinogen Auto test strip Ql (U)Ordered By: Jamee Menard on 02-13-2023 Urobilinogen Ql (U) Normal mg/dl Normal [facility] - Hematology and Cell countson 01-28-2023 HbA1c (Bld) [Mass fraction] 7.2 % 4.2-6.3 [facility] Basophil percentageOrdered B y: Merrittbindu Leroy on 10-24-2022 Chloride [Moles/Vol] 104 mmol/L 98-107 [facility] Glucose [Mass/Vol] 142 mg/dL 74-106 [facility] Comment on above: Fasting Glucose resu lt greater than or equal to 126 mg/dL suggests DIABETES MELLITUS per A.D.A. criteria. Potassium [Moles/Vol] 3.9 mmol/L 3.5-5.1 [facility] Sodium [Moles/Vol] 138 mmol/L 136-145 [facility] Laboratory - Chemistry and C hemistry - challengeOrdered By: Chuyita Harper on 10-24-2022 CO2 [Moles/Vol] 30.0 mmol/L 21.0-32.0 [facility] Cobalamin (Vitamin B12) [Mass/Vol] 562 pg/mL 211-911 [facility] Urea nitrogen/Creatinine [Mass ratio] 15.9 mg/mg 10-20 [facility] No Panel InformationOrdered By: Chuyita Harper on 10-24-2022 Estimated GFR (MDRD) Amer 77 mL/min >60 [facility] Comment on above: GFR Calc Estimated GFR (MDRD) Non-Af Amer 64 mL/min >60 [facility] Comment on above: Non- GFR Calc Serum or plasma calcium mariana urement (mass/volume)Ordered By: Chuyita Harper on 10-24-2022 Calcium [Mass/Vol] 9.9 mg/dL 8.5-10.1 [facility] Serum or plasma creatinine m easurement (mass/volume)Ordered By: Chuyita Harper on 10-24-2022 Creatinine [Mass/Vol] 0.94 mg/dL 0.55-1.02 [facility] Comment on above: The validity of the calculated GFR & GFRAA in patients over 70 years has not been determined. Clinical correlation is essential. Serum or plasma urea nitroge n measurement (mass/volume)Ordered By: Chuyita Harper on 10-24-2022 Urea nitrogen [Mass/Vol] 15 mg/dL 7-18 [facility] Thin prep Papanicolaou smear with manual screeningOrdered By: Chuyita Harper on 10-24-2022 Thin prep Papanicolaou smear with manual screening 4 5-15 [facility] Whole blood hemoglobin A1c/t otal hemoglobin ratio (mass fraction)Ordered By: Chuyita Harper on 10-24-2022 HbA1c (Bld) [Mass fraction] 6.8 % 3.8-5.6 [facility] Comment on above: Normal < 5.7 % Predi abetic 5.7 - 6.4 % Diabetic >or= 6.5 % Please note range changes. Absolute lymphocyte countOrd ered By: Dr. Harper on 05-30-2022 Lymphocytes Auto (Unsp spec) [#/Vol] 1.68 10*3/uL 0.83-4.51 [facility] Basophil percentageOrdered B y: Dr. Harper on 05-30-2022 Basophils/100 WBC (Bld) 0.9 % 0-1 [facility] Bilirubin [Mass/Vol] 0.70 mg/dL 0.20-1.00 [facility] Comment on above: For patients on eltr ombopag therapy, use of Dimension [place] TBIL is not recommended. Chloride [Moles/Vol] 101 mmol/L 98-107 [facility] Cholesterol [Mass/Vol] 181 mg/dL <200 [facility] Comment on above: <200 mg/dL Desirable 200-240 mg/dL Borderline >240 mg/dL High Risk Eosinophils/100 WBC (Bld) 7.1 % 0-5 [facility] Glucose [Mass/Vol] 153 mg/dL 74-106 [facility] Comment on above: Fasting Glucose resu lt greater than or equal to 126 mg/dL suggests DIABETES MELLITUS per A.D.A. criteria. Neutrophils (Bld) [#/Vol] 2.1 10*3/uL 2.0-7.7 [facility] Neutrophils/100 WBC (Bld) 47.5 % 47-70 [facility] Potassium [Moles/Vol] 4.3 mmol/L 3.5-5.1 [facility] Protein [Mass/Vol] 7.2 g/dL 6.4-8.2 [facility] Sodium [Moles/Vol] 140 mmol/L 136-145 [facility] Triglyceride [Mass/Vol] 104 mg/dL <199 [facility] Comment on above: The drugs N-Acetylcy steine and Metamizole may falsely depress this assay.Serum Triglycerides Reference Interval Normal <150 mg/dL Borderline high 150 - 199 mg/dL High 200 - 499 mg/dL Very High > or = 500 mg/dL WBC (Bld) [#/Vol] 4.5 10*3/uL 4.4-11.0 [facility] Blood erythrocytes count (nu mber/volume)Ordered By: Dr. Harper on 05-30-2022 RBC (Bld) [#/Vol] 5.06 10*6/uL 4.2-5.4 [facility] Blood hemoglobin measurement (mass/volume)Ordered By: Dr. Harper on 05-30-2022 Hemoglobin (Bld) [Mass/Vol] 15.2 g/dL 12.0-15.0 [facility] Blood lymphocytes/100 leukoc ytesOrdered By: Dr. Harper on 05-30-2022 Lymphocytes/100 WBC (Bld) 37.4 % 19-41 [facility] Blood monocytes/100 leukocyt esOrdered By: Dr. Harper on 05-30-2022 Monocytes/100 WBC (Bld) 6.9 % 0-10 [facility] Blood platelet mean volumeOr dered By: Dr. Harper on 05-30-2022 Platelet mean volume (Bld) [Entitic vol] 10.7 fL 6.2-12.0 [facility] Determination of erythrocyte mean corpuscular volume (MCV)Ordered By: Dr. Harper on 05-30-2022 MCV (RBC) [Entitic vol] 89.1 fL 81-99 [facility] Hematocrit Auto (Bld) [Volum e fraction]Ordered By: Dr. Harper on 05-30-2022 Hematocrit (Bld) [Volume fraction] 45.1 % 37-47 [facility] Laboratory - Chemistry and C hemistry - challengeOrdered By: Dr. Harper on 05-30-2022 ALP [Catalytic activity/Vol] 78 U/L 45-117 [facility] ALT [Catalytic activity/Vol] 36 U/L 13-56 [facility] CO2 [Moles/Vol] 31.0 mmol/L 21.0-32.0 [facility] Cobalamin (Vitamin B12) [Mass/Vol] 1263 pg/mL 211-911 [facility] Globulin (S) [Mass/Vol] 3.2 g/dL 2.2-4.2 [facility] Urea nitrogen/Creatinine [Mass ratio] 13.0 mg/mg 10-20 [facility] Laboratory - Hematology and Cell countsOrdered By: Dr. Harper on 05-30-2022 Erythrocyte distribution width (RBC) [Entitic vol] 40.5 fL 35.1-43.9 [facility] Erythrocyte distribution width (RBC) [Ratio] 12.4 % 11.6-14.6 [facility] Immature granulocytes/100 WBC (Bld) 0.200 % 0.0-0.9 [facility] Comment on above: IG% - Immature Granu locytes (promyelocytes, myelocytes and metamyelocytes) > 1% indicates that a LEFT SHIFT is Present. MCH (RBC) [Entitic mass] 30.0 pg 27.0-32.0 [facility] Nucleated RBC/100 WBC (Bld) [Ratio] 0 % 0-5 [facility] MCHC Auto (RBC) [Mass/Vol]Or dered By: Dr. Harper on 05-30-2022 MCHC (RBC) [Mass/Vol] 33.7 g/dL 32-36 [facility] No Panel InformationOrdered By: Dr. Harper on 05-30-2022 Urine Microalbumin/Creatinine Ratio 8.5 mg/g CRE <30 [facility] Estimated GFR (MDRD) Amer 80 mL/min >60 [facility] Comment on above: GFR Calc Estimated GFR (MDRD) Non-Af Amer 66 mL/min >60 [facility] Comment on above: Non- GFR Calc Platelets bldOrdered By: Dr. Harper on 05-30-2022 Platelets (Bld) [#/Vol] 242 10*3/uL 150-450 [facility] Serum or plasma albumin mariana urement (mass/volume)Ordered By: Dr. Harper on 05-30-2022 Albumin [Mass/Vol] 4.0 g/dL 3.2-5.0 [facility] Serum or plasma albumin/glob ulin mass ratioOrdered By: Dr. Harper on 05-30-2022 Albumin/Globulin [Mass ratio] 1.2 {ratio} 0.9-2.4 [facility] Serum or plasma calcium mariana urement (mass/volume)Ordered By: Dr. Harper on 05-30-2022 Calcium [Mass/Vol] 10.3 mg/dL 8.5-10.1 [facility] Serum or plasma cholesterol in HDL measurement (mass/volume)Ordered By: Dr. Harper on 05-30-2022 Cholesterol in HDL [Mass/Vol] 42 mg/dL >40 [facility] Comment on above: The drugs N-Acetylcy steine and Metamizole may falsely depress this assay. Reference Range HDL <40 mg/dL Low HDL Cholesterol HDL >or= 60 mg/dL High HDL Cholesterol Serum or plasma cholesterol in VLDL measurement (mass/volume)Ordered By: Dr. Harper on 05-30-2022 Cholesterol in VLDL [Mass/Vol] 21 mg/dL 5-40 [facility] Serum or plasma creatinine m easurement (mass/volume)Ordered By: Dr. Harper on 05-30-2022 Creatinine [Mass/Vol] 0.92 mg/dL 0.55-1.02 [facility] Comment on above: The validity of the calculated GFR & GFRAA in patients over 70 years has not been determined. Clinical correlation is essential. Serum or plasma low density lipoprotein (LDL) cholesterol measurement (mass/volume)Ordered By: Dr. Harper on 05-30-2022 Cholesterol in LDL [Mass/Vol] 118 mg/dL 0-130 [facility] Serum or plasma urea nitroge n measurement (mass/volume)Ordered By: Dr. Harper on 05-30-2022 Urea nitrogen [Mass/Vol] 12 mg/dL 7-18 [facility] Thin prep Papanicolaou smear with manual screeningOrdered By: Dr. Harper on 05-30-2022 Thin prep Papanicolaou smear with manual screening 5.6 mg/L NO RANGE EST. [facility] Thin prep Papanicolaou smear with manual screening 19 U/L 15-37 [facility] Thin prep Papanicolaou smear with manual screening 8 5-15 [facility] Urine creatinine measurement (mass/volume)Ordered By: Dr. Harper on 05-30-2022 Creatinine (U) [Mass/Vol] 65.90 mg/dL NO RANGE EST. [facility] Whole blood hemoglobin A1c/t otal hemoglobin ratio (mass fraction)Ordered By: Dr. Harper on 05-30-2022 HbA1c (Bld) [Mass fraction] 6.7 % 3.8-5.6 [facility] Comment on above: Normal < 5.7 % Predi abetic 5.7 - 6.4 % Diabetic >or= 6.5 % Please note range changes. Laboratory - Hematology and Cell countson 03-10-2022 HbA1c (Bld) [Mass fraction] 6.8 % 4.2-6.3 [facility] Absolute lymphocyte counton 12-05-2021 Lymphocytes Auto (Unsp spec) [#/Vol] 1.81 10*3/uL 0.83-4.51 [facility] Work Phone: Basophil percentageon 2021 Basophils/100 WBC (Bld) 0.9 % 0-1 [facility] Work Phone: Bilirubin [Mass/Vol] 0.40 mg/dL 0.20-1.00 [facility] Work Phone: Comment on above: For patients on eltr ombopag therapy, use of Dimension [place] TBIL is not recommended. Chloride [Moles/Vol] 105 mmol/L 98-107 [facility] Work Phone: Eosinophils/100 WBC (Bld) 1.9 % 0-5 [facility] Work Phone: Glucose [Mass/Vol] 124 mg/dL 74-106 [facility] Work Phone: Comment on above: Fasting Glucose resu lt from 100 to 125 mg/dL suggests IMPAIRED HOMEOSTASIS per A.D.A. criteria. Neutrophils (Bld) [#/Vol] 2.4 10*3/uL 2.0-7.7 [facility] Work Phone: Neutrophils/100 WBC (Bld) 51.3 % 47-70 [facility] Work Phone: Potassium [Moles/Vol] 3.9 mmol/L 3.5-5.1 [facility] Work Phone: Protein [Mass/Vol] 7.4 g/dL 6.4-8.2 [facility] Work Phone: Sodium [Moles/Vol] 140 mmol/L 136-145 [facility] Work Phone: [phone] WBC (Bld) [#/Vol] 4.7 10*3/uL 4.4-11.0 [facility] Work Phone: Blood erythrocytes count (nu mber/volume)on 12-05-2021 RBC (Bld) [#/Vol] 4.95 10*6/uL 4.2-5.4 [facility] Work Phone: Blood hemoglobin measurement (mass/volume)on 12-05-2021 Hemoglobin (Bld) [Mass/Vol] 14.8 g/dL 12.0-15.0 [facility] Work Phone: [phone] Blood lymphocytes/100 leukoc yteson 12-05-2021 Lymphocytes/100 WBC (Bld) 38.8 % 19-41 [facility] Work Phone: [phone] Blood monocytes/100 leukocyt eson 12-05-2021 Monocytes/100 WBC (Bld) 6.9 % 0-10 [facility] Work Phone: Blood platelet mean volumeon 12-05-2021 Platelet mean volume (Bld) [Entitic vol] 10.4 fL 6.2-12.0 [facility] Work Phone: [phone] Determination of erythrocyte mean corpuscular volume (MCV)on 12-05-2021 MCV (RBC) [Entitic vol] 88.5 fL 81-99 [facility] Work Phone: [phone] Hematocrit Auto (Bld) [Volum e fraction]on 12-05-2021 Hematocrit (Bld) [Volume fraction] 43.8 % 37-47 [facility] Work Phone: Laboratory - Chemistry and C hemistry - challengeon 12-05-2021 ALP [Catalytic activity/Vol] 79 U/L 45-117 [facility] Work Phone: [phone] ALT [Catalytic activity/Vol] 30 U/L 13-56 [facility] Work Phone: [phone] CO2 [Moles/Vol] 30.0 mmol/L 21.0-32.0 [facility] Work Phone: [phone] Cobalamin (Vitamin B12) [Mass/Vol] 353 pg/mL 211-911 [facility] Work Phone: [phone] Globulin (S) [Mass/Vol] 3.3 g/dL 2.2-4.2 [facility] Work Phone: [phone] Urea nitrogen/Creatinine [Mass ratio] 21.6 mg/mg 10-20 [facility] Work Phone: [phone] Laboratory - Hematology and Cell countson 12-05-2021 Erythrocyte distribution width (RBC) [Entitic vol] 39.6 fL 35.1-43.9 [facility] Work Phone: [phone] Erythrocyte distribution width (RBC) [Ratio] 12.3 % 11.6-14.6 [facility] Work Phone: [phone] Immature granulocytes/100 WBC (Bld) 0.200 % 0.0-0.9 [facility] Work Phone: [phone] Comment on above: IG% - Immature Granu locytes (promyelocytes, myelocytes and metamyelocytes) > 1% indicates that a LEFT SHIFT is Present. MCH (RBC) [Entitic mass] 29.9 pg 27.0-32.0 [facility] Work Phone: [phone] Nucleated RBC/100 WBC (Bld) [Ratio] 0 % 0-5 [facility] Work Phone: [phone] MCHC Auto (RBC) [Mass/Vol]on 12-05-2021 MCHC (RBC) [Mass/Vol] 33.8 g/dL 32-36 [facility] Work Phone: [phone] Panel Informationon 12-05 Estimated GFR (MDRD) Amer 80 mL/min >60 [facility] Work Phone: Comment on above: GFR Calc Estimated GFR (MDRD) Non-Af Amer 66 mL/min >60 [facility] Work Phone: Comment on above: Non- GFR Calc Vitamin D 25-Hydroxy 68.1 ng/mL [facility] Work Phone: Comment on above: Vitamin D 25(OH) Sta tus Range Deficiency <20 ng/mL (50nmol/L) Insufficiency 20 - 30 ng/mL (50 - 75 nmol/L) Sufficiency 30 - 100 ng/mL (75 - 250 nmol/L) Toxicity >100 ng/mL (>250 nmol/L) Platelets bldon 12-05-2021 Platelets (Bld) [#/Vol] 236 10*3/uL 150-450 [facility] Work Phone: Serum or plasma albumin mariana urement (mass/volume)on 12-05-2021 Albumin [Mass/Vol] 4.1 g/dL 3.2-5.0 [facility] Work Phone: Serum or plasma albumin/glob ulin mass ratioon 12-05-2021 Albumin/Globulin [Mass ratio] 1.2 {ratio} 0.9-2.4 [facility] Work Phone: Serum or plasma calcium mariana urement (mass/volume)on 12-05-2021 Calcium [Mass/Vol] 9.5 mg/dL 8.5-10.1 [facility] Work Phone: Serum or plasma creatinine m easurement (mass/volume)on 12-05-2021 Creatinine [Mass/Vol] 0.92 mg/dL 0.55-1.02 [facility] Work Phone: Comment on above: The validity of the calculated GFR & GFRAA in patients over 70 years has not been determined. Clinical correlation is essential. Serum or plasma urea nitroge n measurement (mass/volume)on 12-05-2021 Urea nitrogen [Mass/Vol] 20 mg/dL -18 [facility] Work Phone: Thin prep Papanicolaou smear with manual screeningon 12-05-2021 Thin prep Papanicolaou smear with manual screening 18 U/L 15-37 [facility] Work Phone: [phone] Thin prep Papanicolaou smear with manual screening 5 5-15 [facility] Work Phone: [phone] Whole blood hemoglobin A1c/t otal hemoglobin ratio (mass fraction)on 12-05-2021 HbA1c (Bld) [Mass fraction] 6.7 % 3.8-5.6 [facility] Work Phone: Comment on above: Normal < 5.7 % Predi abetic 5.7 - 6.4 % Diabetic >or= 6.5 % Please note range changes. Whole blood hemoglobin A1c/t otal hemoglobin ratio (mass fraction)on 09-05-2021 HbA1c (Bld) [Mass fraction] 6.7 % 3.8-5.6 [facility] Work Phone: Comment on above: Normal < 5.7 % Predi abetic 5.7 - 6.4 % Diabetic >or= 6.5 % Please note range changes. Basophil percentageon 2021 Chloride [Moles/Vol] 103 mmol/L 98-107 [facility] Work Phone: Glucose [Mass/Vol] 155 mg/dL 74-106 [facility] Work Phone: Comment on above: Fasting Glucose resu lt greater than or equal to 126 mg/dL suggests DIABETES MELLITUS per A.D.A. criteria. Potassium [Moles/Vol] 4.2 mmol/L 3.5-5.1 [facility] Work Phone: [phone] Sodium [Moles/Vol] 139 mmol/L 136-145 [facility] Work Phone: [phone] Laboratory - Chemistry and C hemistry - challengeon 06-07-2021 CO2 [Moles/Vol] 30.0 mmol/L 21.0-32.0 [facility] Work Phone: [phone] Urea nitrogen/Creatinine [Mass ratio] 17.0 mg/mg 10-20 [facility] Work Phone: [phone] Panel Informationon 06-07 Estimated GFR (MDRD) Amer 84 mL/min >60 [facility] Work Phone: Comment on above: GFR Calc Estimated GFR (MDRD) Non-Af Amer 70 mL/min >60 [facility] Work Phone: Comment on above: Non- GFR Calc Serum or plasma calcium mariana urement (mass/volume)on 06-07-2021 Calcium [Mass/Vol] 9.8 mg/dL 8.5-10.1 [facility] Work Phone: Serum or plasma creatinine m easurement (mass/volume)on 06-07-2021 Creatinine [Mass/Vol] 0.88 mg/dL 0.55-1.02 [facility] Work Phone: Comment on above: The validity of the calculated GFR & GFRAA in patients over 70 years has not been determined. Clinical correlation is essential. Serum or plasma urea nitroge n measurement (mass/volume)on 06-07-2021 Urea nitrogen [Mass/Vol] 15 mg/dL - [facility] Work Phone: Thin prep Papanicolaou smear with manual screeningon 06-07-2021 Thin prep Papanicolaou smear with manual screening 6 09-01 [facility] Work Phone: Vital Signs Date Time Vital Sign Value Performing Clinician Siri yuen 10-15-2024 20:12-0400 Body temperature 98 [degF] Dr. Chuyita Harper MD Work Phone: [facility] 10-15-2024 20:12-0400 Diastolic blood pressure 74 mm[Hg] Dr. Chuyita Harper MD Work Phone: [facility] 10-15-2024 20:12-0400 Heart rate 78 /min Dr. Chuyita Harper MD Work Phone: [facility] 10-15-2024 20:12-0400 Respiratory rate 18 /min Dr. Chuyita Harper MD Work Phone: [facility] 10-15-2024 20:12-0400 SaO2% (BldA) [Mass fraction] 99 % Dr. Chuyita Harper MD Work Phone: [facility] 10-15-2024 20:12-0400 Systolic blood pressure 160 mm[Hg] Dr. Chuyita Harper MD Work Phone: [facility] 10-15-2024 15:15-0400 Body height 160.[address] Chuyita Harper MD Work Phone: [facility] 04-29-2023 08:51-0500 Body height 157.[address] Chuyita Harper Work Phone: [facility] 04-29-2023 08:51-0500 Body mass index (BMI) [Ratio] 33 kg/m2 Dr. Chuyita Harper Work Phone: [facility] 04-29-2023 08:51-0500 Body temperature 97.4 [degF] Dr. Chuyita Harper Work Phone: [facility] 04-29-2023 08:51-0500 Body weight 82.[address] Chuyita Harper Work Phone: [facility] 04-29-2023 08:51-0500 Diastolic blood pressure 80 mm[Hg] Dr. Chuyita Harper Work Phone: [facility] 04-29-2023 08:51-0500 Heart rate 78 /min Dr. Chuyita Harper Work Phone: [facility] 04-29-2023 08:51-0500 Respiratory rate 16 /min Dr. Chuyita Harper Work Phone: [facility] 04-29-2023 08:51-0500 SaO2% (BldA) [Mass fraction] 99 % Dr. Chuyita Harper Work Phone: [facility] 04-29-2023 08:51-0500 Systolic blood pressure 112 mm[Hg] Dr. Chuyita Harper Work Phone: [facility] 03-12-2023 13:23-0500 Diastolic blood pressure 80 mm[Hg] DO GAURAV ARAYA Work Phone: [facility] 03-12-2023 13:23-0500 Heart rate 91 /min DO GAURAV ARAYA Work Phone: [facility] 03-12-2023 13:23-0500 Respiratory rate 18 /min DO GAURAV ARAYA Work Phone: [facility] 03-12-2023 13:23-0500 SaO2% (BldA) [Mass fraction] 100 % DO GAURAV ARAYA Work Phone: [facility] 03-12-2023 13:23-0500 Systolic blood pressure 167 mm[Hg] DO GAURAV ARAYA Work Phone: [facility] 03-12-2023 12:04-0500 Body temperature 98.7 [degF] DO GAURAV ARAYA Work Phone: [facility] 03-12-2023 11:56-0500 Body height 160.02 cm DO GAURAV ARAYA Work Phone: [facility] 03-12-2023 11:56-0500 Body mass index (BMI) [Ratio] 31.9 kg/m2 DO GAURAV ARAYA Work Phone: [facility] 03-12-2023 11:56-0500 Body weight 81.64 kg DO GAURAV ARAYA Work Phone: [facility] 02-14-2023 15:13-0400 Body temperature 96.7 [degF] Dr. Chuyita Harper Work Phone: [facility] 02-14-2023 15:13-0400 Diastolic blood pressure 93 mm[Hg] Dr. Chuyita Harper Work Phone: [facility] 02-14-2023 15:13-0400 Heart rate 95 /min Dr. Chuyita Harper Work Phone: [facility] 02-14-2023 15:13-0400 Respiratory rate 16 /min Dr. Chuyita Harper Work Phone: [facility] 02-14-2023 15:13-0400 SaO2% (BldA) [Mass fraction] 97 % Dr. Chuyita Harper Work Phone: [facility] 02-14-2023 15:13-0400 Systolic blood pressure 137 mm[Hg] Dr. Chuyita Harper Work Phone: [facility] 02-13-2023 10:42-0400 Body height 159.[address] Chuyita Harper Work Phone: [facility] 02-13-2023 10:42-0400 Body mass index (BMI) [Ratio] 33.6 kg/m2 Dr. Chuyita Harper Work Phone: [facility] 02-13-2023 10:42-0400 Body weight 86.[address] Chuyita Harper Work Phone: [facility] 01-28-2023 10:49-0400 Body mass index (BMI) [Ratio] 34.2 kg/m2 Dr. Chuyita Harper Work Phone: [facility] 01-28-2023 10:49-0400 Body temperature 97.7 [degF] Dr. Chuyita Harper Work Phone: [facility] 01-28-2023 10:49-0400 Body weight 87.[address] Chuyita Harper Work Phone: [facility] 01-28-2023 10:49-0400 Diastolic blood pressure 90 mm[Hg] Dr. Chuyita Harper Work Phone: [facility] 01-28-2023 10:49-0400 Heart rate 109 /min Dr. Chuyita Harper Work Phone: [facility] 01-28-2023 10:49-0400 Inhaled oxygen flow rate 95 L/min Dr. Chuyita Harper Work Phone: [facility] 01-28-2023 10:49-0400 Respiratory rate 16 /min Dr. Chuyita Harper Work Phone: [facility] 01-28-2023 10:49-0400 SaO2% (BldA) [Mass fraction] 95 % Dr. Chuyita Harper Work Phone: [facility] 01-28-2023 10:49-0400 Systolic blood pressure 120 mm[Hg] Dr. Chuyita Harper Work Phone: [facility] 10-27-2022 11:25-0400 Body height 160.[address] Chuyita Harper Work Phone: [facility] 10-27-2022 11:25-0400 Body mass index (BMI) [Ratio] 33.3 kg/m2 Dr. Chuyita Harper Work Phone: [facility] 10-27-2022 11:25-0400 Body temperature 96 [degF] Dr. Chuyita Harper Work Phone: [facility] 10-27-2022 11:25-0400 Body weight 85.[address] Chuyita Harper Work Phone: [facility] 10-27-2022 11:25-0400 Diastolic blood pressure 78 mm[Hg] Dr. Chuyita Harper Work Phone: [facility] 10-27-2022 11:25-0400 Heart rate 72 /min Dr. Chuyita Harper Work Phone: [facility] 10-27-2022 11:25-0400 Respiratory rate 18 /min Dr. Chuyita Harper Work Phone: [facility] 10-27-2022 11:25-0400 SaO2% (BldA) [Mass fraction] 99 % Dr. Chuyita Harper Work Phone: [facility] 10-27-2022 11:25-0400 Systolic blood pressure 126 mm[Hg] Dr. Chuyita Harper Work Phone: [facility] 05-30-2022 09:12-0500 Body height 160.[address] Chuyita Harper Work Phone: [facility] 05-30-2022 09:12-0500 Body mass index (BMI) [Ratio] 32.4 kg/m2 Dr. Chuyita Harper Work Phone: [facility] 05-30-2022 09:12-0500 Body temperature 97.1 [degF] Dr. Chuyita Harper Work Phone: [facility] 05-30-2022 09:12-0500 Body weight [address] Chuyita Harper Work Phone: [facility] 05-30-2022 09:12-0500 Diastolic blood pressure 60 mm[Hg] Dr. Chuyita Harper Work Phone: [facility] 05-30-2022 09:12-0500 Heart rate 90 /min Dr. Chuyita Harper Work Phone: [facility] 05-30-2022 09:12-0500 Respiratory rate 18 /min Dr. Chuyita Harper Work Phone: [facility] 05-30-2022 09:12-0500 SaO2% (BldA) [Mass fraction] 96 % Dr. Chuyita aHrper Work Phone: [facility] 05-30-2022 09:12-0500 Systolic blood pressure 122 mm[Hg] Dr. Chuyita Harper Work Phone: [facility] 03-10-2022 08:21-0500 Body mass index (BMI) [Ratio] 32.5 kg/m2 Dr. Chuyita Harper Work Phone: [facility] 03-10-2022 08:21-0500 Body temperature 96.9 [degF] Dr. Chuyita Harper Work Phone: [facility] 03-10-2022 08:21-0500 Body weight 83.[address] Chuyita Harper Work Phone: [facility] 03-10-2022 08:21-0500 Diastolic blood pressure 78 mm[Hg] Dr. Chuyita Harper Work Phone: [facility] 03-10-2022 08:21-0500 Heart rate 68 /min Dr. Chuyita Harper Work Phone: [facility] 03-10-2022 08:21-0500 Respiratory rate 16 /min Dr. Chuyita Harper Work Phone: [facility] 03-10-2022 08:21-0500 SaO2% (BldA) [Mass fraction] 99 % Dr. Chuyita Harper Work Phone: [facility] 03-10-2022 08:21-0500 Systolic blood pressure 112 mm[Hg] Dr. Chuyita Harper Work Phone: [facility] 12-05-2021 13:55-0400 Body height 160.[address] Chuyita Harper Work Phone: [facility] Work Phone: 12-05-2021 13:55-0400 Body mass index (BMI) [Ratio] 32.9 kg/m2 Dr. Chuyita Harper Work Phone: [facility] Work Phone: 12-05-2021 13:55-0400 Body temperature 96.8 [degF] Dr. Chuyita Harper Work Phone: [facility] Work Phone: 12-05-2021 13:55-0400 Body weight 84.[address] Chuyita Harper Work Phone: [facility] Work Phone: 12-05-2021 13:55-0400 Diastolic blood pressure 82 mm[Hg] Dr. Chuyita Harper Work Phone: [facility] Work Phone: 12-05-2021 13:55-0400 Heart rate 80 /min Dr. Chuyita Harper Work Phone: [facility] Work Phone: 12-05-2021 13:55-0400 Respiratory rate 16 /min Dr. Chuyita Harper Work Phone: [facility] Work Phone: 12-05-2021 13:55-0400 SaO2% (BldA) [Mass fraction] 99 % Dr. Chuyita Hraper Work Phone: [facility] Work Phone: 12-05-2021 13:55-0400 Systolic blood pressure 124 mm[Hg] Dr. Chuyita Harper Work Phone: [facility] Work Phone: 09-04-2021 08:28-0400 Body mass index (BMI) [Ratio] 34.5 kg/m2 Dr. Chuyita Harper Work Phone: [facility] Work Phone: 09-04-2021 08:28-0400 Body temperature 97 [degF] Dr. Chuyita Harper Work Phone: [facility] Work Phone: 09-04-2021 08:28-0400 Body weight 88.[address] Chuyita Harper Work Phone: [facility] Work Phone: 09-04-2021 08:28-0400 Diastolic blood pressure 82 mm[Hg] Dr. Chuyita Harper Work Phone: [facility] Work Phone: 09-04-2021 08:28-0400 Heart rate 80 /min Dr. Chuyita Harper Work Phone: [facility] Work Phone: 09-04-2021 08:28-0400 Respiratory rate 14 /min Dr. Chuyita Harper Work Phone: [facility] Work Phone: 09-04-2021 08:28-0400 SaO2% (BldA) [Mass fraction] 98 % Dr. Chuyita Harper Work Phone: [facility] Work Phone: 09-04-2021 08:28-0400 Systolic blood pressure 130 mm[Hg] Dr. Chuyita Harper Work Phone: [facility] Work Phone: 09-04-2021 08:28-0400 Body height 160.[address] Chuyita Harper Work Phone: [facility] Work Phone: 06-07-2021 09:13-0500 Body mass index (BMI) [Ratio] 34.5 kg/m2 Dr. Chuyita Harper Work Phone: [facility] Work Phone: 06-07-2021 09:13-0500 Body temperature 97.7 [degF] Dr. Chuyita Harper Work Phone: [facility] Work Phone: 06-07-2021 09:13-0500 Body weight 88.[address] Chuyita Harper Work Phone: [facility] Work Phone: 06-07-2021 09:13-0500 Diastolic blood pressure 84 mm[Hg] Dr. Chuyita Harper Work Phone: [facility] Work Phone: 06-07-2021 09:13-0500 Heart rate 85 /min Dr. Chuyita Harper Work Phone: [facility] Work Phone: 06-07-2021 09:13-0500 Respiratory rate 18 /min Dr. Chuyita Harper Work Phone: [facility] Work Phone: 06-07-2021 09:13-0500 SaO2% (BldA) [Mass fraction] 99 % Dr. Chuyita Harper Work Phone: [facility] Work Phone: 06-07-2021 09:13-0500 Systolic blood pressure 126 mm[Hg] Dr. Chuyita Harper Work Phone: [facility] Work Phone: Encounters Encounter Date Encounter Type Care Provider Facility Start: 10-15-2024 End: 10-15-2024 Emergency department patient visit Dr. Chuyita Harper MD Work Phone: -Emergency Department Work Phone: Start: 11-27-2023 End: 11-27-2023 ambulatory Chuyita Harper Facility:[facility] Start: 11-10-2023 End: 11-10-2023 Emergency department patient visit [facility] Facility:[facility] Start: 04-29-2023 End: 04-29-[address] Chuyita Harper Work Phone: [facility] Internal Medicine Work Phone: Start: 04-27-2023 End: 04-27-[address] Chuyita Harper Work Phone: [facility] Work Phone: Start: 04-27-2023 End: 04-27-[address] Chuyita Harper Work Phone: [facility]-Laboratory, BIM Start: 03-12-2023 End: 03-12-2023 Emergency department patient visit GAURAV ARAYA Facility:[facility] Start: 03-12-2023 Evaluation and management of inpatient ANGELA HOLLINGSWORTH [facility] Ambulatory Start: 03-12-2023 End: 03-12-2023 Emergency department patient visit DO GAURAV ARAYA Work Phone: [facility]-Emergency Room Work Phone: Start: 02-20-[address] Kiana Harper Work Phone: [facility]-Cardiovascular Services Work Phone: Start: 02-14-2023 Non-patient / Non-visit Dr. Pallavi Harper Work Phone: [facility] Inpatient Physicians Work Phone: Start: 02-13-2023 Non-patient / Non-visit Dr. Pallavi Harper Work Phone: [facility] Start: 02-13-2023 End: 02-14-2023 Evaluation and management of inpatient Dr. Chuyita Harper Work Phone: [facility]-Progressive Care Unit Work Phone: Start: 02-13-2023 End: 02-14-[address] Chuyita Harper Work Phone: [facility] Work Phone: Start: 01-28-2023 End: 01-28-[address] Chuyita Harper Work Phone: [facility] Internal Medicine Work Phone: Start: 11-06-2022 End: 11-06-[address] Chuyita Harper Work Phone: [facility]-Outpatient Bone Densitometry Work Phone: Start: 10-27-[address] Chuyita Harper Work Phone: [facility] Start: 10-27-2022 End: 10-27-2022 Encounter for general adult medical examination without abnormal findings Dr. Chuyita Harper Work Phone: [facility] Start: 10-27-2022 End: 10-27-[address] Chuyita Harper Work Phone: [facility] Internal [facility] Work Phone: Start: 10-24-2022 End: 10-24-[address] Chuyita Harper Work Phone: [facility] Work Phone: Start: 10-24-2022 End: 10-24-[address] Chuyita Harper Work Phone: [facility]-Laboratory, CONTINENTAL Start: 05-30-2022 End: 05-30-[address] Chuyita Harper Work Phone: [facility] Work Phone: Start: 05-30-2022 End: 05-30-[address] Chuyita Harper Work Phone: [facility] Internal [facility] Start: 03-10-2022 End: 03-10-[address] Chuyita Harper Work Phone: [facility] Internal [facility] Start: 12-05-2021 End: 12-05-[address] Chuyita Harper Work Phone: [facility] Work Phone: Start: 12-05-2021 End: 12-05-[address] Chuyita Harper Work Phone: [facility] Internal Medicine Start: 09-05-2021 End: 09-05-[address] Chuyita Harper Work Phone: [facility]-Laboratory, [facility] Start: 09-04-2021 End: 09-04-[address] Chuyita Harper Work Phone: [facility] Internal Medicine Start: 06-07-2021 End: 06-07-[address] Chuyita Harper Work Phone: [facility]-Laboratory, [facility] Procedures Date Procedure Procedure Detail Performing Clinician Start: 10-15-2024 X-ray of chest, PA a nd lateral views Dr. Chuyita Harper MD Work Phone: Start: 02-13-2023 Plain chest X-ray Dr. Bg Harper Work Phone: Start: 02-13-2023 CT cervical spine wi thout contrast Dr. Chuyita Harper Work Phone: Start: 02-13-2023 CT of head without contrast Dr. Chuyita Harper Work Phone: Start: 11-06-2022 Dual energy X-ray absorptiometry Dr. Chuyita Harper Work Phone: Plan of Treatment Date Care Activity Detail Author Start: 10-15-2024 [facility] Start: 10-15-2024 [facility] Start: 02-19-2023 Cardiac event recording [facility] Start: 02-14-2023 Patient discharge [facility] Start: 02-13-2023 End: 02-13-2023 [facility] Start: 02-13-2023 Following clinical p athway protocol [facility] Start: 02-13-2023 Application of inter mittent pneumatic compression device [facility] Start: 02-13-2023 Assessment of risk o f venous thromboembolism [facility] Start: 02-13-2023 Care regimes management [facility] Start: 02-13-2023 Inhalation therapy procedure [facility] Start: 02-13-2023 Insertion of cathete r into peripheral vein [facility] Start: 02-13-2023 Measuring intake and output [facility] Start: 02-13-2023 Notification of physician [facility] Start: 02-13-2023 Providing care accor ding to standard [facility] Start: 02-13-2023 Provision of activity privileges [facility] Start: 02-13-2023 Admission procedure [facility] Start: 02-13-2023 Hospital admission, emergency, from emergency room, medical nature [facility] Start: 10-27-2022 Patient referral [facility] Work Phone: Cardiac event recording [facility] CBC W Auto Different ial panel - Blood [facility] DXA Bone [Mass/Area] Bone density [facility] Lipid 1996 panel - S melba or Plasma [facility] Patient Education [facility] Work Phone: Patient referral [facility] Work Phone: Troponin T.cardiac [ Mass/volume] in Serum or Plasma by High sensitivity method [facility] Vitamin B12 measurement [facility] Immunizations Immunization Date Immunization Notes Care Provider Lidia day 02-14-2023 influenza, injectabl e, quadrivalent, preservative free Dr. Chuyita Harper Work Phone: [facility] Payers Date Payer Category Payer Self-pay [id number] 2023 Unknown [id number] 2013 [id number] Unknown [id number] Unknown [id number] Unknown [id number] Social History Date Type Detail Facility Start: 09-04-2021 End: 04-29-2023 Tobacco smoking status PAIS Unknown if ever smoked [facility] Start: 1960 Sex Assigned At Female [facility] Start: 03-12-2023 End: 10-15-2024 Tobacco smoking status NHIS Never smoked tobacco (finding) [facility] Start: 03-12-2023 Never Smoked [facility] Goals Date Patient Goal Desired Activity /State Functional Status Date Assessment Result Facility 02-13-2023 Functional status Ambulates;Bathroom Priv ilege [facility] Work Phone: Mental Status Date Assessment Result Facility 03-12-2023 Cognitive function Person;Place;Time [facility] Work Phone: 02-13-2023 Cognitive function Level Of Cons ciousness Awake;Alert;Appropriate [facility] Work Phone: Clinical Notes 02-13-2023 to 10-15-2024 Note Date & Type Note Facility 10-15-2024 Discharge summary [facility] 10-15-2024 Radiology Diagnostic study note [facility] Imaging Services [address], [place] [address] Chest PA and Lateral MR#: [id number] Acct: [id number] Name: DWAIN SUTHERLAND NOEL Rep #: [id number] : 1960 F 64 From: Macarena Reed MD PCP: Dr. Chuyita Harper MD Status: R EG ER Study:Chest PA and Lateral Date of Exam: 10/15/24 Exam# [id number] Ordering Dr: Lexus Alfredo DO PROCEDURE: CHEST PA AND LATERAL 10/15/2024 REASON FOR EXAM: HTN TECHNIQUE: CHEST PA AND LATERAL COMPARISON: Chest radiograph 02/13/2023. FINDINGS: Hardware: None. Heart: The heart size is normal. Mediastinum: The mediastinal contour is unremarkable. Lungs: No focal consolidation, pleural effusion or pneumothorax. Bones: The bones are unremarkable. Cholecystectomy clips. RAD/Chest PA and Lateral IMPRESSION: NO ACUTE FINDINGS. Reading Location: [id number] CC: Dr. Chuyita Harper MD; Dr. Wiley Alfredo DO ~ Soda Tester: Signed [facility] 10-15-2024 Discharge summary Note Date/Time October 15, 2024 7:34pm [facility] Medical Records Department [address] [place] [id number] Emergency Department Summary 10/15/24 MR#: [id number] Acct: [id number] Name: DWAIN SUTHERLAND Rep #:[id number] : 1960 64 From: Wiley Alfredo DO PCP: Dr. Chuyita Harper MD Status:R EG ER Location: ED HPI History of Present Illness Chief Complaint: Anxiety Narrative Narrative: Patient is a 64-year-old female with past medical history hypertension, anemia, vitamin B12 deficiency, type 2 diabetes who presents to the emergency departmentwith the concern for panic attack. Patient states that she went to do anything specifically when she felt like she developed a panic attack. Patient notes that she has had this happen before her and came to the emergency department does not remember what medications were given. States that she took her blood pressure also at home and noted that it was high therefore she came here for further evaluation management. She notes that this was a wrist blood pressure cuff and notes that once I found out you could do a forearm pressure as opposedto a upper arm blood pressure does change my life she states that she does not like blood pressure taken on her upper arm as it squeezes her arm too tight. Patient states that she stopped taking her blood pressure medication months ago as she states that she wanted to get her blood pressure down with weight loss and on her own without any medication but states that this is not worked according to her [facility] Medical History Bilateral carpal tunnel syndrome Knee pain Arrhythmia Contusion of head Fall Syncope Ruptured appendix Mammogram declined Health care maintenance Post-menopausal Colon cancer screening Vitamin B12 deficiency Encounter for vitamin deficiency screening Dermatitis Type 2 diabetes mellitus Obesity Abnormal EKG Elevated random blood glucose level Anemia Hx of mitral valve prolapse Hypertension Home Medications ?Medication ?Instructions ?Recorded ?Last Taken ?Type multivitamin with iron 1 tab PO DAILY 05/10/21 Unkn own History losartan 50 mg tablet 50 mg PO DAILY #90 tabs 04/2011/07/23 Rx mecobalamin (vitamin B12) 1 tab PO DAILY 11/10/23 Unkn own History meloxicam 15 mg tablet 15 mg PO DAILY PRN pain #60 tabs 11/27/23 Unknown Rx losartan 50 mg tablet 50 mg PO DAILY 30 days #30 t abs 10/15/24 Unknown Rx Allergy/AdvReac Type Severity Reaction Status Date / Time gelatin (Gelatin) Allergy Unknown Verified 10/15/24 15:16 iodine Allergy Rash Verified 10/15/24 15:16 Family History Father Alcoholism Heart disease Respiratory [...] in: walking frequency: daily ROS ROS ED ROS Narrative constitutional: Denies headache, lightness numbness, fevers, chills Eyes: Denies change in vision double vision blurry vision Cardiovascular: Denies chest pain, palpitations Respiratory: Denies coughing wheezing shortness of breath Abdomen: Denies abdominal pain nausea vomit diarrhea : Denies any urinary symptoms Neurological: Denies any numbness, weakness, tingling Musculoskeletal: Denies back pain Skin: Denies any rashes or lesions Psychiatric: Complains of concern for panic attack EXAM Physical Exam Narrative Exam Narrative: General: Patient lying in bed rest comfortably did not appear to be acute distress Head: Atraumatic, normocephalic Eyes: PERRL bilaterally, EOMI bilateral, no conjunctival injection noted Neck: Soft, supple, trachea midline Cardiovascular: Patient tachycardic with regular rhythm no murmurs gallops rubs noted Respiratory: Clear to auscultation bilaterally Abdomen: Soft, nondistended, nontender to palpation Extremities: +5/5 strength noted in the bilateral upper and lower extremities, radial pulses +2/4 and above extremities, no pedal edema exam Neurological: Patient following commands knew that she was at [facility] the year is 2024. NIH of 0 GCS 15 Skin: Warm, dry, intact no rashes or lesions noted Const Vital Signs: 10/15/24 15:15 10/15/24 17:14 10/15/24 19:00 Temperature 98.3 F Temperature Source Oral Pulse Rate 114 H 96 87 Respiratory Rate 18 20 H 19 H Blood Pressure 224/113 H 183/95 H 162/93 H Blood Pressure Mean 150 124 116 Pulse Ox 98 97 99 Oxygen Delivery Method Room Air Room Air MDM MDM MDM Narrative Medical decision making narrative: Patient is a 64-year-old female who presented to the emergency department the chief complaint of concern for panic attack and elevated blood pressure. On thedifferential diagnose includes but not limited to hypertensive emergency, essential hypertension, ACS. Once workup is obtained and reviewed she will be reevaluated. Patient's CBC reviewed showed no evidence leukocytosis white blood count normal at 4.6, hemoglobin is 15, plate count of 211. Patient sodium was noted to be normal at 139, potassium low at 3.8, creatinine was 0.86. Patient's troponin was less than 6 with a delta troponin normal at 7. Patient's EKG showed sinus rhythm with a rate of 99 bpm this was compared to EKG from November 10, 2023 which is largely unchanged. Patient's TSH was noted to be normal at 1.77, free T4 andT3 were 1.40 and 2.6 respectively. Patient's chest x-ray reviewed showed no acute findings this was reviewed by myself and by radiology. On reevaluation patient she is feeling much improved she would like to go home at this point time. Patient was advised that a prescription for losartan will be sent to her pharmacy and according to our records here she was on 50 mg dailythis will be restarted. She will be advised to return with worsening symptoms or other concerns. She is agreeable this plan all question concerns answered she was discharged home in stable condition. Lab Data Labs: Laboratory Results - last 24 hr 10/15/24 10/15/24 16:24 18:00 WBC 4.6 RBC 5.01 Hgb 15.0 Hct 43.9 MCV 87.6 MCH 29.9 MCHC 34.2 RDW Std Deviation 40.1 RDW Coeff of Beverly 12.6 Plt Count 211 MPV 10.9 Immature Gran % (Auto) 0.400 Neut % (Auto) 58.5 Lymph % (Auto) 29.1 [place] % (Auto) 7.6 Eos % (Auto) 3.3 Baso % (Auto) 1.1 H Absolute Neuts (auto) 2.7 Absolute Lymphs (auto) 1.34 Nucleated RBC % 0 Sodium 139 Potassium 3.8 Chloride 103 Carbon Dioxide 24.6 Anion Gap 11 BUN 17 Creatinine 0.86 Est GFR (MDRD) Non-Af 76 BUN/Creatinine Ratio 20.0 Glucose 199 H Calcium 9.6 Troponin T High Sens < 6 Troponin T Hi Sens 2 Hr 7 TSH 1.770 Free T4 1.40 Free T3 pg/dL 2.6 Radiography Diagnostic Testing: Clinical Impression(s) from Imaging Studies Chest X-Ray 10/15/24 16:50 IMPRESSION: NO ACUTE FINDINGS. Reading Location: [facility] Discharge Plan Triage Chief Complaint: Anxiety ED Provider: Wiley Alfredo Dx/Rx/DC Orders Clinical Impression: Hypertension Prescriptions: New losartan 50 mg tablet 50 mg PO DAILY 30 Days Qty: 30 0RF No Action multivitamin with iron Tablet 1 tab PO DAILY losartan 50 mg tablet 50 mg PO DAILY Qty: 90 3RF meloxicam 15 mg tablet 15 mg PO DAILY PRN (Reason: pain) Qty: 60 1RF mecobalamin (vitamin B12) 1 tab PO DAILY Primary Care Provider: Chuyita Harper Referrals: Chuyita Harper MD [Primary Care Provider] - Activity Restrictions/Additional Instructions: Follow-up with your primary care physician. Take your blood pressure medicationand the rest of her prescriptions as prescribed. Your blood work today did not show any acute findings your chest x-ray was normal. Return with worsening symptoms or any other concerns Print Language: Armenian Disposition Disposition: Home, Self Care What to do if you have Problems For any increased pain, shortness of breath, bleeding, nausea or vomiting, chestpain, or any unexpected problems, contact your Primary Care Provider. Call [facility] ([phone]) or report to the closest Emergency Room. Call 911 if necessary. 10/15/241933 <Electronically signed by Wiley Alfredo DO> Cosigner Signature (if applicable): CC: Dr. Chuyita Harper MD ~ Signed [facility] Work Phone: 1(523) 478-797510-28-2023 Discharge summary Author Rufina Gardner [facility] February 14, 2023 12:26pm Note Date/Time February 14, 2023 1 2:26pm [facility] Medical Records Department [address] [place] [id number] Discharge Summary 02/14/23 1223 MR#: [id number] Acct: [id number] Name: DWAIN SUTHERLAND NOEL Rep #:[id number] : 1960 62 From: Rufina Gardner MD PCP: Dr. Chuyita Harper MD Status:A DM LADARIUS Location: [place] [address] Providers Date of Admission: 02/13/23 Date of [...] % (Auto) 56.7, Lymph % (Auto) 32.6, [place] % (Auto) 8.7, Eos % (Auto) 1.0, [...] Recorder Preventi (Urgent) Timeframe: 1 Day Facility: [facility] - Location: Cardiovascular Services Ordered By: Dr. Rufina Gardner Referrals / Follow Up: Chuyita Harper MD [Primary Care Provider] - Within 1 Week Disposition Disposition (needs filled in before D/C Order can be placed): Home, Self Care Charges/Coding Visit Charges Inpatient E&M: 43599 Disch Hosp >30min 02/14/23 1226 <Electronically signed by Rufina Gardner MD> Cosigner Signature (if applicable): CC: Dr. Chuyita Harper MD; Dr. Rufina Gardner MD~ Signed [facility] Work Phone: 1(568) 206-865510-28-2023 Discharge summary Author Rufina Gardner [facility] February 14, 2023 12:23pm Note Date/Time February 14, 2023 1 2:19pm [facility] Medical Records Department [address] [place] [address] Instructions for Home/Discharge Instructions 02/14/23 1219 MR#: [id number] Acct: [id number] Name: DWAIN USTHERLAND Rep #:[id number] : 1960 62 From: [...] Recorder Preventi (Urgent) Timeframe: 1 Day Facility: [facility] - Location: Cardiovascular Services Ordered By: Dr. Rufina Gardner Referrals / Follow Up: Chuyita Harper MD [Primary Care Provider] - Within 1 Week Disposition Disposition (needs filled in before D/C Order can be placed): Home, Self Care 02/14/23 1223<Electronically signed by Rufina Gardner MD>Rufina Gardner MD CC: Dr. Chuyita Harper MD; Dr. Herbie Rodriguez MD ~ Signed [facility] Work Phone: 1(514) 605-444310-27-2023 History and physical note Author Rufina Gardner [facility] February 13, 2023 8:01am Note Date/Time February 13, 2023 7 :46am [facility] Medical Records Department [address] [place] [id number] H&P Exam - Hospitalist 02/13/23 0744 MR#: [id number] Acct: [id number] Name: DWAIN SUTHERLAND NOEL Rep #:[id number] : 1960 62 From: Rufina Gardner MD PCP: Dr. Chuyita Harper MD Status:A DM LADARIUS Location: [place] [address] HPI - General General Date of Admission: [...] Denies any other preceding or accompanying symptoms. [facility] Medical History Abnormal EKG Anemia Colon cancer [...] % (Auto) 52.8, Lymph % (Auto) 37.3, [place] % (Auto) 6.7, Eos % (Auto) 1.9, [...] Clarity Clear, Urine pH 6.0, Ur Specific [place] 1.020, Urine Protein Negative, Urine Glucose (UA) [...] 60 minutes Charges/Coding Visit Charges Inpatient E&M: 01569 Init Hosp L2 02/13/23 0801 <Electronically signed by Rufina Gardner MD> Cosigner Signature (if applicable): CC: Dr. Chuyita Harper MD; Dr. Rufina Gardner MD~ Signed [facility] Work Phone: 1(604) 926-626210-27-2023 Discharge summary Author Jamee Menard [facility] February 13, 2023 7:51am Note Date/Time February 13, 2023 5 :41am [facility] Medical Records Department [address] [place] [address] Emergency Department Summary 02/13/23 MR#: [id number] Acct: [id number] Name: DWAIN SUTHERLAND Rep #:[id number] : 1960 62 From: Jamee Menard MD PCP: Dr. Chuyita Harper MD Status:A DM LADARIUS Location: [address] History of Present Illness Chief Complaint: [...] did eat oatmeal last night for dinner. [facility] Medical History Abnormal EKG Anemia Colon cancer [...] Medical decision making narrative: Patient placed on monitor worker. EKG obtained to evaluate for cardiac arrhythmia/ischemia. [...] % (Auto) 52.8 Lymph % (Auto) 37.3 [place] % (Auto) 6.7 Eos % (Auto) 1.9 [...] Clarity Clear Urine pH 6.0 Ur Specific [place] 1.020 Urine Protein Negative Urine Glucose (UA) [...] MD [Primary Care Provider] - Disposition Disposition: Acute Care Hospital [facility] What to do if you have Problems For any increased pain, shortness of breath, bleeding, nausea or vomiting, chestpain, or any unexpected problems, contact your Primary Care Provider. Call [facility] ([phone]) or report to the closest Emergency Room. Call 911 if necessary. 02/13/23 0751 <Electronically signed by Jamee Menard MD> Cosigner Signature (if applicable): CC: Dr. Chuyita Harper MD ~ Signed [facility] Work Phone: Evaluation note* Diagnosis Onset Date Resolution Status Obesity acute Hypertension chronic Obesity acute Dermatitis chronic Hypertension chronic Type 2 diabetes mellitus [facility] Work Phone: Evaluation note* Diagnosis Onset Date Resolution Status Obesity acute Dermatitis chronic Hypertension chronic Type 2 diabetes mellitus chr onic Encounter for vitamin deficiency screening acute Dermatitis chronic Hypertension chronic Type 2 diabetes mellitus [facility] Work Phone: Evaluation note* Diagnosis Onset Date Resolution Status Encounter for vitamin deficiency screening acute Hypertension chronic Obesity chronic Type 2 diabetes mellitus [facility] onic Vitamin B12 deficiency acute Hypertension chronic Type 2 diabetes mellitus [facility] Work Phone: Evaluation note* Diagnosis Onset Date Resolution Status Health care maintenance acut e Mammogram declined acute Hypertension chronic Type 2 diabetes mellitus [facility] Work Phone: Evaluation note* Diagnosis Onset Date Resolution Status Health care maintenance acut e Mammogram declined acute Hypertension chronic Type 2 diabetes mellitus chr onic Hypertension chronic Type 2 diabetes mellitus [facility] onic Vitamin B12 deficiency chron ic Contusion of head acute Fall acute Syncope acute [facility] Work Phone: Evaluation noteNo assessment information available [facility] Work Phone: Evaluation note* Diagnosis Onset Date Resolution Status Hypertension chronic Type 2 diabetes mellitus chr onic Vitamin B12 deficiency chron ic Syncope acute Syncope acute Hypertension chronic Type 2 diabetes mellitus chr onic [facility] Work Phone: Hospital Discharge instructionsAmbulatory Orders* General Surgery Location: None Selected [facility] Work Phone: Hospital Discharge instructions Additional Instructions [...] for sedation and repeat use has addiction potential.[facility] Work Phone: Hospital Discharge instructionsAdditional Instructions Follow-up with your primary care physician. Take your blood pressure medication and the rest of her prescriptions as prescribed. Your blood work today did not show any acute findings your chest x-ray was normal. [facility] with worsening symptoms or any [facility] Work Phone: Reason for referral (narrative)No reason for referral information availableWWilson Health Work Phone: Chief Complaint and Reason for [...] R/S FU Reason for Visit Health care arielle nce Mammogram declined Hypertension Type 2 diabetes mellitus Chief Complaint R/S FU POST-MENOPAUSAL 3 M FU SYNCOPE Syncope Reason for Visit Health care mainfarida nce Mammogram declined Hypertension Type 2 diabetes mellitus Hypertension Type 2 diabetes mellitus Vitamin B12 deficiency Contusion of head Fall Syncope Chief Complaint HYPERTENSION Chief Complaint 3 M FU SYNCOPE Syncope CONCERN FOR ARRYTHMIA 3 m fu Reason for Visit Hypertension Type 2 diabetes mellitus Vitamin B12 deficiency Syncope Syncope Hypertension Type 2 diabetes mellitus Chief Complaint Admit Date anxiety October 15, 2024 3:14 pm Family History No Family History Records Found [...] Will No May 05 4:07pm Power of Story Analyst No May 05, 2021 4:07pm Advance Directive Response Recorded Date/ Time Advance Directives No May 28, 2017 12:19am Living Will No May 05 3:07pm Power of Story Analyst No May 05, 2021 3:07pm Advance Directive Response Recorded Date/ Time Advance Directives No May 28, 2017 1:19am Living Will No February 13 10:42am Power of Story Analyst No February 13, 2023 10:42am Advance Directive Response Recorded Date/ Time Code Status Full Code March 12, 2 023 11:56am Advance Directive Response Recorded Date/ Time Advance Directives No May 28, 2017 12:19am Living Will No February 13 9:42am Power of Story Analyst No February 13, 2023 9:42am Advance Directive Response Recorded Date/ Time Do you have a Healthcare Power of Story Analyst? No October 15, 2024 3:56pm Advance Directives No May 28, 2017 1:19am Summary Purpose Additional Source Comments Goals (unrecognized [...] Dates Dr. Chuyita Harper MD Primary Care P rovider, Attending Provider, Referring Provider Active Team Status: [...] MD Attending Provider, Referring Pro vider Active Team Status: Active Member Role/Relationship Status Dates Dr. Chuyita Harper MD Primary Care Provider Active Team Status: Inactive Member Role/Relationship Status Dates Dr. Chuyita Harper MD Primary Care Provider Active Start: October 15, 2024 End: October 15, 2024 Dr. Wiley Alfredo DO Referring Provider Active Start: October 15, 2024 End: October 15, 2024 Dr. Wiley Alfredo , DO Emergency Provider Active Start: October 15, 2024 End: October 15, 2024 INFORMATION SOURCE (unrecogn ized section and content) DATE CREATED AUTHOR 06/19/2023 [facility] DATE CREATED AUTHOR AUTHOR'S KEYURMARISSA ATION 06/19/2023 [facility] DATE CREATED AUTHOR AUTHOR'S ORGANMARISSA ATION 10/23/[address] [facility] FOR RECORDS PERTAINING TO PATIENTS WHO ARE [...] BE BASED ON THE PRIMARY CLINICAL RECORDS. [employer] [facility]. provides no warranty or guarantee of the accuracy or completeness of information in this document.
[2024-12-27 02:10] VITALS: BP 181/94; PULSE 92; RESP 18; O2SAT 100
[2024-12-27 02:15] VITALS: BP 171/94; PULSE 90; RESP 18; O2SAT 98
[2024-12-27 02:21] VITALS: BP 171/94; PULSE 90; RESP 18; TEMP 36.1; O2SAT 98
== END 2024-12-27 02:21 | disposition home or self-care (01) ==
PROVIDERS: Emergency Provider Emergency Medicine; PCP Internal Medicine; Visit Provider Emergency Medicine
DX: R00.2 Palpitations (principal); E11.9 Type 2 diabetes mellitus without complications; F41.9 Anxiety disorder, unspecified; Z90.710 Acquired absence of both cervix and uterus; I10 Essential (primary) hypertension; Z90.49 Acquired absence of other specified parts of digestive tract
CPT/HCPCS: 93005; 99284; A4216